=== PATIENT | male | born 1930 | race Caucasian/White ===

== ENCOUNTER 2018-11-28 10:37 | Inpatient (IN) | payer MEDICARE, OTHER ==
[~2018-11-28] VITALS: Ht 177.8 cm; Wt 76.5 kg
[~2018-11-28 10:37] MED LIST: AMIO200T4 PO; ASPI-612 PO; DOCU100C28 PO; MELA3TAB2 PO; MIDO5TAB PO; PENI500T PO; SENN25TA PO; SIMV10TA3 PO; TAMS0.4C97 PO; WARF-31 PO; WARF2.5T71 PO
[2018-11-28] MEDS ORDERED: IPRATRPIUM/ALBUTEROL 0.5/2.5MG 3 ML NEBU. NEB ONE (11:00)
--- NOTE | 2018-11-28 11:22 | RAD ---
CHEST AP ONLY History: Shortness of air Comparison: 11/04/2018 Findings: Single view of the chest is submitted. There is again on triple lead left electronic cardiac device. Pericardial cardiac silhouette is again enlarged. There is now [id number] left pleural effusion, probable trace right pleural effusion. There is airspace opacity bilateral lung bases. There is no pneumothorax. Impression: 1. There is now small to moderate left pleural effusion, possible trace right pleural effusion. Findings could be due to left ventricular failure given the enlarged pericardial cardiac silhouette. Electronically signed by: Gonzalo Robledo MD (11/28/2018 11:19 AM) [id number]
--- NOTE | 2018-11-28 11:34 | EKG ---
[facility] [address] [place] [address] Test Date: 2018-11-28 Test Time: 11:21:21 Pat Name: KRISTIE CAMPUZANO Department: Room: Gender: M Community Service Manager: : [id number] Requested By: CHELSEA PRINGLE Order Number: [id number] Reading MD: Shantanu Crow MD Measurements Intervals [place] Rate: 91 P: MD: QRS: -60 QRSD: 146 T: 87 QT: 414 QTc: 511 Interpretive Statements V-PACED Electronically Signed On 12-03-2018 7:53:58 WELDER REPAIR by Shantanu Crow MD
[2018-11-28 11:43] LABS: BASO # 0.1 x10^3/uL (0.0-0.2); BASO % 1 % (0-3); EOS % 0 % (0-3); HEMATOCRIT 32.7 % (39.0-53.0); LYMPH # 0.9 x10^3/uL (1.0-4.8); LYMPH % 10 % (24-48); MEAN CORPUSCULAR HEMOGLOBIN 32 pg (25-35); MEAN CORPUSCULAR HGB CONC 34 g/dL (31-37); MEAN CORPUSCULAR VOLUME 95 fL (79-100); MONO # 0.8 x10^3/uL (0.0-1.1); MONO % 10 % (0-9); NEUT # 6.7 x10^3uL (1.8-7.7); NEUT % 79 % (31-73); PLATELET COUNT 464 x10^3/uL (140-400); RED BLOOD COUNT 3.44 x10^6/uL (4.30-5.70); RED CELL DISTRIBUTION WIDTH 14.9 % (11.5-14.5); WHITE BLOOD COUNT 8.5 x10^3/uL (4.0-11.0)
[2018-11-28 12:42] LABS: CALCIUM 8.3 mg/dL (8.5-10.1); CREATININE 1.2 mg/dL (0.7-1.3); GFR 57.4; POTASSIUM 4.7 mmol/L (3.5-5.1)
[2018-11-28 12:47] LABS: DIRECT BILIRUBIN 0.2 mg/dL (0.0-0.2); TOTAL BILIRUBIN 0.5 mg/dL (0.2-1.0); TOTAL PROTEIN 5.7 g/dL (6.4-8.2)
[2018-11-28] MEDS ORDERED: FUROSEMIDE 20 MG/2 ML VIAL. IVP ONE (14:00)
[2018-11-28] MEDS ORDERED: MORPHINE SULFATE 4 MG/ML VIAL. IV PRN (14:00)
[2018-11-28] MEDS ORDERED: ONDANSETRON PF 4 MG/2 ML VIAL. IV PRN (14:00)
--- NOTE | 2018-11-28 14:02 | PHYS DOC ---
Past Medical History Past Medical History: CHF, Hypotension, Renal Disease Past Surgical History: Pacemaker Additional Past Surgical Histo: Pacemaker placement Alcohol Use: None Drug Use: None Adult General Chief Complaint Chief Complaint: SHORTNESS OF BREATH HPI HPI 88-year-old male presenting the emergency department today with worsening shortness of breath over the past 2 months. It is exertional shortness of breath. He has a history of CHF hyperlipidemia and urinary retention. He has also noticed bilateral pedal edema which has been worsening over the past months. Location lungs. Duration intermittent. Improved with rest. Review of systems is negative for chest pain abdominal pain nausea vomiting diaphoresis. All other review of systems is negative unless otherwise noted in history of present illness. ED course: 88-year-old male presenting with shortness of breath. Chest x-ray suggestive of heart failure. Exam is suggestive heart failure. ProBNP is quite elevated. We will give the patient IV Lasix and admit him to the hospital for cardiology consultation and diuresis. EKG reviewed by myself shows a paced rhythm. Not consistent with ACS. Review of Systems Review of Systems SEE ABOVE. Current Medications Current Medications Current Medications Medications (Trade) Dose Ordered Sig/Teddy Start Time Stop Time Status Last Admin Dose Admin Albuterol/ Ipratropium (Duoneb) 3 ml 1X ONCE 11/28/18 11:00 11/28/18 11:01 DC 11/28/18 11:03 3 ML Allergies Allergies Allergies Coded Allergies Type Severity Reaction Last Updated Verified No Known Drug Allergies 11/04/18 No Physical Exam Physical Exam SEE ABOVE Constitutional: Well developed, well nourished, no acute distress, non-toxic appearance. [] HENT: Normocephalic, atraumatic, bilateral external ears normal, oropharynx moist, no oral exudates, nose normal. [] Eyes: PERRLA, EOMI, conjunctiva normal, no discharge. [] Neck: Normal range of motion, no tenderness, supple, no stridor. [] Cardiovascular: Mild crackles at the bases lungs. Lungs & Thorax: Bilateral breath sounds clear to auscultation [] Abdomen: Bowel sounds normal, soft, no tenderness, no masses, no pulsatile masses. [] Skin: Warm, dry, no erythema, no rash. [] Back: No tenderness, no CVA tenderness. [] Extremities: No tenderness, no cyanosis, no clubbing, ROM intact, 2+ edema. [] Neurologic: Alert and oriented X 3, normal motor function, normal sensory function, no focal deficits noted. [] Psychologic: Affect normal, judgement normal, mood normal. [] Current Patient Data Vital Signs Vital Signs Date Time Temp Pulse Resp B/P (MAP) Pulse Ox O2 Delivery O2 Flow Rate FiO2 11/28/18 11:03 96 Room Air 11/28/18 10:59 97.9 96 22 117/59 (78) 97.9 Lab Values Laboratory Tests Test 11/28/18 11:31 11/28/18 12:00 White Blood Count 8.5 x10^3/uL (4.0-11.0) Red Blood Count 3.44 x10^6/uL (4.30-5.70) L Hemoglobin 11.0 g/dL (13.0-17.5) L Hematocrit 32.7 % (39.0-53.0) L Mean Corpuscular Volume 95 fL (79-100) Mean Corpuscular Hemoglobin 32 pg (25-35) Mean Corpuscular Hemoglobin Concent 34 g/dL (31-37) Red Cell Distribution Width 14.9 % (11.5-14.5) H Platelet Count 464 x10^3/uL (140-400) H Neutrophils (%) (Auto) 79 % (31-73) H Lymphocytes (%) (Auto) 10 % (24-48) L Monocytes (%) (Auto) 10 % (0-9) H Eosinophils (%) (Auto) 0 % (0-3) Basophils (%) (Auto) 1 % (0-3) Neutrophils # (Auto) 6.7 x10^3uL (1.8-7.7) Lymphocytes # (Auto) 0.9 x10^3/uL (1.0-4.8) L Monocytes # (Auto) 0.8 x10^3/uL (0.0-1.1) Eosinophils # (Auto) 0.0 x10^3/uL (0.0-0.7) Basophils # (Auto) 0.1 x10^3/uL (0.0-0.2) Sodium Level 131 mmol/L (136-145) L Potassium Level 4.7 mmol/L (3.5-5.1) Chloride Level 97 mmol/L (98-107) L Carbon Dioxide Level 27 mmol/L (21-32) Anion Gap 7 (6-14) Blood Urea Nitrogen 22 mg/dL (8-26) Creatinine 1.2 mg/dL (0.7-1.3) Estimated GFR (Cockcroft-Gault) 57.4 Glucose Level 101 mg/dL (70-99) H Calcium Level 8.3 mg/dL (8.5-10.1) L Total Bilirubin 0.5 mg/dL (0.2-1.0) Direct Bilirubin 0.2 mg/dL (0.0-0.2) Aspartate Amino Transferase (AST) 36 U/L (15-37) Alanine Aminotransferase (ALT) 30 U/L (16-63) Alkaline Phosphatase 122 U/L (46-116) H Troponin I Quantitative 0.027 ng/mL (0.000-0.055) EO-Qub-E-Type Natriuretic Peptide 6741 pg/mL (0-449) H Total Protein 5.7 g/dL (6.4-8.2) L Albumin 2.0 g/dL (3.4-5.0) L Lipase 115 U/L (73-393) Laboratory Tests 11/28/18 11:31 Laboratory Tests 11/28/18 12:00 EKG EKG [] Radiology/Procedures Radiology/Procedures [] Course & Med Decision Making Course & Med Decision Making Pertinent Labs and Imaging studies reviewed. (See chart for details) [] Dragon Disclaimer Dragon Disclaimer This electronic medical record was generated, in whole or in part, using a voice recognition dictation system. Departure Departure Impression: Primary Impression: CHF exacerbation Disposition: ADMITTED INPATIENT Admitting Physician: Max Jenkins Condition: STABLE Referrals: UNKNOWN PCP NAME (PCP) CHELSEA PRINGLE MD Nov 28, 2018 14:02
--- NOTE | 2018-11-28 14:43 | PDOC1 ---
History and Physical Date of Admission Date of Admission DATE: 11/28/18 TIME: 14:43 Identification/Chief Complaint Chief Complaint seen in er with worsening shortness of breath , exertional shortness of breath. history of CHF hyperlipidemia and urinary retention. He has also noticed bilateral pedal edema which has been worsening Duration intermittent. Improved with rest. Review of systems is negative for chest pain abdominal pain nausea vomiting diaphoresis. Chest x-ray suggestive of heart failure. ProBNP , elevated. Past Medical History Past Medical History Past Medical History Past Medical History: CHF, Hypotension, Renal Disease Past Surgical History: Pacemaker Additional Past Surgical Histo: Pacemaker placement Alcohol Use: None Drug Use: None FAMILY HX HTN Cardiovascular: Other Musculoskeletal: Osteoarthritis Infectious disease: No pertinent hx Renal/: Other Dermatology: No pertinent hx Family History Family History: Hypertension, Family History Unknown Social History Smoke: No ALCOHOL: none Drugs: None Current Problem List Problem List Problems Medical Problems: (1) CHF exacerbation Status: Acute Current Medications Current Medications Current Medications Albuterol/ Ipratropium (Duoneb) 3 ml 1X ONCE NEB Last administered on at 11:03; Start 11/28/18 at 11:00; Stop 11/28/18 at 11:01; Status DC Furosemide (Lasix) 20 mg 1X ONCE IVP ; Start 11/28/18 at 14:00; Stop 11/28/18 at 14:01; Status DC Ondansetron HCl (Zofran) 4 mg PRN Q8HRS PRN IV NAUSEA/VOMITING; Start 11/28/18 at 14:00; Stop 11/29/18 at 13:59 Morphine Sulfate (Morphine Sulfate) 2 mg PRN Q2HR PRN IV PAIN; Start 11/28/18 at 14:00; Stop 11/29/18 at 13:59 Active Scripts Active Flomax (Tamsulosin Hcl) 0.4 Mg Cap.er.24h 0.4 Mg PO DAILY 30 Days Reported Warfarin Sodium 2.5 Mg Tablet 2.5 Mg PO SUN,SUN,,SAT,SUN Warfarin Sodium 5 Mg Tablet 5 Mg PO SUNDAY AND SUNDAY Simvastatin 10 Mg Tablet 1 Tab PO QHS Midodrine Hcl 5 Mg Tablet 5 Mg PO TID Melatonin 3 Mg Tablet 5 Mg PO HS PRN Ex-Lax Maximum Relief (Sennosides) 25 Mg Tablet 50 Mg PO DAILY Docusate Sodium 100 Mg Capsule 1 Cap PO BID PRN Aspirin Ec (Aspirin) 81 Mg Tablet. 1 Tab PO DAILY Amiodarone Hcl 200 Mg Tablet 1 Tab PO DAILY Allergies Allergies: Coded Allergies: No Known Drug Allergies (Unverified , 11/04/18) ROS General: YES: Fatigue; No: Chills, Night Sweats, Malaise, Appetite, Other PSYCHOLOGICAL ROS: No: Anxiety, Behavioral Disorder, Concentration difficultie , Decreased libido, Depression, Disorientation, Hallucinations, Hostility, Irritablity, Memory difficulties, Mood Swings, Obsessive thoughts, Physical abuse, Sexual abuse, Sleep disturbances, Suicidal ideation, Other Eyes: No Blurry vision, No Decreased vision, No Double vision, No Dry eyes, No Excessive tearing, No Eye Pain, No Itchy Eyes, No Loss of vision, No Photophobia , No Scotomata, No Uses contacts, No Uses glasses, No Other HEENT: No: Heacaches, Visual Changes, Hearing change, Nasal congestion, Nasal discharge, Oral lesions, Sinus pain, Sore Throat, Epistaxis, Sneezing, Snoring, Tinnitus, Vertigo, Vocal changes, Other ALLERGY AND IMMUNOLOGY: No: Hives, Insect Bite Sensitivity, Itchy/Watery Eyes, Nasal Congestion, Post Nasal Drip, Seasonal Allergies, Other Hematological and Lymphatic: No: Bleeding Problems, Blood Clots, Blood Transfusions, Brusing, Night Sweats, Pallor, Swollen Lymph Nodes, Other Breast: No New/Changing Breast Lumps, No Nipple changes, No Nipple discharge, No Other Respiratory: YES: Shortness of breath, SOB with excertion; No: Cough, Hemoptysis, Orthopnea, Pleuritic Pain, Sputum Changes, Stridor, Tachypnea, Wheezing, Other Cardiovascular: yes Paroxysmal Noc. Dyspnea Gastrointestinal: No Nausea, No Vomiting, No Abdominal Pain, No Diarrhea, No Constipation, No Melena, No Hematochezia, No Other Genitourinary: YES Retention Musculoskeletal: Yes Joint Stiffness Neurological: No Behavorial Changes, No Bowel/Bladder ControlChng, No Confusion , No Dizziness, No Gait Disturbance, No Headaches, No Impaired Coord/balance, No Memory Loss, No Numbness/Tingling, No Seizures, No Speech Problems, No Tremors, No Visual Changes, No Weakness, No Other Skin: No Dry Skin, No Eczema, No Hair Changes, No Lumps, No Mole Changes, No Mottling, No Nail Changes, No Pruritus, No Rash, No Skin Lesion Changes, No Other, No Acne Physical Exam Physical Exam Physical Exam Physical Exam SEE ABOVE Constitutional: Well developed, well nourished, mild acute distress, non-toxic appearance. [] HENT: Normocephalic, atraumatic, bilateral external ears normal, oropharynx moist, no oral exudates, nose normal. [] Eyes: PERRLA, EOMI, conjunctiva normal, no discharge. [] Neck: Normal range of motion, no tenderness, supple, no stridor. [] Cardiovascular: Mild crackles at the bases lungs. Lungs & Thorax: Bilateral breath sounds clear to auscultation [] Abdomen: Bowel sounds normal, soft, no tenderness, no masses, no pulsatile masses. [] Skin: Warm, dry, no erythema, no rash. [] Back: No tenderness, no CVA tenderness. [] Extremities: No tenderness, no cyanosis, no clubbing, ROM intact, 2+ edema. [] Neurologic: Alert and oriented X 3, normal motor function, normal sensory function, no focal deficits noted. [] Psychologic: Affect normal, judgement normal, mood normal. [] General: Cooperative, mild distress HEENT: EOMI, Mucous membr. moist/pink Lungs: Normal air movement Heart: no thrills Breasts: Not examined Abdomen: Soft Rectal Exam: not examined PELVIC: Examination not indicated Extremities: No cyanosis Neuro: Normal speech, Cranial nerves 3-12 NL Psych/Mental Status: Mental status NL, Mood NL Vitals Vitals Vital Signs Date Time Temp Pulse Resp B/P (MAP) Pulse Ox O2 Delivery O2 Flow Rate FiO2 11/28/18 11:03 96 Room Air 11/28/18 10:59 97.9 96 22 117/59 (78) 97.9 Labs Labs Laboratory Tests Test 11/28/18 11:31 11/28/18 12:00 White Blood Count 8.5 x10^3/uL (4.0-11.0) Red Blood Count 3.44 x10^6/uL (4.30-5.70) Hemoglobin 11.0 g/dL (13.0-17.5) Hematocrit 32.7 % (39.0-53.0) Mean Corpuscular Volume 95 fL (79-100) Mean Corpuscular Hemoglobin 32 pg (25-35) Mean Corpuscular Hemoglobin Concent 34 g/dL (31-37) Red Cell Distribution Width 14.9 % (11.5-14.5) Platelet Count 464 x10^3/uL (140-400) Neutrophils (%) (Auto) 79 % (31-73) Lymphocytes (%) (Auto) 10 % (24-48) Monocytes (%) (Auto) 10 % (0-9) Eosinophils (%) (Auto) 0 % (0-3) Basophils (%) (Auto) 1 % (0-3) Neutrophils # (Auto) 6.7 x10^3uL (1.8-7.7) Lymphocytes # (Auto) 0.9 x10^3/uL (1.0-4.8) Monocytes # (Auto) 0.8 x10^3/uL (0.0-1.1) Eosinophils # (Auto) 0.0 x10^3/uL (0.0-0.7) Basophils # (Auto) 0.1 x10^3/uL (0.0-0.2) Sodium Level 131 mmol/L (136-145) Potassium Level 4.7 mmol/L (3.5-5.1) Chloride Level 97 mmol/L (98-107) Carbon Dioxide Level 27 mmol/L (21-32) Anion Gap 7 (6-14) Blood Urea Nitrogen 22 mg/dL (8-26) Creatinine 1.2 mg/dL (0.7-1.3) Estimated GFR (Cockcroft-Gault) 57.4 Glucose Level 101 mg/dL (70-99) Calcium Level 8.3 mg/dL (8.5-10.1) Total Bilirubin 0.5 mg/dL (0.2-1.0) Direct Bilirubin 0.2 mg/dL (0.0-0.2) Aspartate Amino Transf (AST/SGOT) 36 U/L (15-37) Alanine Aminotransferase (ALT/SGPT) 30 U/L (16-63) Alkaline Phosphatase 122 U/L (46-116) Troponin I Quantitative 0.027 ng/mL (0.000-0.055) TG-Gzd-B-Type Natriuretic Peptide 6741 pg/mL (0-449) Total Protein 5.7 g/dL (6.4-8.2) Albumin 2.0 g/dL (3.4-5.0) Lipase 115 U/L (73-393) Laboratory Tests Test 11/28/18 11:31 11/28/18 12:00 White Blood Count 8.5 x10^3/uL (4.0-11.0) Red Blood Count 3.44 x10^6/uL (4.30-5.70) Hemoglobin 11.0 g/dL (13.0-17.5) Hematocrit 32.7 % (39.0-53.0) Mean Corpuscular Volume 95 fL (79-100) Mean Corpuscular Hemoglobin 32 pg (25-35) Mean Corpuscular Hemoglobin Concent 34 g/dL (31-37) Red Cell Distribution Width 14.9 % (11.5-14.5) Platelet Count 464 x10^3/uL (140-400) Neutrophils (%) (Auto) 79 % (31-73) Lymphocytes (%) (Auto) 10 % (24-48) Monocytes (%) (Auto) 10 % (0-9) Eosinophils (%) (Auto) 0 % (0-3) Basophils (%) (Auto) 1 % (0-3) Neutrophils # (Auto) 6.7 x10^3uL (1.8-7.7) Lymphocytes # (Auto) 0.9 x10^3/uL (1.0-4.8) Monocytes # (Auto) 0.8 x10^3/uL (0.0-1.1) Eosinophils # (Auto) 0.0 x10^3/uL (0.0-0.7) Basophils # (Auto) 0.1 x10^3/uL (0.0-0.2) Sodium Level 131 mmol/L (136-145) Potassium Level 4.7 mmol/L (3.5-5.1) Chloride Level 97 mmol/L (98-107) Carbon Dioxide Level 27 mmol/L (21-32) Anion Gap 7 (6-14) Blood Urea Nitrogen 22 mg/dL (8-26) Creatinine 1.2 mg/dL (0.7-1.3) Estimated GFR (Cockcroft-Gault) 57.4 Glucose Level 101 mg/dL (70-99) Calcium Level 8.3 mg/dL (8.5-10.1) Total Bilirubin 0.5 mg/dL (0.2-1.0) Direct Bilirubin 0.2 mg/dL (0.0-0.2) Aspartate Amino Transf (AST/SGOT) 36 U/L (15-37) Alanine Aminotransferase (ALT/SGPT) 30 U/L (16-63) Alkaline Phosphatase 122 U/L (46-116) Troponin I Quantitative 0.027 ng/mL (0.000-0.055) VT-Jsl-E-Type Natriuretic Peptide 6741 pg/mL (0-449) Total Protein 5.7 g/dL (6.4-8.2) Albumin 2.0 g/dL (3.4-5.0) Lipase 115 U/L (73-393) Images Images REASON: Acute renal failure PROCEDURE: RENAL COMPLETE BILATERAL Indication: Acute renal failure. Increasing creatinine. TECHNIQUE: Ultrasound of the kidneys and bladder. COMPARISON: None FINDINGS: The right kidney measures 10.6 x 4.7 x 4.0 cm (longitudinal, AP, transverse) with mildly dilated renal pelvis. There is an exophytic 1.2 x 1.0 x 1.0 cm hypoechoic lesion in the upper pole of the right kidney most likely a cyst. Bryant catheter is seen in the bladder with circumferential wall thickening measuring 6 mm. Left kidney measures 10.7 x 5.1 x 2.8 cm with dilated renal pelvis more than right side. Left kidney appears more echogenic than right side. IMPRESSION: 1. Bilaterally dilated renal pelvises, left more than right suggests mild hydronephrosis. 2. Circumferential wall thickening of the urinary bladder may be secondary to cystitis. Correlate with urinalysis. 3. Asymmetric echogenic appearance of the left kidney suggests underlying renal disease. Electronically signed by: Jhony Lorenzo DO (11/05/2018 8:56 AM) [id number] DICTATED and SIGNED BY: JHONY LORENZO DO DATE: 11/05/18 0852 VTE Prophylaxis Ordered VTE Prophylaxis Devices: Contraindicated VTE Pharmacological Prophylaxi: Yes Assessment/Plan Assessment/Plan IMPRESSION urinary retention / obstruction. Asymmetric echogenic appearance of the left kidney suggests underlying renal disease. Severe Hyponatremia, resolved [employer] Hyperkalemia, resolved - secondary to renal failure [employer] warfarin per pharmacy Afib - continue amio - warfarin HLD statin therapy Hypotension with syncopal episode, hospitalized at NOV 2018 - continue midodrine - TTE with Ef 30% - normal RECENT AM cortisol CHF, PLAN ADMIT CVC CARDS CONSULT CLAU BUSCH MD Nov 28, 2018 14:43
[2018-11-28 17:48] VITALS: BP 122/71
[2018-11-28 19:20] VITALS: BP 101/61
[2018-11-28] MEDS ORDERED: NON FORMULARY ITEM (Melatonin 5 MG) PO PRN (20:45)
[2018-11-28] MEDS ORDERED: DOCUSATE SODIUM 100 MG CAPSULE. PO PRN (20:45)
[2018-11-28] MEDS ORDERED: NON FORMULARY ITEM (Warfarin Sodium 5 MG) PO SCH (20:45)
[2018-11-28] MEDS: SIMVASTATIN 10 MG TABLET PO SCH (21:28)
[2018-11-28 23:19] VITALS: BP 104/72
[2018-11-29 01:45] LABS: BILIRUBIN,URINE NEGATIVE (NEG); CLARITY,URINE CLOUDY; COLOR,URINE YELLOW; NITRITE,URINE POSITIVE (NEG); PROTEIN,URINE NEGATIVE (NEG-TRACE)
[2018-11-29 01:52] LABS: BACTERIA,URINE MANY /HPF (0-FEW); SQUAMOUS EPITHELIAL CELL,UR OCC /LPF; WBC,URINE 20-40 /HPF (0-4)
[2018-11-29 03:08] VITALS: BP 118/72
[2018-11-29 05:14] LABS: BASO # 0.1 x10^3/uL (0.0-0.2); BASO % 1 % (0-3); EOS % 0 % (0-3); HEMATOCRIT 32.8 % (39.0-53.0); HEMOGLOBIN 11.2 g/dL (13.0-17.5); LYMPH # 1.5 x10^3/uL (1.0-4.8); LYMPH % 16 % (24-48); MEAN CORPUSCULAR HEMOGLOBIN 32 pg (25-35); MEAN CORPUSCULAR HGB CONC 34 g/dL (31-37); MEAN CORPUSCULAR VOLUME 94 fL (79-100); MONO # 0.9 x10^3/uL (0.0-1.1); MONO % 9 % (0-9); NEUT % 74 % (31-73); PLATELET COUNT 455 x10^3/uL (140-400); RED BLOOD COUNT 3.48 x10^6/uL (4.30-5.70); RED CELL DISTRIBUTION WIDTH 14.7 % (11.5-14.5); WHITE BLOOD COUNT 9.4 x10^3/uL (4.0-11.0)
[2018-11-29 05:36] LABS: PROTHROMBIN TIME PATIENT 66.2 SEC (11.7-14.0)
[2018-11-29 05:45] LABS: CALCIUM 8.2 mg/dL (8.5-10.1); CREATININE 1.2 mg/dL (0.7-1.3); GFR 57.4; POTASSIUM 4.1 mmol/L (3.5-5.1)
--- NOTE | 2018-11-29 05:50 | NUR ---
CRITICAL RESULTS: PROTIME-66.2, INR-7.7, DR BUSCH NOTIFIED ORDER RECEIVED TO GIVE VITAMIN K 5MG NOW, DAILY PT/INR, HOLD COUMADIN, NO BLEEDING NOTED, CALL LIGHT IN REACH. PMRN
--- NOTE | 2018-11-29 06:02 | NUR ---
Pharmacy Warfarin Dosing Note S:Pharmacy consulted to assist with anticoagulation therapy started with target INR: 2 -3 O:KRISTIE CAMPUZANO is a 88 year old M with Atrial Fibrillation LABS: Last INR: 7.7 Last HGB: 11 Last HCT: 32.7 Last PLT: 464 Last dose of Hold given on at Previous Regimen: 5MG SUN AND SUNDAY. 2.5 MG OTHER DAYS Vitamin K given: Y 5 MG PO Drug Interaction Changes: Ongoing Drug Interactions: A:INR of 7.7 is above desired range. Target range for this patient is: 2 -3 P: Warfarin dose: Hold Now Bridge Therapy: None Next INR due DAILY Pharmacy anticoagulation service will continue to follow. SELENA LEONARD RPH, 11/29/18 0603 Signed: 11/29/18 at 0603 by SELENA LEONARD RPH PHA
[2018-11-29] MEDS: MIDODRINE 5 MG TABLET PO SCH ×3 (06:19→18:02)
[2018-11-29] MEDS ORDERED: PHYTONADIONE 10 MG/ML ORAL SOLUTION. PO ONE (06:30)
[2018-11-29 07:00] VITALS: BP 116/83
[2018-11-29] MEDS: SENNOSIDES 8.6 MG TABLET PO SCH (08:48)
[2018-11-29] MEDS: AMIODARONE HCL 200 MG TABLET. PO SCH (08:48)
[2018-11-29] MEDS: TAMSULOSIN 0.4 MG CAP.ER.24H. PO SCH (08:48)
[2018-11-29] MEDS: ASPIRIN ENTERIC COATED 81 MG TABLET.DR. PO SCH (08:48)
--- NOTE | 2018-11-29 10:54 | PDOC2 ---
CARDIAC CONSULT DATE OF CONSULT Date of Consult DATE: 11/29/18 TIME: 10:11 REASON FOR CONSULT Reason for Consult: CHF REFERRING PHYSICIAN Referring Physician: Mindy SOURCE Source: Chart review, Patient HISTORY OF PRESENT ILLNESS HISTORY OF PRESENT ILLNESS This is an 88 yo male, with a history of CHF, CAD, NICM s/p Bi V ICD (Medtronic) , permanent AFIB who presented secondary to shortness of breath. Patient reports this has been present for the last couple of month. Normally occurs with exertion, but has been present at rest. Denies any specific chest pain, palpitations, dizziness, diaphoresis, or nausea/vomiting. Has noticed some slight LE edema. Wears compression stockings regularly. Denies any specific orthopnea or PND. [place] [facility] [place] due to location of residence, patient would like all inpatient and outpatient care to be at [facility]. Lives at home with son and [id number]. Uses cane to ambulate. Recently using walker for extended distances. [facility] records reviewed; 10/19/06 CONSERVATION COORDINATOR-D ([employer]) Generator change 07/12/2015 10/31/10 Cath - 70% stenosis in 2nd Dx (small to medium size) - mild disease in the prox, mid, and distal LAD and OMB - LVEF 20% 03/22/18 Stress test - Subtle apical inferior fixed defect is present, and a zone of injury/ infarction with retained viability cannot be excluded. The reduction in LVEF appears out of proportion to this perfusion defect, suggesting a NICM process. LVEF 18% 10/25/18 Echo - Mildly dilated LV with moderately depressed systolic function and global hypokinesis. EF 30% - Moderate bi-atrial enlargement - No significant valvular stenosis or regurg. - Mildly dilated sinuses of valsalva (3.7 cm) - PAP 30 mmHG 11/25/18 Br. Hoang Progress note 1. Severe NICM; SOA with mild activity. Possible related to AFIB and uncontrolled rates. On Amiodarone, which is not able to control the rates. The Amiodarone is possibly being used for high PVC burden. Low blood pressure preventing use of usual rate control agents. 2. Hypotension; on Midodrine 3. Permanent AFIB; with uncontrolled ventricular rate. on Coumadin for stroke prevention. Toprol 12.5mg is being added at HS to help with rate control. 4. S/p Bi V ICD 5. H/o high PVC burden and runs of NSVT, on amiodarone. Asymptomatic. 6. CAD- involving s small Dx branch, asymptomatic. Due to location, patient would like all cardiac care, both inpatient and outpatient, to be at [facility]. Patient scheduled to establish care with Dr. Crow. PAST MEDICAL HISTORY Cardiovascular: AFIB, CAD, CHF, HTN, Hyperlipidemia Pulmonary: No pertinent hx GI: No pertinent hx Heme/Onc: No pertinent hx Hepatobiliary: No pertinent hx Psych: No pertinent hx Musculoskeletal: Osteoarthritis Rheumatologic: No pertinent hx Infectious disease: No pertinent hx ENT: No pertinent hx Renal/: Chronic renal insuff, Other (urinary retention) Endocrine: No pertinent hx Dermatology: No pertinent hx PAST SURGICAL HISTORY Past Surgical History: Pacemaker (CONSERVATION COORDINATOR-D (Medtronic)) FAMILY HISTORY Family History: Cancer, Diabetes, Hypertension SOCIAL HISTORY Drugs: None Lives: with Family CURRENT MEDICATIONS CURRENT MEDICATIONS Current Medications Medications (Trade) Dose Ordered Sig/Teddy Route PRN Reason Start Time Stop Time Status Last Admin Dose Admin Albuterol/ Ipratropium (Duoneb) 3 ml 1X ONCE NEB 11/28/18 11:00 11/28/18 11:01 DC 11/28/18 11:03 Furosemide (Lasix) 20 mg 1X ONCE IVP 11/28/18 14:00 11/28/18 14:01 DC 11/28/18 16:42 Amiodarone HCl (Cordarone) 200 mg DAILY PO 11/29/18 09:00 11/29/18 08:48 Aspirin (Ecotrin) 81 mg DAILY PO 11/29/18 09:00 11/29/18 08:48 Docusate Sodium (Colace) 100 mg PRN BID PRN PO CONSTIPATION 1ST CHOICE 11/28/18 20:45 11/29/18 08:48 Simvastatin (Zocor) 10 mg QHS PO 11/28/18 21:00 11/28/18 21:28 Tamsulosin HCl (Flomax) 0.4 mg DAILY PO 11/29/18 09:00 11/29/18 08:48 Sennosides (Senna) 8.6 mg DAILY PO 11/29/18 09:00 11/29/18 08:48 Midodrine (Proamatine) 5 mg [id number] PO 11/29/18 07:00 11/29/18 06:19 Warfarin Sodium (Coumadin Per Pharmacy) 1 each PRN DAILY PRN MC SEE COMMENTS 11/29/18 01:15 11/29/18 06:02 Phytonadione (Mephyton Oral Soln) 5 mg 1X ONCE PO 11/29/18 06:30 11/29/18 06:31 DC 11/29/18 06:17 ALLERGIES ALLERGIES: Coded Allergies: No Known Drug Allergies (Unverified , 11/04/18) ROS Review of System 14 point ROS conducted with pertinent positives noted above in HPI. PHYSICAL EXAM General: Alert, Oriented X3, Cooperative, mild distress HEENT: Atraumatic, Mucous membr. moist/pink Lungs: Other (diminished base, fine basilar crackles ) Heart: No murmurs, Other (AFIB- intermittent v-paced. Occasional PVCs) Abdomen: No tenderness Extremities: Normal pulses, Other (trace bilateral LE edema ) Skin: No significant lesion Neuro: Normal speech, Sensation intact Psych/Mental Status: Mental status NL, Mood NL MUSCULOSKELETAL: Osteoarthritic changes both hands VITALS VITALS Vital Signs Date Time Temp Pulse Resp B/P (MAP) Pulse Ox O2 Delivery O2 Flow Rate FiO2 11/29/18 08:48 84 116/83 11/29/18 07:40 Room Air 11/29/18 07:00 98.0 16 98 2.0 98.0 LABS Lab: Laboratory Tests Test 11/28/18 11:31 11/28/18 12:00 11/28/18 17:00 11/28/18 20:20 White Blood Count 8.5 x10^3/uL (4.0-11.0) Red Blood Count 3.44 x10^6/uL (4.30-5.70) Hemoglobin 11.0 g/dL (13.0-17.5) Hematocrit 32.7 % (39.0-53.0) Mean Corpuscular Volume 95 fL (79-100) Mean Corpuscular Hemoglobin 32 pg (25-35) Mean Corpuscular Hemoglobin Concent 34 g/dL (31-37) Red Cell Distribution Width 14.9 % (11.5-14.5) Platelet Count 464 x10^3/uL (140-400) Neutrophils (%) (Auto) 79 % (31-73) Lymphocytes (%) (Auto) 10 % (24-48) Monocytes (%) (Auto) 10 % (0-9) Eosinophils (%) (Auto) 0 % (0-3) Basophils (%) (Auto) 1 % (0-3) Neutrophils # (Auto) 6.7 x10^3uL (1.8-7.7) Lymphocytes # (Auto) 0.9 x10^3/uL (1.0-4.8) Monocytes # (Auto) 0.8 x10^3/uL (0.0-1.1) Eosinophils # (Auto) 0.0 x10^3/uL (0.0-0.7) Basophils # (Auto) 0.1 x10^3/uL (0.0-0.2) Sodium Level 131 mmol/L (136-145) Potassium Level 4.7 mmol/L (3.5-5.1) Chloride Level 97 mmol/L (98-107) Carbon Dioxide Level 27 mmol/L (21-32) Anion Gap 7 (6-14) Blood Urea Nitrogen 22 mg/dL (8-26) Creatinine 1.2 mg/dL (0.7-1.3) Estimated GFR (Cockcroft-Gault) 57.4 Glucose Level 101 mg/dL (70-99) Calcium Level 8.3 mg/dL (8.5-10.1) Total Bilirubin 0.5 mg/dL (0.2-1.0) Direct Bilirubin 0.2 mg/dL (0.0-0.2) Aspartate Amino Transf (AST/SGOT) 36 U/L (15-37) Alanine Aminotransferase (ALT/SGPT) 30 U/L (16-63) Alkaline Phosphatase 122 U/L (46-116) Troponin I Quantitative 0.027 ng/mL (0.000-0.055) 0.021 ng/mL (0.000-0.055) 0.023 ng/mL (0.000-0.055) HS-Lwl-T-Type Natriuretic Peptide 6741 pg/mL (0-449) Total Protein 5.7 g/dL (6.4-8.2) Albumin 2.0 g/dL (3.4-5.0) Lipase 115 U/L (73-393) Test 11/29/18 01:30 11/29/18 04:50 11/29/18 07:40 Urine Collection Type Unknown Urine Color Yellow Urine Clarity Cloudy Urine pH 5.0 Urine Specific [place] 1.015 Urine Protein Negative mg/dL (NEG-TRACE) Urine Glucose (UA) Negative mg/dL (NEG) Urine Ketones (Stick) Negative mg/dL (NEG) Urine Blood Small (NEG) Urine Nitrite Positive (NEG) Urine Bilirubin Negative (NEG) Urine Urobilinogen Dipstick 1.0 mg/dL (0.2 mg/dL) Urine Leukocyte Esterase Large (NEG) Urine RBC 3-5 /HPF (0-2) Urine WBC 20-40 /HPF (0-4) Urine Squamous Epithelial Cells Occ /LPF Urine Bacteria Many /HPF (0-FEW) Urine Mucus Mod /LPF White Blood Count 9.4 x10^3/uL (4.0-11.0) Red Blood Count 3.48 x10^6/uL (4.30-5.70) Hemoglobin 11.2 g/dL (13.0-17.5) Hematocrit 32.8 % (39.0-53.0) Mean Corpuscular Volume 94 fL (79-100) Mean Corpuscular Hemoglobin 32 pg (25-35) Mean Corpuscular Hemoglobin Concent 34 g/dL (31-37) Red Cell Distribution Width 14.7 % (11.5-14.5) Platelet Count 455 x10^3/uL (140-400) Neutrophils (%) (Auto) 74 % (31-73) Lymphocytes (%) (Auto) 16 % (24-48) Monocytes (%) (Auto) 9 % (0-9) Eosinophils (%) (Auto) 0 % (0-3) Basophils (%) (Auto) 1 % (0-3) Neutrophils # (Auto) 7.0 x10^3uL (1.8-7.7) Lymphocytes # (Auto) 1.5 x10^3/uL (1.0-4.8) Monocytes # (Auto) 0.9 x10^3/uL (0.0-1.1) Eosinophils # (Auto) 0.0 x10^3/uL (0.0-0.7) Basophils # (Auto) 0.1 x10^3/uL (0.0-0.2) Prothrombin Time 66.2 SEC (11.7-14.0) Prothromb Time International Ratio 7.7 (0.8-1.1) Sodium Level 133 mmol/L (136-145) Potassium Level 4.1 mmol/L (3.5-5.1) Chloride Level 98 mmol/L (98-107) Carbon Dioxide Level 25 mmol/L (21-32) Anion Gap 10 (6-14) Blood Urea Nitrogen 21 mg/dL (8-26) Creatinine 1.2 mg/dL (0.7-1.3) Estimated GFR (Cockcroft-Gault) 57.4 Glucose Level 98 mg/dL (70-99) Calcium Level 8.2 mg/dL (8.5-10.1) Glucose (Fingerstick) 94 mg/dL (70-99) ECHOCARDIOGRAM ECHOCARDIOGRAM <Conclusion> Left ventricle systolic function is severely impaired. EF 30%. There is severe global hypokinesis of the LV. There is a pacemaker lead in the right ventricle. Doppler and Color Flow revealed mild tricuspid regurgitation. There is mild pulmonary hypertension. The PA pressure was estimated at 38 mmHg. DATE: 11/05/18 1640 ASSESSMENT/PLAN ASSESSMENT/PLAN 1. 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 NICM; LVEF 30% as noted above. S/p Bi V ICD (Medtronic) 3. Permanent AFIB; chronic anticoagulation with warfarin. INR supratherapeutic at 7.7 4. Arrhythmia; h/o high PVC burden and NSVT; on Amiodarone. Low-dose Toprol recently added. 5. CAD; cath 2010 notable for 70% stenosis in small caliber 2nd Dx. Mild disease in prox, mid, and distal LAD. Previously medically managed. 6. Hypotension; on midodrine. Adequate 7. Dyslipidemia; statin 8. CKD; Cr okay 9. Urinary retention, Bryant catheter, UTI Recommendations Interrogate device to note arrhythmia burden Resume low-dose Toprol Hold warfarin Diuresis as BP tolerates with monitoring of renal function Will need determine goals/ aggressiveness of care with patient and DPSTEPHIE CARROLL APRN Nov 29, 2018 10:54
[2018-11-29 11:00] VITALS: BP 116/75
[2018-11-29] MEDS ORDERED: FUROSEMIDE 40 MG/4 ML VIAL. IVP ONE (11:15)
--- NOTE | 2018-11-29 11:18 | PDOC ---
PROGRESS NOTES Chief Complaint Chief Complaint CC: Worsening SOA CHF Bilateral pedal edema Elevated BNP HLD Urinary retention Hypotension History of Present Illness History of Present Illness Pt is an 88 y/o male who presented to the ED with SOA. He has PMHx of CHF. Today he was seen and examined in his room. He is awake, alert, and in NAD. He complains of SOA. I discussed with his RN. He has a UTI found on UA. Starting Rocephin and consulting podiatry. Vitals Vitals Vital Signs Date Time Temp Pulse Resp B/P (MAP) Pulse Ox O2 Delivery O2 Flow Rate FiO2 11/29/18 08:48 84 116/83 11/29/18 07:40 Room Air 11/29/18 07:00 98.0 16 98 2.0 98.0 Physical Exam General: Alert, Cooperative, mild distress Heart: Regular rate, No murmurs Lungs: Clear, Other (No wheezing or crackles) Abdomen: Soft, No tenderness Extremities: No cyanosis, Other (+2 LE edema bilateral) Skin: No rashes, No breakdown Labs LABS Laboratory Tests Test 11/28/18 11:31 11/28/18 12:00 11/28/18 17:00 11/28/18 20:20 White Blood Count 8.5 x10^3/uL (4.0-11.0) Red Blood Count 3.44 x10^6/uL (4.30-5.70) Hemoglobin 11.0 g/dL (13.0-17.5) Hematocrit 32.7 % (39.0-53.0) Mean Corpuscular Volume 95 fL (79-100) Mean Corpuscular Hemoglobin 32 pg (25-35) Mean Corpuscular Hemoglobin Concent 34 g/dL (31-37) Red Cell Distribution Width 14.9 % (11.5-14.5) Platelet Count 464 x10^3/uL (140-400) Neutrophils (%) (Auto) 79 % (31-73) Lymphocytes (%) (Auto) 10 % (24-48) Monocytes (%) (Auto) 10 % (0-9) Eosinophils (%) (Auto) 0 % (0-3) Basophils (%) (Auto) 1 % (0-3) Neutrophils # (Auto) 6.7 x10^3uL (1.8-7.7) Lymphocytes # (Auto) 0.9 x10^3/uL (1.0-4.8) Monocytes # (Auto) 0.8 x10^3/uL (0.0-1.1) Eosinophils # (Auto) 0.0 x10^3/uL (0.0-0.7) Basophils # (Auto) 0.1 x10^3/uL (0.0-0.2) Sodium Level 131 mmol/L (136-145) Potassium Level 4.7 mmol/L (3.5-5.1) Chloride Level 97 mmol/L (98-107) Carbon Dioxide Level 27 mmol/L (21-32) Anion Gap 7 (6-14) Blood Urea Nitrogen 22 mg/dL (8-26) Creatinine 1.2 mg/dL (0.7-1.3) Estimated GFR (Cockcroft-Gault) 57.4 Glucose Level 101 mg/dL (70-99) Calcium Level 8.3 mg/dL (8.5-10.1) Total Bilirubin 0.5 mg/dL (0.2-1.0) Direct Bilirubin 0.2 mg/dL (0.0-0.2) Aspartate Amino Transf (AST/SGOT) 36 U/L (15-37) Alanine Aminotransferase (ALT/SGPT) 30 U/L (16-63) Alkaline Phosphatase 122 U/L (46-116) Troponin I Quantitative 0.027 ng/mL (0.000-0.055) 0.021 ng/mL (0.000-0.055) 0.023 ng/mL (0.000-0.055) BA-Azs-O-Type Natriuretic Peptide 6741 pg/mL (0-449) Total Protein 5.7 g/dL (6.4-8.2) Albumin 2.0 g/dL (3.4-5.0) Lipase 115 U/L (73-393) Test 11/29/18 01:30 11/29/18 04:50 11/29/18 07:40 Urine Collection Type Unknown Urine Color Yellow Urine Clarity Cloudy Urine pH 5.0 Urine Specific [place] 1.015 Urine Protein Negative mg/dL (NEG-TRACE) Urine Glucose (UA) Negative mg/dL (NEG) Urine Ketones (Stick) Negative mg/dL (NEG) Urine Blood Small (NEG) Urine Nitrite Positive (NEG) Urine Bilirubin Negative (NEG) Urine Urobilinogen Dipstick 1.0 mg/dL (0.2 mg/dL) Urine Leukocyte Esterase Large (NEG) Urine RBC 3-5 /HPF (0-2) Urine WBC 20-40 /HPF (0-4) Urine Squamous Epithelial Cells Occ /LPF Urine Bacteria Many /HPF (0-FEW) Urine Mucus Mod /LPF White Blood Count 9.4 x10^3/uL (4.0-11.0) Red Blood Count 3.48 x10^6/uL (4.30-5.70) Hemoglobin 11.2 g/dL (13.0-17.5) Hematocrit 32.8 % (39.0-53.0) Mean Corpuscular Volume 94 fL (79-100) Mean Corpuscular Hemoglobin 32 pg (25-35) Mean Corpuscular Hemoglobin Concent 34 g/dL (31-37) Red Cell Distribution Width 14.7 % (11.5-14.5) Platelet Count 455 x10^3/uL (140-400) Neutrophils (%) (Auto) 74 % (31-73) Lymphocytes (%) (Auto) 16 % (24-48) Monocytes (%) (Auto) 9 % (0-9) Eosinophils (%) (Auto) 0 % (0-3) Basophils (%) (Auto) 1 % (0-3) Neutrophils # (Auto) 7.0 x10^3uL (1.8-7.7) Lymphocytes # (Auto) 1.5 x10^3/uL (1.0-4.8) Monocytes # (Auto) 0.9 x10^3/uL (0.0-1.1) Eosinophils # (Auto) 0.0 x10^3/uL (0.0-0.7) Basophils # (Auto) 0.1 x10^3/uL (0.0-0.2) Prothrombin Time 66.2 SEC (11.7-14.0) Prothromb Time International Ratio 7.7 (0.8-1.1) Sodium Level 133 mmol/L (136-145) Potassium Level 4.1 mmol/L (3.5-5.1) Chloride Level 98 mmol/L (98-107) Carbon Dioxide Level 25 mmol/L (21-32) Anion Gap 10 (6-14) Blood Urea Nitrogen 21 mg/dL (8-26) Creatinine 1.2 mg/dL (0.7-1.3) Estimated GFR (Cockcroft-Gault) 57.4 Glucose Level 98 mg/dL (70-99) Calcium Level 8.2 mg/dL (8.5-10.1) Glucose (Fingerstick) 94 mg/dL (70-99) Review of Systems Review of Systems Gen: denies fever, chills Heart: denies CP, palpitations Lung: SOA, denies cough Abd: denies pain, N/V Assessment and Plan Assessmemt and Plan Assessment: CC: Worsening SOA CHF Bilateral pedal edema Elevated BNP UTI HLD Urinary retention Hypotension Plan: Rocephin 1g IV daily, UTI Consult Dr. Chandan Suarez, podiatry IV lasix Heart monitoring Serial enzymes and EKG I&O Hope to titrate O2 Follow daily labs PT/OT Home meds D/C disposition pending Appreciate subspecialist input Comment Review of Relevant I have reviewed the following items yolande (where applicable) has been applied. Labs Laboratory Tests Test 11/28/18 11:31 11/28/18 12:00 11/28/18 17:00 11/28/18 20:20 White Blood Count 8.5 x10^3/uL (4.0-11.0) Red Blood Count 3.44 x10^6/uL (4.30-5.70) Hemoglobin 11.0 g/dL (13.0-17.5) Hematocrit 32.7 % (39.0-53.0) Mean Corpuscular Volume 95 fL (79-100) Mean Corpuscular Hemoglobin 32 pg (25-35) Mean Corpuscular Hemoglobin Concent 34 g/dL (31-37) Red Cell Distribution Width 14.9 % (11.5-14.5) Platelet Count 464 x10^3/uL (140-400) Neutrophils (%) (Auto) 79 % (31-73) Lymphocytes (%) (Auto) 10 % (24-48) Monocytes (%) (Auto) 10 % (0-9) Eosinophils (%) (Auto) 0 % (0-3) Basophils (%) (Auto) 1 % (0-3) Neutrophils # (Auto) 6.7 x10^3uL (1.8-7.7) Lymphocytes # (Auto) 0.9 x10^3/uL (1.0-4.8) Monocytes # (Auto) 0.8 x10^3/uL (0.0-1.1) Eosinophils # (Auto) 0.0 x10^3/uL (0.0-0.7) Basophils # (Auto) 0.1 x10^3/uL (0.0-0.2) Sodium Level 131 mmol/L (136-145) Potassium Level 4.7 mmol/L (3.5-5.1) Chloride Level 97 mmol/L (98-107) Carbon Dioxide Level 27 mmol/L (21-32) Anion Gap 7 (6-14) Blood Urea Nitrogen 22 mg/dL (8-26) Creatinine 1.2 mg/dL (0.7-1.3) Estimated GFR (Cockcroft-Gault) 57.4 Glucose Level 101 mg/dL (70-99) Calcium Level 8.3 mg/dL (8.5-10.1) Total Bilirubin 0.5 mg/dL (0.2-1.0) Direct Bilirubin 0.2 mg/dL (0.0-0.2) Aspartate Amino Transf (AST/SGOT) 36 U/L (15-37) Alanine Aminotransferase (ALT/SGPT) 30 U/L (16-63) Alkaline Phosphatase 122 U/L (46-116) Troponin I Quantitative 0.027 ng/mL (0.000-0.055) 0.021 ng/mL (0.000-0.055) 0.023 ng/mL (0.000-0.055) QL-Lrs-E-Type Natriuretic Peptide 6741 pg/mL (0-449) Total Protein 5.7 g/dL (6.4-8.2) Albumin 2.0 g/dL (3.4-5.0) Lipase 115 U/L (73-393) Test 11/29/18 01:30 11/29/18 04:50 11/29/18 07:40 Urine Collection Type Unknown Urine Color Yellow Urine Clarity Cloudy Urine pH 5.0 Urine Specific [place] 1.015 Urine Protein Negative mg/dL (NEG-TRACE) Urine Glucose (UA) Negative mg/dL (NEG) Urine Ketones (Stick) Negative mg/dL (NEG) Urine Blood Small (NEG) Urine Nitrite Positive (NEG) Urine Bilirubin Negative (NEG) Urine Urobilinogen Dipstick 1.0 mg/dL (0.2 mg/dL) Urine Leukocyte Esterase Large (NEG) Urine RBC 3-5 /HPF (0-2) Urine WBC 20-40 /HPF (0-4) Urine Squamous Epithelial Cells Occ /LPF Urine Bacteria Many /HPF (0-FEW) Urine Mucus Mod /LPF White Blood Count 9.4 x10^3/uL (4.0-11.0) Red Blood Count 3.48 x10^6/uL (4.30-5.70) Hemoglobin 11.2 g/dL (13.0-17.5) Hematocrit 32.8 % (39.0-53.0) Mean Corpuscular Volume 94 fL (79-100) Mean Corpuscular Hemoglobin 32 pg (25-35) Mean Corpuscular Hemoglobin Concent 34 g/dL (31-37) Red Cell Distribution Width 14.7 % (11.5-14.5) Platelet Count 455 x10^3/uL (140-400) Neutrophils (%) (Auto) 74 % (31-73) Lymphocytes (%) (Auto) 16 % (24-48) Monocytes (%) (Auto) 9 % (0-9) Eosinophils (%) (Auto) 0 % (0-3) Basophils (%) (Auto) 1 % (0-3) Neutrophils # (Auto) 7.0 x10^3uL (1.8-7.7) Lymphocytes # (Auto) 1.5 x10^3/uL (1.0-4.8) Monocytes # (Auto) 0.9 x10^3/uL (0.0-1.1) Eosinophils # (Auto) 0.0 x10^3/uL (0.0-0.7) Basophils # (Auto) 0.1 x10^3/uL (0.0-0.2) Prothrombin Time 66.2 SEC (11.7-14.0) Prothromb Time International Ratio 7.7 (0.8-1.1) Sodium Level 133 mmol/L (136-145) Potassium Level 4.1 mmol/L (3.5-5.1) Chloride Level 98 mmol/L (98-107) Carbon Dioxide Level 25 mmol/L (21-32) Anion Gap 10 (6-14) Blood Urea Nitrogen 21 mg/dL (8-26) Creatinine 1.2 mg/dL (0.7-1.3) Estimated GFR (Cockcroft-Gault) 57.4 Glucose Level 98 mg/dL (70-99) Calcium Level 8.2 mg/dL (8.5-10.1) Glucose (Fingerstick) 94 mg/dL (70-99) Laboratory Tests Test 11/28/18 11:31 11/28/18 12:00 11/28/18 17:00 11/28/18 20:20 White Blood Count 8.5 x10^3/uL (4.0-11.0) Red Blood Count 3.44 x10^6/uL (4.30-5.70) Hemoglobin 11.0 g/dL (13.0-17.5) Hematocrit 32.7 % (39.0-53.0) Mean Corpuscular Volume 95 fL (79-100) Mean Corpuscular Hemoglobin 32 pg (25-35) Mean Corpuscular Hemoglobin Concent 34 g/dL (31-37) Red Cell Distribution Width 14.9 % (11.5-14.5) Platelet Count 464 x10^3/uL (140-400) Neutrophils (%) (Auto) 79 % (31-73) Lymphocytes (%) (Auto) 10 % (24-48) Monocytes (%) (Auto) 10 % (0-9) Eosinophils (%) (Auto) 0 % (0-3) Basophils (%) (Auto) 1 % (0-3) Neutrophils # (Auto) 6.7 x10^3uL (1.8-7.7) Lymphocytes # (Auto) 0.9 x10^3/uL (1.0-4.8) Monocytes # (Auto) 0.8 x10^3/uL (0.0-1.1) Eosinophils # (Auto) 0.0 x10^3/uL (0.0-0.7) Basophils # (Auto) 0.1 x10^3/uL (0.0-0.2) Sodium Level 131 mmol/L (136-145) Potassium Level 4.7 mmol/L (3.5-5.1) Chloride Level 97 mmol/L (98-107) Carbon Dioxide Level 27 mmol/L (21-32) Anion Gap 7 (6-14) Blood Urea Nitrogen 22 mg/dL (8-26) Creatinine 1.2 mg/dL (0.7-1.3) Estimated GFR (Cockcroft-Gault) 57.4 Glucose Level 101 mg/dL (70-99) Calcium Level 8.3 mg/dL (8.5-10.1) Total Bilirubin 0.5 mg/dL (0.2-1.0) Direct Bilirubin 0.2 mg/dL (0.0-0.2) Aspartate Amino Transf (AST/SGOT) 36 U/L (15-37) Alanine Aminotransferase (ALT/SGPT) 30 U/L (16-63) Alkaline Phosphatase 122 U/L (46-116) Troponin I Quantitative 0.027 ng/mL (0.000-0.055) 0.021 ng/mL (0.000-0.055) 0.023 ng/mL (0.000-0.055) ZE-Mjr-F-Type Natriuretic Peptide 6741 pg/mL (0-449) Total Protein 5.7 g/dL (6.4-8.2) Albumin 2.0 g/dL (3.4-5.0) Lipase 115 U/L (73-393) Test 11/29/18 01:30 11/29/18 04:50 11/29/18 07:40 Urine Collection Type Unknown Urine Color Yellow Urine Clarity Cloudy Urine pH 5.0 Urine Specific [place] 1.015 Urine Protein Negative mg/dL (NEG-TRACE) Urine Glucose (UA) Negative mg/dL (NEG) Urine Ketones (Stick) Negative mg/dL (NEG) Urine Blood Small (NEG) Urine Nitrite Positive (NEG) Urine Bilirubin Negative (NEG) Urine Urobilinogen Dipstick 1.0 mg/dL (0.2 mg/dL) Urine Leukocyte Esterase Large (NEG) Urine RBC 3-5 /HPF (0-2) Urine WBC 20-40 /HPF (0-4) Urine Squamous Epithelial Cells Occ /LPF Urine Bacteria Many /HPF (0-FEW) Urine Mucus Mod /LPF White Blood Count 9.4 x10^3/uL (4.0-11.0) Red Blood Count 3.48 x10^6/uL (4.30-5.70) Hemoglobin 11.2 g/dL (13.0-17.5) Hematocrit 32.8 % (39.0-53.0) Mean Corpuscular Volume 94 fL (79-100) Mean Corpuscular Hemoglobin 32 pg (25-35) Mean Corpuscular Hemoglobin Concent 34 g/dL (31-37) Red Cell Distribution Width 14.7 % (11.5-14.5) Platelet Count 455 x10^3/uL (140-400) Neutrophils (%) (Auto) 74 % (31-73) Lymphocytes (%) (Auto) 16 % (24-48) Monocytes (%) (Auto) 9 % (0-9) Eosinophils (%) (Auto) 0 % (0-3) Basophils (%) (Auto) 1 % (0-3) Neutrophils # (Auto) 7.0 x10^3uL (1.8-7.7) Lymphocytes # (Auto) 1.5 x10^3/uL (1.0-4.8) Monocytes # (Auto) 0.9 x10^3/uL (0.0-1.1) Eosinophils # (Auto) 0.0 x10^3/uL (0.0-0.7) Basophils # (Auto) 0.1 x10^3/uL (0.0-0.2) Prothrombin Time 66.2 SEC (11.7-14.0) Prothromb Time International Ratio 7.7 (0.8-1.1) Sodium Level 133 mmol/L (136-145) Potassium Level 4.1 mmol/L (3.5-5.1) Chloride Level 98 mmol/L (98-107) Carbon Dioxide Level 25 mmol/L (21-32) Anion Gap 10 (6-14) Blood Urea Nitrogen 21 mg/dL (8-26) Creatinine 1.2 mg/dL (0.7-1.3) Estimated GFR (Cockcroft-Gault) 57.4 Glucose Level 98 mg/dL (70-99) Calcium Level 8.2 mg/dL (8.5-10.1) Glucose (Fingerstick) 94 mg/dL (70-99) Medications Current Medications Albuterol/ Ipratropium (Duoneb) 3 ml 1X ONCE NEB Last administered on 11:03; Start 11/28/18 at 11:00; Stop 11/28/18 at 11:01; Status DC Furosemide (Lasix) 20 mg 1X ONCE IVP Last administered on 11/28/18at 16:42; Start 11/28/18 at 14:00; Stop 11/28/18 at 14:01; Status DC Ondansetron HCl (Zofran) 4 mg PRN Q8HRS PRN IV NAUSEA/VOMITING; Start 11/28/18 at 14:00; Stop 11/29/18 at 13:59 Morphine Sulfate (Morphine Sulfate) 2 mg PRN Q2HR PRN IV PAIN; Start 11/28/18 at 14:00; Stop 11/29/18 at 13:59 Amiodarone HCl (Cordarone) 200 mg DAILY PO Last administered on 11/29/18at 08:48 ; Start 11/29/18 at 09:00 Aspirin (Ecotrin) 81 mg DAILY PO Last administered on 11/29/18at 08:48; Start 11/29/18 at 09:00 Docusate Sodium (Colace) 100 mg PRN BID PRN PO CONSTIPATION 1ST CHOICE Last administered on 11/29/18 08:48; Start 11/28/18 at 20:45 Simvastatin (Zocor) 10 mg QHS PO Last administered on 11/28/18at 21:28; Start at 21:00 Tamsulosin HCl (Flomax) 0.4 mg DAILY PO Last administered on 11/29/18at 08:48; Start 11/29/18 at 09:00 Warfarin Sodium (Coumadin - No Dose Today) 2.5 each [facility] ; Start at 16:00; Stop 11/30/18 at 16:00; Status DC Non-Formulary Medication (Melatonin ) 5 mg HS PRN PO INSOMNIA; Start 11/28/18 at 20:45; Status UNV Sennosides (Senna) 8.6 mg DAILY PO Last administered on 11/29/18at 08:48; Start 11/29/18 at 09:00 Non-Formulary Medication (Warfarin Sodium ) 5 mg sunday and sunday PO ; Start at 20:45; Status UNV Midodrine (Proamatine) 5 mg [id number] PO Last administered on 11/29/18at 06:19; Start 11/29/18 at 07:00 Warfarin Sodium (Coumadin Per Physician) 1 each PRN DAILY PRN [facility] SEE COMMENTS; Start 11/28/18 at 21:00; Stop 11/29/18 at 01:04; Status DC Warfarin Sodium (Coumadin Per Pharmacy) 1 each PRN DAILY PRN [facility] SEE COMMENTS Last administered on 11/29/18at 06:02; Start 11/29/18 at 01:15 Phytonadione (Mephyton Oral Soln) 5 mg 1X ONCE PO Last administered on at 06:17; Start 11/29/18 at 06:30; Stop 11/29/18 at 06:31; Status DC Active Scripts Active Flomax (Tamsulosin Hcl) 0.4 Mg Cap.er.24h 0.4 Mg PO DAILY 30 Days Reported Warfarin Sodium 2.5 Mg Tablet 2.5 Mg PO SUN,SUN,,SAT,SUN Warfarin Sodium 5 Mg Tablet 5 Mg PO SUNDAY AND SUNDAY Simvastatin 10 Mg Tablet 1 Tab PO QHS Midodrine Hcl 5 Mg Tablet 5 Mg PO TID Melatonin 3 Mg Tablet 5 Mg PO HS PRN Ex-Lax Maximum Relief (Sennosides) 25 Mg Tablet 50 Mg PO DAILY Docusate Sodium 100 Mg Capsule 1 Cap PO BID PRN Aspirin Ec (Aspirin) 81 Mg Tablet. 1 Tab PO DAILY Amiodarone Hcl 200 Mg Tablet 1 Tab PO DAILY Vitals/I & O Vital Sign - Last 24 Hours 11/28/18 11/28/18 11/28/18 11/28/18 11:03 11:30 12:30 13:00 Pulse 89 89 88 Resp 22 20 20 B/P (MAP) 93/60 (71) 106/64 (78) 111/67 (82) Pulse Ox 96 95 97 96 O2 Delivery Room Air Room Air Room Air Room Air 11/28/18 11/28/18 11/28/18 11/28/18 13:30 14:00 14:30 15:00 Pulse 85 89 88 89 Resp 18 19 20 20 B/P (MAP) 109/65 (80) 121/73 (89) 126/70 (88) 118/68 (85) Pulse Ox 99 99 98 98 O2 Delivery Room Air Room Air Room Air Room Air 11/28/18 11/28/18 11/28/18 11/28/18 17:00 17:48 19:10 19:20 Temp 97.5 97.4 97.5 97.4 Pulse 93 90 Resp 20 20 B/P (MAP) 122/71 (88) 101/61 (74) Pulse Ox 94 95 O2 Delivery Room Air Room Air Room Air 11/28/18 11/29/18 11/29/18 11/29/18 23:19 03:08 06:19 07:00 Temp 98.1 98.2 98.0 98.1 98.2 98.0 Pulse 96 90 96 102 Resp 18 16 16 B/P (MAP) 104/72 (83) 118/72 (87) 124/86 116/83 (94) Pulse Ox 92 97 98 O2 Delivery Room Air Nasal Cannula Nasal Cannula O2 Flow Rate 2.0 2.0 11/29/18 11/29/18 07:40 08:48 Pulse 84 B/P (MAP) 116/83 O2 Delivery Room Air Intake and Output 11/28/18 11/28/18 11/29/18 15:00 23:00 07:00 Intake Total 100 ml Output Total 1900 ml 450 ml Balance -1900 ml -350 ml MIKAYLA MIRANDA III DO Nov 29, 2018 11:18
[2018-11-29] MEDS: cefTRIAXone IV Push 1 GM VIAL. IVP SCH (12:04)
--- NOTE | 2018-11-29 14:20 | NUR ---
SS following for discharge planning. SS reviewed pt chart. Pt is from home and currently requiring oxygen. PT/OT ordered but no evaluations at this time. Pt previously had services with [facility]. SS will await PT/OT evaluations and recommendations and will proceed accordingly with discharge planning.
[2018-11-29 15:00] VITALS: BP 101/67
[2018-11-29 18:50] VITALS: BP 90/61
[2018-11-29] MEDS: SIMVASTATIN 10 MG TABLET PO SCH (20:34)
[2018-11-29] MEDS ORDERED: METOPROLOL SUCC 24HR ER 25 MG TAB.ER.24H. PO SCH (21:00)
[2018-11-29 22:10] VITALS: BP 107/75
[2018-11-30 02:29] VITALS: BP 118/75
[2018-11-30 04:57] LABS: BASO % 0 % (0-3); EOS % 0 % (0-3); HEMATOCRIT 32.5 % (39.0-53.0); HEMOGLOBIN 10.9 g/dL (13.0-17.5); LYMPH # 1.2 x10^3/uL (1.0-4.8); LYMPH % 13 % (24-48); MEAN CORPUSCULAR HEMOGLOBIN 32 pg (25-35); MEAN CORPUSCULAR HGB CONC 33 g/dL (31-37); MEAN CORPUSCULAR VOLUME 94 fL (79-100); MONO # 0.9 x10^3/uL (0.0-1.1); MONO % 10 % (0-9); NEUT # 7.1 x10^3uL (1.8-7.7); NEUT % 77 % (31-73); PLATELET COUNT 446 x10^3/uL (140-400); RED BLOOD COUNT 3.45 x10^6/uL (4.30-5.70); RED CELL DISTRIBUTION WIDTH 14.4 % (11.5-14.5); WHITE BLOOD COUNT 9.2 x10^3/uL (4.0-11.0)
[2018-11-30 05:04] LABS: PROTHROMBIN TIME PATIENT 24.4 SEC (11.7-14.0)
[2018-11-30 05:15] LABS: CREATININE 1.2 mg/dL (0.7-1.3); GFR 57.4; POTASSIUM 3.7 mmol/L (3.5-5.1)
[2018-11-30] MEDS: MIDODRINE 5 MG TABLET PO SCH ×2 (06:15→13:06)
[2018-11-30 07:00] VITALS: BP 119/75
--- NOTE | 2018-11-30 08:31 | PDOC ---
PROGRESS NOTES Chief Complaint Chief Complaint CC: Worsening SOA CHF Bilateral pedal edema Elevated BNP HLD Urinary retention Hypotension History of Present Illness History of Present Illness Pt is an 88 y/o male who presented to the ED with SOA. He has PMHx of CHF. Today he was seen and examined in his room. He is awake, alert and in NAD. He states he feels good today. Less SOA. He has no new complaints at this time. DW his RN. Vitals Vitals Vital Signs Date Time Temp Pulse Resp B/P (MAP) Pulse Ox O2 Delivery O2 Flow Rate FiO2 11/30/18 06:15 97 118/75 11/30/18 02:29 98.5 17 98 Nasal Cannula 2.0 98.5 Physical Exam General: Alert, Cooperative, mild distress Heart: Regular rate, No murmurs Lungs: Clear, Other Abdomen: Soft, No tenderness Extremities: No cyanosis, Other Skin: No rashes, No breakdown Labs LABS Laboratory Tests Test 11/29/18 20:25 11/30/18 03:15 Glucose (Fingerstick) 99 mg/dL (70-99) White Blood Count 9.2 x10^3/uL (4.0-11.0) Red Blood Count 3.45 x10^6/uL (4.30-5.70) Hemoglobin 10.9 g/dL (13.0-17.5) Hematocrit 32.5 % (39.0-53.0) Mean Corpuscular Volume 94 fL (79-100) Mean Corpuscular Hemoglobin 32 pg (25-35) Mean Corpuscular Hemoglobin Concent 33 g/dL (31-37) Red Cell Distribution Width 14.4 % (11.5-14.5) Platelet Count 446 x10^3/uL (140-400) Neutrophils (%) (Auto) 77 % (31-73) Lymphocytes (%) (Auto) 13 % (24-48) Monocytes (%) (Auto) 10 % (0-9) Eosinophils (%) (Auto) 0 % (0-3) Basophils (%) (Auto) 0 % (0-3) Neutrophils # (Auto) 7.1 x10^3uL (1.8-7.7) Lymphocytes # (Auto) 1.2 x10^3/uL (1.0-4.8) Monocytes # (Auto) 0.9 x10^3/uL (0.0-1.1) Eosinophils # (Auto) 0.0 x10^3/uL (0.0-0.7) Basophils # (Auto) 0.0 x10^3/uL (0.0-0.2) Prothrombin Time 24.4 SEC (11.7-14.0) Prothromb Time International Ratio 2.2 (0.8-1.1) Sodium Level 132 mmol/L (136-145) Potassium Level 3.7 mmol/L (3.5-5.1) Chloride Level 97 mmol/L (98-107) Carbon Dioxide Level 28 mmol/L (21-32) Anion Gap 7 (6-14) Blood Urea Nitrogen 20 mg/dL (8-26) Creatinine 1.2 mg/dL (0.7-1.3) Estimated GFR (Cockcroft-Gault) 57.4 Glucose Level 88 mg/dL (70-99) Calcium Level 8.0 mg/dL (8.5-10.1) Review of Systems Review of Systems Gen: denies fever, chills Heart: denies CP, palpitations Lung: less SOA, denies cough Abd: denies pain, N/V Assessment and Plan Assessmemt and Plan Assessment: CC: Worsening SOA CHF Bilateral pedal edema Elevated BNP UTI HLD Urinary retention Hypotension Plan: Rocephin 1g IV daily, UTI Consulted Dr. Chandan Suarez, podiatry IV lasix Heart monitoring Serial enzymes and EKG I&O Hope to titrate O2 Follow daily labs PT/OT Home meds Appreciate subspecialist input D/C disposition pending Comment Review of Relevant I have reviewed the following items yolande (where applicable) has been applied. Labs Laboratory Tests Test 11/28/18 11:31 11/28/18 12:00 11/28/18 17:00 11/28/18 20:20 White Blood Count 8.5 x10^3/uL (4.0-11.0) Red Blood Count 3.44 x10^6/uL (4.30-5.70) Hemoglobin 11.0 g/dL (13.0-17.5) Hematocrit 32.7 % (39.0-53.0) Mean Corpuscular Volume 95 fL (79-100) Mean Corpuscular Hemoglobin 32 pg (25-35) Mean Corpuscular Hemoglobin Concent 34 g/dL (31-37) Red Cell Distribution Width 14.9 % (11.5-14.5) Platelet Count 464 x10^3/uL (140-400) Neutrophils (%) (Auto) 79 % (31-73) Lymphocytes (%) (Auto) 10 % (24-48) Monocytes (%) (Auto) 10 % (0-9) Eosinophils (%) (Auto) 0 % (0-3) Basophils (%) (Auto) 1 % (0-3) Neutrophils # (Auto) 6.7 x10^3uL (1.8-7.7) Lymphocytes # (Auto) 0.9 x10^3/uL (1.0-4.8) Monocytes # (Auto) 0.8 x10^3/uL (0.0-1.1) Eosinophils # (Auto) 0.0 x10^3/uL (0.0-0.7) Basophils # (Auto) 0.1 x10^3/uL (0.0-0.2) Sodium Level 131 mmol/L (136-145) Potassium Level 4.7 mmol/L (3.5-5.1) Chloride Level 97 mmol/L (98-107) Carbon Dioxide Level 27 mmol/L (21-32) Anion Gap 7 (6-14) Blood Urea Nitrogen 22 mg/dL (8-26) Creatinine 1.2 mg/dL (0.7-1.3) Estimated GFR (Cockcroft-Gault) 57.4 Glucose Level 101 mg/dL (70-99) Calcium Level 8.3 mg/dL (8.5-10.1) Total Bilirubin 0.5 mg/dL (0.2-1.0) Direct Bilirubin 0.2 mg/dL (0.0-0.2) Aspartate Amino Transf (AST/SGOT) 36 U/L (15-37) Alanine Aminotransferase (ALT/SGPT) 30 U/L (16-63) Alkaline Phosphatase 122 U/L (46-116) Troponin I Quantitative 0.027 ng/mL (0.000-0.055) 0.021 ng/mL (0.000-0.055) 0.023 ng/mL (0.000-0.055) BB-[id number]-Type Natriuretic Peptide 6741 pg/mL (0-449) Total Protein 5.7 g/dL (6.4-8.2) Albumin 2.0 g/dL (3.4-5.0) Lipase 115 U/L (73-393) Test 11/29/18 01:30 11/29/18 04:50 11/29/18 07:40 11/29/18 20:25 Urine Collection Type Unknown Urine Color Yellow Urine Clarity Cloudy Urine pH 5.0 Urine Specific [place] 1.015 Urine Protein Negative mg/dL (NEG-TRACE) Urine Glucose (UA) Negative mg/dL (NEG) Urine Ketones (Stick) Negative mg/dL (NEG) Urine Blood Small (NEG) Urine Nitrite Positive (NEG) Urine Bilirubin Negative (NEG) Urine Urobilinogen Dipstick 1.0 mg/dL (0.2 mg/dL) Urine Leukocyte Esterase Large (NEG) Urine RBC 3-5 /HPF (0-2) Urine WBC 20-40 /HPF (0-4) Urine Squamous Epithelial Cells Occ /LPF Urine Bacteria Many /HPF (0-FEW) Urine Mucus Mod /LPF White Blood Count 9.4 x10^3/uL (4.0-11.0) Red Blood Count 3.48 x10^6/uL (4.30-5.70) Hemoglobin 11.2 g/dL (13.0-17.5) Hematocrit 32.8 % (39.0-53.0) Mean Corpuscular Volume 94 fL (79-100) Mean Corpuscular Hemoglobin 32 pg (25-35) Mean Corpuscular Hemoglobin Concent 34 g/dL (31-37) Red Cell Distribution Width 14.7 % (11.5-14.5) Platelet Count 455 x10^3/uL (140-400) Neutrophils (%) (Auto) 74 % (31-73) Lymphocytes (%) (Auto) 16 % (24-48) Monocytes (%) (Auto) 9 % (0-9) Eosinophils (%) (Auto) 0 % (0-3) Basophils (%) (Auto) 1 % (0-3) Neutrophils # (Auto) 7.0 x10^3uL (1.8-7.7) Lymphocytes # (Auto) 1.5 x10^3/uL (1.0-4.8) Monocytes # (Auto) 0.9 x10^3/uL (0.0-1.1) Eosinophils # (Auto) 0.0 x10^3/uL (0.0-0.7) Basophils # (Auto) 0.1 x10^3/uL (0.0-0.2) Prothrombin Time 66.2 SEC (11.7-14.0) Prothromb Time International Ratio 7.7 (0.8-1.1) Sodium Level 133 mmol/L (136-145) Potassium Level 4.1 mmol/L (3.5-5.1) Chloride Level 98 mmol/L (98-107) Carbon Dioxide Level 25 mmol/L (21-32) Anion Gap 10 (6-14) Blood Urea Nitrogen 21 mg/dL (8-26) Creatinine 1.2 mg/dL (0.7-1.3) Estimated GFR (Cockcroft-Gault) 57.4 Glucose Level 98 mg/dL (70-99) Calcium Level 8.2 mg/dL (8.5-10.1) Glucose (Fingerstick) 94 mg/dL (70-99) 99 mg/dL (70-99) Test 11/30/18 03:15 White Blood Count 9.2 x10^3/uL (4.0-11.0) Red Blood Count 3.45 x10^6/uL (4.30-5.70) Hemoglobin 10.9 g/dL (13.0-17.5) Hematocrit 32.5 % (39.0-53.0) Mean Corpuscular Volume 94 fL (79-100) Mean Corpuscular Hemoglobin 32 pg (25-35) Mean Corpuscular Hemoglobin Concent 33 g/dL (31-37) Red Cell Distribution Width 14.4 % (11.5-14.5) Platelet Count 446 x10^3/uL (140-400) Neutrophils (%) (Auto) 77 % (31-73) Lymphocytes (%) (Auto) 13 % (24-48) Monocytes (%) (Auto) 10 % (0-9) Eosinophils (%) (Auto) 0 % (0-3) Basophils (%) (Auto) 0 % (0-3) Neutrophils # (Auto) 7.1 x10^3uL (1.8-7.7) Lymphocytes # (Auto) 1.2 x10^3/uL (1.0-4.8) Monocytes # (Auto) 0.9 x10^3/uL (0.0-1.1) Eosinophils # (Auto) 0.0 x10^3/uL (0.0-0.7) Basophils # (Auto) 0.0 x10^3/uL (0.0-0.2) Prothrombin Time 24.4 SEC (11.7-14.0) Prothromb Time International Ratio 2.2 (0.8-1.1) Sodium Level 132 mmol/L (136-145) Potassium Level 3.7 mmol/L (3.5-5.1) Chloride Level 97 mmol/L (98-107) Carbon Dioxide Level 28 mmol/L (21-32) Anion Gap 7 (6-14) Blood Urea Nitrogen 20 mg/dL (8-26) Creatinine 1.2 mg/dL (0.7-1.3) Estimated GFR (Cockcroft-Gault) 57.4 Glucose Level 88 mg/dL (70-99) Calcium Level 8.0 mg/dL (8.5-10.1) Laboratory Tests Test 11/29/18 20:25 11/30/18 03:15 Glucose (Fingerstick) 99 mg/dL (70-99) White Blood Count 9.2 x10^3/uL (4.0-11.0) Red Blood Count 3.45 x10^6/uL (4.30-5.70) Hemoglobin 10.9 g/dL (13.0-17.5) Hematocrit 32.5 % (39.0-53.0) Mean Corpuscular Volume 94 fL (79-100) Mean Corpuscular Hemoglobin 32 pg (25-35) Mean Corpuscular Hemoglobin Concent 33 g/dL (31-37) Red Cell Distribution Width 14.4 % (11.5-14.5) Platelet Count 446 x10^3/uL (140-400) Neutrophils (%) (Auto) 77 % (31-73) Lymphocytes (%) (Auto) 13 % (24-48) Monocytes (%) (Auto) 10 % (0-9) Eosinophils (%) (Auto) 0 % (0-3) Basophils (%) (Auto) 0 % (0-3) Neutrophils # (Auto) 7.1 x10^3uL (1.8-7.7) Lymphocytes # (Auto) 1.2 x10^3/uL (1.0-4.8) Monocytes # (Auto) 0.9 x10^3/uL (0.0-1.1) Eosinophils # (Auto) 0.0 x10^3/uL (0.0-0.7) Basophils # (Auto) 0.0 x10^3/uL (0.0-0.2) Prothrombin Time 24.4 SEC (11.7-14.0) Prothromb Time International Ratio 2.2 (0.8-1.1) Sodium Level 132 mmol/L (136-145) Potassium Level 3.7 mmol/L (3.5-5.1) Chloride Level 97 mmol/L (98-107) Carbon Dioxide Level 28 mmol/L (21-32) Anion Gap 7 (6-14) Blood Urea Nitrogen 20 mg/dL (8-26) Creatinine 1.2 mg/dL (0.7-1.3) Estimated GFR (Cockcroft-Gault) 57.4 Glucose Level 88 mg/dL (70-99) Calcium Level 8.0 mg/dL (8.5-10.1) Medications Current Medications Albuterol/ Ipratropium (Duoneb) 3 ml 1X ONCE NEB Last administered on at 11:03; Start 11/28/18 at 11:00; Stop 11/28/18 at 11:01; Status DC Furosemide (Lasix) 20 mg 1X ONCE IVP Last administered on 11/28/18at 16:42; Start 11/28/18 at 14:00; Stop 11/28/18 at 14:01; Status DC Ondansetron HCl (Zofran) 4 mg PRN Q8HRS PRN IV NAUSEA/VOMITING; Start 11/28/18 at 14:00; Stop 11/29/18 at 13:59; Status DC Morphine Sulfate (Morphine Sulfate) 2 mg PRN Q2HR PRN IV PAIN; Start 11/28/18 at 14:00; Stop 11/29/18 at 13:59; Status DC Amiodarone HCl (Cordarone) 200 mg DAILY PO Last administered on 11/29/18 08:48 ; Start 11/29/18 at 09:00 Aspirin (Ecotrin) 81 mg DAILY PO Last administered on 11/29/18 08:48; Start 11/29/18 at 09:00 Docusate Sodium (Colace) 100 mg PRN BID PRN PO CONSTIPATION 1ST CHOICE Last administered on 11/29/18 08:48; Start 11/28/18 at 20:45 Simvastatin (Zocor) 10 mg QHS PO Last administered on 11/29/18at 20:34; Start at 21:00 Tamsulosin HCl (Flomax) 0.4 mg DAILY PO Last administered on 11/29/18 08:48; Start 11/29/18 at 09:00 Warfarin Sodium (Coumadin - No Dose Today) 2.5 each QTUTHSASU [facility] ; Start at 16:00; Stop 11/30/18 at 16:00; Status DC Non-Formulary Medication (Melatonin ) 5 mg HS PRN PO INSOMNIA; Start 11/28/18 at 20:45; Status UNV Sennosides (Senna) 8.6 mg DAILY PO Last administered on 11/29/18at 08:48; Start 11/29/18 at 09:00 Non-Formulary Medication (Warfarin Sodium ) 5 mg sunday and sunday PO ; Start at 20:45; Status UNV Midodrine (Proamatine) 5 mg [id number] PO Last administered on 11/30/18 06:15; Start 11/29/18 at 07:00 Warfarin Sodium (Coumadin Per Physician) 1 each PRN DAILY PRN [facility] SEE COMMENTS; Start 11/28/18 at 21:00; Stop 11/29/18 at 01:04; Status DC Warfarin Sodium (Coumadin Per Pharmacy) 1 each PRN DAILY PRN [facility] SEE COMMENTS Last administered on 11/29/18at 06:02; Start 11/29/18 at 01:15 Phytonadione (Mephyton Oral Soln) 5 mg 1X ONCE PO Last administered on at 06:17; Start 11/29/18 at 06:30; Stop 11/29/18 at 06:31; Status DC Furosemide (Lasix) 40 mg 1X ONCE IVP Last administered on 11/29/18at 12:02; Start 11/29/18 at 11:15; Stop 11/29/18 at 11:16; Status DC Ceftriaxone Sodium (Rocephin) 1 gm Q24H IVP Last administered on 11/29/18at 12:04 ; Start 11/29/18 at 12:00 Metoprolol Succinate (Toprol Xl) 12.5 mg HS PO ; Start 11/29/18 at 21:00 Active Scripts Active Flomax (Tamsulosin Hcl) 0.4 Mg Cap.er.24h 0.4 Mg PO DAILY 30 Days Reported Warfarin Sodium 2.5 Mg Tablet 2.5 Mg PO SUN,SUN,,SAT,SUN Warfarin Sodium 5 Mg Tablet 5 Mg PO SUNDAY AND SUNDAY Simvastatin 10 Mg Tablet 1 Tab PO QHS Midodrine Hcl 5 Mg Tablet 5 Mg PO TID Melatonin 3 Mg Tablet 5 Mg PO HS PRN Ex-Lax Maximum Relief (Sennosides) 25 Mg Tablet 50 Mg PO DAILY Docusate Sodium 100 Mg Capsule 1 Cap PO BID PRN Aspirin Ec (Aspirin) 81 Mg Tablet. 1 Tab PO DAILY Amiodarone Hcl 200 Mg Tablet 1 Tab PO DAILY Vitals/I & O Vital Sign - Last 24 Hours 11/29/18 11/29/18 11/29/18 11/29/18 08:48 11:00 13:03 15:00 Temp 97.4 98.1 97.4 98.1 Pulse 84 100 92 95 Resp 18 18 B/P (MAP) 116/83 116/75 (89) 107/52 101/67 (78) Pulse Ox 97 95 O2 Delivery Nasal Cannula Nasal Cannula O2 Flow Rate 2.0 2.0 11/29/18 11/29/18 11/29/18 11/29/18 18:02 18:50 19:38 20:35 Temp 98.0 98.0 Pulse 90 98 98 B/P (MAP) 112/70 90/61 (71) 90/61 Pulse Ox 100 O2 Delivery Nasal Cannula O2 Flow Rate 2.0 11/29/18 11/30/18 11/30/18 22:10 02:29 06:15 Temp 98.5 98.5 98.5 98.5 Pulse 99 97 97 Resp 17 17 B/P (MAP) 107/75 (86) 118/75 (89) 118/75 Pulse Ox 97 98 O2 Delivery Nasal Cannula Nasal Cannula O2 Flow Rate 2.0 2.0 Intake and Output 11/29/18 11/29/18 11/30/18 15:00 23:00 07:00 Intake Total 0 ml Output Total 2550 ml 200 ml Balance -2550 ml -200 ml MIKAYLA MIRANDA III, DO Nov 30, 2018 08:31
[2018-11-30] MEDS: ASPIRIN ENTERIC COATED 81 MG TABLET.DR. PO SCH (08:58)
[2018-11-30] MEDS: TAMSULOSIN 0.4 MG CAP.ER.24H. PO SCH (08:58)
[2018-11-30] MEDS: SENNOSIDES 8.6 MG TABLET PO SCH (08:58)
[2018-11-30] MEDS: AMIODARONE HCL 200 MG TABLET. PO SCH (08:59)
[2018-11-30 11:00] VITALS: BP 113/77
--- NOTE | 2018-11-30 11:10 | NUR ---
Pharmacy Warfarin Dosing Note S:Pharmacy consulted to assist with anticoagulation therapy started with target INR: 2 -3 O:KRISTIE CAMPUZANO is a 88 year old M with Atrial Fibrillation LABS: Last INR: 7.7 Last HGB: 11 Last HCT: 32.7 Last PLT: 464 Last dose of Hold given on at Previous Regimen: 5MG MON AND SUNDAY. 2.5 MG OTHER DAYS Vitamin K given: Y 5 MG PO Drug Interaction Changes: Ongoing Drug Interactions: A:INR of 2.2 is within desired range. Target range for this patient is: 2 -3 P: Warfarin dose: 2.5 mg Today at 1600 Bridge Therapy: None Next INR due TOMORROW Pharmacy anticoagulation service will continue to follow. FLEX HINES [facility], 11/30/18 1111
--- NOTE | 2018-11-30 12:50 | PDOC ---
PROGRESS NOTES Subjective Subjective Patient seen and examined He reports feeling better today. Objective Objective Vital Signs Date Time Temp Pulse Resp B/P (MAP) Pulse Ox O2 Delivery O2 Flow Rate FiO2 11/30/18 11:00 97.6 98 18 113/77 (89) 93 Room Air 97.6 11/30/18 07:00 2.0 Intake and Output 11/30/18 07:00 Intake Total 0 ml Output Total 2750 ml Balance -2750 ml Intake Oral 0 ml Output Urine Total 2750 ml Physical Exam Abdomen: Normal bowel sounds Heart: Regular rate General: mild distress Lungs: Other (mildly decreased breath sounds) Assessment Assessment Problems Medical Problems: (1) CHF exacerbation Status: Acute 1. 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 Improving on present treatment. 2. NICM; LVEF 30% as noted above. S/p Bi V ICD ([employer]) 3. Permanent AFIB; chronic anticoagulation with warfarin. INR elevated. Warfarin on hold. 4. Arrhythmia; h/o high PVC burden and NSVT; on Amiodarone. Low-dose Toprol recently added. 5. CAD; cath 2010 notable for 70% stenosis in small caliber 2nd Dx. Mild disease in prox, mid, and distal LAD. Previously medically managed. 6. Hypotension; on midodrine. 7. Dyslipidemia; statin 8. CKD; Cr okay 9. Urinary retention, Bryant catheter, UTI Comment Review of Relevant I have reviewed the following items yolande (where applicable) has been applied. Labs Laboratory Tests Test 11/28/18 17:00 11/28/18 20:20 11/29/18 01:30 11/29/18 04:50 Troponin I Quantitative 0.021 ng/mL (0.000-0.055) 0.023 ng/mL (0.000-0.055) Urine Collection Type Unknown Urine Color Yellow Urine Clarity Cloudy Urine pH 5.0 Urine Specific [place] 1.015 Urine Protein Negative mg/dL (NEG-TRACE) Urine Glucose (UA) Negative mg/dL (NEG) Urine Ketones (Stick) Negative mg/dL (NEG) Urine Blood Small (NEG) Urine Nitrite Positive (NEG) Urine Bilirubin Negative (NEG) Urine Urobilinogen Dipstick 1.0 mg/dL (0.2 mg/dL) Urine Leukocyte Esterase Large (NEG) Urine RBC 3-5 /HPF (0-2) Urine WBC 20-40 /HPF (0-4) Urine Squamous Epithelial Cells Occ /LPF Urine Bacteria Many /HPF (0-FEW) Urine Mucus Mod /LPF White Blood Count 9.4 x10^3/uL (4.0-11.0) Red Blood Count 3.48 x10^6/uL (4.30-5.70) Hemoglobin 11.2 g/dL (13.0-17.5) Hematocrit 32.8 % (39.0-53.0) Mean Corpuscular Volume 94 fL (79-100) Mean Corpuscular Hemoglobin 32 pg (25-35) Mean Corpuscular Hemoglobin Concent 34 g/dL (31-37) Red Cell Distribution Width 14.7 % (11.5-14.5) Platelet Count 455 x10^3/uL (140-400) Neutrophils (%) (Auto) 74 % (31-73) Lymphocytes (%) (Auto) 16 % (24-48) Monocytes (%) (Auto) 9 % (0-9) Eosinophils (%) (Auto) 0 % (0-3) Basophils (%) (Auto) 1 % (0-3) Neutrophils # (Auto) 7.0 x10^3uL (1.8-7.7) Lymphocytes # (Auto) 1.5 x10^3/uL (1.0-4.8) Monocytes # (Auto) 0.9 x10^3/uL (0.0-1.1) Eosinophils # (Auto) 0.0 x10^3/uL (0.0-0.7) Basophils # (Auto) 0.1 x10^3/uL (0.0-0.2) Prothrombin Time 66.2 SEC (11.7-14.0) Prothromb Time International Ratio 7.7 (0.8-1.1) Sodium Level 133 mmol/L (136-145) Potassium Level 4.1 mmol/L (3.5-5.1) Chloride Level 98 mmol/L (98-107) Carbon Dioxide Level 25 mmol/L (21-32) Anion Gap 10 (6-14) Blood Urea Nitrogen 21 mg/dL (8-26) Creatinine 1.2 mg/dL (0.7-1.3) Estimated GFR (Cockcroft-Gault) 57.4 Glucose Level 98 mg/dL (70-99) Calcium Level 8.2 mg/dL (8.5-10.1) Test 11/29/18 07:40 11/29/18 20:25 11/30/18 03:15 Glucose (Fingerstick) 94 mg/dL (70-99) 99 mg/dL (70-99) White Blood Count 9.2 x10^3/uL (4.0-11.0) Red Blood Count 3.45 x10^6/uL (4.30-5.70) Hemoglobin 10.9 g/dL (13.0-17.5) Hematocrit 32.5 % (39.0-53.0) Mean Corpuscular Volume 94 fL (79-100) Mean Corpuscular Hemoglobin 32 pg (25-35) Mean Corpuscular Hemoglobin Concent 33 g/dL (31-37) Red Cell Distribution Width 14.4 % (11.5-14.5) Platelet Count 446 x10^3/uL (140-400) Neutrophils (%) (Auto) 77 % (31-73) Lymphocytes (%) (Auto) 13 % (24-48) Monocytes (%) (Auto) 10 % (0-9) Eosinophils (%) (Auto) 0 % (0-3) Basophils (%) (Auto) 0 % (0-3) Neutrophils # (Auto) 7.1 x10^3uL (1.8-7.7) Lymphocytes # (Auto) 1.2 x10^3/uL (1.0-4.8) Monocytes # (Auto) 0.9 x10^3/uL (0.0-1.1) Eosinophils # (Auto) 0.0 x10^3/uL (0.0-0.7) Basophils # (Auto) 0.0 x10^3/uL (0.0-0.2) Prothrombin Time 24.4 SEC (11.7-14.0) Prothromb Time International Ratio 2.2 (0.8-1.1) Sodium Level 132 mmol/L (136-145) Potassium Level 3.7 mmol/L (3.5-5.1) Chloride Level 97 mmol/L (98-107) Carbon Dioxide Level 28 mmol/L (21-32) Anion Gap 7 (6-14) Blood Urea Nitrogen 20 mg/dL (8-26) Creatinine 1.2 mg/dL (0.7-1.3) Estimated GFR (Cockcroft-Gault) 57.4 Glucose Level 88 mg/dL (70-99) Calcium Level 8.0 mg/dL (8.5-10.1) Laboratory Tests Test 11/29/18 20:25 11/30/18 03:15 Glucose (Fingerstick) 99 mg/dL (70-99) White Blood Count 9.2 x10^3/uL (4.0-11.0) Red Blood Count 3.45 x10^6/uL (4.30-5.70) Hemoglobin 10.9 g/dL (13.0-17.5) Hematocrit 32.5 % (39.0-53.0) Mean Corpuscular Volume 94 fL (79-100) Mean Corpuscular Hemoglobin 32 pg (25-35) Mean Corpuscular Hemoglobin Concent 33 g/dL (31-37) Red Cell Distribution Width 14.4 % (11.5-14.5) Platelet Count 446 x10^3/uL (140-400) Neutrophils (%) (Auto) 77 % (31-73) Lymphocytes (%) (Auto) 13 % (24-48) Monocytes (%) (Auto) 10 % (0-9) Eosinophils (%) (Auto) 0 % (0-3) Basophils (%) (Auto) 0 % (0-3) Neutrophils # (Auto) 7.1 x10^3uL (1.8-7.7) Lymphocytes # (Auto) 1.2 x10^3/uL (1.0-4.8) Monocytes # (Auto) 0.9 x10^3/uL (0.0-1.1) Eosinophils # (Auto) 0.0 x10^3/uL (0.0-0.7) Basophils # (Auto) 0.0 x10^3/uL (0.0-0.2) Prothrombin Time 24.4 SEC (11.7-14.0) Prothromb Time International Ratio 2.2 (0.8-1.1) Sodium Level 132 mmol/L (136-145) Potassium Level 3.7 mmol/L (3.5-5.1) Chloride Level 97 mmol/L (98-107) Carbon Dioxide Level 28 mmol/L (21-32) Anion Gap 7 (6-14) Blood Urea Nitrogen 20 mg/dL (8-26) Creatinine 1.2 mg/dL (0.7-1.3) Estimated GFR (Cockcroft-Gault) 57.4 Glucose Level 88 mg/dL (70-99) Calcium Level 8.0 mg/dL (8.5-10.1) Medications Current Medications Albuterol/ Ipratropium (Duoneb) 3 ml 1X ONCE NEB Last administered on 11:03; Start 11/28/18 at 11:00; Stop 11/28/18 at 11:01; Status DC Furosemide (Lasix) 20 mg 1X ONCE IVP Last administered on 11/28/18 16:42; Start 11/28/18 at 14:00; Stop 11/28/18 at 14:01; Status DC Ondansetron HCl (Zofran) 4 mg PRN Q8HRS PRN IV NAUSEA/VOMITING; Start 11/28/18 at 14:00; Stop 11/29/18 at 13:59; Status DC Morphine Sulfate (Morphine Sulfate) 2 mg PRN Q2HR PRN IV PAIN; Start 11/28/18 at 14:00; Stop 11/29/18 at 13:59; Status DC Amiodarone HCl (Cordarone) 200 mg DAILY PO Last administered on 11/30/18 08:59 ; Start 11/29/18 at 09:00 Aspirin (Ecotrin) 81 mg DAILY PO Last administered on 11/30/18 08:58; Start 11/29/18 at 09:00 Docusate Sodium (Colace) 100 mg PRN BID PRN PO CONSTIPATION 1ST CHOICE Last administered on 11/29/18 08:48; Start 11/28/18 at 20:45 Simvastatin (Zocor) 10 mg QHS PO Last administered on 11/29/18 20:34; Start at 21:00 Tamsulosin HCl (Flomax) 0.4 mg DAILY PO Last administered on 11/30/18 08:58; Start 11/29/18 at 09:00 Warfarin Sodium (Coumadin - No Dose Today) 2.5 each [facility] ; Start at 16:00; Stop 11/30/18 at 16:00; Status DC Non-Formulary Medication (Melatonin ) 5 mg HS PRN PO INSOMNIA; Start 11/28/18 at 20:45; Status UNV Sennosides (Senna) 8.6 mg DAILY PO Last administered on 11/30/18at 08:58; Start 11/29/18 at 09:00 Non-Formulary Medication (Warfarin Sodium ) 5 mg sunday and sunday PO ; Start at 20:45; Status UNV Midodrine (Proamatine) 5 mg [id number] PO Last administered on 11/30/18at 06:15; Start 11/29/18 at 07:00 Warfarin Sodium (Coumadin Per Physician) 1 each PRN DAILY PRN [facility] SEE COMMENTS; Start 11/28/18 at 21:00; Stop 11/29/18 at 01:04; Status DC Warfarin Sodium (Coumadin Per Pharmacy) 1 each PRN DAILY PRN [facility] SEE COMMENTS Last administered on 11/30/18at 11:13; Start 11/29/18 at 01:15 Phytonadione (Mephyton Oral Soln) 5 mg 1X ONCE PO Last administered on at 06:17; Start 11/29/18 at 06:30; Stop 11/29/18 at 06:31; Status DC Furosemide (Lasix) 40 mg 1X ONCE IVP Last administered on 11/29/18at 12:02; Start 11/29/18 at 11:15; Stop 11/29/18 at 11:16; Status DC Ceftriaxone Sodium (Rocephin) 1 gm Q24H IVP Last administered on 11/29/18at 12:04 ; Start 11/29/18 at 12:00 Metoprolol Succinate (Toprol Xl) 12.5 mg HS PO ; Start 11/29/18 at 21:00 Lactobacillus Rhamnosus (Culturelle) 1 cap BID PO ; Start 11/30/18 at 21:00 Warfarin Sodium (Coumadin) 2.5 mg 1X WARF ONCE PO ; Start 11/30/18 at 16:00; Stop 11/30/18 at 16:01 Active Scripts Active Flomax (Tamsulosin Hcl) 0.4 Mg Cap.er.24h 0.4 Mg PO DAILY 30 Days Reported Warfarin Sodium 2.5 Mg Tablet 2.5 Mg PO SUN,SUN,TH,SAT,SUN Warfarin Sodium 5 Mg Tablet 5 Mg PO SUNDAY AND SUNDAY Simvastatin 10 Mg Tablet 1 Tab PO QHS Midodrine Hcl 5 Mg Tablet 5 Mg PO TID Melatonin 3 Mg Tablet 5 Mg PO HS PRN Ex-Lax Maximum Relief (Sennosides) 25 Mg Tablet 50 Mg PO DAILY Docusate Sodium 100 Mg Capsule 1 Cap PO BID PRN Aspirin Ec (Aspirin) 81 Mg Tablet.dr 1 Tab PO DAILY Amiodarone Hcl 200 Mg Tablet 1 Tab PO DAILY Vitals/I & O Vital Sign - Last 24 Hours 11/29/18 11/29/18 11/29/18 11/29/18 13:03 15:00 18:02 18:50 Temp 98.1 98.0 98.1 98.0 Pulse 92 95 90 98 Resp 18 B/P (MAP) 107/52 101/67 (78) 112/70 90/61 (71) Pulse Ox 95 100 O2 Delivery Nasal Cannula O2 Flow Rate 2.0 11/29/18 11/29/18 11/29/18 11/30/18 19:38 20:35 22:10 02:29 Temp 98.5 98.5 98.5 98.5 Pulse 98 99 97 Resp 17 17 B/P (MAP) 90/61 107/75 (86) 118/75 (89) Pulse Ox 97 98 O2 Delivery Nasal Cannula Nasal Cannula Nasal Cannula O2 Flow Rate 2.0 2.0 2.0 11/30/18 11/30/18 11/30/18 11/30/18 06:15 07:00 08:00 08:59 Temp 97.9 97.9 Pulse 97 76 76 Resp 18 B/P (MAP) 118/75 119/75 (90) 119/75 Pulse Ox 99 O2 Delivery Nasal Cannula Room Air O2 Flow Rate 2.0 11/30/18 11/30/18 10:27 11:00 Temp 97.6 97.6 Pulse 98 Resp 18 B/P (MAP) 113/77 (89) Pulse Ox 93 O2 Delivery Room Air Room Air Intake and Output 11/29/18 11/29/18 11/30/18 15:00 23:00 07:00 Intake Total 0 ml Output Total 2550 ml 200 ml Balance -2550 ml -200 ml LORRAINE BOSE MD Nov 30, 2018 12:50
[2018-11-30 13:06] VITALS: BP 113/77
[2018-11-30] MEDS: cefTRIAXone IV Push 1 GM VIAL. IVP SCH (13:07)
[2018-11-30] MEDS ORDERED: AMOX1TAB10 PO (13:48)
--- NOTE | 2018-11-30 14:15 | NUR ---
FACULTY CO-SIGN I have reviewed the documentation by nursing assistant Santi Cabello:
--- NOTE | 2018-11-30 15:53 | NUR ---
Discharge Note: KRISTIE CAMPUZANO Discharge instructions and discharge home medications reviewed with Patient and a copy given. All questions have been answered and understanding verbalized.
[2018-11-30] MEDS ORDERED: WARFARIN 2.5 MG TABLET. PO ONE (16:00)
[2018-11-30] MEDS ORDERED: LACTOBACILLUS RHAMNOSUS GG 1 CAPSULE. PO SCH (21:00)
--- NOTE | 2018-12-01 02:03 | DS ---
DATE OF DISCHARGE: 11/30/2018 ADMISSION DIAGNOSIS: Acute on chronic systolic and diastolic heart failure. DISCHARGE DIAGNOSIS: Resolving heart failure. CONSULTS: Cardiology. PROCEDURES: None. HOSPITAL COURSE: The patient is a pleasant 88-year-old male who presented with volume overload and heart failure and hypoxia. He was admitted. We gave him oxygen therapy and diuresed him. We consulted Cardiology, did serial enzymes, serial EKGs. This morning when I saw and examine him, he was feeling better, requesting to go home. We waited for Cardiology's seen, they have cleared him for discharge. We plan to discharge with close outpatient followup. DISPOSITION: Home. ACTIVITY: As tolerated. DIET: Cardiac. MEDICATIONS: Please see the MRAD. TOTAL TIME: 31 minutes. MIKAYLA MIRANDA DO DR: LORA/vannessa JOB#: [id number] / [id number]
[2018-12-10] MEDS ORDERED: MORP15TA PO (10:29)
[2018-12-10] MEDS ORDERED: NITR0.4T SL (10:29)
[2018-12-10] MEDS ORDERED: METO2.5T PO (10:29)
[2018-12-10] MEDS ORDERED: LACT1CAP19 PO (10:29)
== END 2018-11-30 14:30 | disposition home health service (06) | DRG 871 ==
LOC: ER 10:37 → 2 SOUTH 13:51
PROVIDERS: ADMIT Family Medicine; ATTEND Family Medicine
DX: A41.9 Sepsis, unspecified organism (principal); I50.43 Acute on chronic combined systolic (congestive) and diastolic (congestive) heart failure; I13.0 Hypertensive heart and chronic kidney disease with heart failure and stage 1 through stage 4 chronic kidney disease, or unspecified chronic kidney disease; N39.0 Urinary tract infection, site not specified; E87.1 Hypo-osmolality and hyponatremia; I47.2 Ventricular tachycardia; I42.9 Cardiomyopathy, unspecified; M19.90 Unspecified osteoarthritis, unspecified site; N18.9 Chronic kidney disease, unspecified; I95.9 Hypotension, unspecified; E87.5 Hyperkalemia; I48.2 Chronic atrial fibrillation; I25.10 Atherosclerotic heart disease of native coronary artery without angina pectoris; E78.5 Hyperlipidemia, unspecified; Z82.49 Family history of ischemic heart disease and other diseases of the circulatory system; Z79.01 Long term (current) use of anticoagulants; Z83.3 Family history of diabetes mellitus; Z95.810 Presence of automatic (implantable) cardiac defibrillator
CPT/HCPCS: 36415; 71045; 80048; 80076; 81001; 82962; 83690; 83880; 84484; 85025; 85610; 87086; 87186; 93005; 94640; 96374; J0696; J1940; J7620; 99285-25

== ENCOUNTER 2018-12-02 10:59 | Inpatient (IN) | payer MEDICARE ==
[~2018-12-02] VITALS: Ht 170.2 cm; Wt 74.5 kg
[2018-12-02] VITALS (7 sets, daily range): BP systolic 101–108; BP diastolic 57–69
[~2018-12-02 10:59] MED LIST changes: +AMOX1TAB10 PO
[2018-12-02] MEDS ORDERED: IPRATRPIUM/ALBUTEROL 0.5/2.5MG 3 ML NEBU. ONE (11:21)
[2018-12-02] MEDS ORDERED: IPRATRPIUM/ALBUTEROL 0.5/2.5MG 3 ML NEBU. NEB ONE (11:30)
[2018-12-02] MEDS ORDERED: methylPREDNISolone SOD SUCC PF 125 MG/2 ML VIAL. IV ONE (11:30)
[2018-12-02 11:49] LABS: BASO % 0 % (0-3); EOS % 0 % (0-3); HEMATOCRIT 33.9 % (39.0-53.0); HEMOGLOBIN 11.4 g/dL (13.0-17.5); LYMPH # 0.7 x10^3/uL (1.0-4.8); LYMPH % 8 % (24-48); MEAN CORPUSCULAR HEMOGLOBIN 32 pg (25-35); MEAN CORPUSCULAR HGB CONC 34 g/dL (31-37); MEAN CORPUSCULAR VOLUME 94 fL (79-100); MONO # 0.5 x10^3/uL (0.0-1.1); MONO % 6 % (0-9); NEUT # 8.1 x10^3uL (1.8-7.7); NEUT % 86 % (31-73); PLATELET COUNT 482 x10^3/uL (140-400); RED BLOOD COUNT 3.61 x10^6/uL (4.30-5.70); RED CELL DISTRIBUTION WIDTH 14.3 % (11.5-14.5); WHITE BLOOD COUNT 9.3 x10^3/uL (4.0-11.0)
[2018-12-02 12:04] LABS: CALCIUM 8.5 mg/dL (8.5-10.1); CREATININE 1.2 mg/dL (0.7-1.3); GFR 57.4; POTASSIUM 4.5 mmol/L (3.5-5.1)
[2018-12-02 12:08] LABS: % ATYL 1 % (0-0); % BANDS 1 % (0-9); % EOS 1 % (0-5); % LYMPHS 8 % (24-48); % MONOS 4 % (0-10); % SEGS 85 % (35-66); PLT ESTIMATE INCREASED (ADEQUATE)
[2018-12-02 12:11] LABS: ALBUMIN 2.3 g/dL (3.4-5.0); ALBUMIN/GLOBULIN RATIO 0.6 (1.0-1.7); TOTAL BILIRUBIN 0.6 mg/dL (0.2-1.0); TOTAL PROTEIN 6.1 g/dL (6.4-8.2)
[2018-12-02 12:24] LABS: BILIRUBIN,URINE SMALL (NEG); CLARITY,URINE CLEAR; COLOR,URINE AMBER; NITRITE,URINE NEGATIVE (NEG); PH,URINE 5.5; PROTEIN,URINE 30 mg/dL (NEG-TRACE)
[2018-12-02 12:41] LABS: INFLUENZA A PATIENT NEGATIVE (NEGATIVE); INFLUENZA B PATIENT NEGATIVE (NEGATIVE)
[2018-12-02 12:49] LABS: HYALINE CASTS, URINE MANY /HPF
[2018-12-02 12:50] LABS: BACTERIA,URINE 0 /HPF (0-FEW)
[2018-12-02] MEDS ORDERED: SODIUM CHLORIDE 3 % 500 ML IV ONE (13:00)
[2018-12-02] MEDS ORDERED: SODIUM CHLORIDE 3 % 100 ML IV ONE (13:00)
[2018-12-02] MEDS ORDERED: cefTRIAXone IV Push 1 GM VIAL. IVP ONE (13:00)
--- NOTE | 2018-12-02 13:04 | RAD ---
EXAM: Chest, single view. HISTORY: Shortness of breath. COMPARISON: 11/28/2018 FINDINGS: A frontal view of the chest is obtained. There is increased diffuse central predominant interstitial infiltrate. There are increased small pleural effusions. There is a stable prominent cardiac silhouette. There is a cardiac pacemaker defibrillator unchanged in position. There is no pneumothorax. IMPRESSION: Increase in diffuse central predominant interstitial infiltrate and small pleural effusions. Electronically signed by: Maria Del Rosario Elizalde MD (12/02/2018 1:01 PM) [place] [id number]
[2018-12-02] MEDS ORDERED: FUROSEMIDE 40 MG/4 ML VIAL. IVP ONE (13:15)
--- NOTE | 2018-12-02 14:29 | PHYS DOC ---
Past Medical History Past Medical History: CHF, Hypotension, Renal Disease Past Surgical History: Pacemaker Additional Past Surgical Histo: Pacemaker placement Alcohol Use: None Drug Use: None Adult General Chief Complaint Chief Complaint: SHORTNESS OF BREATH HPI HPI Patient is a 88 year old male who is him by his family members because of generalized weakness and shortness of breath and confusion. Patient was discharge 2 days ago because of CHF exacerbation. Patient had increasing of confusion and was on his recliner because of shortness of breath and had generalized weakness and family decided to bring him to the hospital for more evaluation. Patient is confused and unable to give history. Review of Systems Review of Systems Unable to obtain because of altered level of consciousness Current Medications Current Medications Current Medications Medications (Trade) Dose Ordered Sig/Teddy Start Time Stop Time Status Last Admin Dose Admin Albuterol/ Ipratropium (Duoneb) 3 ml 1X ONCE 12/02/18 11:30 12/02/18 11:31 DC 12/02/18 11:40 3 ML Methylprednisolone Sodium Succinate (SOLU-Medrol 125MG VIAL) 125 mg 1X ONCE 12/02/18 11:30 12/02/18 11:31 DC 12/02/18 12:04 125 MG Allergies Allergies Allergies Coded Allergies Type Severity Reaction Last Updated Verified No Known Drug Allergies 11/04/18 No Physical Exam Physical Exam Constitutional: Well developed, well nourished, no acute distress, non-toxic appearance. [] HENT: Normocephalic, atraumatic, bilateral external ears normal, oropharynx moist, no oral exudates, nose normal. [] Eyes: PERRLA, EOMI, conjunctiva normal, no discharge. [] Neck: Normal range of motion, no tenderness, supple, no stridor. [] Cardiovascular:Heart rate regular rhythm, no murmur [] Lungs & Thorax: Bilateral breath sounds clear to auscultation [] Abdomen: Bowel sounds normal, soft, no tenderness, no masses, no pulsatile masses. [] Skin: Warm, dry, no erythema, no rash. [] Back: No tenderness, no CVA tenderness. [] Extremities: No tenderness, no cyanosis, no clubbing, ROM intact, no edema. [] Neurologic: Alert and oriented X 3, normal motor function, normal sensory function, no focal deficits noted. [] Psychologic: Affect normal, judgement normal, mood normal. [] Current Patient Data Vital Signs Vital Signs Date Time Temp Pulse Resp B/P (MAP) Pulse Ox O2 Delivery O2 Flow Rate FiO2 12/02/18 12:45 92 22 110/57 (74) 96 Room Air 12/02/18 11:43 97.6 97.6 Lab Values Laboratory Tests Test 12/02/18 11:30 12/02/18 12:06 12/02/18 12:19 White Blood Count 9.3 x10^3/uL (4.0-11.0) Red Blood Count 3.61 x10^6/uL (4.30-5.70) L Hemoglobin 11.4 g/dL (13.0-17.5) L Hematocrit 33.9 % (39.0-53.0) L Mean Corpuscular Volume 94 fL (79-100) Mean Corpuscular Hemoglobin 32 pg (25-35) Mean Corpuscular Hemoglobin Concent 34 g/dL (31-37) Red Cell Distribution Width 14.3 % (11.5-14.5) Platelet Count 482 x10^3/uL (140-400) H Neutrophils (%) (Auto) 86 % (31-73) H Lymphocytes (%) (Auto) 8 % (24-48) L Monocytes (%) (Auto) 6 % (0-9) Eosinophils (%) (Auto) 0 % (0-3) Basophils (%) (Auto) 0 % (0-3) Neutrophils # (Auto) 8.1 x10^3uL (1.8-7.7) H Lymphocytes # (Auto) 0.7 x10^3/uL (1.0-4.8) L Monocytes # (Auto) 0.5 x10^3/uL (0.0-1.1) Eosinophils # (Auto) 0.0 x10^3/uL (0.0-0.7) Basophils # (Auto) 0.0 x10^3/uL (0.0-0.2) Segmented Neutrophils % 85 % (35-66) H Band Neutrophils % 1 % (0-9) Lymphocytes % 8 % (24-48) L Atypical Lymphocytes % (Manual) 1 % (0-0) H Monocytes % 4 % (0-10) Eosinophils % 1 % (0-5) Platelet Estimate Increased (ADEQUATE) Large Platelets Few D-Dimer (Radha) 0.78 ug/mlFEU (0.00-0.50) H Sodium Level 120 mmol/L (136-145) *L Potassium Level 4.5 mmol/L (3.5-5.1) Chloride Level 86 mmol/L (98-107) L Carbon Dioxide Level 25 mmol/L (21-32) Anion Gap 9 (6-14) Blood Urea Nitrogen 19 mg/dL (8-26) Creatinine 1.2 mg/dL (0.7-1.3) Estimated GFR (Cockcroft-Gault) 57.4 BUN/Creatinine Ratio 16 (6-20) Glucose Level 139 mg/dL (70-99) H Lactic Acid Level 2.6 mmol/L (0.4-2.0) H Calcium Level 8.5 mg/dL (8.5-10.1) Total Bilirubin 0.6 mg/dL (0.2-1.0) Aspartate Amino Transferase (AST) 55 U/L (15-37) H Alanine Aminotransferase (ALT) 46 U/L (16-63) Alkaline Phosphatase 120 U/L (46-116) H Creatine Kinase 159 U/L (39-308) Creatine Kinase MB (Mass) 5.4 ng/mL (0.0-3.6) H Creatine Kinase MB Relative Index 3.4 % (0-4) Troponin I Quantitative 0.033 ng/mL (0.000-0.055) PI-Dvq-J-Type Natriuretic Peptide 8628 pg/mL (0-449) H Total Protein 6.1 g/dL (6.4-8.2) L Albumin 2.3 g/dL (3.4-5.0) L Albumin/Globulin Ratio 0.6 (1.0-1.7) L Influenza Type A Antigen Negative (NEGATIVE) Influenza Type B Antigen Negative (NEGATIVE) Urine Collection Type Unknown Urine Color Maricarmen Urine Clarity Clear Urine pH 5.5 Urine Specific [place] >=1.030 Urine Protein 30 mg/dL (NEG-TRACE) Urine Glucose (UA) Negative mg/dL (NEG) Urine Ketones (Stick) Trace mg/dL (NEG) Urine Blood Small (NEG) Urine Nitrite Negative (NEG) Urine Bilirubin Small (NEG) Urine Urobilinogen Dipstick 1.0 mg/dL (0.2 mg/dL) Urine Leukocyte Esterase Small (NEG) Urine RBC 3-5 /HPF (0-2) Urine WBC 11-20 /HPF (0-4) Urine Transitional Epithelial Cells Occ /LPF Urine Bacteria 0 /HPF (0-FEW) Urine Hyaline Casts Many /HPF Urine Mucus Mod /LPF Laboratory Tests 12/02/18 11:30 Laboratory Tests 12/02/18 11:30 EKG EKG EKG interpreted by me. EKG at 1112 showed sinus tachycardia at rate of 117, low nonspecific intraventricular block, right ventricular hypertrophy, poor R-wave progress in anteroseptal leads. QRS voltage, Radiology/Procedures Radiology/Procedures [facility] [address] [place] [address] IMAGING REPORT Signed PATIENT: KRISTIE CAMPUZANO ACCOUNT: [id number] : 1930 LOCATION: ER AGE: 88 SEX: M EXAM STATUS: REG ER ORD. PHYSICIAN: LUIGI GALLARDO MD REASON: sob PROCEDURE: PORTABLE CHEST 1V EXAM: Chest, single view. HISTORY: Shortness of breath. COMPARISON: 11/28/2018 FINDINGS: A frontal view of the chest is obtained. There is increased diffuse central predominant interstitial infiltrate. There are increased small pleural effusions. There is a stable prominent cardiac silhouette. There is a cardiac pacemaker defibrillator unchanged in position. There is no pneumothorax. IMPRESSION: Increase in diffuse central predominant interstitial infiltrate and small pleural effusions. Electronically signed by: Maria Del Rosario Mendoza MD (12/02/2018 1:01 PM) [place] [id number] DICTATED and SIGNED BY: MARIA DEL ROSARIO MENDOZA MD DATE: 12/02/18 1300 Course & Med Decision Making Course & Med Decision Making Pertinent Labs and Imaging studies reviewed. (See chart for details) Evaluation of patient in ER showed 88-year-old male patient brought in after recent hospitalization and discharged less than 2 days ago because of increasing of shortness of breath and confusion and weakness. Patient had sodium of 120 with sodium of 1:30 before discharge. On-call pharmacist Dr. Alberto was consulted at 1233 and recommended to start Lasix and hypertonic sodium at rate of [address] [place] accepted admission at 1242. Dragon Disclaimer Dragon Disclaimer This electronic medical record was generated, in whole or in part, using a voice recognition dictation system. Departure Departure Impression: Primary Impression: Hyponatremia Additional Impressions: Bryant catheter in place Generalized weakness CHF (congestive heart failure) Sepsis Disposition: 09 ADMITTED INPATIENT (At 1243) Admitting Physician: Shawna Quiñonez (accepted admission at 1243) Condition: GUARDED Referrals: UNKNOWN PCP NAME (PCP) Critical Care Time Critical care time was 60 minutes exclusive of procedures. Problem Qualifiers Additional Impressions: CHF (congestive heart failure) Heart failure type: unspecified Heart failure chronicity: acute on chronic Qualified Codes: I50.9 - Heart failure, unspecified Sepsis Sepsis type: sepsis due to unspecified organism Qualified Codes: A41.9 - Sepsis, unspecified organism LUIGI GALLARDO MD Dec 02, 2018 14:29
--- NOTE | 2018-12-02 14:35 | NUR ---
Dr. Alberto here in ICU, verbally notified her of new consult for this patient.
[2018-12-02] MEDS ORDERED: cefTRIAXone IV Push 1 GM VIAL. IVP SCH (15:00)
--- NOTE | 2018-12-02 15:23 | HP ---
ADMIT DATE: 12/02/2018 CHIEF COMPLAINT: Shortness of breath. HISTORY OF PRESENT ILLNESS: The patient is a pleasant elderly male who we just discharged a couple of days ago. He was in for heart failure at that time. He re-presented to the ER with shortness of breath. He has been weak. While in the ER, he was noted to have hyponatremia with a sodium of 120. His BNP level is 8628, which is actually not far from his baseline. He is a little anemic with a hemoglobin of 11.4, INR slightly high at 0.78. Chest x-ray is showing increased interstitial infiltrate and small effusions. He is hypoxic. I discussed the case with ER physician. We are going to go ahead and admit the patient and consult Cardiology. It should be noted that he rates his symptoms as 7/10. He has associated anxiety with this. He tried increasing his home meds, but that did not work. Describes it as irritating. PAST MEDICAL HISTORY: Previous acute on chronic heart failure, hypotension, chronic renal insufficiency, pacemaker. ALLERGIES: None. FAMILY HISTORY: Hypertension. SOCIAL HISTORY: I believe he lives at home. He does not drink, smoke or take drugs. MEDICATIONS: Reviewed. He is on 11 including Augmentin, midodrine, Flomax, Coumadin, amiodarone, simvastatin, aspirin, docusate, Ex-Lax and melatonin. REVIEW OF SYSTEMS: GENERAL: No history of weight change, weakness or fevers. SKIN: No bruising, hair changes or rashes. EYES: No blurred, double or loss of vision. NOSE AND THROAT: No history of nosebleeds, hoarseness or sore throat. HEART: No history of palpitations, chest pain or shortness of breath on exertion. LUNGS: He complains of shortness of breath. GASTROINTESTINAL: Denies changes in appetite, nausea, vomiting, diarrhea or constipation. GENITOURINARY: No history of frequency, urgency, hesitancy or nocturia. NEUROLOGIC: Denies history of numbness, tingling, tremor or weakness. PSYCHIATRIC: No history of panic, anxiety or depression. ENDOCRINE: No history of heat or cold intolerance, polyuria or polydipsia. EXTREMITIES: Denies muscle weakness, joint pain, pain on walking or stiffness. PHYSICAL EXAMINATION: VITAL SIGNS: Temperature afebrile, pulse 90, respirations 24, blood pressure 133/83, O2 sat 96% on room air. GENERAL: He is alert, weak, has decreased hearing, but pleasant. HEART: Normal S1, S2 with a soft S3. LUNGS: Mostly clear. ABDOMEN: Soft. EXTREMITIES: 1+ edema. SKIN: No rash. ENDOCRINE: No thyromegaly. LYMPHATICS: No cervical nodes. HEMATOPOIETIC: No bruising. LABORATORY DATA: Hemoglobin 11.4, sodium is 120. BNP 8628. Troponin 0.033. Urinalysis: Small amount of leukocyte esterase with 11-20 white cells. ASSESSMENT AND PLAN: Hyponatremia, hypoxemia, anemia, urinary tract infection, metabolic encephalopathy and elevated D-dimer. The patient is being admitted. We have consulted Nephrology and Cardiology. ICU monitoring, serial enzymes, serial EKGs, IV Lasix if possible. Nephrology would like to give him some IV hypertonic saline and I certainly agree and appreciate their input. We will resume his home meds. Frequent labs, PT, OT. Suspect he will need assisted. MIKAYLA MIRANDA DO DR: LORA/vannessa JOB#: [id number] / [id number]
--- NOTE | 2018-12-02 15:47 | PDOC2 ---
CONSULT Date of Consult Date of Consult DATE: 12/02/18 TIME: 15:25 Reason for Consult Reason for Consult: Hyponatremia Identification/Chief Complaint Chief Complaint Pt very hard of hearing, unable to Obtain Hx, No family at bedside Source Source: Chart review History of Present Illness Reason for Visit: Pt is 88 yo CM very hard of hearing, unable to obtain Hx, no family at bedside Paged by ER provider - as reported by ER MD- Pt was mildly confused but otherwise stable with Cxr cw Heart failure Elevated Bnp. Pt was on O2 in ED Currently Pt is comfortable, not on O2. Has indwelling maloney catheter . Given IV Lasix in ED and started 3% Saline Had uop of 800 . Med list in chart- Not on diuretics, has midodrine listed . No psych meds I had seen him for ESTEFANI in Nov 2018 Past Medical History Cardiovascular: AFIB, CAD, CHF, HTN, Hyperlipidemia Pulmonary: No pertinent hx GI: No pertinent hx Heme/Onc: No pertinent hx Hepatobiliary: No pertinent hx Psych: No pertinent hx Musculoskeletal: Osteoarthritis Rheumatologic: No pertinent hx Infectious disease: No pertinent hx Renal/: Chronic renal insuff, Other Endocrine: No pertinent hx Past Surgical History Past Surgical History: Pacemaker Family History Family History: Cancer, Diabetes, Hypertension Social History ALCOHOL: none Drugs: None Lives: with Family Current Problem List Problem List Problems Medical Problems: (1) CHF (congestive heart failure) Status: Acute (2) Generalized weakness Status: Acute (3) Sepsis Status: Acute Current Medications Current Medications Current Medications Albuterol/ Ipratropium (Duoneb) 3 ml STK-MED ONCE .ROUTE ; Start 12/02/18 at 11: 21; Stop 12/02/18 at 11:22; Status DC Albuterol/ Ipratropium (Duoneb) 3 ml 1X ONCE NEB Last administered on at 11:40; Start 12/02/18 at 11:30; Stop 12/02/18 at 11:31; Status DC Methylprednisolone Sodium Succinate (SOLU-Medrol 125MG VIAL) 125 mg 1X ONCE IV Last administered on 12/02/18at 12:04; Start 12/02/18 at 11:30; Stop 12/02/18 at 11:31; Status DC Sodium Chloride 500 ml @ 50 mls/hr 1X ONCE IV ; Start 12/02/18 at 13:00; Stop 12/02/18 at 13:00; Status DC Sodium Chloride 100 ml @ 30 mls/hr 1X ONCE IV Last administered on 12/02/18at 12:47; Start 12/02/18 at 13:00; Stop 12/02/18 at 16:19 Furosemide (Lasix) 40 mg 1X ONCE IVP Last administered on 12/02/18at 12:48; Start 12/02/18 at 13:15; Stop 12/02/18 at 13:16; Status DC Ceftriaxone Sodium (Rocephin) 1 gm 1X ONCE IVP Last administered on 12/02/18at 13:32; Start 12/02/18 at 13:00; Stop 12/02/18 at 13:01; Status DC Ceftriaxone Sodium (Rocephin) 1 gm Q24H IVP ; Start 12/02/18 at 15:00 Active Scripts Active Flomax (Tamsulosin Hcl) 0.4 Mg Cap.er.24h 0.4 Mg PO DAILY 30 Days Reported Amox Tr-K Clv 500-125 Mg Tab (Amoxicillin/Potassium Clav) 1 Each Tablet 1 Tab PO BID 3 Days Warfarin Sodium 2.5 Mg Tablet 2.5 Mg PO SUN,SUN,,SAT,SUN Warfarin Sodium 5 Mg Tablet 5 Mg PO SUNDAY AND SUNDAY Simvastatin 10 Mg Tablet 1 Tab PO QHS Midodrine Hcl 5 Mg Tablet 5 Mg PO TID Melatonin 3 Mg Tablet 5 Mg PO HS PRN Ex-Lax Maximum Relief (Sennosides) 25 Mg Tablet 50 Mg PO DAILY Docusate Sodium 100 Mg Capsule 1 Cap PO BID PRN Aspirin Ec (Aspirin) 81 Mg Tablet.dr 1 Tab PO DAILY Amiodarone Hcl 200 Mg Tablet 1 Tab PO DAILY Allergies Allergies: Coded Allergies: No Known Drug Allergies (Unverified , 11/04/18) ROS Review of System As per HPI Physical Exam Physical Exam GEN: NAD, HEENT- Om moist, not on O2 , Very hard of hearing NECK: supple CVS: RRR, RESP: CTA Bilat, Non labored GI: Non Tender, Non Distended : No CVA tenderness , Indwelling Maloney +(Chronic) Neuro- Grossly Normal Skin No rash Vital Signs Vital Signs Date Time Temp Pulse Resp B/P (MAP) Pulse Ox O2 Delivery O2 Flow Rate FiO2 12/02/18 11:43 97.6 94 24 133/83 (100) 96 Room Air 97.6 Assessment & Plan Hyponatremia -was hospitalized in Nov for same ? mild symptoms as per ED Started IV 3 % cautiously due to CHF IV Lasix x 1 in ED Recheck Labs in 4 hrs Check TSH, Urine Lytes, serum Osm and Ur osm HTN- as per Hx Home meds shows Midodrine CHF- defer to cardiology Indwelling Maloney -? Duration ESTEFANI-recent hospitalization Baseline renal function unknown Creat normal this admn Urinary retention - last hospitalization Hydronephrosis on US Urology following Hypotension with Syncopal episodes hospitalized at in nov 2018 Discussed with RN, No family at bedside Labs Labs Laboratory Tests Test 12/02/18 11:30 12/02/18 12:06 12/02/18 12:19 White Blood Count 9.3 x10^3/uL (4.0-11.0) Red Blood Count 3.61 x10^6/uL (4.30-5.70) Hemoglobin 11.4 g/dL (13.0-17.5) Hematocrit 33.9 % (39.0-53.0) Mean Corpuscular Volume 94 fL (79-100) Mean Corpuscular Hemoglobin 32 pg (25-35) Mean Corpuscular Hemoglobin Concent 34 g/dL (31-37) Red Cell Distribution Width 14.3 % (11.5-14.5) Platelet Count 482 x10^3/uL (140-400) Neutrophils (%) (Auto) 86 % (31-73) Lymphocytes (%) (Auto) 8 % (24-48) Monocytes (%) (Auto) 6 % (0-9) Eosinophils (%) (Auto) 0 % (0-3) Basophils (%) (Auto) 0 % (0-3) Neutrophils # (Auto) 8.1 x10^3uL (1.8-7.7) Lymphocytes # (Auto) 0.7 x10^3/uL (1.0-4.8) Monocytes # (Auto) 0.5 x10^3/uL (0.0-1.1) Eosinophils # (Auto) 0.0 x10^3/uL (0.0-0.7) Basophils # (Auto) 0.0 x10^3/uL (0.0-0.2) Segmented Neutrophils % 85 % (35-66) Band Neutrophils % 1 % (0-9) Lymphocytes % 8 % (24-48) Atypical Lymphocytes % (Manual) 1 % (0-0) Monocytes % 4 % (0-10) Eosinophils % 1 % (0-5) Platelet Estimate Increased (ADEQUATE) Large Platelets Few D-Dimer (Radha) 0.78 ug/mlFEU (0.00-0.50) Sodium Level 120 mmol/L (136-145) Potassium Level 4.5 mmol/L (3.5-5.1) Chloride Level 86 mmol/L (98-107) Carbon Dioxide Level 25 mmol/L (21-32) Anion Gap 9 (6-14) Blood Urea Nitrogen 19 mg/dL (8-26) Creatinine 1.2 mg/dL (0.7-1.3) Estimated GFR (Cockcroft-Gault) 57.4 BUN/Creatinine Ratio 16 (6-20) Glucose Level 139 mg/dL (70-99) Lactic Acid Level 2.6 mmol/L (0.4-2.0) Calcium Level 8.5 mg/dL (8.5-10.1) Total Bilirubin 0.6 mg/dL (0.2-1.0) Aspartate Amino Transf (AST/SGOT) 55 U/L (15-37) Alanine Aminotransferase (ALT/SGPT) 46 U/L (16-63) Alkaline Phosphatase 120 U/L (46-116) Creatine Kinase 159 U/L (39-308) Creatine Kinase MB (Mass) 5.4 ng/mL (0.0-3.6) Creatine Kinase MB Relative Index 3.4 % (0-4) Troponin I Quantitative 0.033 ng/mL (0.000-0.055) PG-Zib-L-Type Natriuretic Peptide 8628 pg/mL (0-449) Total Protein 6.1 g/dL (6.4-8.2) Albumin 2.3 g/dL (3.4-5.0) Albumin/Globulin Ratio 0.6 (1.0-1.7) Influenza Type A Antigen Negative (NEGATIVE) Influenza Type B Antigen Negative (NEGATIVE) Urine Collection Type Unknown Urine Color Maricarmen Urine Clarity Clear Urine pH 5.5 Urine Specific [place] >=1.030 Urine Protein 30 mg/dL (NEG-TRACE) Urine Glucose (UA) Negative mg/dL (NEG) Urine Ketones (Stick) Trace mg/dL (NEG) Urine Blood Small (NEG) Urine Nitrite Negative (NEG) Urine Bilirubin Small (NEG) Urine Urobilinogen Dipstick 1.0 mg/dL (0.2 mg/dL) Urine Leukocyte Esterase Small (NEG) Urine RBC 3-5 /HPF (0-2) Urine WBC 11-20 /HPF (0-4) Urine Transitional Epithelial Cells Occ /LPF Urine Bacteria 0 /HPF (0-FEW) Urine Hyaline Casts Many /HPF Urine Mucus Mod /LPF Laboratory Tests Test 12/02/18 11:30 12/02/18 12:06 12/02/18 12:19 White Blood Count 9.3 x10^3/uL (4.0-11.0) Red Blood Count 3.61 x10^6/uL (4.30-5.70) Hemoglobin 11.4 g/dL (13.0-17.5) Hematocrit 33.9 % (39.0-53.0) Mean Corpuscular Volume 94 fL (79-100) Mean Corpuscular Hemoglobin 32 pg (25-35) Mean Corpuscular Hemoglobin Concent 34 g/dL (31-37) Red Cell Distribution Width 14.3 % (11.5-14.5) Platelet Count 482 x10^3/uL (140-400) Neutrophils (%) (Auto) 86 % (31-73) Lymphocytes (%) (Auto) 8 % (24-48) Monocytes (%) (Auto) 6 % (0-9) Eosinophils (%) (Auto) 0 % (0-3) Basophils (%) (Auto) 0 % (0-3) Neutrophils # (Auto) 8.1 x10^3uL (1.8-7.7) Lymphocytes # (Auto) 0.7 x10^3/uL (1.0-4.8) Monocytes # (Auto) 0.5 x10^3/uL (0.0-1.1) Eosinophils # (Auto) 0.0 x10^3/uL (0.0-0.7) Basophils # (Auto) 0.0 x10^3/uL (0.0-0.2) Segmented Neutrophils % 85 % (35-66) Band Neutrophils % 1 % (0-9) Lymphocytes % 8 % (24-48) Atypical Lymphocytes % (Manual) 1 % (0-0) Monocytes % 4 % (0-10) Eosinophils % 1 % (0-5) Platelet Estimate Increased (ADEQUATE) Large Platelets Few D-Dimer (Radha) 0.78 ug/mlFEU (0.00-0.50) Sodium Level 120 mmol/L (136-145) Potassium Level 4.5 mmol/L (3.5-5.1) Chloride Level 86 mmol/L (98-107) Carbon Dioxide Level 25 mmol/L (21-32) Anion Gap 9 (6-14) Blood Urea Nitrogen 19 mg/dL (8-26) Creatinine 1.2 mg/dL (0.7-1.3) Estimated GFR (Cockcroft-Gault) 57.4 BUN/Creatinine Ratio 16 (6-20) Glucose Level 139 mg/dL (70-99) Lactic Acid Level 2.6 mmol/L (0.4-2.0) Calcium Level 8.5 mg/dL (8.5-10.1) Total Bilirubin 0.6 mg/dL (0.2-1.0) Aspartate Amino Transf (AST/SGOT) 55 U/L (15-37) Alanine Aminotransferase (ALT/SGPT) 46 U/L (16-63) Alkaline Phosphatase 120 U/L (46-116) Creatine Kinase 159 U/L (39-308) Creatine Kinase MB (Mass) 5.4 ng/mL (0.0-3.6) Creatine Kinase MB Relative Index 3.4 % (0-4) Troponin I Quantitative 0.033 ng/mL (0.000-0.055) IK-Wyq-L-Type Natriuretic Peptide 8628 pg/mL (0-449) Total Protein 6.1 g/dL (6.4-8.2) Albumin 2.3 g/dL (3.4-5.0) Albumin/Globulin Ratio 0.6 (1.0-1.7) Influenza Type A Antigen Negative (NEGATIVE) Influenza Type B Antigen Negative (NEGATIVE) Urine Collection Type Unknown Urine Color Maricarmen Urine Clarity Clear Urine pH 5.5 Urine Specific [place] >=1.030 Urine Protein 30 mg/dL (NEG-TRACE) Urine Glucose (UA) Negative mg/dL (NEG) Urine Ketones (Stick) Trace mg/dL (NEG) Urine Blood Small (NEG) Urine Nitrite Negative (NEG) Urine Bilirubin Small (NEG) Urine Urobilinogen Dipstick 1.0 mg/dL (0.2 mg/dL) Urine Leukocyte Esterase Small (NEG) Urine RBC 3-5 /HPF (0-2) Urine WBC 11-20 /HPF (0-4) Urine Transitional Epithelial Cells Occ /LPF Urine Bacteria 0 /HPF (0-FEW) Urine Hyaline Casts Many /HPF Urine Mucus Mod /LPF Review All relevant outside records, renal labs, imaging studies, telemetry/EKG's were reviewed. Images Images CxR-- IMPRESSION: Increase in diffuse central predominant interstitial infiltrate and small pleural effusions. CHIKI BARR MD Dec 02, 2018 15:47
--- NOTE | 2018-12-02 16:09 | EKG ---
[facility] [address] [place] [address] Test Date: 2018-12-02 Test Time: 11:12:25 Pat Name: KRISTIE CAMPUZANO Department: Room: 111 1 Gender: M Industrial Editor: : 1930 Requested By: MIKAYLA MIRANDA Order Number: [id number] Reading MD: Shantanu Crow MD Measurements Intervals [place] Rate: 117 P: 90 PA: 144 QRS: -133 QRSD: 172 T: 45 QT: 362 QTc: 510 Interpretive Statements V-PACED Electronically Signed On 12-03-2018 7:03:28 GARDE MANAGER by Shantanu Crow MD
--- NOTE | 2018-12-02 16:32 | NUR ---
Consult to Dr. Briggs placed. Dr. Crow here in ICU, saw patient and reviewed patient's EKG. Vpaced with [employer] AICD. No orders to interrogate at this time.
--- NOTE | 2018-12-02 16:36 | PDOC ---
CARDIOLOGY PROGRESS NOTE SUBJECTIVE: Pt. seen and examined. See note from 11/29 for full details. Patient with recurrent admission for heart failure/hyponatremia. 88 y.o male with multiple comorbidities presenting with mental status changes. No chest pain. +Dyspnea. OBJECTIVE: Vital SIgns: Vital Signs Date Time Temp Pulse Resp B/P (MAP) Pulse Ox O2 Delivery O2 Flow Rate FiO2 12/02/18 14:05 Room Air 12/02/18 13:45 88 21 110/66 (81) 96 12/02/18 11:43 97.6 97.6 I & O -2L Objective: A/O to self and place. Normal heart tones. Emaciated elderly male in no distress. resting in bed. Mild bilateral rhonchi 2+ pedal edema. Neck veins elevated. CURRENT MEDICATIONS: Furosemide 40mg IVP DIAGNOSTIC TESTING: BNP > 8K Na 120 Cr stable. ASSESSMENT: 1. 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 Severe hyponatremia - likely hypervolemic hyponatremia PLAN: 1. Continue diuresis. 2. Start oral therapy for HF if able to in a.m. (b-marc, hipolito-inh etc) Need discussion with family and patient about goals of care. BRADFORD KANG MD Dec 02, 2018 16:36
--- NOTE | 2018-12-02 17:08 | NUR ---
Pacemaker interrogated with [employer] machine. Awaiting readback from [employer]. Pat here to see patient, spoke with Mike, patient's son. They will have family meeting tomorrow at 1 PM.
--- NOTE | 2018-12-02 17:19 | PDOC2 ---
PALLIATIVE CARE Palliative Care Note Palliative Care Consult requested by Dr. Crow to address goals of care. Medical Assessment per medical record; 1. 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 Severe hyponatremia - likely hypervolemic hyponatremia Spoke with patient and son Henry. Full Code. AICD in place. Plan family meeting tomorrow at 1300 MEL CALABRESE Dec 02, 2018 17:19
[2018-12-02 17:58] LABS: CALCIUM 8.3 mg/dL (8.5-10.1); CREATININE 1.2 mg/dL (0.7-1.3); GFR 57.4; POTASSIUM 4.4 mmol/L (3.5-5.1)
--- NOTE | 2018-12-02 18:13 | NUR ---
Dr. Alberto contacted with results of BMP, Na is 125. Orders given to continue to hold 3% saline at this time, redraw BMP at 2100 and call her with results. Will pass on to shiftman.
[2018-12-02 21:37] LABS: CALCIUM 8.4 mg/dL (8.5-10.1); CREATININE 1.2 mg/dL (0.7-1.3); GFR 57.4; POTASSIUM 4.4 mmol/L (3.5-5.1)
[2018-12-03] VITALS (18 sets, daily range): BP systolic 89–155; BP diastolic 49–86
[2018-12-03 01:10] LABS: SODIUM, URINE <60 mmol/L (Not Estab.); UR POTASSIUM 23.8 mmol/L (Not Estab.)
--- NOTE | 2018-12-03 04:16 | NUR ---
PT PROGRESSING SLIGHTLY DURING NOC SHIFT WITH 9PM RESULTS OF SODIUM COMMUNICATED TO DR. BARR PER REQUESTED. DR. BARR WAS SATIFIED WITH SODIUM LEVELS AND DID NOT WANT TO RESTART 3% SC INFUSION AND WAS OK WITH PATIENT HAVE ICE CHIPS. ASSESSMENT CHARTED. VSS. PT HAS BEEN TURNING SELF FREQUENTLY FOR COMFORT. CALL LIGHT IN REACH. CONTINUE WITH PLAN OF CARE.
[2018-12-03 06:41] LABS: ALBUMIN 2.2 g/dL (3.4-5.0); ALBUMIN/GLOBULIN RATIO 0.6 (1.0-1.7); CALCIUM 8.5 mg/dL (8.5-10.1); CREATININE 1.2 mg/dL (0.7-1.3); GFR 57.4; PHOSPHORUS 3.2 mg/dL (2.6-4.7); POTASSIUM 4.7 mmol/L (3.5-5.1); TOTAL BILIRUBIN 0.4 mg/dL (0.2-1.0)
--- NOTE | 2018-12-03 09:08 | NUR ---
IP Pt is + for (R)E.coli with ESBL in urine requiring contact precautions.
--- NOTE | 2018-12-03 09:15 | NUR ---
Received a call from lab, pt's urine culture from previous admission on 11/29/18 shows multid[address] resistant ecoli. Dr. Quiñonez paged to notified of results. Pt is currently on rocephin which shows resistance according to report.
[2018-12-03] MEDS ORDERED: NON FORMULARY ITEM (Melatonin 5 MG) PO PRN (11:00)
[2018-12-03] MEDS ORDERED: NON FORMULARY ITEM (Warfarin Sodium 5 MG) PO SCH (11:00)
[2018-12-03 11:35] LABS: PROTHROMBIN TIME PATIENT 20.5 SEC (11.7-14.0)
--- NOTE | 2018-12-03 12:01 | PDOC ---
SUBJECTIVE ROS Stable OBJECTIVE Vital Signs Vital Signs Date Time Temp Pulse Resp B/P (MAP) Pulse Ox O2 Delivery O2 Flow Rate FiO2 12/03/18 11:10 98.3 104 16 109/70 (83) 94 Room Air 98.3 I & 0 Intake and Output 12/03/18 07:00 Intake Total 60 ml Output Total 3280 ml Balance -3220 ml Intake Oral 60 ml Output Urine Total 3280 ml PHYSICAL EXAM Physical Exam GEN: NAD, HEENT- Om moist, not on O2 , Very hard of hearing NECK: supple CVS: RRR, RESP: CTA Bilat, Non labored GI: Non Tender, Non Distended : No CVA tenderness , Indwelling Bryant +(Chronic) Neuro- Grossly Normal Skin No rash DIAGNOSIS/ASSESSMENT Assessment & Plan Hyponatremia -was hospitalized in Nov for same IV 3 % given for few hrs- Improvement in Na Avoid overcorrection , 3% dced yesterday IV Lasix x 1 in ED No Indication for IVF currently, Restrict fluid intake to 1938-5418 ml HTN- as per Hx Home meds shows Midodrine CHF- defer to cardiology Indwelling Bryant -? Duration ESTEFANI-recent hospitalization Baseline renal function unknown Creat normal this admn Urinary retention - last hospitalization Hydronephrosis on US Urology following Hypotension with Syncopal episodes hospitalized at in nov 2018 Discussed with RN COMMENT/RELEVANT DATA Meds Current Medications Medications (Trade) Dose Ordered Sig/Teddy Start Time Stop Time Status Last Admin Dose Admin Albuterol/ Ipratropium (Duoneb) 3 ml 1X ONCE 12/02/18 11:30 12/02/18 11:31 DC 12/02/18 11:40 3 ML Amiodarone HCl (Cordarone) 200 mg DAILY 12/03/18 12:00 Aspirin (Ecotrin) 81 mg DAILY 12/03/18 12:00 Ceftriaxone Sodium (Rocephin) 1 gm Q24H 12/02/18 15:00 12/02/18 16:53 1 GM Docusate Sodium (Colace) 100 mg PRN BID PRN 12/03/18 11:00 Furosemide (Lasix) 40 mg 1X ONCE 12/02/18 13:15 12/02/18 13:16 DC 12/02/18 12:48 40 MG Methylprednisolone Sodium Succinate (SOLU-Medrol 125MG VIAL) 125 mg 1X ONCE 12/02/18 11:30 3/4/19 11:31 DC 12/02/18 12:04 125 MG Midodrine (Proamatine) 5 mg [id number] 12/03/18 13:00 Non-Formulary Medication (Melatonin ) 5 mg HS PRN 12/03/18 11:00 UNV Non-Formulary Medication (Warfarin Sodium ) 5 mg sunday and sunday12/03/18 11:00 UNV Simvastatin (Zocor) 10 mg QHS 12/03/18 21:00 Sodium Chloride 100 ml @ 30 mls/hr 1X ONCE 12/02/18 13:00 12/02/18 16:19 DC 12/02/18 12:47 30 MLS/HR Tamsulosin HCl (Flomax) 0.4 mg DAILY 12/03/18 12:00 Warfarin Sodium (Coumadin Per Pharmacy) 1 each PRN DAILY PRN 12/03/18 11:00 Lab Laboratory Tests Test 12/02/18 12:06 12/02/18 12:19 12/02/18 16:30 12/02/18 20:55 Influenza Type A Antigen Negative (NEGATIVE) Influenza Type B Antigen Negative (NEGATIVE) Urine Collection Type Unknown Urine Color Maricarmen Urine Clarity Clear Urine pH 5.5 Urine Specific [place] >=1.030 Urine Protein 30 mg/dL (NEG-TRACE) Urine Glucose (UA) Negative mg/dL (NEG) Urine Ketones (Stick) Trace mg/dL (NEG) Urine Blood Small (NEG) Urine Nitrite Negative (NEG) Urine Bilirubin Small (NEG) Urine Urobilinogen Dipstick 1.0 mg/dL (0.2 mg/dL) Urine Leukocyte Esterase Small (NEG) Urine RBC 3-5 /HPF (0-2) Urine WBC 11-20 /HPF (0-4) Urine Transitional Epithelial Cells Occ /LPF Urine Bacteria 0 /HPF (0-FEW) Urine Hyaline Casts Many /HPF Urine Mucus Mod /LPF Sodium Level 125 mmol/L (136-145) 128 mmol/L (136-145) Potassium Level 4.4 mmol/L (3.5-5.1) 4.4 mmol/L (3.5-5.1) Chloride Level 89 mmol/L (98-107) 92 mmol/L (98-107) Carbon Dioxide Level 26 mmol/L (21-32) 27 mmol/L (21-32) Anion Gap 10 (6-14) 9 (6-14) Blood Urea Nitrogen 18 mg/dL (8-26) 17 mg/dL (8-26) Creatinine 1.2 mg/dL (0.7-1.3) 1.2 mg/dL (0.7-1.3) Estimated GFR (Cockcroft-Gault) 57.4 57.4 Glucose Level 118 mg/dL (70-99) 126 mg/dL (70-99) Lactic Acid Level 2.0 mmol/L (0.4-2.0) Calcium Level 8.3 mg/dL (8.5-10.1) 8.4 mg/dL (8.5-10.1) AC-Pcj-O-Type Natriuretic Peptide 9457 pg/mL (0-449) Test 12/03/18 04:30 Prothrombin Time 20.5 SEC (11.7-14.0) Prothromb Time International Ratio 1.8 (0.8-1.1) Sodium Level 129 mmol/L (136-145) Potassium Level 4.7 mmol/L (3.5-5.1) Chloride Level 92 mmol/L (98-107) Carbon Dioxide Level 27 mmol/L (21-32) Anion Gap 10 (6-14) Blood Urea Nitrogen 18 mg/dL (8-26) Creatinine 1.2 mg/dL (0.7-1.3) Estimated GFR (Cockcroft-Gault) 57.4 BUN/Creatinine Ratio 15 (6-20) Glucose Level 105 mg/dL (70-99) Calcium Level 8.5 mg/dL (8.5-10.1) Phosphorus Level 3.2 mg/dL (2.6-4.7) Total Bilirubin 0.4 mg/dL (0.2-1.0) Aspartate Amino Transf (AST/SGOT) 52 U/L (15-37) Alanine Aminotransferase (ALT/SGPT) 46 U/L (16-63) Alkaline Phosphatase 110 U/L (46-116) Total Protein 6.0 g/dL (6.4-8.2) Albumin 2.2 g/dL (3.4-5.0) Albumin/Globulin Ratio 0.6 (1.0-1.7) Results All relevant outside records, renal labs, imaging studies, telemetry/EKG's were reviewed. CHIKI BARR MD Dec 03, 2018 12:01
--- NOTE | 2018-12-03 12:11 | PDOC ---
Provider Note Provider Note S: No acute events overnight. Denies any chest pain. Continues to have dyspnea. O: VSS No edema. Resting in bed. Normal heart tones. Lungs with bilateral rhonchi Labs reviewed. Meds reviewed. Impression: 1. NICM 2. Afib 3. Debility Plan 1. Will await goals of care and family meeting. 2. If conservative mgmt, consider cardiac palliative care/hospice. 3. If aggressive measures, then consider cardiac cath and titration of medical therapy. Will f/u. BRADFORD KANG MD Dec 03, 2018 12:11
--- NOTE | 2018-12-03 12:15 | PDOC ---
PROGRESS NOTES Chief Complaint Chief Complaint Acute on chronic systolic/diastolic heart failure Hyponatremia Hypoxemia Anemia Urinary tract infection, Metabolic encephalopathy Elevated D-dimer. History of Present Illness History of Present Illness Mr. Frederick presented with shortness of breath and hyponatremia, was found to be in heart failure, BNP > 9000. Patient was seen and examined in the ICU. Patient is recovering, no new complaints. He is awake and resting comfortably. Vitals Vitals Vital Signs Date Time Temp Pulse Resp B/P (MAP) Pulse Ox O2 Delivery O2 Flow Rate FiO2 12/03/18 11:10 98.3 104 16 109/70 (83) 94 Room Air 98.3 Physical Exam General: Alert, Oriented X3, No acute distress Heart: No murmurs, Other (irregular rhythm) Lungs: Clear, Other (no wheezing, off biPAP) Abdomen: Normal bowel sounds, Soft, No tenderness Extremities: No clubbing, No cyanosis, No edema Skin: No rashes, No significant lesion Labs LABS Laboratory Tests Test 12/02/18 12:06 12/02/18 12:19 12/02/18 16:30 12/02/18 20:55 Influenza Type A Antigen Negative (NEGATIVE) Influenza Type B Antigen Negative (NEGATIVE) Urine Collection Type Unknown Urine Color Maricarmen Urine Clarity Clear Urine pH 5.5 Urine Specific [place] >=1.030 Urine Protein 30 mg/dL (NEG-TRACE) Urine Glucose (UA) Negative mg/dL (NEG) Urine Ketones (Stick) Trace mg/dL (NEG) Urine Blood Small (NEG) Urine Nitrite Negative (NEG) Urine Bilirubin Small (NEG) Urine Urobilinogen Dipstick 1.0 mg/dL (0.2 mg/dL) Urine Leukocyte Esterase Small (NEG) Urine RBC 3-5 /HPF (0-2) Urine WBC 11-20 /HPF (0-4) Urine Transitional Epithelial Cells Occ /LPF Urine Bacteria 0 /HPF (0-FEW) Urine Hyaline Casts Many /HPF Urine Mucus Mod /LPF Sodium Level 125 mmol/L (136-145) 128 mmol/L (136-145) Potassium Level 4.4 mmol/L (3.5-5.1) 4.4 mmol/L (3.5-5.1) Chloride Level 89 mmol/L (98-107) 92 mmol/L (98-107) Carbon Dioxide Level 26 mmol/L (21-32) 27 mmol/L (21-32) Anion Gap 10 (6-14) 9 (6-14) Blood Urea Nitrogen 18 mg/dL (8-26) 17 mg/dL (8-26) Creatinine 1.2 mg/dL (0.7-1.3) 1.2 mg/dL (0.7-1.3) Estimated GFR (Cockcroft-Gault) 57.4 57.4 Glucose Level 118 mg/dL (70-99) 126 mg/dL (70-99) Lactic Acid Level 2.0 mmol/L (0.4-2.0) Calcium Level 8.3 mg/dL (8.5-10.1) 8.4 mg/dL (8.5-10.1) PU-Zuj-X-Type Natriuretic Peptide 9457 pg/mL (0-449) Test 12/03/18 04:30 Prothrombin Time 20.5 SEC (11.7-14.0) Prothromb Time International Ratio 1.8 (0.8-1.1) Sodium Level 129 mmol/L (136-145) Potassium Level 4.7 mmol/L (3.5-5.1) Chloride Level 92 mmol/L (98-107) Carbon Dioxide Level 27 mmol/L (21-32) Anion Gap 10 (6-14) Blood Urea Nitrogen 18 mg/dL (8-26) Creatinine 1.2 mg/dL (0.7-1.3) Estimated GFR (Cockcroft-Gault) 57.4 BUN/Creatinine Ratio 15 (6-20) Glucose Level 105 mg/dL (70-99) Calcium Level 8.5 mg/dL (8.5-10.1) Phosphorus Level 3.2 mg/dL (2.6-4.7) Total Bilirubin 0.4 mg/dL (0.2-1.0) Aspartate Amino Transf (AST/SGOT) 52 U/L (15-37) Alanine Aminotransferase (ALT/SGPT) 46 U/L (16-63) Alkaline Phosphatase 110 U/L (46-116) Total Protein 6.0 g/dL (6.4-8.2) Albumin 2.2 g/dL (3.4-5.0) Albumin/Globulin Ratio 0.6 (1.0-1.7) Review of Systems Review of Systems Denies shortness of breath Denies chest pain Assessment and Plan Assessmemt and Plan Problems Medical Problems: (1) CHF (congestive heart failure) Status: Acute (2) Generalized weakness Status: Acute (3) Sepsis Status: Acute Assessment: Acute on chronic systolic/diastolic heart failure Hyponatremia Hypoxemia Anemia Urinary tract infection, Metabolic encephalopathy Elevated D-dimer Plan: Advance diet as tolerated Start bactrim DS 1 po BID Continue to monitor in the ICU Continue home meds Appreciate subspecialty input Recheck labs in tomorrow morning Comment Review of Relevant I have reviewed the following items yolande (where applicable) has been applied. Labs Laboratory Tests Test 12/02/18 11:30 12/02/18 12:06 12/02/18 12:19 12/02/18 16:30 White Blood Count 9.3 x10^3/uL (4.0-11.0) Red Blood Count 3.61 x10^6/uL (4.30-5.70) Hemoglobin 11.4 g/dL (13.0-17.5) Hematocrit 33.9 % (39.0-53.0) Mean Corpuscular Volume 94 fL (79-100) Mean Corpuscular Hemoglobin 32 pg (25-35) Mean Corpuscular Hemoglobin Concent 34 g/dL (31-37) Red Cell Distribution Width 14.3 % (11.5-14.5) Platelet Count 482 x10^3/uL (140-400) Neutrophils (%) (Auto) 86 % (31-73) Lymphocytes (%) (Auto) 8 % (24-48) Monocytes (%) (Auto) 6 % (0-9) Eosinophils (%) (Auto) 0 % (0-3) Basophils (%) (Auto) 0 % (0-3) Neutrophils # (Auto) 8.1 x10^3uL (1.8-7.7) Lymphocytes # (Auto) 0.7 x10^3/uL (1.0-4.8) Monocytes # (Auto) 0.5 x10^3/uL (0.0-1.1) Eosinophils # (Auto) 0.0 x10^3/uL (0.0-0.7) Basophils # (Auto) 0.0 x10^3/uL (0.0-0.2) Segmented Neutrophils % 85 % (35-66) Band Neutrophils % 1 % (0-9) Lymphocytes % 8 % (24-48) Atypical Lymphocytes % (Manual) 1 % (0-0) Monocytes % 4 % (0-10) Eosinophils % 1 % (0-5) Platelet Estimate Increased (ADEQUATE) Large Platelets Few D-Dimer (Radha) 0.78 ug/mlFEU (0.00-0.50) Urine Sodium <60 mmol/L (Not Estab.) Urine Potassium 23.8 mmol/L (Not Estab.) Urine Chloride <60 mmol/L (Not Estab.) Sodium Level 120 mmol/L (136-145) 125 mmol/L (136-145) Potassium Level 4.5 mmol/L (3.5-5.1) 4.4 mmol/L (3.5-5.1) Chloride Level 86 mmol/L (98-107) 89 mmol/L (98-107) Carbon Dioxide Level 25 mmol/L (21-32) 26 mmol/L (21-32) Anion Gap 9 (6-14) 10 (6-14) Blood Urea Nitrogen 19 mg/dL (8-26) 18 mg/dL (8-26) Creatinine 1.2 mg/dL (0.7-1.3) 1.2 mg/dL (0.7-1.3) Estimated GFR (Cockcroft-Gault) 57.4 57.4 BUN/Creatinine Ratio 16 (6-20) Glucose Level 139 mg/dL (70-99) 118 mg/dL (70-99) Lactic Acid Level 2.6 mmol/L (0.4-2.0) 2.0 mmol/L (0.4-2.0) Calcium Level 8.5 mg/dL (8.5-10.1) 8.3 mg/dL (8.5-10.1) Total Bilirubin 0.6 mg/dL (0.2-1.0) Aspartate Amino Transf (AST/SGOT) 55 U/L (15-37) Alanine Aminotransferase (ALT/SGPT) 46 U/L (16-63) Alkaline Phosphatase 120 U/L (46-116) Creatine Kinase 159 U/L (39-308) Creatine Kinase MB (Mass) 5.4 ng/mL (0.0-3.6) Creatine Kinase MB Relative Index 3.4 % (0-4) Troponin I Quantitative 0.033 ng/mL (0.000-0.055) AJ-Hlm-H-Type Natriuretic Peptide 8628 pg/mL (0-449) 9457 pg/mL (0-449) Total Protein 6.1 g/dL (6.4-8.2) Albumin 2.3 g/dL (3.4-5.0) Albumin/Globulin Ratio 0.6 (1.0-1.7) Thyroid Stimulating Hormone (TSH) 2.964 uIU/mL (0.358-3.74) Influenza Type A Antigen Negative (NEGATIVE) Influenza Type B Antigen Negative (NEGATIVE) Urine Collection Type Unknown Urine Color Maricarmen Urine Clarity Clear Urine pH 5.5 Urine Specific [place] >=1.030 Urine Protein 30 mg/dL (NEG-TRACE) Urine Glucose (UA) Negative mg/dL (NEG) Urine Ketones (Stick) Trace mg/dL (NEG) Urine Blood Small (NEG) Urine Nitrite Negative (NEG) Urine Bilirubin Small (NEG) Urine Urobilinogen Dipstick 1.0 mg/dL (0.2 mg/dL) Urine Leukocyte Esterase Small (NEG) Urine RBC 3-5 /HPF (0-2) Urine WBC 11-20 /HPF (0-4) Urine Transitional Epithelial Cells Occ /LPF Urine Bacteria 0 /HPF (0-FEW) Urine Hyaline Casts Many /HPF Urine Mucus Mod /LPF Test 12/02/18 20:55 12/03/18 04:30 Sodium Level 128 mmol/L (136-145) 129 mmol/L (136-145) Potassium Level 4.4 mmol/L (3.5-5.1) 4.7 mmol/L (3.5-5.1) Chloride Level 92 mmol/L (98-107) 92 mmol/L (98-107) Carbon Dioxide Level 27 mmol/L (21-32) 27 mmol/L (21-32) Anion Gap 9 (6-14) 10 (6-14) Blood Urea Nitrogen 17 mg/dL (8-26) 18 mg/dL (8-26) Creatinine 1.2 mg/dL (0.7-1.3) 1.2 mg/dL (0.7-1.3) Estimated GFR (Cockcroft-Gault) 57.4 57.4 Glucose Level 126 mg/dL (70-99) 105 mg/dL (70-99) Calcium Level 8.4 mg/dL (8.5-10.1) 8.5 mg/dL (8.5-10.1) Prothrombin Time 20.5 SEC (11.7-14.0) Prothromb Time International Ratio 1.8 (0.8-1.1) BUN/Creatinine Ratio 15 (6-20) Phosphorus Level 3.2 mg/dL (2.6-4.7) Total Bilirubin 0.4 mg/dL (0.2-1.0) Aspartate Amino Transf (AST/SGOT) 52 U/L (15-37) Alanine Aminotransferase (ALT/SGPT) 46 U/L (16-63) Alkaline Phosphatase 110 U/L (46-116) Total Protein 6.0 g/dL (6.4-8.2) Albumin 2.2 g/dL (3.4-5.0) Albumin/Globulin Ratio 0.6 (1.0-1.7) Laboratory Tests Test 12/02/18 12:06 12/02/18 12:19 12/02/18 16:30 12/02/18 20:55 Influenza Type A Antigen Negative (NEGATIVE) Influenza Type B Antigen Negative (NEGATIVE) Urine Collection Type Unknown Urine Color Maricarmen Urine Clarity Clear Urine pH 5.5 Urine Specific [place] >=1.030 Urine Protein 30 mg/dL (NEG-TRACE) Urine Glucose (UA) Negative mg/dL (NEG) Urine Ketones (Stick) Trace mg/dL (NEG) Urine Blood Small (NEG) Urine Nitrite Negative (NEG) Urine Bilirubin Small (NEG) Urine Urobilinogen Dipstick 1.0 mg/dL (0.2 mg/dL) Urine Leukocyte Esterase Small (NEG) Urine RBC 3-5 /HPF (0-2) Urine WBC 11-20 /HPF (0-4) Urine Transitional Epithelial Cells Occ /LPF Urine Bacteria 0 /HPF (0-FEW) Urine Hyaline Casts Many /HPF Urine Mucus Mod /LPF Sodium Level 125 mmol/L (136-145) 128 mmol/L (136-145) Potassium Level 4.4 mmol/L (3.5-5.1) 4.4 mmol/L (3.5-5.1) Chloride Level 89 mmol/L (98-107) 92 mmol/L (98-107) Carbon Dioxide Level 26 mmol/L (21-32) 27 mmol/L (21-32) Anion Gap 10 (6-14) 9 (6-14) Blood Urea Nitrogen 18 mg/dL (8-26) 17 mg/dL (8-26) Creatinine 1.2 mg/dL (0.7-1.3) 1.2 mg/dL (0.7-1.3) Estimated GFR (Cockcroft-Gault) 57.4 57.4 Glucose Level 118 mg/dL (70-99) 126 mg/dL (70-99) Lactic Acid Level 2.0 mmol/L (0.4-2.0) Calcium Level 8.3 mg/dL (8.5-10.1) 8.4 mg/dL (8.5-10.1) UD-Ubw-P-Type Natriuretic Peptide 9457 pg/mL (0-449) Test 12/03/18 04:30 Prothrombin Time 20.5 SEC (11.7-14.0) Prothromb Time International Ratio 1.8 (0.8-1.1) Sodium Level 129 mmol/L (136-145) Potassium Level 4.7 mmol/L (3.5-5.1) Chloride Level 92 mmol/L (98-107) Carbon Dioxide Level 27 mmol/L (21-32) Anion Gap 10 (6-14) Blood Urea Nitrogen 18 mg/dL (8-26) Creatinine 1.2 mg/dL (0.7-1.3) Estimated GFR (Cockcroft-Gault) 57.4 BUN/Creatinine Ratio 15 (6-20) Glucose Level 105 mg/dL (70-99) Calcium Level 8.5 mg/dL (8.5-10.1) Phosphorus Level 3.2 mg/dL (2.6-4.7) Total Bilirubin 0.4 mg/dL (0.2-1.0) Aspartate Amino Transf (AST/SGOT) 52 U/L (15-37) Alanine Aminotransferase (ALT/SGPT) 46 U/L (16-63) Alkaline Phosphatase 110 U/L (46-116) Total Protein 6.0 g/dL (6.4-8.2) Albumin 2.2 g/dL (3.4-5.0) Albumin/Globulin Ratio 0.6 (1.0-1.7) Microbiology 12/02/18 Blood Culture - Preliminary, Resulted NO GROWTH AFTER 1 DAY Medications Current Medications Albuterol/ Ipratropium (Duoneb) 3 ml STK-MED ONCE .ROUTE ; Start 12/02/18 at 11: 21; Stop 12/02/18 at 11:22; Status DC Albuterol/ Ipratropium (Duoneb) 3 ml 1X ONCE NEB Last administered on at 11:40; Start 12/02/18 at 11:30; Stop 12/02/18 at 11:31; Status DC Methylprednisolone Sodium Succinate (SOLU-Medrol 125MG VIAL) 125 mg 1X ONCE IV Last administered on 12/02/18at 12:04; Start 12/02/18 at 11:30; Stop 12/02/18 at 11:31; Status DC Sodium Chloride 500 ml @ 50 mls/hr 1X ONCE IV ; Start 12/02/18 at 13:00; Stop 12/02/18 at 13:00; Status DC Sodium Chloride 100 ml @ 30 mls/hr 1X ONCE IV Last administered on 12/02/18at 12:47; Start 12/02/18 at 13:00; Stop 12/02/18 at 16:19; Status DC Furosemide (Lasix) 40 mg 1X ONCE IVP Last administered on 12/02/18at 12:48; Start 12/02/18 at 13:15; Stop 12/02/18 at 13:16; Status DC Ceftriaxone Sodium (Rocephin) 1 gm 1X ONCE IVP Last administered on 12/02/18at 13:32; Start 12/02/18 at 13:00; Stop 12/02/18 at 13:01; Status DC Ceftriaxone Sodium (Rocephin) 1 gm Q24H IVP Last administered on 12/02/18at 16:53 ; Start 12/02/18 at 15:00 Aspirin (Ecotrin) 81 mg DAILY PO ; Start 12/03/18 at 12:00 Docusate Sodium (Colace) 100 mg PRN BID PRN PO STOOL SOFTENER; Start 12/03/18 at 11:00 Simvastatin (Zocor) 10 mg QHS PO ; Start 12/03/18 at 21:00 Tamsulosin HCl (Flomax) 0.4 mg DAILY PO ; Start 12/03/18 at 12:00 Non-Formulary Medication (Melatonin ) 5 mg HS PRN PO INSOMNIA; Start 12/03/18 at 11:00; Status UNV Amiodarone HCl (Cordarone) 200 mg DAILY PO ; Start 12/03/18 at 12:00 Midodrine (Proamatine) 5 mg [id number] PO ; Start 12/03/18 at 13:00 Non-Formulary Medication (Warfarin Sodium ) 5 mg sunday and sunday PO ; Start at 11:00; Status UNV Warfarin Sodium (Coumadin Per Pharmacy) 1 each PRN DAILY PRN MC SEE COMMENTS; Start 12/03/18 at 11:00 Active Scripts Active Flomax (Tamsulosin Hcl) 0.4 Mg Cap.er.24h 0.4 Mg PO DAILY 30 Days Reported Amox Tr-K Clv 500-125 Mg Tab (Amoxicillin/Potassium Clav) 1 Each Tablet 1 Tab PO BID 3 Days Warfarin Sodium 2.5 Mg Tablet 2.5 Mg PO SUN,SUN,,SAT,SUN Warfarin Sodium 5 Mg Tablet 5 Mg PO SUNDAY AND SUNDAY Simvastatin 10 Mg Tablet 1 Tab PO QHS Midodrine Hcl 5 Mg Tablet 5 Mg PO TID Melatonin 3 Mg Tablet 5 Mg PO HS PRN Ex-Lax Maximum Relief (Sennosides) 25 Mg Tablet 50 Mg PO DAILY Docusate Sodium 100 Mg Capsule 1 Cap PO BID PRN Aspirin Ec (Aspirin) 81 Mg Tablet. 1 Tab PO DAILY Amiodarone Hcl 200 Mg Tablet 1 Tab PO DAILY Vitals/I & O Vital Sign - Last 24 Hours 12/02/18 12/02/18 12/02/18 12/02/18 12:45 13:45 14:00 14:05 Temp 98.3 98.3 Pulse 92 88 94 Resp 22 21 18 B/P (MAP) 110/57 (74) 110/66 (81) 107/69 (82) Pulse Ox 96 96 92 O2 Delivery Room Air Room Air Room Air Room Air 12/02/18 12/02/18 12/02/18 12/02/18 16:00 17:00 20:00 20:00 Pulse 92 90 Resp 18 20 B/P (MAP) 106/68 (81) 108/64 (79) Pulse Ox 93 96 O2 Delivery Room Air Room Air Room Air Room Air 3/01/1712/02/18 12/02/18 12/02/18 21:00 22:00 23:00 23:59 Pulse 92 100 99 Resp 20 20 20 B/P (MAP) 102/65 (77) 101/58 (72) 104/67 (79) Pulse Ox 96 96 96 O2 Delivery Room Air Room Air Room Air Room Air 12/02/18 12/03/18 12/03/18 12/03/18 23:59 01:00 02:00 03:00 Pulse 90 99 100 99 Resp 20 20 20 20 B/P (MAP) 106/57 (73) 110/68 (82) 113/71 (85) 104/68 (80) Pulse Ox 93 95 97 98 O2 Delivery Room Air Room Air Room Air Room Air 12/03/18 12/03/18 12/03/18 12/03/18 04:00 04:00 05:10 06:10 Temp 98.4 98.4 Pulse 102 99 100 Resp 20 20 20 B/P (MAP) 112/67 (82) 112/72 (85) 124/75 (91) Pulse Ox 96 97 97 O2 Delivery Room Air Room Air Room Air Room Air 12/03/18 12/03/18 12/03/18 12/03/18 07:10 07:30 08:00 09:08 Temp 98.7 98.7 Pulse 102 96 102 Resp 16 18 16 B/P (MAP) 119/74 (89) 115/75 (88) 115/75 (88) Pulse Ox 94 95 96 O2 Delivery Room Air Room Air Room Air Room Air 12/03/18 12/03/18 10:10 11:10 Temp 98.3 98.3 Pulse 106 104 Resp 16 B/P (MAP) 107/64 (78) 109/70 (83) Pulse Ox 93 94 O2 Delivery Room Air Room Air Intake and Output 12/02/18 12/02/18 12/03/18 15:00 23:00 07:00 Intake Total 0 ml 60 ml Output Total 850 ml 1975 ml 455 ml Balance -850 ml -1975 ml -395 ml MIKAYLA MIRANDA III DO Dec 03, 2018 12:15
[2018-12-03] MEDS: SMZ/TMP 800/160MG TABLET. PO SCH ×2 (13:38→20:24)
[2018-12-03] MEDS: ASPIRIN ENTERIC COATED 81 MG TABLET.DR. PO SCH (13:39)
[2018-12-03] MEDS: TAMSULOSIN 0.4 MG CAP.ER.24H. PO SCH (13:39)
[2018-12-03] MEDS: MIDODRINE 5 MG TABLET PO SCH ×2 (13:42→17:31)
--- NOTE | 2018-12-03 13:43 | PDOC2 ---
PALLIATIVE CARE Palliative Care Note Palliative Care Met with patient, son Mike and his Sylvia. Mike and Bettina live with patient. Reviewed medical condition; Heart Failure ---EF 30%; debility, AICD. Code Status; Full code Discussed options for care; cardiac cath and titration of medical therapy vs comfort care and support of hospice. Patient adamant about NO heart surgery. Would not want to be kept alive on a ventilator. Dr. Crow will discuss risks and benefits of cardiac catheterization. Patient wants to live at home ---would not want to go to facility to live. Discussed option of comfort care. Discussed deactivation of AICD with comfort care. Would continue pacemaker. Patient currently being seen by Home Health. Plan: Full Code Aggressive care up to open heart surgery and being kept alive on ventilator MEL CALABRESE Dec 03, 2018 13:43
--- NOTE | 2018-12-03 13:47 | NUR ---
SS following for discharge planning. SS reviewed pt chart. Pt is from home and is currently on room air. Pt has had previous services in the past with [facility]. PT/OT ordered. SS will await PT/OT evaluations and recommendations and will proceed accordingly with discharge planning.
[2018-12-03] MEDS: AMIODARONE HCL 200 MG TABLET. PO SCH (14:26)
--- NOTE | 2018-12-03 14:47 | NUR ---
Per Dr. Crow hold coumadin today for heart cath tomorrow 12/04/18. Coumadin non-administered in eMAR.
--- NOTE | 2018-12-03 15:30 | NUR ---
Pt and pt's son requesting legal specialist for POA paperwork. Consult to Jordyn BRAGG (director of social media marketing) notified of pt's request.
--- NOTE | 2018-12-03 15:58 | NUR ---
Wound Care: Patient seen per wound care consult. See wound assessment. Patient has stage II pressure ulcer to left buttock. Wound cleansed, assessed, and measured. Recommendations for Calazime cream to be applied TIDPRN. Calazmine applied. No other wounds noted upon complete head to toe assessment. Patient repositioned and educated on turning every 2 hours. Patient on ICU bed at this time. Dressing change instructions left in room. Bed lowered and call light in reach. Family at bedside. Will follow patient regarding wound care.
[2018-12-03] MEDS ORDERED: WARFARIN 2.5 MG TABLET. PO ONE (16:00)
--- NOTE | 2018-12-03 17:29 | NUR ---
Report called to ELIZABET Clayton in [facility], pt being transferred to room 500.
--- NOTE | 2018-12-03 17:59 | NUR ---
Pt transferred to room 500 via wc. Belongings at bedside
--- NOTE | 2018-12-03 18:14 | NUR ---
Pt transferred to room 500. Nurse report received, oriented to unit and schedule, discussed NPO @ midnight, verbalized understanding.
[2018-12-03] MEDS: SIMVASTATIN 10 MG TABLET PO SCH (20:25)
[2018-12-04] VITALS (15 sets, daily range): BP systolic 104–121; BP diastolic 58–80
[2018-12-04] MEDS: MIDODRINE 5 MG TABLET PO SCH ×3 (07:00→17:29)
[2018-12-04 08:02] LABS: PROTHROMBIN TIME PATIENT 20.1 SEC (11.7-14.0)
[2018-12-04] MEDS: ASPIRIN ENTERIC COATED 81 MG TABLET.DR. PO SCH (08:45)
[2018-12-04] MEDS: AMIODARONE HCL 200 MG TABLET. PO SCH ×2 (08:45→09:22)
[2018-12-04] MEDS: TAMSULOSIN 0.4 MG CAP.ER.24H. PO SCH (08:45)
[2018-12-04] MEDS: SMZ/TMP 800/160MG TABLET. PO SCH ×2 (08:45→21:00)
--- NOTE | 2018-12-04 09:40 | PDOC ---
SUBJECTIVE ROS Stable, to garage laborer as per cardiology OBJECTIVE Vital Signs Vital Signs Date Time Temp Pulse Resp B/P (MAP) Pulse Ox O2 Delivery O2 Flow Rate FiO2 12/04/18 09:22 106 117/80 12/04/18 07:00 97.7 17 92 Room Air 97.7 I & 0 Intake and Output 12/04/18 07:00 Intake Total 430 ml Output Total 450 ml Balance -20 ml Intake Oral 430 ml Output Urine Total 450 ml PHYSICAL EXAM Physical Exam GEN: NAD, HEENT- Om moist, not on O2 , Very hard of hearing NECK: supple CVS: RRR, RESP: CTA Bilat, Non labored GI: Non Tender, Non Distended : No CVA tenderness , Indwelling Bryant +(Chronic) Neuro- Grossly Normal Skin No rash DIAGNOSIS/ASSESSMENT Assessment & Plan Hyponatremia -was hospitalized in Nov for same IV 3 % given for few hrs- Improvement in Na Avoid overcorrection , 3% dced yesterday IV Lasix x 1 in ED No Indication for IVF currently, Restrict fluid intake to 1378-2489 ml No labs done today, Ordered this am , pending HTN- as per Hx Home meds shows Midodrine CHF- defer to cardiology To garage laborer this am Indwelling Bryant Since he was at [facility]-recent hospitalization Baseline renal function unknown Creat normal this admn Urinary retention - last hospitalization Hydronephrosis on US Urology following Hypotension with Syncopal episodes hospitalized at in nov 2018 Discussed with RN COMMENT/RELEVANT DATA Meds Current Medications Medications (Trade) Dose Ordered Sig/Teddy Start Time Stop Time Status Last Admin Dose Admin Albuterol/ Ipratropium (Duoneb) 3 ml 1X ONCE 12/02/18 11:30 12/02/18 11:31 DC 12/02/18 11:40 3 ML Amiodarone HCl (Cordarone) 200 mg DAILY 12/03/18 12:00 12/04/18 09:22 200 MG Aspirin (Ecotrin) 81 mg DAILY 12/03/18 12:00 12/03/18 13:39 81 MG Ceftriaxone Sodium (Rocephin) 1 gm Q24H 12/02/18 15:00 12/03/18 13:27 DC 12/02/18 16:53 1 GM Docusate Sodium (Colace) 100 mg PRN BID PRN 12/03/18 11:00 Furosemide (Lasix) 40 mg 1X ONCE 12/02/18 13:15 12/02/18 13:16 DC 12/02/18 12:48 40 MG Methylprednisolone Sodium Succinate (SOLU-Medrol 125MG VIAL) 125 mg 1X ONCE 12/02/18 11:30 12/02/18 11:31 DC 12/02/18 12:04 125 MG Midodrine (Proamatine) 5 mg [id number] 12/03/18 13:00 12/03/18 17:31 5 MG Non-Formulary Medication (Melatonin ) 5 mg HS PRN 12/03/18 11:00 UNV Non-Formulary Medication (Warfarin Sodium ) 5 mg sunday and sunday12/03/18 11:00 UNV Simvastatin (Zocor) 10 mg QHS 12/03/18 21:00 12/03/18 20:25 10 MG Sodium Chloride 100 ml @ 30 mls/hr 1X ONCE 12/02/18 13:00 12/02/18 16:19 DC 12/02/18 12:47 30 MLS/HR Tamsulosin HCl (Flomax) 0.4 mg DAILY 12/03/18 12:00 12/03/18 13:39 0.4 MG Trimethoprim/ Sulfamethoxazole (Bactrim Ds) 1 tab BID 12/03/18 12:30 12/03/18 20:24 1 TAB Warfarin Sodium (Coumadin Per Pharmacy) 1 each PRN DAILY PRN 12/03/18 11:00 12/03/18 13:57 1 EACH Warfarin Sodium (Coumadin) 2.5 mg 1X WARF ONCE 12/03/18 16:00 12/03/18 16:01 DC Lab Laboratory Tests Test 12/04/18 06:30 Prothrombin Time 20.1 SEC (11.7-14.0) Prothromb Time International Ratio 1.7 (0.8-1.1) Results All relevant outside records, renal labs, imaging studies, telemetry/EKG's were reviewed. CHIKI BARR MD Dec 04, 2018 09:40
[2018-12-04] MEDS ORDERED: LIDOCAINE 1% Multi-Dose 20 ML VIAL. ONE (09:41)
[2018-12-04] MEDS ORDERED: IODIXANOL 320 MG/ML 100 ML VIAL. ONE ×2 (09:41→11:11)
[2018-12-04] MEDS ORDERED: MIDAZOLAM HCL/PF 2 MG/2 ML VIAL. ONE (10:07)
[2018-12-04] MEDS ORDERED: fentaNYL PF VIAL 100 MCG/2 ML VIAL ONE (10:07)
[2018-12-04] MEDS ORDERED: VERAPAMIL 5 MG/2 ML VIAL. ONE (10:07)
[2018-12-04] MEDS ORDERED: NITROGLYCERIN 200 MCG/2 ML SYRINGE FOR CATH/VASC LAB. ONE (10:07)
[2018-12-04] MEDS ORDERED: HEPARIN for IV BOLUS 10,000 UNIT/10 ML VIAL. ONE ×2 (10:07→11:05)
--- NOTE | 2018-12-04 10:09 | PDOC ---
MODERATE SEDATION ASSESSMENT RISKS/ALTERNATIVES Risks/Alternatives Risks and alternatives of this type of sedation and procedure discussed with: RISK/ALTERNATIVES: Patient H & P ON CHART H & P H & P on chart and reviewed for co-morbid conditions and appropriate labs. H&P ON CHART: Yes STATUS PREG STATUS ASSESSED: N/A MEDS/ALLERGIES REVIEWED Meds/Allergies Reviewed Medications and Allergies including time and route of recently administered narcotics and sedatives. MEDS/ALLERGIES REVIEWED: Yes ASA RATING ASA RATING: II AIRWAY ASSESSMENT Airway Assessment Airway patency, oral function limitations, presence of caps, crowns, dentures, partials, and ability to extend neck assessed. AIRWAY ASSESSMENT: Yes MALLAMPATI SCORE MALLAMPATI SCORE: II PRE-SEDATION ASSESSMENT PRE-SEDATION ASSESSMENT: Yes LORRAINE BOSE MD Dec 04, 2018 10:09
--- NOTE | 2018-12-04 10:29 | PDOC ---
PROGRESS NOTES Chief Complaint Chief Complaint Acute on chronic systolic/diastolic heart failure Hyponatremia Hypoxemia Anemia Urinary tract infection, Metabolic encephalopathy Elevated D-dimer. History of Present Illness History of Present Illness Mr. Frederick presented with shortness of breath and hyponatremia, was found to be in heart failure, BNP > 9000. Patient was seen and examined bedside. Patient is recovering, no new complaints. He is awake and resting comfortably. Plan: To labor mediator today per cardiology Vitals Vitals Vital Signs Date Time Temp Pulse Resp B/P (MAP) Pulse Ox O2 Delivery O2 Flow Rate FiO2 12/04/18 09:22 106 117/80 12/04/18 07:00 97.7 17 92 Room Air 97.7 Physical Exam General: Alert, Oriented X3, No acute distress Heart: No murmurs, Other (irregular rhythm) Lungs: Clear, Other (no wheezing, off biPAP) Abdomen: Normal bowel sounds, Soft, No tenderness Extremities: No clubbing, No cyanosis, No edema Skin: No rashes, No significant lesion Labs LABS Laboratory Tests Test 12/04/18 06:30 Prothrombin Time 20.1 SEC (11.7-14.0) Prothromb Time International Ratio 1.7 (0.8-1.1) Assessment and Plan Assessmemt and Plan Problems Medical Problems: (1) CHF (congestive heart failure) Status: Acute (2) Generalized weakness Status: Acute (3) Sepsis Status: Acute Comment Review of Relevant I have reviewed the following items yolande (where applicable) has been applied. Labs Laboratory Tests Test 12/02/18 11:30 12/02/18 12:06 12/02/18 12:19 12/02/18 14:15 White Blood Count 9.3 x10^3/uL (4.0-11.0) Red Blood Count 3.61 x10^6/uL (4.30-5.70) Hemoglobin 11.4 g/dL (13.0-17.5) Hematocrit 33.9 % (39.0-53.0) Mean Corpuscular Volume 94 fL (79-100) Mean Corpuscular Hemoglobin 32 pg (25-35) Mean Corpuscular Hemoglobin Concent 34 g/dL (31-37) Red Cell Distribution Width 14.3 % (11.5-14.5) Platelet Count 482 x10^3/uL (140-400) Neutrophils (%) (Auto) 86 % (31-73) Lymphocytes (%) (Auto) 8 % (24-48) Monocytes (%) (Auto) 6 % (0-9) Eosinophils (%) (Auto) 0 % (0-3) Basophils (%) (Auto) 0 % (0-3) Neutrophils # (Auto) 8.1 x10^3uL (1.8-7.7) Lymphocytes # (Auto) 0.7 x10^3/uL (1.0-4.8) Monocytes # (Auto) 0.5 x10^3/uL (0.0-1.1) Eosinophils # (Auto) 0.0 x10^3/uL (0.0-0.7) Basophils # (Auto) 0.0 x10^3/uL (0.0-0.2) Segmented Neutrophils % 85 % (35-66) Band Neutrophils % 1 % (0-9) Lymphocytes % 8 % (24-48) Atypical Lymphocytes % (Manual) 1 % (0-0) Monocytes % 4 % (0-10) Eosinophils % 1 % (0-5) Platelet Estimate Increased (ADEQUATE) Large Platelets Few D-Dimer (Radha) 0.78 ug/mlFEU (0.00-0.50) Urine Sodium <60 mmol/L (Not Estab.) Urine Potassium 23.8 mmol/L (Not Estab.) Urine Chloride <60 mmol/L (Not Estab.) Sodium Level 120 mmol/L (136-145) Potassium Level 4.5 mmol/L (3.5-5.1) Chloride Level 86 mmol/L (98-107) Carbon Dioxide Level 25 mmol/L (21-32) Anion Gap 9 (6-14) Blood Urea Nitrogen 19 mg/dL (8-26) Creatinine 1.2 mg/dL (0.7-1.3) Estimated GFR (Cockcroft-Gault) 57.4 BUN/Creatinine Ratio 16 (6-20) Glucose Level 139 mg/dL (70-99) Plasma/Serum Osmolality 255 mOsmol/kg (280-301) Lactic Acid Level 2.6 mmol/L (0.4-2.0) Calcium Level 8.5 mg/dL (8.5-10.1) Total Bilirubin 0.6 mg/dL (0.2-1.0) Aspartate Amino Transf (AST/SGOT) 55 U/L (15-37) Alanine Aminotransferase (ALT/SGPT) 46 U/L (16-63) Alkaline Phosphatase 120 U/L (46-116) Creatine Kinase 159 U/L (39-308) Creatine Kinase MB (Mass) 5.4 ng/mL (0.0-3.6) Creatine Kinase MB Relative Index 3.4 % (0-4) Troponin I Quantitative 0.033 ng/mL (0.000-0.055) SM-Qex-A-Type Natriuretic Peptide 8628 pg/mL (0-449) Total Protein 6.1 g/dL (6.4-8.2) Albumin 2.3 g/dL (3.4-5.0) Albumin/Globulin Ratio 0.6 (1.0-1.7) Thyroid Stimulating Hormone (TSH) 2.964 uIU/mL (0.358-3.74) Influenza Type A Antigen Negative (NEGATIVE) Influenza Type B Antigen Negative (NEGATIVE) Urine Collection Type Unknown Urine Color Mar[place]armen Urine Clarity Clear Urine pH 5.5 Urine Specific [place] >=1.030 Urine Protein 30 mg/dL (NEG-TRACE) Urine Glucose (UA) Negative mg/dL (NEG) Urine Ketones (Stick) Trace mg/dL (NEG) Urine Blood Small (NEG) Urine Nitrite Negative (NEG) Urine Bilirubin Small (NEG) Urine Urobilinogen Dipstick 1.0 mg/dL (0.2 mg/dL) Urine Leukocyte Esterase Small (NEG) Urine RBC 3-5 /HPF (0-2) Urine WBC 11-20 /HPF (0-4) Urine Transitional Epithelial Cells Occ /LPF Urine Bacteria 0 /HPF (0-FEW) Urine Hyaline Casts Many /HPF Urine Mucus Mod /LPF Nasal Screen MRSA (PCR) Negative (Negative) Test 12/02/18 16:30 12/02/18 17:30 12/02/18 20:55 12/03/18 04:30 Sodium Level 125 mmol/L (136-145) 128 mmol/L (136-145) 129 mmol/L (136-145) Potassium Level 4.4 mmol/L (3.5-5.1) 4.4 mmol/L (3.5-5.1) 4.7 mmol/L (3.5-5.1) Chloride Level 89 mmol/L (98-107) 92 mmol/L (98-107) 92 mmol/L (98-107) Carbon Dioxide Level 26 mmol/L (21-32) 27 mmol/L (21-32) 27 mmol/L (21-32) Anion Gap 10 (6-14) 9 (6-14) 10 (6-14) Blood Urea Nitrogen 18 mg/dL (8-26) 17 mg/dL (8-26) 18 mg/dL (8-26) Creatinine 1.2 mg/dL (0.7-1.3) 1.2 mg/dL (0.7-1.3) 1.2 mg/dL (0.7-1.3) Estimated GFR (Cockcroft-Gault) 57.4 57.4 57.4 Glucose Level 118 mg/dL (70-99) 126 mg/dL (70-99) 105 mg/dL (70-99) Lactic Acid Level 2.0 mmol/L (0.4-2.0) Calcium Level 8.3 mg/dL (8.5-10.1) 8.4 mg/dL (8.5-10.1) 8.5 mg/dL (8.5-10.1) KH-Dvl-I-Type Natriuretic Peptide 9457 pg/mL (0-449) Urine Osmolality 170 mOsmol/kg (.) Prothrombin Time 20.5 SEC (11.7-14.0) Prothromb Time International Ratio 1.8 (0.8-1.1) BUN/Creatinine Ratio 15 (6-20) Phosphorus Level 3.2 mg/dL (2.6-4.7) Total Bilirubin 0.4 mg/dL (0.2-1.0) Aspartate Amino Transf (AST/SGOT) 52 U/L (15-37) Alanine Aminotransferase (ALT/SGPT) 46 U/L (16-63) Alkaline Phosphatase 110 U/L (46-116) Total Protein 6.0 g/dL (6.4-8.2) Albumin 2.2 g/dL (3.4-5.0) Albumin/Globulin Ratio 0.6 (1.0-1.7) Test 12/04/18 06:30 Prothrombin Time 20.1 SEC (11.7-14.0) Prothromb Time International Ratio 1.7 (0.8-1.1) Laboratory Tests Test 12/04/18 06:30 Prothrombin Time 20.1 SEC (11.7-14.0) Prothromb Time International Ratio 1.7 (0.8-1.1) Microbiology 12/02/18 Blood Culture - Preliminary, Resulted NO GROWTH AFTER 1 DAY 12/02/18 Urine Culture - Final, Complete 12/02/18 Urine Culture Result 1 (JULIETTE) - Final, Complete Medications Current Medications Albuterol/ Ipratropium (Duoneb) 3 ml STK-MED ONCE .ROUTE ; Start 12/02/18 at 11: 21; Stop 12/02/18 at 11:22; Status DC Albuterol/ Ipratropium (Duoneb) 3 ml 1X ONCE NEB Last administered on at 11:40; Start 12/02/18 at 11:30; Stop 12/02/18 at 11:31; Status DC Methylprednisolone Sodium Succinate (SOLU-Medrol 125MG VIAL) 125 mg 1X ONCE IV Last administered on 12/02/18at 12:04; Start 12/02/18 at 11:30; Stop 12/02/18 at 11:31; Status DC Sodium Chloride 500 ml @ 50 mls/hr 1X ONCE IV ; Start 12/02/18 at 13:00; Stop 12/02/18 at 13:00; Status DC Sodium Chloride 100 ml @ 30 mls/hr 1X ONCE IV Last administered on 12/02/18at 12:47; Start 12/02/18 at 13:00; Stop 12/02/18 at 16:19; Status DC Furosemide (Lasix) 40 mg 1X ONCE IVP Last administered on 12/02/18at 12:48; Start 12/02/18 at 13:15; Stop 12/02/18 at 13:16; Status DC Ceftriaxone Sodium (Rocephin) 1 gm 1X ONCE IVP Last administered on 12/02/18at 13:32; Start 12/02/18 at 13:00; Stop 12/02/18 at 13:01; Status DC Ceftriaxone Sodium (Rocephin) 1 gm Q24H IVP Last administered on 12/02/18at 16:53 ; Start 12/02/18 at 15:00; Stop 12/03/18 at 13:27; Status DC Aspirin (Ecotrin) 81 mg DAILY PO Last administered on 12/03/18 13:39; Start 12/03/18 at 12:00 Docusate Sodium (Colace) 100 mg PRN BID PRN PO STOOL SOFTENER; Start 12/03/18 at 11:00 Simvastatin (Zocor) 10 mg QHS PO Last administered on 12/03/18at 20:25; Start 12/03/18 at 21:00 Tamsulosin HCl (Flomax) 0.4 mg DAILY PO Last administered on 12/03/18 13:39; Start 12/03/18 at 12:00 Non-Formulary Medication (Melatonin ) 5 mg HS PRN PO INSOMNIA; Start 12/03/18 at 11:00; Status UNV Amiodarone HCl (Cordarone) 200 mg DAILY PO Last administered on 12/04/18at 09:22 ; Start 12/03/18 at 12:00 Midodrine (Proamatine) 5 mg [id number] PO Last administered on 12/03/18at 17:31; Start 12/03/18 at 13:00 Non-Formulary Medication (Warfarin Sodium ) 5 mg sunday and sunday PO ; Start at 11:00; Status UNV Warfarin Sodium (Coumadin Per Pharmacy) 1 each PRN DAILY PRN MC SEE COMMENTS Last administered on 12/03/18 13:57; Start 12/03/18 at 11:00 Trimethoprim/ Sulfamethoxazole (Bactrim Ds) 1 tab BID PO Last administered on at 20:24; Start 12/03/18 at 12:30 Warfarin Sodium (Coumadin) 2.5 mg 1X WARF ONCE PO ; Start 12/03/18 at 16:00; Stop 12/03/18 at 16:01; Status DC Iodixanol (Visipaque 320) 100 ml STK-MED ONCE .ROUTE ; Start 12/04/18 at 09:41; Stop 12/04/18 at 09:42; Status DC Lidocaine HCl (Lidocaine 1% 20ml Vial) 20 ml STK-MED ONCE .ROUTE ; Start at 09:41; Stop 12/04/18 at 09:42; Status DC Heparin Sodium/ Sodium Chloride 500 ml @ As Directed STK-MED ONCE .ROUTE ; Start 12/04/18 at 09:41; Stop 12/04/18 at 09:42; Status DC Heparin Sodium/ Sodium Chloride 500 ml @ As Directed STK-MED ONCE .ROUTE ; Start 12/04/18 at 09:42; Stop 12/04/18 at 09:43; Status DC Fentanyl Citrate (Fentanyl 2ml Vial) 100 mcg STK-MED ONCE .ROUTE ; Start at 10:07; Stop 12/04/18 at 10:08; Status DC Midazolam HCl (Versed) 2 mg STK-MED ONCE .ROUTE ; Start 12/04/18 at 10:07; Stop 12/04/18 at 10:08; Status DC Heparin Sodium (Porcine) (Heparin Sodium) 10,000 unit STK-MED ONCE .ROUTE ; Start 12/04/18 at 10:07; Stop 12/04/18 at 10:08; Status DC Verapamil HCl (Verapamil) 5 mg STK-MED ONCE .ROUTE ; Start 12/04/18 at 10:07; Stop 12/04/18 at 10:08; Status DC Nitroglycerin (Nitroglycerin) 200 mcg STK-MED ONCE .ROUTE ; Start 12/04/18 at 10: 07; Stop 12/04/18 at 10:08; Status DC Nitroglycerin (Nitroglycerin) 200 mcg 1X ONCE IART ; Start 12/04/18 at 10:30; Stop 12/04/18 at 10:31 Verapamil HCl (Verapamil) 2.5 mg 1X ONCE IART ; Start 12/04/18 at 10:30; Stop at 10:31 Heparin Sodium (Porcine) (Heparin Sodium) 2,500 unit 1X ONCE IART ; Start at 10:30; Stop 12/04/18 at 10:31 Heparin Sodium/ Sodium Chloride (HEPARIN for ARTERIAL LINE FLUSH) 1,000 unit 1X ONCE IART ; Start 12/04/18 at 10:30; Stop 12/04/18 at 10:31 Heparin Sodium/ Sodium Chloride (HEPARIN for ARTERIAL LINE FLUSH) 1,000 unit 1X ONCE IART ; Start 12/04/18 at 10:30; Stop 12/04/18 at 10:31 Midazolam HCl (Versed) 2 mg 1X ONCE IV ; Start 12/04/18 at 10:30; Stop 12/04/18 at 10:31 Fentanyl Citrate (Fentanyl 2ml Vial) 100 mcg 1X ONCE IV ; Start 12/04/18 at 10: 30; Stop 12/04/18 at 10:31 Iodixanol (Visipaque 320) 100 ml 1X ONCE IART ; Start 12/04/18 at 10:30; Stop at 10:31 Lidocaine HCl (Lidocaine 1% 20ml Vial) 20 ml 1X ONCE INJ ; Start 12/04/18 at 10: 30; Stop 12/04/18 at 10:31 Info (CONTRAST GIVEN -- Rx MONITORING) 1 each PRN DAILY PRN MC SEE COMMENTS; Start 12/04/18 at 10:30; Stop 12/06/18 at 10:29 Active Scripts Active Flomax (Tamsulosin Hcl) 0.4 Mg Cap.er.24h 0.4 Mg PO DAILY 30 Days Reported Amox Tr-K Clv 500-125 Mg Tab (Amoxicillin/Potassium Clav) 1 Each Tablet 1 Tab PO BID 3 Days Warfarin Sodium 2.5 Mg Tablet 2.5 Mg PO SUN,SUN,,SUN,SUN Warfarin Sodium 5 Mg Tablet 5 Mg PO SUNDAY AND SUNDAY Simvastatin 10 Mg Tablet 1 Tab PO QHS Midodrine Hcl 5 Mg Tablet 5 Mg PO TID Melatonin 3 Mg Tablet 5 Mg PO HS PRN Ex-Lax Maximum Relief (Sennosides) 25 Mg Tablet 50 Mg PO DAILY Docusate Sodium 100 Mg Capsule 1 Cap PO BID PRN Aspirin Ec (Aspirin) 81 Mg Tablet. 1 Tab PO DAILY Amiodarone Hcl 200 Mg Tablet 1 Tab PO DAILY Vitals/I & O Vital Sign - Last 24 Hours 12/03/18 12/03/18 12/03/18 12/03/18 11:10 12:00 12:00 13:15 Temp 98.3 97.8 98.3 97.8 Pulse 104 112 100 Resp 16 16 18 B/P (MAP) 109/70 (83) 110/69 (83) 89/49 (62) Pulse Ox 94 94 94 O2 Delivery Room Air Room Air Room Air Room Air 12/03/18 12/03/18 12/03/18 12/03/18 13:42 14:10 14:26 15:13 Pulse 100 100 100 101 Resp 16 18 B/P (MAP) 89/54 99/56 (70) 96/55 102/66 (78) Pulse Ox 93 93 O2 Delivery Room Air Room Air 12/03/18 12/03/18 12/03/18 12/03/18 17:10 17:31 19:00 19:41 Temp 98.4 98.4 Pulse 107 107 68 Resp 18 18 B/P (MAP) 117/66 (83) 117/66 138/75 (96) Pulse Ox 93 90 O2 Delivery Room Air Room Air Room Air 12/03/18 12/04/18 12/04/18 12/04/18 22:40 03:00 07:00 09:22 Temp 97.9 97.5 97.7 97.9 97.5 97.7 Pulse 101 97 106 106 Resp 18 18 17 B/P (MAP) 155/86 (109) 120/71 (87) 117/80 (92) 117/80 Pulse Ox 94 93 92 O2 Delivery Room Air Room Air Room Air Intake and Output 12/03/18 12/03/18 12/04/18 14:59 22:59 06:59 Intake Total 310 ml 60 ml 60 ml Output Total 250 ml 75 ml 125 ml Balance 60 ml -15 ml -65 ml JOSSUE RUSSO MD Dec 04, 2018 10:29
[2018-12-04] MEDS ORDERED: NITROGLYCERIN 200 MCG/2 ML SYRINGE FOR CATH/VASC LAB. IART ONE (10:30)
[2018-12-04] MEDS ORDERED: fentaNYL PF VIAL 100 MCG/2 ML VIAL IV ONE (10:30)
[2018-12-04] MEDS ORDERED: CONTRAST GIVEN. MC PRN (10:30)
[2018-12-04] MEDS ORDERED: IODIXANOL 320 MG/ML 100 ML VIAL. IART ONE (10:30)
[2018-12-04] MEDS ORDERED: LIDOCAINE 1% Multi-Dose 20 ML VIAL. INJ ONE (10:30)
[2018-12-04] MEDS ORDERED: VERAPAMIL 5 MG/2 ML VIAL. IART ONE (10:30)
[2018-12-04] MEDS ORDERED: MIDAZOLAM HCL/PF 2 MG/2 ML VIAL. IV ONE (10:30)
[2018-12-04] MEDS ORDERED: HEPARIN for IV BOLUS 10,000 UNIT/10 ML VIAL. IART ONE (10:30)
[2018-12-04] MEDS ORDERED: HEPARIN for IV BOLUS 10,000 UNIT/10 ML VIAL. IV ONE (11:15)
[2018-12-04] MEDS ORDERED: 0.9 % SODIUM CHLORIDE 10 ML DISP.SYRIN. IV PRN (11:30)
[2018-12-04] MEDS ORDERED: IV NORMAL SALINE 1000ML BAG 1,000 ML IV SCH (11:30)
[2018-12-04] MEDS ORDERED: NITROGLYCERIN SUBLINGUAL 0.4 MG BOTTLE OF 25. SL PRN (11:30)
--- NOTE | 2018-12-04 12:34 | NUR ---
Pt transferred out of room 500 post cardiac cath. Report called to CV obs.
--- NOTE | 2018-12-04 12:48 | NUR ---
Pharmacy Warfarin Dosing Note S:Pharmacy consulted to assist with anticoagulation therapy started with target INR: 2 -3 O:KRISTIE CAMPUZANO is a 88 year old M with Atrial Fibrillation LABS: Last INR: 1.7 Last HGB: 11.4 Last HCT: 33.9 Last PLT: 482 Last dose of Hold given on at Previous Regimen: 5MG M/FR, 2.5MG OTHER DAYS Vitamin K given: N Drug Interaction Changes: New Interacting Drug Ongoing Drug Interactions: A:INR of 1.7 is below desired range. Target range for this patient is: 2 -3. P: Warfarin dose: 2.5 mg Today at 1600 Bridge Therapy: None Next INR due tomorrow. Pharmacy anticoagulation service will continue to follow. Naun Flynn [facility], 12/04/18 0318
[2018-12-04] MEDS: LACTOBACILLUS RHAMNOSUS GG 1 CAPSULE. PO SCH ×2 (13:00→21:35)
--- NOTE | 2018-12-04 15:51 | CARD ---
MR#: [id number] Date of Study: 12/04/2018 Ordering Physician: MELODIE DAVIS, Referring Physician: MIKAYLA MIRANDA Tech: Jeniffer Aguilar, RT (R) APPROVED REPORT Procedures Selective coronary angiogram IFR measurement of the LAD The patient is an 88-year-old male with a history of a cardiomyopathy. The patient has had a difficul t recent clinical course and after discussion with the patient and his family a decision was made to perform a cardiac catheterization to exclude significant large vessel coronary lesions. Risks and beka efits were discussed. The patient and family gave consent to proceed. After informed consent was obtained the patient was brought to the heart catheterization lab. The are a of the right radial artery was prepared the usual manner with Betadine, sterile draping and local a nesthetic after an acceptable Allens Test. With moderate difficulty a quick catheter device was able to engage the right radial artery, a wire placed and a 6 [place] sheath placed over the wire. The sta ndard mixture heparin and antispasm medications administered through the sheath. Using a J-wire, a 6 [place] JL3.5 diagnostic catheter was advanced to the ascending aorta. It was then used to engage the left system and sequential injections in various views were obtained. Using an [id number]-trpd exchange technique a 6 [place] JR4 diagnostic catheter was advanced to the ascending aorta. It was used to eng age the right coronary artery and an ejection was performed. At this time on review of patient's imag es he had a proximal to mid 50% LAD lesion at an angulated area of the vessel. He also had a quite di stal 90% lesion in the LAD. In this situation with proceeded to perform an IFR are measurement of the proximal to mid LAD lesion. 1000 units of heparin was administered. A 6 [place] JR4 3.5 guide was adv anced to the ascending aorta and used to engage the left system. A Flow wire was used to cross the le wild using the standard technique. Measurements were obtained and the patient was found to have a non significant IFR measurement of 0.92. The wire and guiding system were removed from the patient. The sheath was removed and the puncture site sealed with standard TR band technique. The patient was then moved to the holding area. Findings. Hemodynamics. Aortic root pressure of 96/58. Coronaries. Left main. The left main had no lesions. Left anterior descending. The LAD was a moderate size vessel. It had a proximal to mid 50% lesion. It also had very distal 90% lesion. Left circumflex was a moderate size dominant vessel. It had a mid 30% lesion. The right coronary artery. Right coronary was a smaller nondominant vessel with a mid 25% lesion. 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 Very distal LAD lesion of 90% which will be treated medically. 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 Signed by : Kings Camejo MD Electronically Approved : 12/04/2018 15:50:39
[2018-12-04] MEDS ORDERED: WARFARIN 2.5 MG TABLET. PO ONE (16:00)
--- NOTE | 2018-12-04 16:43 | NUR ---
Patient arrived from [facility] at 1500. Right wrist had TR Band off, dressing is clean dry and intact, Armboard in place. Patient is alert and oriented x3 has no complaints at the moment. Vitals stable, will continue to monitor.
[2018-12-04] MEDS: SIMVASTATIN 10 MG TABLET PO SCH (21:35)
[2018-12-05] VITALS (8 sets, daily range): BP systolic 96–132; BP diastolic 56–83
[2018-12-05 05:41] LABS: ALBUMIN 1.9 g/dL (3.4-5.0); CALCIUM 8.5 mg/dL (8.5-10.1); GFR 70.8; POTASSIUM 4.2 mmol/L (3.5-5.1)
[2018-12-05] MEDS: MIDODRINE 5 MG TABLET PO SCH ×3 (06:11→18:03)
--- NOTE | 2018-12-05 08:17 | NUR ---
Pt transferred to higher level of care following heart cath. Will eed new orders to initiate therapy services. Will await PT/OT eval and treat orders. Addendum: 12/05/18 at 0817 by YIN HOUSE PT Amended: Links added.
[2018-12-05] MEDS: ASPIRIN ENTERIC COATED 81 MG TABLET.DR. PO SCH (08:44)
[2018-12-05] MEDS: LACTOBACILLUS RHAMNOSUS GG 1 CAPSULE. PO SCH ×2 (08:44→21:09)
[2018-12-05] MEDS: AMIODARONE HCL 200 MG TABLET. PO SCH (08:44)
[2018-12-05] MEDS: TAMSULOSIN 0.4 MG CAP.ER.24H. PO SCH (08:44)
[2018-12-05] MEDS: SMZ/TMP 800/160MG TABLET. PO SCH ×2 (08:56→21:09)
[2018-12-05 10:00] LABS: PROTHROMBIN TIME PATIENT 20.4 SEC (11.7-14.0)
--- NOTE | 2018-12-05 10:14 | PDOC ---
PROGRESS NOTES Chief Complaint Chief Complaint Acute on chronic systolic/diastolic heart failure Hyponatremia Hypoxemia Anemia Urinary tract infection (gram negative rods) Metabolic encephalopathy Elevated D-dimer. History of Present Illness History of Present Illness Mr. Frederick presented with shortness of breath and hyponatremia, was found to be in heart failure, BNP > 9000. Patient was seen and examined at bedside. He has worsening shortness of breath per nurse. O2 Sat at 95% on 2L per N/C. Patient had cath yesterday, 90% stenosis of distal LAD. Cardiology and Nephrology following. Vitals Vitals Vital Signs Date Time Temp Pulse Resp B/P (MAP) Pulse Ox O2 Delivery O2 Flow Rate FiO2 12/05/18 08:44 88 123/81 12/05/18 08:37 24 95 Nasal Cannula 2.0 12/05/18 07:00 97.3 97.3 Physical Exam General: Alert, Oriented X3, mild distress (shortness of breath with wheezing) Heart: Regular rate, No murmurs, Other (irregular rhythm) Lungs: Clear, Wheezing, Other (raspiness) Abdomen: Normal bowel sounds, Soft, No tenderness Extremities: No clubbing, No cyanosis, No edema Skin: No rashes, No significant lesion Labs LABS Laboratory Tests Test 12/05/18 03:55 Sodium Level 126 mmol/L (136-145) Potassium Level 4.2 mmol/L (3.5-5.1) Chloride Level 92 mmol/L (98-107) Carbon Dioxide Level 27 mmol/L (21-32) Anion Gap 7 (6-14) Blood Urea Nitrogen 20 mg/dL (8-26) Creatinine 1.0 mg/dL (0.7-1.3) Estimated GFR (Cockcroft-Gault) 70.8 Glucose Level 104 mg/dL (70-99) Calcium Level 8.5 mg/dL (8.5-10.1) Phosphorus Level 2.0 mg/dL (2.6-4.7) Albumin 1.9 g/dL (3.4-5.0) Review of Systems Review of Systems Reports shortness of breath Denies chest pain Denies fever, chills Assessment and Plan Assessmemt and Plan Problems Medical Problems: (1) CHF (congestive heart failure) Status: Acute (2) Generalized weakness Status: Acute (3) Sepsis Status: Acute Assessment: Acute on chronic systolic/diastolic heart failure Hyponatremia Hypoxemia Anemia Urinary tract infection (gram negative rods) Metabolic encephalopathy Elevated D-dimer. Plan: Ordered Chest XRay Appreciate cardiology input Continue to monitor respiratory status Continue bactrim po Monitor CMP and CBC - hyponatremic with Na at 126, appreciate nephrology input, continue NS for now Consult PT/OT Comment Review of Relevant I have reviewed the following items yolande (where applicable) has been applied. Labs Laboratory Tests Test 12/04/18 06:30 12/05/18 03:55 Prothrombin Time 20.1 SEC (11.7-14.0) Prothromb Time International Ratio 1.7 (0.8-1.1) Sodium Level 126 mmol/L (136-145) Potassium Level 4.2 mmol/L (3.5-5.1) Chloride Level 92 mmol/L (98-107) Carbon Dioxide Level 27 mmol/L (21-32) Anion Gap 7 (6-14) Blood Urea Nitrogen 20 mg/dL (8-26) Creatinine 1.0 mg/dL (0.7-1.3) Estimated GFR (Cockcroft-Gault) 70.8 Glucose Level 104 mg/dL (70-99) Calcium Level 8.5 mg/dL (8.5-10.1) Phosphorus Level 2.0 mg/dL (2.6-4.7) Albumin 1.9 g/dL (3.4-5.0) Laboratory Tests Test 12/05/18 03:55 Sodium Level 126 mmol/L (136-145) Potassium Level 4.2 mmol/L (3.5-5.1) Chloride Level 92 mmol/L (98-107) Carbon Dioxide Level 27 mmol/L (21-32) Anion Gap 7 (6-14) Blood Urea Nitrogen 20 mg/dL (8-26) Creatinine 1.0 mg/dL (0.7-1.3) Estimated GFR (Cockcroft-Gault) 70.8 Glucose Level 104 mg/dL (70-99) Calcium Level 8.5 mg/dL (8.5-10.1) Phosphorus Level 2.0 mg/dL (2.6-4.7) Albumin 1.9 g/dL (3.4-5.0) Microbiology 12/02/18 Blood Culture - Preliminary, Resulted NO GROWTH AFTER 2 DAYS 12/02/18 Urine Culture - Final, Complete 12/02/18 Urine Culture Result 1 (JULIETTE) - Final, Complete Medications Current Medications Albuterol/ Ipratropium (Duoneb) 3 ml STK-MED ONCE .ROUTE ; Start 12/02/18 at 11: 21; Stop 12/02/18 at 11:22; Status DC Albuterol/ Ipratropium (Duoneb) 3 ml 1X ONCE NEB Last administered on at 11:40; Start 12/02/18 at 11:30; Stop 12/02/18 at 11:31; Status DC Methylprednisolone Sodium Succinate (SOLU-Medrol 125MG VIAL) 125 mg 1X ONCE IV Last administered on 12/02/18at 12:04; Start 12/02/18 at 11:30; Stop 12/02/18 at 11:31; Status DC Sodium Chloride 500 ml @ 50 mls/hr 1X ONCE IV ; Start 12/02/18 at 13:00; Stop 12/02/18 at 13:00; Status DC Sodium Chloride 100 ml @ 30 mls/hr 1X ONCE IV Last administered on 12/02/18at 12:47; Start 12/02/18 at 13:00; Stop 12/02/18 at 16:19; Status DC Furosemide (Lasix) 40 mg 1X ONCE IVP Last administered on 12/02/18at 12:48; Start 12/02/18 at 13:15; Stop 12/02/18 at 13:16; Status DC Ceftriaxone Sodium (Rocephin) 1 gm 1X ONCE IVP Last administered on 12/02/18 13:32; Start 12/02/18 at 13:00; Stop 12/02/18 at 13:01; Status DC Ceftriaxone Sodium (Rocephin) 1 gm Q24H IVP Last administered on 12/02/18 16:53 ; Start 12/02/18 at 15:00; Stop 12/03/18 at 13:27; Status DC Aspirin (Ecotrin) 81 mg DAILY PO Last administered on 12/05/18at 08:44; Start 12/03/18 at 12:00 Docusate Sodium (Colace) 100 mg PRN BID PRN PO STOOL SOFTENER; Start 12/03/18 at 11:00 Simvastatin (Zocor) 10 mg QHS PO Last administered on 12/04/18at 21:35; Start 12/03/18 at 21:00 Tamsulosin HCl (Flomax) 0.4 mg DAILY PO Last administered on 12/05/18at 08:44; Start 12/03/18 at 12:00 Non-Formulary Medication (Melatonin ) 5 mg HS PRN PO INSOMNIA; Start 12/03/18 at 11:00; Status UNV Amiodarone HCl (Cordarone) 200 mg DAILY PO Last administered on 12/05/18at 08:44 ; Start 12/03/18 at 12:00 Midodrine (Proamatine) 5 mg [id number] PO Last administered on 12/05/18at 06:11; Start 12/03/18 at 13:00 Non-Formulary Medication (Warfarin Sodium ) 5 mg sunday and sunday PO ; Start at 11:00; Status UNV Warfarin Sodium (Coumadin Per Pharmacy) 1 each PRN DAILY PRN MC SEE COMMENTS Last administered on 12/04/18at 12:45; Start 12/03/18 at 11:00 Trimethoprim/ Sulfamethoxazole (Bactrim Ds) 1 tab BID PO Last administered on at 08:56; Start 12/03/18 at 12:30 Warfarin Sodium (Coumadin) 2.5 mg 1X WARF ONCE PO ; Start 12/03/18 at 16:00; Stop 12/03/18 at 16:01; Status DC Iodixanol (Visipaque 320) 100 ml STK-MED ONCE .ROUTE ; Start 12/04/18 at 09:41; Stop 12/04/18 at 09:42; Status DC Lidocaine HCl (Lidocaine 1% 20ml Vial) 20 ml STK-MED ONCE .ROUTE ; Start at 09:41; Stop 12/04/18 at 09:42; Status DC Heparin Sodium/ Sodium Chloride 500 ml @ As Directed STK-MED ONCE .ROUTE ; Start 12/04/18 at 09:41; Stop 12/04/18 at 09:42; Status DC Heparin Sodium/ Sodium Chloride 500 ml @ As Directed STK-MED ONCE .ROUTE ; Start 12/04/18 at 09:42; Stop 12/04/18 at 09:43; Status DC Fentanyl Citrate (Fentanyl 2ml Vial) 100 mcg STK-MED ONCE .ROUTE ; Start at 10:07; Stop 12/04/18 at 10:08; Status DC Midazolam HCl (Versed) 2 mg STK-MED ONCE .ROUTE ; Start 12/04/18 at 10:07; Stop 12/04/18 at 10:08; Status DC Heparin Sodium (Porcine) (Heparin Sodium) 10,000 unit STK-MED ONCE .ROUTE ; Start 12/04/18 at 10:07; Stop 12/04/18 at 10:08; Status DC Verapamil HCl (Verapamil) 5 mg STK-MED ONCE .ROUTE ; Start 12/04/18 at 10:07; Stop 12/04/18 at 10:08; Status DC Nitroglycerin (Nitroglycerin) 200 mcg STK-MED ONCE .ROUTE ; Start 12/04/18 at 10: 07; Stop 12/04/18 at 10:08; Status DC Nitroglycerin (Nitroglycerin) 200 mcg 1X ONCE IART Last administered on at 10:30; Start 12/04/18 at 10:30; Stop 12/04/18 at 10:31; Status DC Verapamil HCl (Verapamil) 2.5 mg 1X ONCE IART Last administered on 12/04/18at 10 :30; Start 12/04/18 at 10:30; Stop 12/04/18 at 10:31; Status DC Heparin Sodium (Porcine) (Heparin Sodium) 2,500 unit 1X ONCE IART Last administered on 12/04/18at 10:30; Start 12/04/18 at 10:30; Stop 12/04/18 at 10:31; Status DC Heparin Sodium/ Sodium Chloride (HEPARIN for ARTERIAL LINE FLUSH) 1,000 unit 1X ONCE IART Last administered on 12/04/18at 10:30; Start 12/04/18 at 10:30; Stop 12/04/18 at 10:31; Status DC Heparin Sodium/ Sodium Chloride (HEPARIN for ARTERIAL LINE FLUSH) 1,000 unit 1X ONCE IART Last administered on 12/04/18at 10:30; Start 12/04/18 at 10:30; Stop 12/04/18 at 10:31; Status DC Midazolam HCl (Versed) 2 mg 1X ONCE IV Last administered on 12/04/18at 10:30; Start 12/04/18 at 10:30; Stop 12/04/18 at 10:31; Status DC Fentanyl Citrate (Fentanyl 2ml Vial) 100 mcg 1X ONCE IV Last administered on at 10:30; Start 12/04/18 at 10:30; Stop 12/04/18 at 10:31; Status DC Iodixanol (Visipaque 320) 100 ml 1X ONCE IART Last administered on 12/04/18at 10 :30; Start 12/04/18 at 10:30; Stop 12/04/18 at 10:31; Status DC Lidocaine HCl (Lidocaine 1% 20ml Vial) 20 ml 1X ONCE INJ Last administered on 12/04/18at 10:30; Start 12/04/18 at 10:30; Stop 12/04/18 at 10:31; Status DC Info (CONTRAST GIVEN -- Rx MONITORING) 1 each PRN DAILY PRN MC SEE COMMENTS; Start 12/04/18 at 10:30; Stop 12/06/18 at 10:29 Heparin Sodium (Porcine) (Heparin Sodium) 10,000 unit STK-MED ONCE .ROUTE ; Start 12/04/18 at 11:05; Stop 12/04/18 at 11:06; Status DC Heparin Sodium (Porcine) (Heparin Sodium) 500 unit 1X ONCE IV Last administered on 12/04/18at 11:15; Start 12/04/18 at 11:15; Stop 12/04/18 at 11:16; Status DC Iodixanol (Visipaque 320) 100 ml STK-MED ONCE .ROUTE ; Start 12/04/18 at 11:11; Stop 12/04/18 at 11:13; Status DC Sodium Chloride (Normal Saline Flush) 3 ml QSHIFT PRN IV AFTER MEDS AND BLOOD DRAWS; Start 12/04/18 at 11:30 Sodium Chloride 1,000 ml @ 50 mls/hr Q20H IV Last administered on 12/04/18at 16: 32; Start 12/04/18 at 11:30; Stop 12/04/18 at 16:29; Status DC Nitroglycerin (Nitrostat) 0.4 mg PRN Q5MIN PRN SL CHEST PAIN; Start 12/04/18 at 11:30 Lactobacillus Rhamnosus (Culturelle) 1 cap BID PO Last administered on at 08:44; Start 12/04/18 at 13:00 Warfarin Sodium (Coumadin) 2.5 mg 1X WARF ONCE PO Last administered on at 17:30; Start 12/04/18 at 16:00; Stop 12/04/18 at 16:01; Status DC Active Scripts Active Flomax (Tamsulosin Hcl) 0.4 Mg Cap.er.24h 0.4 Mg PO DAILY 30 Days Reported Amox Tr-K Clv 500-125 Mg Tab (Amoxicillin/Potassium Clav) 1 Each Tablet 1 Tab PO BID 3 Days Warfarin Sodium 2.5 Mg Tablet 2.5 Mg PO SUN,SUN,,SUN,SUN Warfarin Sodium 5 Mg Tablet 5 Mg PO SUNDAY AND SUNDAY Simvastatin 10 Mg Tablet 1 Tab PO QHS Midodrine Hcl 5 Mg Tablet 5 Mg PO TID Melatonin 3 Mg Tablet 5 Mg PO HS PRN Ex-Lax Maximum Relief (Sennosides) 25 Mg Tablet 50 Mg PO DAILY Docusate Sodium 100 Mg Capsule 1 Cap PO BID PRN Aspirin Ec (Aspirin) 81 Mg Tablet. 1 Tab PO DAILY Amiodarone Hcl 200 Mg Tablet 1 Tab PO DAILY Vitals/I & O Vital Sign - Last 24 Hours 12/04/18 12/04/18 12/04/18 12/04/18 10:30 10:30 11:34 11:45 Pulse 90 90 84 Resp 20 22 22 Pulse Ox 95 97 99 O2 Delivery Nasal Cannula Nasal Cannula Nasal Cannula O2 Flow Rate 2.0 2.0 2.0 12/04/18 12/04/18 12/04/18 12/04/18 12:00 12:15 12:30 12:45 Pulse 82 92 84 90 Resp 19 20 Pulse Ox 97 97 97 99 O2 Delivery Nasal Cannula Nasal Cannula Nasal Cannula Nasal Cannula O2 Flow Rate 2.0 2.0 2.0 2.0 12/04/18 12/04/18 12/04/18 12/04/18 13:45 14:15 14:45 15:00 Pulse 87 75 78 Resp 22 22 22 18 Pulse Ox 97 99 100 O2 Delivery Nasal Cannula Nasal Cannula Nasal Cannula Room Air O2 Flow Rate 2.0 2.0 2.0 12/04/18 12/04/18 12/04/18 12/04/18 15:20 16:00 16:23 17:29 Temp 97.3 97.3 Pulse 95 89 71 Resp 18 B/P (MAP) 114/72 (86) 119/80 (93) 119/73 Pulse Ox 96 O2 Delivery Room Air Room Air O2 Flow Rate 2.0 12/04/18 12/04/18 12/04/18 12/05/18 19:00 20:00 22:51 03:41 Temp 97.5 97.5 98.0 97.5 97.5 98.0 Pulse 90 85 85 Resp 17 17 18 B/P (MAP) 120/72 (88) 104/70 (81) 126/75 (92) Pulse Ox 95 95 95 O2 Delivery Room Air Room Air Nasal Cannula Nasal Cannula O2 Flow Rate 2.0 2.0 2.0 12/05/18 12/05/18 12/05/18 12/05/18 06:11 07:00 08:37 08:44 Temp 97.3 97.3 Pulse 85 91 88 88 Resp 24 24 B/P (MAP) 126/75 132/83 (99) 123/81 (95) 123/81 Pulse Ox 97 95 O2 Delivery Nasal Cannula Nasal Cannula O2 Flow Rate 2.0 2.0 Intake and Output 12/04/18 12/04/18 12/05/18 15:00 23:00 07:00 Intake Total 0 ml 444 ml Output Total 550 ml 350 ml Balance 0 ml -106 ml -350 ml MIKAYLA MIRANDA III DO Dec 05, 2018 10:14
[2018-12-05] MEDS: ALBUTEROL SULFATE 2.5 MG/3 ML NEBU. NEB PRN ×2 (10:37→21:44)
--- NOTE | 2018-12-05 10:53 | NUR ---
Pharmacy Warfarin Dosing Note S:Pharmacy consulted to assist with anticoagulation therapy started with target INR: 2 -3 O:KRISTIE CAMPUZANO is a 88 year old M with Atrial Fibrillation LABS: Last INR: 1.8 Last HGB: 11.4 Last HCT: 33.9 Last PLT: 482 Last dose of 2.5 mg given on 12/04/18 at 1730 Previous Regimen: 5MG M/FR, 2.5MG OTHER DAYS Vitamin K given: N Drug Interaction Changes: New Interacting Drug Ongoing Drug Interactions: A:INR of 1.8 is below desired range. Target range for this patient is: 2 -3 P: Warfarin dose: 4 mg Today at 1600 Bridge Therapy: None Next INR due 12/06/18. Pharmacy anticoagulation service will continue to follow. STEPHIE FLORES RPH, 12/05/18 1313
--- NOTE | 2018-12-05 11:38 | PDOC ---
SUBJECTIVE ROS S/P Cardiac cath 12/04 , was sob this am, better after Breathing treatment as per son at bedside OBJECTIVE Vital Signs Vital Signs Date Time Temp Pulse Resp B/P (MAP) Pulse Ox O2 Delivery O2 Flow Rate FiO2 12/05/18 10:39 96 Nasal Cannula 2.0 12/05/18 08:44 88 123/81 12/05/18 08:37 24 12/05/18 07:00 97.3 97.3 I & 0 Intake and Output 12/05/18 07:00 Intake Total 444 ml Output Total 900 ml Balance -456 ml Intake Oral 327 ml IV Total 117 ml Output Urine Total 900 ml PHYSICAL EXAM Physical Exam GEN: NAD, HEENT- Om moist, not on O2 , Very hard of hearing NECK: supple CVS: RRR, RESP: CTA Bilat, Non labored GI: Non Tender, Non Distended : No CVA tenderness , Indwelling Bryant +(Chronic) Neuro- Grossly Normal Skin No rash DIAGNOSIS/ASSESSMENT Assessment & Plan Hyponatremia -was hospitalized in Nov for same s/p 3% Na dropped this am , awaiting CxR report Continue to Restrict fluid intake to 2326-4429 ml HTN- as per Hx Home meds shows Midodrine CHF- defer to cardiology S/p cath no intervention , medical management ESTEFANI-recent hospitalization Baseline renal function unknown Creat normal this admn Urinary retention - last hospitalization Hydronephrosis on US As per son not been changed since placed(>1 mo) Consult urology Hypotension with Syncopal episodes hospitalized at in nov 2018 Discussed with RN COMMENT/RELEVANT DATA Meds Current Medications Medications (Trade) Dose Ordered Sig/Teddy Start Time Stop Time Status Last Admin Dose Admin Albuterol Sulfate (Ventolin Neb Soln) 2.5 mg PRN Q6HRS PRN 12/05/18 10:30 12/05/18 10:37 2.5 MG Albuterol/ Ipratropium (Duoneb) 3 ml 1X ONCE 12/02/18 11:30 12/02/18 11:31 DC 12/02/18 11:40 3 ML Amiodarone HCl (Cordarone) 200 mg DAILY 12/03/18 12:00 12/05/18 08:44 200 MG Aspirin (Ecotrin) 81 mg DAILY 12/03/18 12:00 12/05/18 08:44 81 MG Ceftriaxone Sodium (Rocephin) 1 gm Q24H 12/02/18 15:00 12/03/18 13:27 DC 12/02/18 16:53 1 GM Docusate Sodium (Colace) 100 mg PRN BID PRN 12/03/18 11:00 Fentanyl Citrate (Fentanyl 2ml Vial) 100 mcg 1X ONCE 12/04/18 10:30 12/04/18 10:31 DC 12/04/18 10:30 12.5 MCG Furosemide (Lasix) 40 mg 1X ONCE 12/02/18 13:15 12/02/18 13:16 DC 12/02/18 12:48 40 MG Heparin Sodium (Porcine) (Heparin Sodium) 500 unit 1X ONCE 12/04/18 11:15 12/04/18 11:16 DC 12/04/18 11:15 1,000 UNIT Heparin Sodium/ Sodium Chloride (HEPARIN for ARTERIAL LINE FLUSH) 1,000 unit 1X ONCE 12/04/18 10:30 12/04/18 10:31 DC 12/04/18 10:30 1,000 UNIT Info (CONTRAST GIVEN -- Rx MONITORING) 1 each PRN DAILY PRN 12/04/18 10:30 12/06/18 10:29 Iodixanol (Visipaque 320) 100 ml STK-MED ONCE 12/04/18 11:11 12/04/18 11:13 DC Lactobacillus Rhamnosus (Culturelle) 1 cap BID 12/04/18 13:00 12/05/18 08:44 1 CAP Lidocaine HCl (Lidocaine 1% 20ml Vial) 20 ml 1X ONCE 12/04/18 10:30 12/04/18 10:31 DC 12/04/18 10:30 1 ML Methylprednisolone Sodium Succinate (SOLU-Medrol 125MG VIAL) 125 mg 1X ONCE 12/02/18 11:30 12/02/18 11:31 DC 12/02/18 12:04 125 MG Midazolam HCl (Versed) 2 mg 1X ONCE 12/04/18 10:30 12/04/18 10:31 DC 12/04/18 10:30 1 MG Midodrine (Proamatine) 5 mg [id number] 12/03/18 13:00 12/05/18 06:11 5 MG Nitroglycerin (Nitroglycerin) 200 mcg 1X ONCE 12/04/18 10:30 12/04/18 10:31 DC 12/04/18 10:30 200 MCG Nitroglycerin (Nitrostat) 0.4 mg PRN Q5MIN PRN 12/04/18 11:30 Non-Formulary Medication (Melatonin ) 5 mg HS PRN 12/03/18 11:00 UNV Non-Formulary Medication (Warfarin Sodium ) 5 mg sunday and sunday12/03/18 11:00 UNV Simvastatin (Zocor) 10 mg QHS 12/03/18 21:00 12/04/18 21:35 10 MG Sodium Chloride 1,000 ml @ 50 mls/hr Q20H 12/04/18 11:30 12/04/18 16:29 DC 12/04/18 16:32 50 MLS/HR Sodium Chloride (Normal Saline Flush) 3 ml QSHIFT PRN 12/04/18 11:30 Tamsulosin HCl (Flomax) 0.4 mg DAILY 12/03/18 12:00 12/05/18 08:44 0.4 MG Trimethoprim/ Sulfamethoxazole (Bactrim Ds) 1 tab BID 12/03/18 12:30 12/05/18 08:56 1 TAB Verapamil HCl (Verapamil) 2.5 mg 1X ONCE 12/04/18 10:30 12/04/18 10:31 DC 12/04/18 10:30 2.5 MG Warfarin Sodium (Coumadin Per Pharmacy) 1 each PRN DAILY PRN 12/03/18 11:00 12/05/18 10:52 1 EACH Warfarin Sodium (Coumadin) 4 mg 1X WARF ONCE 12/05/18 16:00 12/05/18 16:01 Lab Laboratory Tests Test 12/05/18 03:55 12/05/18 09:00 Sodium Level 126 mmol/L (136-145) Potassium Level 4.2 mmol/L (3.5-5.1) Chloride Level 92 mmol/L (98-107) Carbon Dioxide Level 27 mmol/L (21-32) Anion Gap 7 (6-14) Blood Urea Nitrogen 20 mg/dL (8-26) Creatinine 1.0 mg/dL (0.7-1.3) Estimated GFR (Cockcroft-Gault) 70.8 Glucose Level 104 mg/dL (70-99) Calcium Level 8.5 mg/dL (8.5-10.1) Phosphorus Level 2.0 mg/dL (2.6-4.7) Albumin 1.9 g/dL (3.4-5.0) Prothrombin Time 20.4 SEC (11.7-14.0) Prothromb Time International Ratio 1.8 (0.8-1.1) Results All relevant outside records, renal labs, imaging studies, telemetry/EKG's were reviewed. CHIKI BARR MD Dec 05, 2018 11:37
--- NOTE | 2018-12-05 12:45 | RAD ---
Portable chest, 12/05/2018: HISTORY: Increasing shortness of breath Comparison is made to a study from 12/02/2018. A left-sided transvenous pacing device remains in place with 3 leads extending into the heart. The heart is enlarged. The patient is rotated to the left. There is ongoing vascular congestion with perihilar and basilar infiltrates compatible with pulmonary edema. Bilateral pleural thickening is compatible with associated pleural fluid. The parahilar opacities have worsened slightly with increasing loss of vascular margination. There is no evidence of pneumothorax. IMPRESSION: Ongoing vascular congestion, pulmonary infiltrates and pleural effusions most likely due to congestive heart failure with pulmonary edema, with slight interval worsening since 12/02/2018. Electronically signed by: Casimiro Yen MD (12/05/2018 12:42 PM) [facility]
[2018-12-05] MEDS ORDERED: FUROSEMIDE 40 MG/4 ML VIAL. IVP ONE (13:30)
--- NOTE | 2018-12-05 13:42 | NUR ---
SS following up with discharge planning. Pt transferred to second floor. New orders for PT/OT placed. SS will await PT/OT evaluations and recommendations and will proceed accordingly with discharge planning.
--- NOTE | 2018-12-05 14:46 | PDOC2 ---
UROLOGY CONSULT Date of Consult Date of Consult DATE: 12/05/18 TIME: 14:41 Reason for Consult Reason for Consult: urinary retention Identification/Chief Complaint Chief Complaint urinary retention Source Source: Chart review, Patient History of Present Illness Reason for Visit: 88 yo male s/p cardiac catheterization 11/06. We were asked top see patient again regarding urinary retention. He had maloney placed 11/05/18 with return of over 1 liter urine. At that time creatinine was over 6 and ultrasound showed bilateral hydronephrosis. Since then creatinine has been declining, now 1.0. He is also now taking flomax. He is not bothered at all by the maloney catheter. He is short of breath and fatigues but otherwise no complaints. Past Medical History Cardiovascular: AFIB, CAD, CHF, HTN, Hyperlipidemia Pulmonary: No pertinent hx GI: No pertinent hx Heme/Onc: No pertinent hx Hepatobiliary: No pertinent hx Psych: No pertinent hx Musculoskeletal: Osteoarthritis Rheumatologic: No pertinent hx Infectious disease: No pertinent hx Renal/: Chronic renal insuff, Other Endocrine: No pertinent hx Past Surgical History Past Surgical History: Pacemaker Family History Family History: Cancer, Diabetes, Hypertension Social History ALCOHOL: none Drugs: None Lives: with Family Current Medications Current Medications Current Medications Albuterol Sulfate (Ventolin Neb Soln) 2.5 mg PRN Q6HRS PRN NEB SHORTNESS OF BREATH Last administered on 12/05/18at 10:37; Start 12/05/18 at 10:30 Furosemide (Lasix) 40 mg 1X ONCE IVP Last administered on 12/05/18at 14:01; Start 12/05/18 at 13:30; Stop 12/05/18 at 13:31; Status DC Warfarin Sodium (Coumadin) 2.5 mg 1X WARF ONCE PO Last administered on at 17:30; Start 12/04/18 at 16:00; Stop 12/04/18 at 16:01; Status DC Warfarin Sodium (Coumadin) 4 mg 1X WARF ONCE PO ; Start 12/05/18 at 16:00; Stop 12/05/18 at 16:01 Allergies Allergies: Coded Allergies: I S O L A T I O N *CONTACT* (Verified Allergy, Unknown, 12/03/18) ESBL No Known Medication Allergies (Verified Allergy, Unknown, 12/03/18) ROS Review Of Systems: Except as noted above: CONSTITUTIONAL: No fever or chills EYES: No recent changes SKIN: No rash or itching CARDIOVASCULAR: No chest pain, syncope, palpitations, or edema RESPIRATORY: + SOB GASTROINTESTINAL: No nausea, vomiting or abdominal pain NEUROLOGICAL: No headaches or weakness ENDOCRINE: No cold or heat intolerance GENITOURINARY: No urgency or frequency of urination MUSCULOSKELETAL: No back pain or joint pain LYMPHATICS: No enlarged lymph nodes PSYCHIATRIC: No anxiety or depression Physical Exam Physical Exam: General: Pleasant, no acute distress, well groomed, elderly, frail Eyes: conjunctiva anicteric, eyes full range of motion ENT: moist oral mucosa, normal dentition Neck: Trachea midline, no masses Respiratory: unlabored breathing, not using accessory muscles, no crackles or wheezes Cardiovascular: Regular rate and rhythm, no peripheral edema Abdomen: nontender, nondistended, no hepatosplenomegaly, no masses Skin: no rashes or skin lesions on visualized skin Psych: normal mood, affect. Alert and oriented x 3. Maloney draining yellow urine. Vitals VITALS Vital Signs Date Time Temp Pulse Resp B/P (MAP) Pulse Ox O2 Delivery O2 Flow Rate FiO2 12/05/18 14:01 94 96/61 12/05/18 11:00 97.6 22 97 Nasal Cannula 2.0 97.6 Labs Labs Laboratory Tests Test 12/04/18 06:30 12/05/18 03:55 12/05/18 09:00 Prothrombin Time 20.1 SEC (11.7-14.0) 20.4 SEC (11.7-14.0) Prothromb Time International Ratio 1.7 (0.8-1.1) 1.8 (0.8-1.1) Sodium Level 126 mmol/L (136-145) Potassium Level 4.2 mmol/L (3.5-5.1) Chloride Level 92 mmol/L (98-107) Carbon Dioxide Level 27 mmol/L (21-32) Anion Gap 7 (6-14) Blood Urea Nitrogen 20 mg/dL (8-26) Creatinine 1.0 mg/dL (0.7-1.3) Estimated GFR (Cockcroft-Gault) 70.8 Glucose Level 104 mg/dL (70-99) Calcium Level 8.5 mg/dL (8.5-10.1) Phosphorus Level 2.0 mg/dL (2.6-4.7) Albumin 1.9 g/dL (3.4-5.0) Laboratory Tests Test 12/05/18 03:55 12/05/18 09:00 Sodium Level 126 mmol/L (136-145) Potassium Level 4.2 mmol/L (3.5-5.1) Chloride Level 92 mmol/L (98-107) Carbon Dioxide Level 27 mmol/L (21-32) Anion Gap 7 (6-14) Blood Urea Nitrogen 20 mg/dL (8-26) Creatinine 1.0 mg/dL (0.7-1.3) Estimated GFR (Cockcroft-Gault) 70.8 Glucose Level 104 mg/dL (70-99) Calcium Level 8.5 mg/dL (8.5-10.1) Phosphorus Level 2.0 mg/dL (2.6-4.7) Albumin 1.9 g/dL (3.4-5.0) Prothrombin Time 20.4 SEC (11.7-14.0) Prothromb Time International Ratio 1.8 (0.8-1.1) Assessment/Plan Assessment/Plan Urinary retention: He is agreeable to voiding trial. Will remove maloney catheter tonight and check on patient in AM. If unable to void or PVR > 400 ml then would replace maloney and stop tamsulosin. Will follow. ZANDER SANDOVAL MD Dec 05, 2018 14:46
[2018-12-05] MEDS ORDERED: WARFARIN 4 MG TABLET. PO ONE (16:00)
[2018-12-05] MEDS: SIMVASTATIN 10 MG TABLET PO SCH (21:09)
[2018-12-06] VITALS (10 sets, daily range): BP systolic 90–132; BP diastolic 59–87
[2018-12-06 03:38] LABS: BASO % 0 % (0-3); EOS % 0 % (0-3); HEMATOCRIT 34.2 % (39.0-53.0); HEMOGLOBIN 11.5 g/dL (13.0-17.5); LYMPH # 0.6 x10^3/uL (1.0-4.8); LYMPH % 6 % (24-48); MEAN CORPUSCULAR HEMOGLOBIN 32 pg (25-35); MEAN CORPUSCULAR HGB CONC 34 g/dL (31-37); MEAN CORPUSCULAR VOLUME 94 fL (79-100); MONO # 0.7 x10^3/uL (0.0-1.1); MONO % 7 % (0-9); NEUT # 8.5 x10^3uL (1.8-7.7); NEUT % 87 % (31-73); PLATELET COUNT 411 x10^3/uL (140-400); RED BLOOD COUNT 3.64 x10^6/uL (4.30-5.70); RED CELL DISTRIBUTION WIDTH 14.6 % (11.5-14.5); WHITE BLOOD COUNT 9.8 x10^3/uL (4.0-11.0)
[2018-12-06 03:43] LABS: PROTHROMBIN TIME PATIENT 22.4 SEC (11.7-14.0)
[2018-12-06 04:11] LABS: ALBUMIN 2.3 g/dL (3.4-5.0); ALBUMIN/GLOBULIN RATIO 0.5 (1.0-1.7); CALCIUM 8.3 mg/dL (8.5-10.1); CREATININE 1.1 mg/dL (0.7-1.3); GFR 63.5; PHOSPHORUS 2.3 mg/dL (2.6-4.7); TOTAL BILIRUBIN 0.5 mg/dL (0.2-1.0); TOTAL PROTEIN 6.5 g/dL (6.4-8.2)
[2018-12-06] MEDS: MIDODRINE 5 MG TABLET PO SCH ×3 (06:28→18:45)
[2018-12-06] MEDS: ALBUTEROL SULFATE 2.5 MG/3 ML NEBU. NEB PRN ×2 (07:31→20:08)
[2018-12-06] MEDS: TAMSULOSIN 0.4 MG CAP.ER.24H. PO SCH (08:46)
[2018-12-06] MEDS: ASPIRIN ENTERIC COATED 81 MG TABLET.DR. PO SCH (08:47)
[2018-12-06] MEDS: SMZ/TMP 800/160MG TABLET. PO SCH ×2 (08:48→20:32)
[2018-12-06] MEDS: AMIODARONE HCL 200 MG TABLET. PO SCH (08:48)
[2018-12-06] MEDS: LACTOBACILLUS RHAMNOSUS GG 1 CAPSULE. PO SCH ×2 (08:48→20:32)
--- NOTE | 2018-12-06 10:17 | NUR ---
Pharmacy Warfarin Dosing Note S:Pharmacy consulted to assist with anticoagulation therapy started with target INR: 2 -3 O:KRISTIE CAMPUZANO is a 88 year old M with Atrial Fibrillation LABS: Last INR: 2.0 Last HGB: 11.4 Last HCT: 33.9 Last PLT: 482 Last dose of 4 mg given on 12/05/18 at 1730 Previous Regimen: 5MG M/FR, 2.5MG OTHER DAYS Vitamin K given: N Drug Interaction Changes: New Interacting Drug Ongoing Drug Interactions: A:INR of 2.0 is within desired range. Target range for this patient is: 2 -3 P: Warfarin dose: 3 mg Today at 1600 Bridge Therapy: None Next INR due tomorrow. Pharmacy anticoagulation service will continue to follow. FLEX HINES RPH, 12/06/18 1011
--- NOTE | 2018-12-06 10:20 | PDOC ---
SUBJECTIVE ROS S/P Cardiac cath 12/04 , Bryant removed this am No new concerns OBJECTIVE Vital Signs Vital Signs Date Time Temp Pulse Resp B/P (MAP) Pulse Ox O2 Delivery O2 Flow Rate FiO2 12/06/18 08:48 85 122/79 12/06/18 07:32 96 Nasal Cannula 2.0 12/06/18 07:00 97.7 20 97.7 I & 0 Intake and Output 12/06/18 07:00 Intake Total 1120 ml Output Total 1550 ml Balance -430 ml Intake Oral 1120 ml Output Urine Total 1550 ml PHYSICAL EXAM Physical Exam GEN: NAD, HEENT- Om moist, not on O2 , Very hard of hearing NECK: supple CVS: RRR, RESP: CTA Bilat, Non labored GI: Non Tender, Non Distended : No CVA tenderness , Indwelling Bryant +(Chronic) Neuro- Grossly Normal Skin No rash DIAGNOSIS/ASSESSMENT Assessment & Plan Hyponatremia -was hospitalized in Nov for same Na dropped yesterday , Cxr- Congestion/Pulm s/p IV Lasix 40 mg qd Continue IV Lasix qd Restrict fluid intake to 8078-5455 ml HTN- as per Hx On midodrine as per primary CHF- defer to cardiology S/p cath no intervention , medical management ESTEFANI-recent hospitalization Baseline renal function unknown Creat normal this admn Urinary retention - last hospitalization Hydronephrosis on US Urology consulted, Bryant removed Voiding trial ongoing Hypotension with Syncopal episodes hospitalized at in nov 2018 Discussed with RN COMMENT/RELEVANT DATA Meds Current Medications Medications (Trade) Dose Ordered Sig/Teddy Start Time Stop Time Status Last Admin Dose Admin Albuterol Sulfate (Ventolin Neb Soln) 2.5 mg PRN Q6HRS PRN 12/05/18 10:30 12/06/18 07:31 2.5 MG Albuterol/ Ipratropium (Duoneb) 3 ml 1X ONCE 12/02/18 11:30 12/02/18 11:31 DC 12/02/18 11:40 3 ML Amiodarone HCl (Cordarone) 200 mg DAILY 12/03/18 12:00 12/06/18 08:48 200 MG Aspirin (Ecotrin) 81 mg DAILY 12/03/18 12:00 12/06/18 08:47 81 MG Ceftriaxone Sodium (Rocephin) 1 gm Q24H 12/02/18 15:00 12/03/18 13:27 DC 12/02/18 16:53 1 GM Docusate Sodium (Colace) 100 mg PRN BID PRN 12/03/18 11:00 Fentanyl Citrate (Fentanyl 2ml Vial) 100 mcg 1X ONCE 12/04/18 10:30 12/04/18 10:31 DC 12/04/18 10:30 12.5 MCG Furosemide (Lasix) 40 mg 1X ONCE 12/05/18 13:30 12/05/18 13:31 DC 12/05/18 14:01 40 MG Heparin Sodium (Porcine) (Heparin Sodium) 500 unit 1X ONCE 12/04/18 11:15 12/04/18 11:16 DC 12/04/18 11:15 1,000 UNIT Heparin Sodium/ Sodium Chloride (HEPARIN for ARTERIAL LINE FLUSH) 1,000 unit 1X ONCE 12/04/18 10:30 12/04/18 10:31 DC 12/04/18 10:30 1,000 UNIT Info (CONTRAST GIVEN -- Rx MONITORING) 1 each PRN DAILY PRN 12/04/18 10:30 12/06/18 10:29 Iodixanol (Visipaque 320) 100 ml STK-MED ONCE 12/04/18 11:11 12/04/18 11:13 DC Lactobacillus Rhamnosus (Culturelle) 1 cap BID 12/04/18 13:00 12/06/18 08:48 1 CAP Lidocaine HCl (Lidocaine 1% 20ml Vial) 20 ml 1X ONCE 12/04/18 10:30 12/04/18 10:31 DC 12/04/18 10:30 1 ML Methylprednisolone Sodium Succinate (SOLU-Medrol 125MG VIAL) 125 mg 1X ONCE 12/02/18 11:30 12/02/18 11:31 DC 12/02/18 12:04 125 MG Midazolam HCl (Versed) 2 mg 1X ONCE 12/04/18 10:30 12/04/18 10:31 DC 12/04/18 10:30 1 MG Midodrine (Proamatine) 5 mg [id number] 12/03/18 13:00 12/06/18 06:28 5 MG Nitroglycerin (Nitroglycerin) 200 mcg 1X ONCE 12/04/18 10:30 12/04/18 10:31 DC 12/04/18 10:30 200 MCG Nitroglycerin (Nitrostat) 0.4 mg PRN Q5MIN PRN 12/04/18 11:30 Non-Formulary Medication (Melatonin ) 5 mg HS PRN 12/03/18 11:00 UNV Non-Formulary Medication (Warfarin Sodium ) 5 mg sunday and sunday12/03/18 11:00 UNV Simvastatin (Zocor) 10 mg QHS 12/03/18 21:00 12/05/18 21:09 10 MG Sodium Chloride 1,000 ml @ 50 mls/hr Q20H 12/04/18 11:30 12/04/18 16:29 DC 12/04/18 16:32 50 MLS/HR Sodium Chloride (Normal Saline Flush) 3 ml QSHIFT PRN 12/04/18 11:30 Tamsulosin HCl (Flomax) 0.4 mg DAILY 12/03/18 12:00 12/06/18 08:46 0.4 MG Trimethoprim/ Sulfamethoxazole (Bactrim Ds) 1 tab BID 12/03/18 12:30 12/06/18 08:48 1 TAB Verapamil HCl (Verapamil) 2.5 mg 1X ONCE 12/04/18 10:30 12/04/18 10:31 DC 12/04/18 10:30 2.5 MG Warfarin Sodium (Coumadin Per Pharmacy) 1 each PRN DAILY PRN 12/03/18 11:00 12/05/18 10:52 1 EACH Warfarin Sodium (Coumadin) 3 mg 1X WARF ONCE 12/06/18 16:00 12/06/18 16:01 Lab Laboratory Tests Test 12/06/18 02:30 White Blood Count 9.8 x10^3/uL (4.0-11.0) Red Blood Count 3.64 x10^6/uL (4.30-5.70) Hemoglobin 11.5 g/dL (13.0-17.5) Hematocrit 34.2 % (39.0-53.0) Mean Corpuscular Volume 94 fL (79-100) Mean Corpuscular Hemoglobin 32 pg (25-35) Mean Corpuscular Hemoglobin Concent 34 g/dL (31-37) Red Cell Distribution Width 14.6 % (11.5-14.5) Platelet Count 411 x10^3/uL (140-400) Neutrophils (%) (Auto) 87 % (31-73) Lymphocytes (%) (Auto) 6 % (24-48) Monocytes (%) (Auto) 7 % (0-9) Eosinophils (%) (Auto) 0 % (0-3) Basophils (%) (Auto) 0 % (0-3) Neutrophils # (Auto) 8.5 x10^3uL (1.8-7.7) Lymphocytes # (Auto) 0.6 x10^3/uL (1.0-4.8) Monocytes # (Auto) 0.7 x10^3/uL (0.0-1.1) Eosinophils # (Auto) 0.0 x10^3/uL (0.0-0.7) Basophils # (Auto) 0.0 x10^3/uL (0.0-0.2) Prothrombin Time 22.4 SEC (11.7-14.0) Prothromb Time International Ratio 2.0 (0.8-1.1) Sodium Level 128 mmol/L (136-145) Potassium Level 4.0 mmol/L (3.5-5.1) Chloride Level 92 mmol/L (98-107) Carbon Dioxide Level 32 mmol/L (21-32) Anion Gap 4 (6-14) Blood Urea Nitrogen 17 mg/dL (8-26) Creatinine 1.1 mg/dL (0.7-1.3) Estimated GFR (Cockcroft-Gault) 63.5 BUN/Creatinine Ratio 15 (6-20) Glucose Level 124 mg/dL (70-99) Calcium Level 8.3 mg/dL (8.5-10.1) Phosphorus Level 2.3 mg/dL (2.6-4.7) Total Bilirubin 0.5 mg/dL (0.2-1.0) Aspartate Amino Transf (AST/SGOT) 66 U/L (15-37) Alanine Aminotransferase (ALT/SGPT) 63 U/L (16-63) Alkaline Phosphatase 110 U/L (46-116) Total Protein 6.5 g/dL (6.4-8.2) Albumin 2.3 g/dL (3.4-5.0) Albumin/Globulin Ratio 0.5 (1.0-1.7) Results All relevant outside records, renal labs, imaging studies, telemetry/EKG's were reviewed. CHIKI BARR MD Dec 06, 2018 10:20
--- NOTE | 2018-12-06 12:03 | PDOC ---
PROGRESS NOTES Chief Complaint Chief Complaint Acute on chronic systolic/diastolic heart failure Hyponatremia Hypoxemia Anemia Urinary tract infection (gram negative rods) Metabolic encephalopathy Elevated D-dimer. History of Present Illness History of Present Illness Mr. Frederick presented with shortness of breath and hyponatremia, was found to be in heart failure, BNP > 9000. Patient was seen and examined at bedside. He is SOB today, comparable to yesterday. He is resting with mild distress. Discussed with director of recruitment and admissions and Nephrology following. Vitals Vitals Vital Signs Date Time Temp Pulse Resp B/P (MAP) Pulse Ox O2 Delivery O2 Flow Rate FiO2 12/06/18 08:48 85 122/79 12/06/18 08:00 Nasal Cannula 2.0 12/06/18 07:32 96 12/06/18 07:00 97.7 20 97.7 Physical Exam General: Alert, Oriented X3, mild distress (shortness of breath with wheezing) Heart: Regular rate, No murmurs, Other (irregular rhythm) Lungs: Wheezing, Other (raspiness) Abdomen: Normal bowel sounds, Soft, No tenderness Extremities: No clubbing, No cyanosis, No edema Skin: No rashes, No significant lesion Labs LABS Laboratory Tests Test 12/06/18 02:30 White Blood Count 9.8 x10^3/uL (4.0-11.0) Red Blood Count 3.64 x10^6/uL (4.30-5.70) Hemoglobin 11.5 g/dL (13.0-17.5) Hematocrit 34.2 % (39.0-53.0) Mean Corpuscular Volume 94 fL (79-100) Mean Corpuscular Hemoglobin 32 pg (25-35) Mean Corpuscular Hemoglobin Concent 34 g/dL (31-37) Red Cell Distribution Width 14.6 % (11.5-14.5) Platelet Count 411 x10^3/uL (140-400) Neutrophils (%) (Auto) 87 % (31-73) Lymphocytes (%) (Auto) 6 % (24-48) Monocytes (%) (Auto) 7 % (0-9) Eosinophils (%) (Auto) 0 % (0-3) Basophils (%) (Auto) 0 % (0-3) Neutrophils # (Auto) 8.5 x10^3uL (1.8-7.7) Lymphocytes # (Auto) 0.6 x10^3/uL (1.0-4.8) Monocytes # (Auto) 0.7 x10^3/uL (0.0-1.1) Eosinophils # (Auto) 0.0 x10^3/uL (0.0-0.7) Basophils # (Auto) 0.0 x10^3/uL (0.0-0.2) Prothrombin Time 22.4 SEC (11.7-14.0) Prothromb Time International Ratio 2.0 (0.8-1.1) Sodium Level 128 mmol/L (136-145) Potassium Level 4.0 mmol/L (3.5-5.1) Chloride Level 92 mmol/L (98-107) Carbon Dioxide Level 32 mmol/L (21-32) Anion Gap 4 (6-14) Blood Urea Nitrogen 17 mg/dL (8-26) Creatinine 1.1 mg/dL (0.7-1.3) Estimated GFR (Cockcroft-Gault) 63.5 BUN/Creatinine Ratio 15 (6-20) Glucose Level 124 mg/dL (70-99) Calcium Level 8.3 mg/dL (8.5-10.1) Phosphorus Level 2.3 mg/dL (2.6-4.7) Total Bilirubin 0.5 mg/dL (0.2-1.0) Aspartate Amino Transf (AST/SGOT) 66 U/L (15-37) Alanine Aminotransferase (ALT/SGPT) 63 U/L (16-63) Alkaline Phosphatase 110 U/L (46-116) Total Protein 6.5 g/dL (6.4-8.2) Albumin 2.3 g/dL (3.4-5.0) Albumin/Globulin Ratio 0.5 (1.0-1.7) Review of Systems Review of Systems Pt reports SOB, generalized weakness Pt denies CP, n/v Assessment and Plan Assessmemt and Plan Problems Medical Problems: (1) CHF (congestive heart failure) Status: Acute (2) Generalized weakness Status: Acute (3) Sepsis Status: Acute Assessment: Acute on chronic systolic/diastolic heart failure Hyponatremia Hypoxemia Anemia Urinary tract infection (gram negative rods) Metabolic encephalopathy Elevated D-dimer. Plan: Appreciate nephro recs regarding IVF and lasix (lasix D/C'd yesterday, no fluids running upon exam this AM) Urology to attempt void trial following maloney removal CXR reviewed- pulm congestion with infiltrates and effusion, likely 2/2 CHF with pulm edema Continue fluid restrictions per nephro Appreciate cardiology input Continue to monitor respiratory status Continue bactrim po Monitor CMP and CBC - hyponatremic with Na at 128 (126 yesterday), appreciate nephrology input Consult PT/OT Home meds Appreciate further subspecialty input Comment Review of Relevant I have reviewed the following items yolande (where applicable) has been applied. Labs Laboratory Tests Test 12/05/18 03:55 12/05/18 09:00 12/06/18 02:30 Sodium Level 126 mmol/L (136-145) 128 mmol/L (136-145) Potassium Level 4.2 mmol/L (3.5-5.1) 4.0 mmol/L (3.5-5.1) Chloride Level 92 mmol/L (98-107) 92 mmol/L (98-107) Carbon Dioxide Level 27 mmol/L (21-32) 32 mmol/L (21-32) Anion Gap 7 (6-14) 4 (6-14) Blood Urea Nitrogen 20 mg/dL (8-26) 17 mg/dL (8-26) Creatinine 1.0 mg/dL (0.7-1.3) 1.1 mg/dL (0.7-1.3) Estimated GFR (Cockcroft-Gault) 70.8 63.5 Glucose Level 104 mg/dL (70-99) 124 mg/dL (70-99) Calcium Level 8.5 mg/dL (8.5-10.1) 8.3 mg/dL (8.5-10.1) Phosphorus Level 2.0 mg/dL (2.6-4.7) 2.3 mg/dL (2.6-4.7) Albumin 1.9 g/dL (3.4-5.0) 2.3 g/dL (3.4-5.0) Prothrombin Time 20.4 SEC (11.7-14.0) 22.4 SEC (11.7-14.0) Prothromb Time International Ratio 1.8 (0.8-1.1) 2.0 (0.8-1.1) White Blood Count 9.8 x10^3/uL (4.0-11.0) Red Blood Count 3.64 x10^6/uL (4.30-5.70) Hemoglobin 11.5 g/dL (13.0-17.5) Hematocrit 34.2 % (39.0-53.0) Mean Corpuscular Volume 94 fL (79-100) Mean Corpuscular Hemoglobin 32 pg (25-35) Mean Corpuscular Hemoglobin Concent 34 g/dL (31-37) Red Cell Distribution Width 14.6 % (11.5-14.5) Platelet Count 411 x10^3/uL (140-400) Neutrophils (%) (Auto) 87 % (31-73) Lymphocytes (%) (Auto) 6 % (24-48) Monocytes (%) (Auto) 7 % (0-9) Eosinophils (%) (Auto) 0 % (0-3) Basophils (%) (Auto) 0 % (0-3) Neutrophils # (Auto) 8.5 x10^3uL (1.8-7.7) Lymphocytes # (Auto) 0.6 x10^3/uL (1.0-4.8) Monocytes # (Auto) 0.7 x10^3/uL (0.0-1.1) Eosinophils # (Auto) 0.0 x10^3/uL (0.0-0.7) Basophils # (Auto) 0.0 x10^3/uL (0.0-0.2) BUN/Creatinine Ratio 15 (6-20) Total Bilirubin 0.5 mg/dL (0.2-1.0) Aspartate Amino Transf (AST/SGOT) 66 U/L (15-37) Alanine Aminotransferase (ALT/SGPT) 63 U/L (16-63) Alkaline Phosphatase 110 U/L (46-116) Total Protein 6.5 g/dL (6.4-8.2) Albumin/Globulin Ratio 0.5 (1.0-1.7) Laboratory Tests Test 12/06/18 02:30 White Blood Count 9.8 x10^3/uL (4.0-11.0) Red Blood Count 3.64 x10^6/uL (4.30-5.70) Hemoglobin 11.5 g/dL (13.0-17.5) Hematocrit 34.2 % (39.0-53.0) Mean Corpuscular Volume 94 fL (79-100) Mean Corpuscular Hemoglobin 32 pg (25-35) Mean Corpuscular Hemoglobin Concent 34 g/dL (31-37) Red Cell Distribution Width 14.6 % (11.5-14.5) Platelet Count 411 x10^3/uL (140-400) Neutrophils (%) (Auto) 87 % (31-73) Lymphocytes (%) (Auto) 6 % (24-48) Monocytes (%) (Auto) 7 % (0-9) Eosinophils (%) (Auto) 0 % (0-3) Basophils (%) (Auto) 0 % (0-3) Neutrophils # (Auto) 8.5 x10^3uL (1.8-7.7) Lymphocytes # (Auto) 0.6 x10^3/uL (1.0-4.8) Monocytes # (Auto) 0.7 x10^3/uL (0.0-1.1) Eosinophils # (Auto) 0.0 x10^3/uL (0.0-0.7) Basophils # (Auto) 0.0 x10^3/uL (0.0-0.2) Prothrombin Time 22.4 SEC (11.7-14.0) Prothromb Time International Ratio 2.0 (0.8-1.1) Sodium Level 128 mmol/L (136-145) Potassium Level 4.0 mmol/L (3.5-5.1) Chloride Level 92 mmol/L (98-107) Carbon Dioxide Level 32 mmol/L (21-32) Anion Gap 4 (6-14) Blood Urea Nitrogen 17 mg/dL (8-26) Creatinine 1.1 mg/dL (0.7-1.3) Estimated GFR (Cockcroft-Gault) 63.5 BUN/Creatinine Ratio 15 (6-20) Glucose Level 124 mg/dL (70-99) Calcium Level 8.3 mg/dL (8.5-10.1) Phosphorus Level 2.3 mg/dL (2.6-4.7) Total Bilirubin 0.5 mg/dL (0.2-1.0) Aspartate Amino Transf (AST/SGOT) 66 U/L (15-37) Alanine Aminotransferase (ALT/SGPT) 63 U/L (16-63) Alkaline Phosphatase 110 U/L (46-116) Total Protein 6.5 g/dL (6.4-8.2) Albumin 2.3 g/dL (3.4-5.0) Albumin/Globulin Ratio 0.5 (1.0-1.7) Microbiology 12/02/18 Blood Culture - Preliminary, Resulted NO GROWTH AFTER 4 DAYS 12/02/18 Urine Culture - Final, Complete 12/02/18 Urine Culture Result 1 (JULIETTE) - Final, Complete Medications Current Medications Albuterol/ Ipratropium (Duoneb) 3 ml STK-MED ONCE .ROUTE ; Start 12/02/18 at 11: 21; Stop 12/02/18 at 11:22; Status DC Albuterol/ Ipratropium (Duoneb) 3 ml 1X ONCE NEB Last administered on at 11:40; Start 12/02/18 at 11:30; Stop 12/02/18 at 11:31; Status DC Methylprednisolone Sodium Succinate (SOLU-Medrol 125MG VIAL) 125 mg 1X ONCE IV Last administered on 12/02/18at 12:04; Start 12/02/18 at 11:30; Stop 12/02/18 at 11:31; Status DC Sodium Chloride 500 ml @ 50 mls/hr 1X ONCE IV ; Start 12/02/18 at 13:00; Stop 12/02/18 at 13:00; Status DC Sodium Chloride 100 ml @ 30 mls/hr 1X ONCE IV Last administered on 12/02/18at 12:47; Start 12/02/18 at 13:00; Stop 12/02/18 at 16:19; Status DC Furosemide (Lasix) 40 mg 1X ONCE IVP Last administered on 12/02/18at 12:48; Start 12/02/18 at 13:15; Stop 12/02/18 at 13:16; Status DC Ceftriaxone Sodium (Rocephin) 1 gm 1X ONCE IVP Last administered on 12/02/18at 13:32; Start 12/02/18 at 13:00; Stop 12/02/18 at 13:01; Status DC Ceftriaxone Sodium (Rocephin) 1 gm Q24H IVP Last administered on 12/02/18at 16:53 ; Start 12/02/18 at 15:00; Stop 12/03/18 at 13:27; Status DC Aspirin (Ecotrin) 81 mg DAILY PO Last administered on 12/06/18 08:47; Start 12/03/18 at 12:00 Docusate Sodium (Colace) 100 mg PRN BID PRN PO STOOL SOFTENER; Start 12/03/18 at 11:00 Simvastatin (Zocor) 10 mg QHS PO Last administered on 12/05/18 21:09; Start 12/03/18 at 21:00 Tamsulosin HCl (Flomax) 0.4 mg DAILY PO Last administered on 12/06/18 08:46; Start 12/03/18 at 12:00 Non-Formulary Medication (Melatonin ) 5 mg HS PRN PO INSOMNIA; Start 12/03/18 at 11:00; Status UNV Amiodarone HCl (Cordarone) 200 mg DAILY PO Last administered on 12/06/18 08:48 ; Start 12/03/18 at 12:00 Midodrine (Proamatine) 5 mg [id number] PO Last administered on 12/06/18 06:28; Start 12/03/18 at 13:00 Non-Formulary Medication (Warfarin Sodium ) 5 mg sunday and sunday PO ; Start at 11:00; Status UNV Warfarin Sodium (Coumadin Per Pharmacy) 1 each PRN DAILY PRN MC SEE COMMENTS Last administered on 12/06/18 10:15; Start 12/03/18 at 11:00 Trimethoprim/ Sulfamethoxazole (Bactrim Ds) 1 tab BID PO Last administered on 08:48; Start 12/03/18 at 12:30 Warfarin Sodium (Coumadin) 2.5 mg 1X WARF ONCE PO ; Start 12/03/18 at 16:00; Stop 12/03/18 at 16:01; Status DC Iodixanol (Visipaque 320) 100 ml STK-MED ONCE .ROUTE ; Start 12/04/18 at 09:41; Stop 12/04/18 at 09:42; Status DC Lidocaine HCl (Lidocaine 1% 20ml Vial) 20 ml STK-MED ONCE .ROUTE ; Start at 09:41; Stop 12/04/18 at 09:42; Status DC Heparin Sodium/ Sodium Chloride 500 ml @ As Directed STK-MED ONCE .ROUTE ; Start 12/04/18 at 09:41; Stop 12/04/18 at 09:42; Status DC Heparin Sodium/ Sodium Chloride 500 ml @ As Directed STK-MED ONCE .ROUTE ; Start 12/04/18 at 09:42; Stop 12/04/18 at 09:43; Status DC Fentanyl Citrate (Fentanyl 2ml Vial) 100 mcg STK-MED ONCE .ROUTE ; Start at 10:07; Stop 12/04/18 at 10:08; Status DC Midazolam HCl (Versed) 2 mg STK-MED ONCE .ROUTE ; Start 12/04/18 at 10:07; Stop 12/04/18 at 10:08; Status DC Heparin Sodium (Porcine) (Heparin Sodium) 10,000 unit STK-MED ONCE .ROUTE ; Start 12/04/18 at 10:07; Stop 12/04/18 at 10:08; Status DC Verapamil HCl (Verapamil) 5 mg STK-MED ONCE .ROUTE ; Start 12/04/18 at 10:07; Stop 12/04/18 at 10:08; Status DC Nitroglycerin (Nitroglycerin) 200 mcg STK-MED ONCE .ROUTE ; Start 12/04/18 at 10: 07; Stop 12/04/18 at 10:08; Status DC Nitroglycerin (Nitroglycerin) 200 mcg 1X ONCE IART Last administered on at 10:30; Start 12/04/18 at 10:30; Stop 12/04/18 at 10:31; Status DC Verapamil HCl (Verapamil) 2.5 mg 1X ONCE IART Last administered on 12/04/18at 10 :30; Start 12/04/18 at 10:30; Stop 12/04/18 at 10:31; Status DC Heparin Sodium (Porcine) (Heparin Sodium) 2,500 unit 1X ONCE IART Last administered on 12/04/18at 10:30; Start 12/04/18 at 10:30; Stop 12/04/18 at 10:31; Status DC Heparin Sodium/ Sodium Chloride (HEPARIN for ARTERIAL LINE FLUSH) 1,000 unit 1X ONCE IART Last administered on 12/04/18at 10:30; Start 12/04/18 at 10:30; Stop 12/04/18 at 10:31; Status DC Heparin Sodium/ Sodium Chloride (HEPARIN for ARTERIAL LINE FLUSH) 1,000 unit 1X ONCE IART Last administered on 12/04/18 10:30; Start 12/04/18 at 10:30; Stop 12/04/18 at 10:31; Status DC Midazolam HCl (Versed) 2 mg 1X ONCE IV Last administered on 12/04/18at 10:30; Start 12/04/18 at 10:30; Stop 12/04/18 at 10:31; Status DC Fentanyl Citrate (Fentanyl 2ml Vial) 100 mcg 1X ONCE IV Last administered on at 10:30; Start 12/04/18 at 10:30; Stop 12/04/18 at 10:31; Status DC Iodixanol (Visipaque 320) 100 ml 1X ONCE IART Last administered on 12/04/18at 10 :30; Start 12/04/18 at 10:30; Stop 12/04/18 at 10:31; Status DC Lidocaine HCl (Lidocaine 1% 20ml Vial) 20 ml 1X ONCE INJ Last administered on 12/04/18at 10:30; Start 12/04/18 at 10:30; Stop 12/04/18 at 10:31; Status DC Info (CONTRAST GIVEN -- Rx MONITORING) 1 each PRN DAILY PRN MC SEE COMMENTS; Start 12/04/18 at 10:30; Stop 12/06/18 at 10:29; Status DC Heparin Sodium (Porcine) (Heparin Sodium) 10,000 unit STK-MED ONCE .ROUTE ; Start 12/04/18 at 11:05; Stop 12/04/18 at 11:06; Status DC Heparin Sodium (Porcine) (Heparin Sodium) 500 unit 1X ONCE IV Last administered on 12/04/18at 11:15; Start 12/04/18 at 11:15; Stop 12/04/18 at 11:16; Status DC Iodixanol (Visipaque 320) 100 ml STK-MED ONCE .ROUTE ; Start 12/04/18 at 11:11; Stop 12/04/18 at 11:13; Status DC Sodium Chloride (Normal Saline Flush) 3 ml QSHIFT PRN IV AFTER MEDS AND BLOOD DRAWS; Start 12/04/18 at 11:30 Sodium Chloride 1,000 ml @ 50 mls/hr Q20H IV Last administered on 12/04/18at 16: 32; Start 12/04/18 at 11:30; Stop 12/04/18 at 16:29; Status DC Nitroglycerin (Nitrostat) 0.4 mg PRN Q5MIN PRN SL CHEST PAIN; Start 12/04/18 at 11:30 Lactobacillus Rhamnosus (Culturelle) 1 cap BID PO Last administered on at 08:48; Start 12/04/18 at 13:00 Warfarin Sodium (Coumadin) 2.5 mg 1X WARF ONCE PO Last administered on at 17:30; Start 12/04/18 at 16:00; Stop 12/04/18 at 16:01; Status DC Albuterol Sulfate (Ventolin Neb Soln) 2.5 mg PRN Q6HRS PRN NEB SHORTNESS OF BREATH Last administered on 12/06/18at 07:31; Start 12/05/18 at 10:30 Warfarin Sodium (Coumadin) 4 mg 1X WARF ONCE PO Last administered on 12/05/18at 18:03; Start 12/05/18 at 16:00; Stop 12/05/18 at 16:01; Status DC Furosemide (Lasix) 40 mg 1X ONCE IVP Last administered on 12/05/18at 14:01; Start 12/05/18 at 13:30; Stop 12/05/18 at 13:31; Status DC Warfarin Sodium (Coumadin) 3 mg 1X WARF ONCE PO ; Start 12/06/18 at 16:00; Stop 12/06/18 at 16:01 Active Scripts Active Flomax (Tamsulosin Hcl) 0.4 Mg Cap.er.24h 0.4 Mg PO DAILY 30 Days Reported Amox Tr-K Clv 500-125 Mg Tab (Amoxicillin/Potassium Clav) 1 Each Tablet 1 Tab PO BID 3 Days Warfarin Sodium 2.5 Mg Tablet 2.5 Mg PO E,SUN,TH,SAT,SUN Warfarin Sodium 5 Mg Tablet 5 Mg PO SUNDAY AND SUNDAY Simvastatin 10 Mg Tablet 1 Tab PO QHS Midodrine Hcl 5 Mg Tablet 5 Mg PO TID Melatonin 3 Mg Tablet 5 Mg PO HS PRN Ex-Lax Maximum Relief (Sennosides) 25 Mg Tablet 50 Mg PO DAILY Docusate Sodium 100 Mg Capsule 1 Cap PO BID PRN Aspirin Ec (Aspirin) 81 Mg Tablet.dr 1 Tab PO DAILY Amiodarone Hcl 200 Mg Tablet 1 Tab PO DAILY Vitals/I & O Vital Sign - Last 24 Hours 12/05/18 12/05/18 12/05/18 12/05/18 13:49 14:01 15:00 18:03 Temp 97.5 97.5 Pulse 96 94 91 91 Resp 18 B/P (MAP) 96/61 (73) 96/61 114/77 (89) 114/77 Pulse Ox 95 O2 Delivery Nasal Cannula O2 Flow Rate 2.0 12/05/18 12/05/18 12/05/18 12/05/18 19:15 20:00 21:43 22:33 Temp 98.2 97.5 98.2 97.5 Pulse 63 92 Resp 18 20 B/P (MAP) 118/74 (89) 113/61 (78) Pulse Ox 97 97 98 O2 Delivery Nasal Cannula Nasal Cannula Nasal Cannula Nasal Cannula O2 Flow Rate 2.0 2.0 2.0 2.0 12/06/18 12/06/18 12/06/18 12/06/18 02:41 06:28 07:00 07:32 Temp 97.9 97.7 97.9 97.7 Pulse 95 85 99 Resp 20 20 B/P (MAP) 132/87 (102) 132/87 116/76 (89) Pulse Ox 96 97 96 O2 Delivery Nasal Cannula Nasal Cannula Nasal Cannula O2 Flow Rate 2.0 2.0 2.0 12/06/18 12/06/18 12/06/18 08:00 08:44 08:48 Pulse 85 B/P (MAP) 122/79 (93) 122/79 O2 Delivery Nasal Cannula O2 Flow Rate 2.0 Intake and Output 12/05/18 12/05/18 12/06/18 14:59 22:59 06:59 Intake Total 770 ml 250 ml 100 ml Output Total 1300 ml 250 ml Balance 770 ml -1050 ml -150 ml MIKAYLA MIRANDA K III DO Dec 06, 2018 12:03
--- NOTE | 2018-12-06 12:43 | PDOC ---
MICHELLEDAVID Nicko PROPERTY CONSULTANT 12/06/18 1243: SUBJECTIVE Subjective Patient had catheter removed this am at 0600 and is currently in the midst of a voiding trial OBJECTIVE Objective Physical Exam: General appearance: Alert and Oriented Head: Normocephalic, without obvious abnormality Eyes: conjunctivae/corneas clear. PERRL, EOM's intact. Fundi benign Back: no CVA bilaterally Lungs: Regular respirations, non labored breathing Abdomen: soft, non-tender. Psych: Pleasant, Cooperative. Vital Signs Vital Signs Date Time Temp Pulse Resp B/P (MAP) Pulse Ox O2 Delivery O2 Flow Rate FiO2 12/06/18 11:00 97.9 98 16 117/72 (87) 96 Nasal Cannula 2.0 97.9 12/06/18 08:48 85 122/79 12/06/18 08:44 122/79 (93) 12/06/18 08:00 Nasal Cannula 2.0 12/06/18 07:32 96 Nasal Cannula 2.0 12/06/18 07:00 97.7 99 20 116/76 (89) 97 Nasal Cannula 2.0 97.7 12/06/18 06:28 85 132/87 12/06/18 02:41 97.9 95 20 132/87 (102) 96 Nasal Cannula 2.0 97.9 12/05/18 22:33 97.5 92 20 113/61 (78) 98 Nasal Cannula 2.0 97.5 12/05/18 21:43 97 Nasal Cannula 2.0 12/05/18 20:00 Nasal Cannula 2.0 12/05/18 19:15 98.2 63 18 118/74 (89) 97 Nasal Cannula 2.0 98.2 12/05/18 18:03 91 114/77 12/05/18 15:00 97.5 91 18 114/77 (89) 95 Nasal Cannula 2.0 97.5 12/05/18 14:01 94 96/61 12/05/18 13:49 96 96/61 (73) I & O Intake and Output 12/06/18 07:00 Intake Total 1120 ml Output Total 1550 ml Balance -430 ml Intake Oral 1120 ml Output Urine Total 1550 ml PHYSICAL EXAM Physical Exam Physical Exam: General appearance: Alert and Oriented Head: Normocephalic, without obvious abnormality Eyes: conjunctivae/corneas clear. PERRL, EOM's intact. Fundi benign Back: no CVA bilaterally Lungs: Regular respirations, non labored breathing Abdomen: soft, non-tender. Psych: Pleasant, Cooperative. ASSESSMENT/PLAN Assessment/Plan Voiding trial currently in process. Bryant catheter removed this am at 0600. Nursing to bladder scan patient at noon. If PVR greater than 400, please re-insert Bryant catheter and leave in place. If he fails voiding trial then he is likely catheter dependent. COMMENT Lab Laboratory Tests Test 12/06/18 02:30 White Blood Count 9.8 x10^3/uL (4.0-11.0) Red Blood Count 3.64 x10^6/uL (4.30-5.70) Hemoglobin 11.5 g/dL (13.0-17.5) Hematocrit 34.2 % (39.0-53.0) Mean Corpuscular Volume 94 fL (79-100) Mean Corpuscular Hemoglobin 32 pg (25-35) Mean Corpuscular Hemoglobin Concent 34 g/dL (31-37) Red Cell Distribution Width 14.6 % (11.5-14.5) Platelet Count 411 x10^3/uL (140-400) Neutrophils (%) (Auto) 87 % (31-73) Lymphocytes (%) (Auto) 6 % (24-48) Monocytes (%) (Auto) 7 % (0-9) Eosinophils (%) (Auto) 0 % (0-3) Basophils (%) (Auto) 0 % (0-3) Neutrophils # (Auto) 8.5 x10^3uL (1.8-7.7) Lymphocytes # (Auto) 0.6 x10^3/uL (1.0-4.8) Monocytes # (Auto) 0.7 x10^3/uL (0.0-1.1) Eosinophils # (Auto) 0.0 x10^3/uL (0.0-0.7) Basophils # (Auto) 0.0 x10^3/uL (0.0-0.2) Prothrombin Time 22.4 SEC (11.7-14.0) Prothromb Time International Ratio 2.0 (0.8-1.1) Sodium Level 128 mmol/L (136-145) Potassium Level 4.0 mmol/L (3.5-5.1) Chloride Level 92 mmol/L (98-107) Carbon Dioxide Level 32 mmol/L (21-32) Anion Gap 4 (6-14) Blood Urea Nitrogen 17 mg/dL (8-26) Creatinine 1.1 mg/dL (0.7-1.3) Estimated GFR (Cockcroft-Gault) 63.5 BUN/Creatinine Ratio 15 (6-20) Glucose Level 124 mg/dL (70-99) Calcium Level 8.3 mg/dL (8.5-10.1) Phosphorus Level 2.3 mg/dL (2.6-4.7) Total Bilirubin 0.5 mg/dL (0.2-1.0) Aspartate Amino Transf (AST/SGOT) 66 U/L (15-37) Alanine Aminotransferase (ALT/SGPT) 63 U/L (16-63) Alkaline Phosphatase 110 U/L (46-116) Total Protein 6.5 g/dL (6.4-8.2) Albumin 2.3 g/dL (3.4-5.0) Albumin/Globulin Ratio 0.5 (1.0-1.7) ZANDER SANDOVAL MD 12/06/18 1614: ASSESSMENT/PLAN Assessment/Plan Agree with assessment and plan. DAVID MARTINEZ APRN Dec 06, 2018 12:43 ZANDER SANDOVAL MD Dec 06, 2018 16:14
--- NOTE | 2018-12-06 13:32 | PDOC ---
STEPHIE GARZON BINDERY MACHINE SETTER 12/06/18 1332: CARDIO Progress Notes Date and Time Date of Service 12/06/18 Time of Evaluation 1310 Subjective Subjective: Other (SOA improved, but persists) Vitals Vitals Vital Signs Date Time Temp Pulse Resp B/P (MAP) Pulse Ox O2 Delivery O2 Flow Rate FiO2 12/06/18 11:00 97.9 98 16 117/72 (87) 96 Nasal Cannula 2.0 97.9 Weight Weight [ ] Input and Output Intake and Output Intake and Output 12/06/18 07:00 Intake Total 1120 ml Output Total 1550 ml Balance -430 ml Intake Oral 1120 ml Output Urine Total 1550 ml Laboratory Labs Laboratory Tests Test 12/06/18 02:30 White Blood Count 9.8 x10^3/uL (4.0-11.0) Red Blood Count 3.64 x10^6/uL (4.30-5.70) Hemoglobin 11.5 g/dL (13.0-17.5) Hematocrit 34.2 % (39.0-53.0) Mean Corpuscular Volume 94 fL (79-100) Mean Corpuscular Hemoglobin 32 pg (25-35) Mean Corpuscular Hemoglobin Concent 34 g/dL (31-37) Red Cell Distribution Width 14.6 % (11.5-14.5) Platelet Count 411 x10^3/uL (140-400) Neutrophils (%) (Auto) 87 % (31-73) Lymphocytes (%) (Auto) 6 % (24-48) Monocytes (%) (Auto) 7 % (0-9) Eosinophils (%) (Auto) 0 % (0-3) Basophils (%) (Auto) 0 % (0-3) Neutrophils # (Auto) 8.5 x10^3uL (1.8-7.7) Lymphocytes # (Auto) 0.6 x10^3/uL (1.0-4.8) Monocytes # (Auto) 0.7 x10^3/uL (0.0-1.1) Eosinophils # (Auto) 0.0 x10^3/uL (0.0-0.7) Basophils # (Auto) 0.0 x10^3/uL (0.0-0.2) Prothrombin Time 22.4 SEC (11.7-14.0) Prothromb Time International Ratio 2.0 (0.8-1.1) Sodium Level 128 mmol/L (136-145) Potassium Level 4.0 mmol/L (3.5-5.1) Chloride Level 92 mmol/L (98-107) Carbon Dioxide Level 32 mmol/L (21-32) Anion Gap 4 (6-14) Blood Urea Nitrogen 17 mg/dL (8-26) Creatinine 1.1 mg/dL (0.7-1.3) Estimated GFR (Cockcroft-Gault) 63.5 BUN/Creatinine Ratio 15 (6-20) Glucose Level 124 mg/dL (70-99) Calcium Level 8.3 mg/dL (8.5-10.1) Phosphorus Level 2.3 mg/dL (2.6-4.7) Total Bilirubin 0.5 mg/dL (0.2-1.0) Aspartate Amino Transf (AST/SGOT) 66 U/L (15-37) Alanine Aminotransferase (ALT/SGPT) 63 U/L (16-63) Alkaline Phosphatase 110 U/L (46-116) Total Protein 6.5 g/dL (6.4-8.2) Albumin 2.3 g/dL (3.4-5.0) Albumin/Globulin Ratio 0.5 (1.0-1.7) Microbiology Micro Microbiology 12/02/18 Blood Culture - Preliminary, Resulted NO GROWTH AFTER 4 DAYS 12/02/18 Urine Culture - Final, Complete 12/02/18 Urine Culture Result 1 (JULIETTE) - Final, Complete Physical Exam HEENT: Neck Supple W Full Motion Chest: Symmetric LUNGS: Other (bibasilar crackles) Heart: irregularly irregular (AFIB) Abdomen: Soft N/T Extremities: No Calf Tenderness Neurology: alert, follow commands Assessment Assessment 1. 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 Permanent AFIB; rate mostly controlled 4. CAD; cath notable for moderate disease of 50% in the prox LAD; IFR normal There is also a very distal LAD lesion of 90%, which will be medically managed. 6. Hypotension; on midodrine. BP adequate 7. Dyslipidemia; statin 8. CKD; Cr stable Recommendations Diuresis Secondary prevention measures. Add low-dose BB as BP allows Warfarin for stroke prevention BRADFORD KANG MD 12/06/184: CARDIO Progress Notes Plan Plan Patient seen and examined. Agree with above nurse practitioner note. Continues to have persistent dyspnea and volume overload. We'll continue aggressive diuresis today with Lasix intravenously. If no significant bruit over the next 48-72 hours will then re-evaluate needs for hospice versus continued aggressive titration of inotropic support with either milrinone or dobutamine as tolerated. STEPHIE GARZON APRN Dec 06, 2018 13:32 BRADFORD KANG MD Dec 06, 2018 19:14
[2018-12-06] MEDS: FUROSEMIDE 40 MG/4 ML VIAL. IVP SCH (13:33)
[2018-12-06] MEDS ORDERED: WARFARIN 3 MG TABLET. PO ONE (16:00)
--- NOTE | 2018-12-06 19:09 | NUR ---
Patient was unable to void post catheter removal early this AM. Patient attempted to use urinal several times, did not want to get up to commode to try. at 1445, bladder scan revealed an amount of 490ml, post lasix. Order received from Lubna Tovar for reinsertion of maloney catheter.
[2018-12-06] MEDS ORDERED: FUROSEMIDE 40 MG/4 ML VIAL. IVP ONE (20:15)
[2018-12-06] MEDS: SIMVASTATIN 10 MG TABLET PO SCH (20:32)
[2018-12-06] MEDS: METOPROLOL TART IMMED RELEASE 25 MG TABLET. PO SCH (20:33)
[2018-12-06] MEDS: MILRINONE 20MG/100ML PREMIX 100 ML IV PRN (20:38)
[2018-12-07] VITALS (11 sets, daily range): BP systolic 73–116; BP diastolic 42–79
[2018-12-07 04:39] LABS: BASO % 0 % (0-3); EOS % 0 % (0-3); HEMATOCRIT 30.9 % (39.0-53.0); HEMOGLOBIN 10.3 g/dL (13.0-17.5); LYMPH # 0.6 x10^3/uL (1.0-4.8); LYMPH % 7 % (24-48); MEAN CORPUSCULAR HEMOGLOBIN 31 pg (25-35); MEAN CORPUSCULAR HGB CONC 33 g/dL (31-37); MEAN CORPUSCULAR VOLUME 94 fL (79-100); MONO # 0.7 x10^3/uL (0.0-1.1); MONO % 7 % (0-9); NEUT # 8.3 x10^3uL (1.8-7.7); NEUT % 86 % (31-73); PLATELET COUNT 363 x10^3/uL (140-400); RED BLOOD COUNT 3.28 x10^6/uL (4.30-5.70); RED CELL DISTRIBUTION WIDTH 14.4 % (11.5-14.5); WHITE BLOOD COUNT 9.6 x10^3/uL (4.0-11.0)
[2018-12-07 05:20] LABS: ALBUMIN/GLOBULIN RATIO 0.5 (1.0-1.7); CALCIUM 8.1 mg/dL (8.5-10.1); CREATININE 1.1 mg/dL (0.7-1.3); GFR 63.5; PHOSPHORUS 2.2 mg/dL (2.6-4.7); POTASSIUM 4.1 mmol/L (3.5-5.1); TOTAL BILIRUBIN 0.4 mg/dL (0.2-1.0); TOTAL PROTEIN 5.7 g/dL (6.4-8.2)
[2018-12-07 05:34] LABS: PROTHROMBIN TIME PATIENT 25.6 SEC (11.7-14.0)
[2018-12-07] MEDS ORDERED: VANCOMYCIN RANDOM LEVEL. MC ONE (06:00)
[2018-12-07] MEDS: MIDODRINE 5 MG TABLET PO SCH ×3 (06:51→18:07)
--- NOTE | 2018-12-07 09:08 | NUR ---
RN note Pt triggered positive sepsis. ICU charge nurse, Mayra and Dr. Quiñonez notified. No new orders received. Continue plan of care
--- NOTE | 2018-12-07 09:16 | PDOC ---
SUBJECTIVE ROS urinary retention, Bryant placed again OBJECTIVE Vital Signs Vital Signs Date Time Temp Pulse Resp B/P (MAP) Pulse Ox O2 Delivery O2 Flow Rate FiO2 12/07/18 08:00 Nasal Cannula 2.5 12/07/18 07:15 98.5 95 24 115/68 (84) 97 98.5 I & 0 Intake and Output 12/07/18 07:00 Intake Total 1700 ml Output Total 1525 ml Balance 175 ml Intake Oral 1700 ml Output Urine Total 1525 ml PHYSICAL EXAM Physical Exam GEN: NAD, HEENT- Om moist, not on O2 , Very hard of hearing NECK: supple CVS: RRR, RESP: CTA Bilat, Non labored GI: Non Tender, Non Distended : No CVA tenderness , Bryant + Neuro- Grossly Normal Skin No rash DIAGNOSIS/ASSESSMENT Assessment & Plan Hyponatremia Cxr- Congestion/Pulm Continue IV Lasix qd Restrict fluid intake to 8244-1701 ml HTN- as per Hx On midodrine as per primary CHF- defer to cardiology S/p cath no intervention , medical management ESTEFANI-recent hospitalization Baseline renal function unknown Creat normal this admn Urinary retention - last hospitalization Hydronephrosis on US Urology consulted, failed voiding trial Bryant placed again Hypotension with Syncopal episodes hospitalized at in nov 2018 COMMENT/RELEVANT DATA Meds Current Medications Medications (Trade) Dose Ordered Sig/Teddy Start Time Stop Time Status Last Admin Dose Admin Albuterol Sulfate (Ventolin Neb Soln) 2.5 mg PRN Q6HRS PRN 12/05/18 10:30 12/06/18 20:08 2.5 MG Albuterol/ Ipratropium (Duoneb) 3 ml 1X ONCE 12/02/18 11:30 12/02/18 11:31 DC 12/02/18 11:40 3 ML Amiodarone HCl (Cordarone) 200 mg DAILY 12/03/18 12:00 12/06/18 08:48 200 MG Aspirin (Ecotrin) 81 mg DAILY 12/03/18 12:00 12/06/18 08:47 81 MG Ceftriaxone Sodium (Rocephin) 1 gm Q24H 12/02/18 15:00 12/03/18 13:27 DC 12/02/18 16:53 1 GM Docusate Sodium (Colace) 100 mg PRN BID PRN 12/03/18 11:00 Fentanyl Citrate (Fentanyl 2ml Vial) 100 mcg 1X ONCE 12/04/18 10:30 12/04/18 10:31 DC 12/04/18 10:30 12.5 MCG Furosemide (Lasix) 40 mg 1X ONCE 12/06/18 20:15 12/06/18 20:16 DC 12/06/18 20:32 40 MG Heparin Sodium (Porcine) (Heparin Sodium) 500 unit 1X ONCE 12/04/18 11:15 12/04/18 11:16 DC 12/04/18 11:15 1,000 UNIT Heparin Sodium/ Sodium Chloride (HEPARIN for ARTERIAL LINE FLUSH) 1,000 unit 1X ONCE 12/04/18 10:30 12/04/18 10:31 DC 12/04/18 10:30 1,000 UNIT Info (CONTRAST GIVEN -- Rx MONITORING) 1 each PRN DAILY PRN 12/04/18 10:30 12/06/18 10:29 DC Iodixanol (Visipaque 320) 100 ml STK-MED ONCE 12/04/18 11:11 12/04/18 11:13 DC Lactobacillus Rhamnosus (Culturelle) 1 cap BID 12/04/18 13:00 12/06/18 20:32 1 CAP Lidocaine HCl (Lidocaine 1% 20ml Vial) 20 ml 1X ONCE 12/04/18 10:30 12/04/18 10:31 DC 12/04/18 10:30 1 ML Methylprednisolone Sodium Succinate (SOLU-Medrol 125MG VIAL) 125 mg 1X ONCE 12/02/18 11:30 12/02/18 11:31 DC 12/02/18 12:04 125 MG Metoprolol Tartrate (Lopressor) 12.5 mg BID 12/06/18 21:00 12/06/18 20:33 12.5 MG Midazolam HCl (Versed) 2 mg 1X ONCE 12/04/18 10:30 12/04/18 10:31 DC 12/04/18 10:30 1 MG Midodrine (Proamatine) 5 mg [id number] 12/03/18 13:00 12/07/18 06:51 5 MG Milrinone Lactate/ Dextrose 100 ml @ 2.9 mls/hr CONT PRN 12/06/18 20:00 12/06/18 20:38 2.9 MLS/HR Nitroglycerin (Nitroglycerin) 200 mcg 1X ONCE 12/04/18 10:30 12/04/18 10:31 DC 12/04/18 10:30 200 MCG Nitroglycerin (Nitrostat) 0.4 mg PRN Q5MIN PRN 12/04/18 11:30 Non-Formulary Medication (Melatonin ) 5 mg HS PRN 12/03/18 11:00 UNV Non-Formulary Medication (Warfarin Sodium ) 5 mg sunday and sunday12/03/18 11:00 UNV Simvastatin (Zocor) 10 mg QHS 12/03/18 21:00 12/06/18 20:32 10 MG Sodium Chloride 1,000 ml @ 50 mls/hr Q20H 12/04/18 11:30 12/04/18 16:29 DC 12/04/18 16:32 50 MLS/HR Sodium Chloride (Normal Saline Flush) 3 ml QSHIFT PRN 12/04/18 11:30 Tamsulosin HCl (Flomax) 0.4 mg DAILY 12/03/18 12:00 12/06/18 08:46 0.4 MG Trimethoprim/ Sulfamethoxazole (Bactrim Ds) 1 tab BID 12/03/18 12:30 12/06/18 20:32 1 TAB Vancomycin HCl (Vancomycin Random Level) 1 each 1X ONCE 12/07/18 06:00 12/07/18 06:00 DC Verapamil HCl (Verapamil) 2.5 mg 1X ONCE 12/04/18 10:30 12/04/18 10:31 DC 12/04/18 10:30 2.5 MG Warfarin Sodium (Coumadin Per Pharmacy) 1 each PRN DAILY PRN 12/03/18 11:00 12/06/18 10:15 1 EACH Warfarin Sodium (Coumadin) 2.5 mg 1X WARF ONCE 12/07/18 16:00 12/07/18 16:01 Lab Laboratory Tests Test 12/07/18 04:00 White Blood Count 9.6 x10^3/uL (4.0-11.0) Red Blood Count 3.28 x10^6/uL (4.30-5.70) Hemoglobin 10.3 g/dL (13.0-17.5) Hematocrit 30.9 % (39.0-53.0) Mean Corpuscular Volume 94 fL (79-100) Mean Corpuscular Hemoglobin 31 pg (25-35) Mean Corpuscular Hemoglobin Concent 33 g/dL (31-37) Red Cell Distribution Width 14.4 % (11.5-14.5) Platelet Count 363 x10^3/uL (140-400) Neutrophils (%) (Auto) 86 % (31-73) Lymphocytes (%) (Auto) 7 % (24-48) Monocytes (%) (Auto) 7 % (0-9) Eosinophils (%) (Auto) 0 % (0-3) Basophils (%) (Auto) 0 % (0-3) Neutrophils # (Auto) 8.3 x10^3uL (1.8-7.7) Lymphocytes # (Auto) 0.6 x10^3/uL (1.0-4.8) Monocytes # (Auto) 0.7 x10^3/uL (0.0-1.1) Eosinophils # (Auto) 0.0 x10^3/uL (0.0-0.7) Basophils # (Auto) 0.0 x10^3/uL (0.0-0.2) Prothrombin Time 25.6 SEC (11.7-14.0) Prothromb Time International Ratio 2.4 (0.8-1.1) Sodium Level 128 mmol/L (136-145) Potassium Level 4.1 mmol/L (3.5-5.1) Chloride Level 91 mmol/L (98-107) Carbon Dioxide Level 30 mmol/L (21-32) Anion Gap 7 (6-14) Blood Urea Nitrogen 20 mg/dL (8-26) Creatinine 1.1 mg/dL (0.7-1.3) Estimated GFR (Cockcroft-Gault) 63.5 BUN/Creatinine Ratio 18 (6-20) Glucose Level 120 mg/dL (70-99) Calcium Level 8.1 mg/dL (8.5-10.1) Phosphorus Level 2.2 mg/dL (2.6-4.7) Total Bilirubin 0.4 mg/dL (0.2-1.0) Aspartate Amino Transf (AST/SGOT) 82 U/L (15-37) Alanine Aminotransferase (ALT/SGPT) 75 U/L (16-63) Alkaline Phosphatase 97 U/L (46-116) Total Protein 5.7 g/dL (6.4-8.2) Albumin 2.0 g/dL (3.4-5.0) Albumin/Globulin Ratio 0.5 (1.0-1.7) Results All relevant outside records, renal labs, imaging studies, telemetry/EKG's were reviewed. CHIKI BARR MD Dec 07, 2018 09:16
[2018-12-07] MEDS: LACTOBACILLUS RHAMNOSUS GG 1 CAPSULE. PO SCH ×2 (10:23→21:09)
[2018-12-07] MEDS: ASPIRIN ENTERIC COATED 81 MG TABLET.DR. PO SCH (10:23)
[2018-12-07] MEDS: TAMSULOSIN 0.4 MG CAP.ER.24H. PO SCH (10:24)
[2018-12-07] MEDS: SMZ/TMP 800/160MG TABLET. PO SCH (10:24)
[2018-12-07] MEDS: METOPROLOL TART IMMED RELEASE 25 MG TABLET. PO SCH (10:24)
[2018-12-07] MEDS: AMIODARONE HCL 200 MG TABLET. PO SCH (10:25)
--- NOTE | 2018-12-07 10:37 | NUR ---
Pharmacy Warfarin Dosing Note S: Pharmacy consulted to assist with anticoagulation therapy O: KRISTIE CAMPUZANO is a 88 year old M with Atrial Fibrillation LABS: Last INR: 2.4 Last HGB: 10.3 Last HCT: 303.9 Last PLT: 363 Home dose: 2.5 mg daily, except 5 mg Mon/Fri Last dose: 3 mg given on 12/06/18 at 1845 A:INR of 2.4 is within desired range. Target range for this patient is: 2 - 3 P: Warfarin dose: 2.5 mg Today at 1600 Bridge Therapy: None Next INR due 12/08/18 Pharmacy anticoagulation service will continue to follow. FRANCHESCA SADLER [facility], 12/07/18 1037
[2018-12-07] MEDS: FUROSEMIDE 40 MG/4 ML VIAL. IVP SCH (10:52)
--- NOTE | 2018-12-07 11:14 | PDOC ---
PROGRESS NOTES Chief Complaint Chief Complaint Acute on chronic systolic/diastolic heart failure Hyponatremia Hypoxemia Anemia Urinary tract infection (gram negative rods) Metabolic encephalopathy Elevated D-dimer. History of Present Illness History of Present Illness Mr. Frederick presented with shortness of breath and hyponatremia, was found to be in heart failure, BNP > 9000. +Bryant in place Patient was seen and examined at bedside. Patient is talkative, smiling and improving clinically. Discussed with shiftman and Nephrology following. Vitals Vitals Vital Signs Date Time Temp Pulse Resp B/P (MAP) Pulse Ox O2 Delivery O2 Flow Rate FiO2 12/07/18 10:43 98.1 105 24 116/79 (91) 95 Nasal Cannula 2.5 98.1 Physical Exam General: Alert, Oriented X3, No acute distress Heart: Regular rate, No murmurs, Other (irregular rhythm) Lungs: Wheezing, Other (raspiness) Abdomen: Normal bowel sounds, Soft, No tenderness Extremities: No clubbing, No cyanosis, No edema Skin: No rashes, No significant lesion Labs LABS Laboratory Tests Test 12/07/18 04:00 White Blood Count 9.6 x10^3/uL (4.0-11.0) Red Blood Count 3.28 x10^6/uL (4.30-5.70) Hemoglobin 10.3 g/dL (13.0-17.5) Hematocrit 30.9 % (39.0-53.0) Mean Corpuscular Volume 94 fL (79-100) Mean Corpuscular Hemoglobin 31 pg (25-35) Mean Corpuscular Hemoglobin Concent 33 g/dL (31-37) Red Cell Distribution Width 14.4 % (11.5-14.5) Platelet Count 363 x10^3/uL (140-400) Neutrophils (%) (Auto) 86 % (31-73) Lymphocytes (%) (Auto) 7 % (24-48) Monocytes (%) (Auto) 7 % (0-9) Eosinophils (%) (Auto) 0 % (0-3) Basophils (%) (Auto) 0 % (0-3) Neutrophils # (Auto) 8.3 x10^3uL (1.8-7.7) Lymphocytes # (Auto) 0.6 x10^3/uL (1.0-4.8) Monocytes # (Auto) 0.7 x10^3/uL (0.0-1.1) Eosinophils # (Auto) 0.0 x10^3/uL (0.0-0.7) Basophils # (Auto) 0.0 x10^3/uL (0.0-0.2) Prothrombin Time 25.6 SEC (11.7-14.0) Prothromb Time International Ratio 2.4 (0.8-1.1) Sodium Level 128 mmol/L (136-145) Potassium Level 4.1 mmol/L (3.5-5.1) Chloride Level 91 mmol/L (98-107) Carbon Dioxide Level 30 mmol/L (21-32) Anion Gap 7 (6-14) Blood Urea Nitrogen 20 mg/dL (8-26) Creatinine 1.1 mg/dL (0.7-1.3) Estimated GFR (Cockcroft-Gault) 63.5 BUN/Creatinine Ratio 18 (6-20) Glucose Level 120 mg/dL (70-99) Calcium Level 8.1 mg/dL (8.5-10.1) Phosphorus Level 2.2 mg/dL (2.6-4.7) Total Bilirubin 0.4 mg/dL (0.2-1.0) Aspartate Amino Transf (AST/SGOT) 82 U/L (15-37) Alanine Aminotransferase (ALT/SGPT) 75 U/L (16-63) Alkaline Phosphatase 97 U/L (46-116) Total Protein 5.7 g/dL (6.4-8.2) Albumin 2.0 g/dL (3.4-5.0) Albumin/Globulin Ratio 0.5 (1.0-1.7) Review of Systems Review of Systems Denies shortness of breath Denies chest pain Assessment and Plan Assessmemt and Plan Problems Medical Problems: (1) CHF (congestive heart failure) Status: Acute (2) Generalized weakness Status: Acute (3) Sepsis Status: Acute Assessment: Acute on chronic systolic/diastolic heart failure Hyponatremia Hypoxemia Anemia Urinary tract infection (gram negative rods) Metabolic encephalopathy Elevated D-dimer. Plan: Continue bactrim Monitor respiratory status Appreciate subspecialty input Continue lasix Recheck CMP and CBC tomorrow morning (Na stable at 128) Restrict fluid intake per nephrology Consult PT/OT Comment Review of Relevant I have reviewed the following items [email or web address] (where applicable) has been applied. Labs Laboratory Tests Test 12/06/18 02:30 12/07/18 04:00 White Blood Count 9.8 x10^3/uL (4.0-11.0) 9.6 x10^3/uL (4.0-11.0) Red Blood Count 3.64 x10^6/uL (4.30-5.70) 3.28 x10^6/uL (4.30-5.70) Hemoglobin 11.5 g/dL (13.0-17.5) 10.3 g/dL (13.0-17.5) Hematocrit 34.2 % (39.0-53.0) 30.9 % (39.0-53.0) Mean Corpuscular Volume 94 fL (79-100) 94 fL (79-100) Mean Corpuscular Hemoglobin 32 pg (25-35) 31 pg (25-35) Mean Corpuscular Hemoglobin Concent 34 g/dL (31-37) 33 g/dL (31-37) Red Cell Distribution Width 14.6 % (11.5-14.5) 14.4 % (11.5-14.5) Platelet Count 411 x10^3/uL (140-400) 363 x10^3/uL (140-400) Neutrophils (%) (Auto) 87 % (31-73) 86 % (31-73) Lymphocytes (%) (Auto) 6 % (24-48) 7 % (24-48) Monocytes (%) (Auto) 7 % (0-9) 7 % (0-9) Eosinophils (%) (Auto) 0 % (0-3) 0 % (0-3) Basophils (%) (Auto) 0 % (0-3) 0 % (0-3) Neutrophils # (Auto) 8.5 x10^3uL (1.8-7.7) 8.3 x10^3uL (1.8-7.7) Lymphocytes # (Auto) 0.6 x10^3/uL (1.0-4.8) 0.6 x10^3/uL (1.0-4.8) Monocytes # (Auto) 0.7 x10^3/uL (0.0-1.1) 0.7 x10^3/uL (0.0-1.1) Eosinophils # (Auto) 0.0 x10^3/uL (0.0-0.7) 0.0 x10^3/uL (0.0-0.7) Basophils # (Auto) 0.0 x10^3/uL (0.0-0.2) 0.0 x10^3/uL (0.0-0.2) Prothrombin Time 22.4 SEC (11.7-14.0) 25.6 SEC (11.7-14.0) Prothromb Time International Ratio 2.0 (0.8-1.1) 2.4 (0.8-1.1) Sodium Level 128 mmol/L (136-145) 128 mmol/L (136-145) Potassium Level 4.0 mmol/L (3.5-5.1) 4.1 mmol/L (3.5-5.1) Chloride Level 92 mmol/L (98-107) 91 mmol/L (98-107) Carbon Dioxide Level 32 mmol/L (21-32) 30 mmol/L (21-32) Anion Gap 4 (6-14) 7 (6-14) Blood Urea Nitrogen 17 mg/dL (8-26) 20 mg/dL (8-26) Creatinine 1.1 mg/dL (0.7-1.3) 1.1 mg/dL (0.7-1.3) Estimated GFR (Cockcroft-Gault) 63.5 63.5 BUN/Creatinine Ratio 15 (6-20) 18 (6-20) Glucose Level 124 mg/dL (70-99) 120 mg/dL (70-99) Calcium Level 8.3 mg/dL (8.5-10.1) 8.1 mg/dL (8.5-10.1) Phosphorus Level 2.3 mg/dL (2.6-4.7) 2.2 mg/dL (2.6-4.7) Total Bilirubin 0.5 mg/dL (0.2-1.0) 0.4 mg/dL (0.2-1.0) Aspartate Amino Transf (AST/SGOT) 66 U/L (15-37) 82 U/L (15-37) Alanine Aminotransferase (ALT/SGPT) 63 U/L (16-63) 75 U/L (16-63) Alkaline Phosphatase 110 U/L (46-116) 97 U/L (46-116) Total Protein 6.5 g/dL (6.4-8.2) 5.7 g/dL (6.4-8.2) Albumin 2.3 g/dL (3.4-5.0) 2.0 g/dL (3.4-5.0) Albumin/Globulin Ratio 0.5 (1.0-1.7) 0.5 (1.0-1.7) Laboratory Tests Test 12/07/18 04:00 White Blood Count 9.6 x10^3/uL (4.0-11.0) Red Blood Count 3.28 x10^6/uL (4.30-5.70) Hemoglobin 10.3 g/dL (13.0-17.5) Hematocrit 30.9 % (39.0-53.0) Mean Corpuscular Volume 94 fL (79-100) Mean Corpuscular Hemoglobin 31 pg (25-35) Mean Corpuscular Hemoglobin Concent 33 g/dL (31-37) Red Cell Distribution Width 14.4 % (11.5-14.5) Platelet Count 363 x10^3/uL (140-400) Neutrophils (%) (Auto) 86 % (31-73) Lymphocytes (%) (Auto) 7 % (24-48) Monocytes (%) (Auto) 7 % (0-9) Eosinophils (%) (Auto) 0 % (0-3) Basophils (%) (Auto) 0 % (0-3) Neutrophils # (Auto) 8.3 x10^3uL (1.8-7.7) Lymphocytes # (Auto) 0.6 x10^3/uL (1.0-4.8) Monocytes # (Auto) 0.7 x10^3/uL (0.0-1.1) Eosinophils # (Auto) 0.0 x10^3/uL (0.0-0.7) Basophils # (Auto) 0.0 x10^3/uL (0.0-0.2) Prothrombin Time 25.6 SEC (11.7-14.0) Prothromb Time International Ratio 2.4 (0.8-1.1) Sodium Level 128 mmol/L (136-145) Potassium Level 4.1 mmol/L (3.5-5.1) Chloride Level 91 mmol/L (98-107) Carbon Dioxide Level 30 mmol/L (21-32) Anion Gap 7 (6-14) Blood Urea Nitrogen 20 mg/dL (8-26) Creatinine 1.1 mg/dL (0.7-1.3) Estimated GFR (Cockcroft-Gault) 63.5 BUN/Creatinine Ratio 18 (6-20) Glucose Level 120 mg/dL (70-99) Calcium Level 8.1 mg/dL (8.5-10.1) Phosphorus Level 2.2 mg/dL (2.6-4.7) Total Bilirubin 0.4 mg/dL (0.2-1.0) Aspartate Amino Transf (AST/SGOT) 82 U/L (15-37) Alanine Aminotransferase (ALT/SGPT) 75 U/L (16-63) Alkaline Phosphatase 97 U/L (46-116) Total Protein 5.7 g/dL (6.4-8.2) Albumin 2.0 g/dL (3.4-5.0) Albumin/Globulin Ratio 0.5 (1.0-1.7) Microbiology 12/02/18 Blood Culture - Preliminary, Resulted NO GROWTH AFTER 4 DAYS 12/02/18 Urine Culture - Final, Complete 12/02/18 Urine Culture Result 1 (JULIETTE) - Final, Complete Medications Current Medications Albuterol/ Ipratropium (Duoneb) 3 ml STK-MED ONCE .ROUTE ; Start 12/02/18 at 11: 21; Stop 12/02/18 at 11:22; Status DC Albuterol/ Ipratropium (Duoneb) 3 ml 1X ONCE NEB Last administered on at 11:40; Start 12/02/18 at 11:30; Stop 12/02/18 at 11:31; Status DC Methylprednisolone Sodium Succinate (SOLU-Medrol 125MG VIAL) 125 mg 1X ONCE IV Last administered on 12/02/18at 12:04; Start 12/02/18 at 11:30; Stop 12/02/18 at 11:31; Status DC Sodium Chloride 500 ml @ 50 mls/hr 1X ONCE IV ; Start 12/02/18 at 13:00; Stop 12/02/18 at 13:00; Status DC Sodium Chloride 100 ml @ 30 mls/hr 1X ONCE IV Last administered on 12/02/18 12:47; Start 12/02/18 at 13:00; Stop 12/02/18 at 16:19; Status DC Furosemide (Lasix) 40 mg 1X ONCE IVP Last administered on 12/02/18 12:48; Start 12/02/18 at 13:15; Stop 12/02/18 at 13:16; Status DC Ceftriaxone Sodium (Rocephin) 1 gm 1X ONCE IVP Last administered on 12/02/18 13:32; Start 12/02/18 at 13:00; Stop 12/02/18 at 13:01; Status DC Ceftriaxone Sodium (Rocephin) 1 gm Q24H IVP Last administered on 12/02/18 16:53 ; Start 12/02/18 at 15:00; Stop 12/03/18 at 13:27; Status DC Aspirin (Ecotrin) 81 mg DAILY PO Last administered on 12/07/18 10:23; Start 12/03/18 at 12:00 Docusate Sodium (Colace) 100 mg PRN BID PRN PO STOOL SOFTENER; Start 12/03/18 at 11:00 Simvastatin (Zocor) 10 mg QHS PO Last administered on 12/06/18 20:32; Start 12/03/18 at 21:00 Tamsulosin HCl (Flomax) 0.4 mg DAILY PO Last administered on 12/07/18 10:24; Start 12/03/18 at 12:00 Non-Formulary Medication (Melatonin ) 5 mg HS PRN PO INSOMNIA; Start 12/03/18 at 11:00; Status UNV Amiodarone HCl (Cordarone) 200 mg DAILY PO Last administered on 12/07/18 10:25 ; Start 12/03/18 at 12:00 Midodrine (Proamatine) 5 mg [id number] PO Last administered on 12/07/18 06:51; Start 12/03/18 at 13:00 Non-Formulary Medication (Warfarin Sodium ) 5 mg sunday and sunday PO ; Start at 11:00; Status UNV Warfarin Sodium (Coumadin Per Pharmacy) 1 each PRN DAILY PRN MC SEE COMMENTS Last administered on 3/9/19at 10:36; Start 12/03/18 at 11:00 Trimethoprim/ Sulfamethoxazole (Bactrim Ds) 1 tab BID PO Last administered on at 10:24; Start 12/03/18 at 12:30 Warfarin Sodium (Coumadin) 2.5 mg 1X WARF ONCE PO ; Start 12/03/18 at 16:00; Stop 12/03/18 at 16:01; Status DC Iodixanol (Visipaque 320) 100 ml STK-MED ONCE .ROUTE ; Start 12/04/18 at 09:41; Stop 12/04/18 at 09:42; Status DC Lidocaine HCl (Lidocaine 1% 20ml Vial) 20 ml STK-MED ONCE .ROUTE ; Start at 09:41; Stop 12/04/18 at 09:42; Status DC Heparin Sodium/ Sodium Chloride 500 ml @ As Directed STK-MED ONCE .ROUTE ; Start 12/04/18 at 09:41; Stop 12/04/18 at 09:42; Status DC Heparin Sodium/ Sodium Chloride 500 ml @ As Directed STK-MED ONCE .ROUTE ; Start 12/04/18 at 09:42; Stop 12/04/18 at 09:43; Status DC Fentanyl Citrate (Fentanyl 2ml Vial) 100 mcg STK-MED ONCE .ROUTE ; Start at 10:07; Stop 12/04/18 at 10:08; Status DC Midazolam HCl (Versed) 2 mg STK-MED ONCE .ROUTE ; Start 12/04/18 at 10:07; Stop 12/04/18 at 10:08; Status DC Heparin Sodium (Porcine) (Heparin Sodium) 10,000 unit STK-MED ONCE .ROUTE ; Start 12/04/18 at 10:07; Stop 12/04/18 at 10:08; Status DC Verapamil HCl (Verapamil) 5 mg STK-MED ONCE .ROUTE ; Start 12/04/18 at 10:07; Stop 12/04/18 at 10:08; Status DC Nitroglycerin (Nitroglycerin) 200 mcg STK-MED ONCE .ROUTE ; Start 12/04/18 at 10: 07; Stop 12/04/18 at 10:08; Status DC Nitroglycerin (Nitroglycerin) 200 mcg 1X ONCE IART Last administered on at 10:30; Start 12/04/18 at 10:30; Stop 12/04/18 at 10:31; Status DC Verapamil HCl (Verapamil) 2.5 mg 1X ONCE IART Last administered on 12/04/18 10 :30; Start 12/04/18 at 10:30; Stop 12/04/18 at 10:31; Status DC Heparin Sodium (Porcine) (Heparin Sodium) 2,500 unit 1X ONCE IART Last administered on 12/04/18 10:30; Start 12/04/18 at 10:30; Stop 12/04/18 at 10:31; Status DC Heparin Sodium/ Sodium Chloride (HEPARIN for ARTERIAL LINE FLUSH) 1,000 unit 1X ONCE IART Last administered on 12/04/18 10:30; Start 12/04/18 at 10:30; Stop 12/04/18 at 10:31; Status DC Heparin Sodium/ Sodium Chloride (HEPARIN for ARTERIAL LINE FLUSH) 1,000 unit 1X ONCE IART Last administered on 12/04/18 10:30; Start 12/04/18 at 10:30; Stop 12/04/18 at 10:31; Status DC Midazolam HCl (Versed) 2 mg 1X ONCE IV Last administered on 12/04/18 10:30; Start 12/04/18 at 10:30; Stop 12/04/18 at 10:31; Status DC Fentanyl Citrate (Fentanyl 2ml Vial) 100 mcg 1X ONCE IV Last administered on 10:30; Start 12/04/18 at 10:30; Stop 12/04/18 at 10:31; Status DC Iodixanol (Visipaque 320) 100 ml 1X ONCE IART Last administered on 12/04/18 10 :30; Start 12/04/18 at 10:30; Stop 12/04/18 at 10:31; Status DC Lidocaine HCl (Lidocaine 1% 20ml Vial) 20 ml 1X ONCE INJ Last administered on 12/04/18 10:30; Start 12/04/18 at 10:30; Stop 12/04/18 at 10:31; Status DC Info (CONTRAST GIVEN -- Rx MONITORING) 1 each PRN DAILY PRN MC SEE COMMENTS; Start 12/04/18 at 10:30; Stop 12/06/18 at 10:29; Status DC Heparin Sodium (Porcine) (Heparin Sodium) 10,000 unit STK-MED ONCE .ROUTE ; Start 12/04/18 at 11:05; Stop 12/04/18 at 11:06; Status DC Heparin Sodium (Porcine) (Heparin Sodium) 500 unit 1X ONCE IV Last administered on 12/04/18at 11:15; Start 12/04/18 at 11:15; Stop 12/04/18 at 11:16; Status DC Iodixanol (Visipaque 320) 100 ml STK-MED ONCE .ROUTE ; Start 12/04/18 at 11:11; Stop 12/04/18 at 11:13; Status DC Sodium Chloride (Normal Saline Flush) 3 ml QSHIFT PRN IV AFTER MEDS AND BLOOD DRAWS; Start 12/04/18 at 11:30 Sodium Chloride 1,000 ml @ 50 mls/hr Q20H IV Last administered on 12/04/18at 16: 32; Start 12/04/18 at 11:30; Stop 12/04/18 at 16:29; Status DC Nitroglycerin (Nitrostat) 0.4 mg PRN Q5MIN PRN SL CHEST PAIN; Start 12/04/18 at 11:30 Lactobacillus Rhamnosus (Culturelle) 1 cap BID PO Last administered on 10:23; Start 12/04/18 at 13:00 Warfarin Sodium (Coumadin) 2.5 mg 1X WARF ONCE PO Last administered on 17:30; Start 12/04/18 at 16:00; Stop 12/04/18 at 16:01; Status DC Albuterol Sulfate (Ventolin Neb Soln) 2.5 mg PRN Q6HRS PRN NEB SHORTNESS OF BREATH Last administered on 12/06/18 20:08; Start 12/05/18 at 10:30 Warfarin Sodium (Coumadin) 4 mg 1X WARF ONCE PO Last administered on 12/05/18 18:03; Start 12/05/18 at 16:00; Stop 12/05/18 at 16:01; Status DC Furosemide (Lasix) 40 mg 1X ONCE IVP Last administered on 12/05/18 14:01; Start 12/05/18 at 13:30; Stop 12/05/18 at 13:31; Status DC Warfarin Sodium (Coumadin) 3 mg 1X WARF ONCE PO Last administered on 12/06/18 18:45; Start 12/06/18 at 16:00; Stop 12/06/18 at 16:01; Status DC Furosemide (Lasix) 40 mg DAILY IVP Last administered on 12/07/18at 10:52; Start 12/06/18 at 13:30 Metoprolol Tartrate (Lopressor) 12.5 mg BID PO Last administered on 12/07/18 10 :24; Start 12/06/18 at 21:00 Vancomycin HCl (Vancomycin Random Level) 1 each 1X ONCE MC ; Start 12/07/18 at 06:00; Stop 12/07/18 at 06:00; Status DC Furosemide (Lasix) 40 mg 1X ONCE IVP Last administered on 12/06/18at 20:32; Start 12/06/18 at 20:15; Stop 12/06/18 at 20:16; Status DC Milrinone Lactate/ Dextrose 100 ml @ 2.9 mls/hr CONT PRN IV SEE I/O RECORD Last administered on 12/06/18at 20:38; Start 12/06/18 at 20:00 Warfarin Sodium (Coumadin) 2.5 mg 1X WARF ONCE PO ; Start 12/07/18 at 16:00; Stop 12/07/18 at 16:01 Active Scripts Active Flomax (Tamsulosin Hcl) 0.4 Mg Cap.er.24h 0.4 Mg PO DAILY 30 Days Reported Amox Tr-K Clv 500-125 Mg Tab (Amoxicillin/Potassium Clav) 1 Each Tablet 1 Tab PO BID 3 Days Warfarin Sodium 2.5 Mg Tablet 2.5 Mg PO SUN,SUN,,SAT,SUN Warfarin Sodium 5 Mg Tablet 5 Mg PO SUNDAY AND SUNDAY Simvastatin 10 Mg Tablet 1 Tab PO QHS Midodrine Hcl 5 Mg Tablet 5 Mg PO TID Melatonin 3 Mg Tablet 5 Mg PO HS PRN Ex-Lax Maximum Relief (Sennosides) 25 Mg Tablet 50 Mg PO DAILY Docusate Sodium 100 Mg Capsule 1 Cap PO BID PRN Aspirin Ec (Aspirin) 81 Mg Tablet.dr 1 Tab PO DAILY Amiodarone Hcl 200 Mg Tablet 1 Tab PO DAILY Vitals/I & O Vital Sign - Last 24 Hours 12/06/18 12/06/18 12/06/18 12/06/18 13:37 15:00 18:45 19:00 Temp 97.3 97.2 97.3 97.2 Pulse 98 99 99 99 Resp B/P (MAP) 117/72 119/77 (91) 119/77 100/59 (73) Pulse Ox 97 97 O2 Delivery Nasal Cannula Nasal Cannula O2 Flow Rate 2.0 2.5 12/06/18 12/06/18 12/06/18 12/06/18 19:30 20:10 20:33 20:41 Pulse 99 103 B/P (MAP) 100/59 106/59 (75) Pulse Ox 97 O2 Delivery Nasal Cannula Nasal Cannula O2 Flow Rate 2.5 2.0 12/06/18 12/06/18 12/06/18 12/07/18 21:38 23:15 23:40 00:41 Temp 97.4 97.4 Pulse 100 84 84 89 Resp B/P (MAP) 120/61 (80) 90/60 (70) 103/72 (82) 100/66 (77) Pulse Ox 95 95 O2 Delivery Nasal Cannula Nasal Cannula O2 Flow Rate 2.5 2.5 12/07/18 12/07/18 12/07/18 12/07/18 01:42 02:43 03:13 03:41 Temp 97.8 97.8 Pulse 87 92 78 91 B/P (MAP) 102/64 (77) 111/63 (79) 111/63 (79) 107/67 (80) Pulse Ox 98 96 O2 Delivery Nasal Cannula Nasal Cannula O2 Flow Rate 2.5 2.5 12/07/18 12/07/18 12/07/18 12/07/18 04:39 06:51 07:15 08:00 Temp 98.5 98.5 Pulse 96 100 95 B/P (MAP) 110/62 (78) 119/71 115/68 (84) Pulse Ox 97 O2 Delivery Nasal Cannula Nasal Cannula O2 Flow Rate 2.5 2.5 12/07/18 12/07/18 12/07/18 10:24 10:25 10:43 Temp 98.1 98.1 Pulse 95 95 105 24 B/P (MAP) 115/68 115/68 116/79 (91) Pulse Ox 95 O2 Delivery Nasal Cannula O2 Flow Rate 2.5 Intake and Output 12/06/18 12/06/18 12/07/18 14:59 22:59 06:59 Intake Total 1080 ml 470 ml 150 ml Output Total 150 ml 750 ml 625 ml Balance 930 ml -280 ml -475 ml MIKAYLA MIRANDA III DO Dec 07, 2018 11:14
--- NOTE | 2018-12-07 11:24 | PDOC ---
CARDIOLOGY PROGRESS NOTE SUBJECTIVE: No new events overnight. No chest pain Continues to have dyspnea. OBJECTIVE: Vital SIgns: Vital Signs Date Time Temp Pulse Resp B/P (MAP) Pulse Ox O2 Delivery O2 Flow Rate FiO2 12/07/18 10:43 98.1 105 24 116/79 (91) 95 Nasal Cannula 2.5 98.1 I & O +175 ml Objective: Bilateral rhonchi, decreased breath sounds. Distant heart tones. soft abd. neck veins elevated at 10 cm CURRENT MEDICATIONS: Meds reviewed: Lasix, Milrinone, Midodrine, Metoprolol 12.5mg bid. DIAGNOSTIC TESTING: Labs reviewed. Cr stable. Na stable ASSESSMENT: 1. Acute on chronic decompensated systolic/diastolic HF (NICM) 2. Permanent afib. PLAN: 1. Will continue milrinone. 2. Give metolazone and additional dose of lasix. 3. Stop Metoprolol. 4. Will consider device check and optimization early next week if no improvement with medical therapy but discussed with family extensively poor cutter grinder prognosis and consideration for hospice. BRADFORD KANG MD Dec 07, 2018 11:24
[2018-12-07] MEDS ORDERED: FUROSEMIDE 40 MG/4 ML VIAL. IVP ONE (11:30)
[2018-12-07] MEDS: metOLazone 2.5 MG TABLET PO SCH (11:33)
[2018-12-07] MEDS: MILRINONE 20MG/100ML PREMIX 100 ML IV PRN (14:38)
[2018-12-07] MEDS ORDERED: WARFARIN 2.5 MG TABLET. PO ONE (16:00)
--- NOTE | 2018-12-07 18:31 | NUR ---
RN note During hourly vitals, pt BP 77/48 HR 92. Pt placed in Trendelenburg. Rechecked at 1800 BP 76/42 HR 92. Pt's feet elevated higher in Trendelenburg and rechecked at 1806 BP 82/[address] Crow paged at this time. Orders received. Pt's BP at 1826 90/50 HR 88. Will continue to monitor. Report will be given to oncoming nurse.
[2018-12-07] MEDS: SIMVASTATIN 10 MG TABLET PO SCH (21:09)
[2018-12-08 03:51] VITALS: BP 107/56
[2018-12-08 05:42] LABS: PROTHROMBIN TIME PATIENT 28.2 SEC (11.7-14.0)
[2018-12-08 05:44] LABS: BASO % 0 % (0-3); EOS % 0 % (0-3); HEMATOCRIT 30.8 % (39.0-53.0); HEMOGLOBIN 10.6 g/dL (13.0-17.5); LYMPH # 0.8 x10^3/uL (1.0-4.8); LYMPH % 10 % (24-48); MEAN CORPUSCULAR HEMOGLOBIN 32 pg (25-35); MEAN CORPUSCULAR HGB CONC 35 g/dL (31-37); MEAN CORPUSCULAR VOLUME 93 fL (79-100); MONO # 0.8 x10^3/uL (0.0-1.1); MONO % 9 % (0-9); NEUT # 6.9 x10^3uL (1.8-7.7); NEUT % 81 % (31-73); PLATELET COUNT 335 x10^3/uL (140-400); RED CELL DISTRIBUTION WIDTH 14.6 % (11.5-14.5); WHITE BLOOD COUNT 8.5 x10^3/uL (4.0-11.0)
[2018-12-08 06:17] LABS: ALBUMIN 2.2 g/dL (3.4-5.0); ALBUMIN/GLOBULIN RATIO 0.7 (1.0-1.7); CALCIUM 8.2 mg/dL (8.5-10.1); CREATININE 1.5 mg/dL (0.7-1.3); GFR 44.4; PHOSPHORUS 2.3 mg/dL (2.6-4.7); TOTAL BILIRUBIN 0.4 mg/dL (0.2-1.0); TOTAL PROTEIN 5.5 g/dL (6.4-8.2)
[2018-12-08] MEDS: MIDODRINE 5 MG TABLET PO SCH ×3 (06:44→17:49)
[2018-12-08 07:05] VITALS: BP 90/59
[2018-12-08] MEDS: FUROSEMIDE 40 MG/4 ML VIAL. IVP SCH (09:00)
[2018-12-08] MEDS: LACTOBACILLUS RHAMNOSUS GG 1 CAPSULE. PO SCH ×2 (09:16→21:40)
[2018-12-08] MEDS: ASPIRIN ENTERIC COATED 81 MG TABLET.DR. PO SCH (09:16)
[2018-12-08] MEDS: TAMSULOSIN 0.4 MG CAP.ER.24H. PO SCH (09:16)
[2018-12-08] MEDS: metOLazone 2.5 MG TABLET PO SCH (09:18)
[2018-12-08] MEDS: AMIODARONE HCL 200 MG TABLET. PO SCH (09:21)
[2018-12-08] MEDS ORDERED: PIP/TAZO PER PHARMACY MC PRN (09:30)
[2018-12-08] MEDS: PIPERACILLIN/TAZOBACTAM 3.375 GM in IV NORMAL SALINE 50ML 50 ML IV SCH ×2 (10:38→17:49)
--- NOTE | 2018-12-08 11:05 | PDOC ---
PROGRESS NOTES Chief Complaint Chief Complaint Acute on chronic systolic/diastolic heart failure Meets SIRS criteria, possible sepsis (CXR on 12/05 showed pulmonary infiltrates) Hypotensive Hyponatremia Hypoxemia Anemia UTI - treated, Ucx negative Metabolic encephalopathy Elevated D-dimer History of Present Illness History of Present Illness Mr. Frederick presented with shortness of breath and hyponatremia, was found to be in heart failure, BNP > 9000. Patient RR elevated, HR > 90, SBP 82-108, meets SIRS criteria. Patient is more confused today and mildly short of breath. +Bryant in place Discussed with RN, patient did not receive lasix this am due to low blood pressure Cardiology and Nephrology following. Palliative care consulted. Vitals Vitals Vital Signs Date Time Temp Pulse Resp B/P (MAP) Pulse Ox O2 Delivery O2 Flow Rate FiO2 12/08/18 09:21 80 85/53 12/08/18 07:45 Nasal Cannula 3.5 12/08/18 07:05 97.7 24 96 97.7 Physical Exam General: Alert, Oriented X3, No acute distress (mild shortness of breath), mild distress Heart: Regular rate, No murmurs, Other (irregular rhythm) Lungs: Wheezing, Other (rhonchi bilateral) Abdomen: Normal bowel sounds, Soft, No tenderness Extremities: No clubbing, No cyanosis, No edema Skin: No rashes, No significant lesion Labs LABS Laboratory Tests Test 12/08/18 05:00 White Blood Count 8.5 x10^3/uL (4.0-11.0) Red Blood Count 3.30 x10^6/uL (4.30-5.70) Hemoglobin 10.6 g/dL (13.0-17.5) Hematocrit 30.8 % (39.0-53.0) Mean Corpuscular Volume 93 fL (79-100) Mean Corpuscular Hemoglobin 32 pg (25-35) Mean Corpuscular Hemoglobin Concent 35 g/dL (31-37) Red Cell Distribution Width 14.6 % (11.5-14.5) Platelet Count 335 x10^3/uL (140-400) Neutrophils (%) (Auto) 81 % (31-73) Lymphocytes (%) (Auto) 10 % (24-48) Monocytes (%) (Auto) 9 % (0-9) Eosinophils (%) (Auto) 0 % (0-3) Basophils (%) (Auto) 0 % (0-3) Neutrophils # (Auto) 6.9 x10^3uL (1.8-7.7) Lymphocytes # (Auto) 0.8 x10^3/uL (1.0-4.8) Monocytes # (Auto) 0.8 x10^3/uL (0.0-1.1) Eosinophils # (Auto) 0.0 x10^3/uL (0.0-0.7) Basophils # (Auto) 0.0 x10^3/uL (0.0-0.2) Prothrombin Time 28.2 SEC (11.7-14.0) Prothromb Time International Ratio 2.7 (0.8-1.1) Sodium Level 130 mmol/L (136-145) Potassium Level 4.0 mmol/L (3.5-5.1) Chloride Level 90 mmol/L (98-107) Carbon Dioxide Level 35 mmol/L (21-32) Anion Gap 5 (6-14) Blood Urea Nitrogen 27 mg/dL (8-26) Creatinine 1.5 mg/dL (0.7-1.3) Estimated GFR (Cockcroft-Gault) 44.4 BUN/Creatinine Ratio 18 (6-20) Glucose Level 105 mg/dL (70-99) Calcium Level 8.2 mg/dL (8.5-10.1) Phosphorus Level 2.3 mg/dL (2.6-4.7) Total Bilirubin 0.4 mg/dL (0.2-1.0) Aspartate Amino Transf (AST/SGOT) 96 U/L (15-37) Alanine Aminotransferase (ALT/SGPT) 102 U/L (16-63) Alkaline Phosphatase 103 U/L (46-116) Total Protein 5.5 g/dL (6.4-8.2) Albumin 2.2 g/dL (3.4-5.0) Albumin/Globulin Ratio 0.7 (1.0-1.7) Review of Systems Review of Systems Reports shortness of breath Reports weakness Denies chest pain Assessment and Plan Assessmemt and Plan Problems Medical Problems: (1) CHF (congestive heart failure) Status: Acute (2) Generalized weakness Status: Acute (3) Sepsis Status: Acute Assessment: Acute on chronic systolic/diastolic heart failure Meets SIRS criteria, possible sepsis (CXR on 12/05 showed pulmonary infiltrates) Hypotensive Hyponatremia Hypoxemia Anemia UTI - treated, Ucx negative Metabolic encephalopathy Elevated D-dimer Plan: Continue to monitor blood pressure Started on empiric zosyn due to elevated RR, HR and low blood pressure. White count is wnl. Monitor respiratory status Lasix held due to low blood pressure Appreciate subspecialty input Discontinued bactrim, urine culture negative Review labs in the am Comment Review of Relevant I have reviewed the following items yolande (where applicable) has been applied. Labs Laboratory Tests Test 12/07/18 04:00 12/08/18 05:00 White Blood Count 9.6 x10^3/uL (4.0-11.0) 8.5 x10^3/uL (4.0-11.0) Red Blood Count 3.28 x10^6/uL (4.30-5.70) 3.30 x10^6/uL (4.30-5.70) Hemoglobin 10.3 g/dL (13.0-17.5) 10.6 g/dL (13.0-17.5) Hematocrit 30.9 % (39.0-53.0) 30.8 % (39.0-53.0) Mean Corpuscular Volume 94 fL (79-100) 93 fL (79-100) Mean Corpuscular Hemoglobin 31 pg (25-35) 32 pg (25-35) Mean Corpuscular Hemoglobin Concent 33 g/dL (31-37) 35 g/dL (31-37) Red Cell Distribution Width 14.4 % (11.5-14.5) 14.6 % (11.5-14.5) Platelet Count 363 x10^3/uL (140-400) 335 x10^3/uL (140-400) Neutrophils (%) (Auto) 86 % (31-73) 81 % (31-73) Lymphocytes (%) (Auto) 7 % (24-48) 10 % (24-48) Monocytes (%) (Auto) 7 % (0-9) 9 % (0-9) Eosinophils (%) (Auto) 0 % (0-3) 0 % (0-3) Basophils (%) (Auto) 0 % (0-3) 0 % (0-3) Neutrophils # (Auto) 8.3 x10^3uL (1.8-7.7) 6.9 x10^3uL (1.8-7.7) Lymphocytes # (Auto) 0.6 x10^3/uL (1.0-4.8) 0.8 x10^3/uL (1.0-4.8) Monocytes # (Auto) 0.7 x10^3/uL (0.0-1.1) 0.8 x10^3/uL (0.0-1.1) Eosinophils # (Auto) 0.0 x10^3/uL (0.0-0.7) 0.0 x10^3/uL (0.0-0.7) Basophils # (Auto) 0.0 x10^3/uL (0.0-0.2) 0.0 x10^3/uL (0.0-0.2) Prothrombin Time 25.6 SEC (11.7-14.0) 28.2 SEC (11.7-14.0) Prothromb Time International Ratio 2.4 (0.8-1.1) 2.7 (0.8-1.1) Sodium Level 128 mmol/L (136-145) 130 mmol/L (136-145) Potassium Level 4.1 mmol/L (3.5-5.1) 4.0 mmol/L (3.5-5.1) Chloride Level 91 mmol/L (98-107) 90 mmol/L (98-107) Carbon Dioxide Level 30 mmol/L (21-32) 35 mmol/L (21-32) Anion Gap 7 (6-14) 5 (6-14) Blood Urea Nitrogen 20 mg/dL (8-26) 27 mg/dL (8-26) Creatinine 1.1 mg/dL (0.7-1.3) 1.5 mg/dL (0.7-1.3) Estimated GFR (Cockcroft-Gault) 63.5 44.4 BUN/Creatinine Ratio 18 (6-20) 18 (6-20) Glucose Level 120 mg/dL (70-99) 105 mg/dL (70-99) Calcium Level 8.1 mg/dL (8.5-10.1) 8.2 mg/dL (8.5-10.1) Phosphorus Level 2.2 mg/dL (2.6-4.7) 2.3 mg/dL (2.6-4.7) Total Bilirubin 0.4 mg/dL (0.2-1.0) 0.4 mg/dL (0.2-1.0) Aspartate Amino Transf (AST/SGOT) 82 U/L (15-37) 96 U/L (15-37) Alanine Aminotransferase (ALT/SGPT) 75 U/L (16-63) 102 U/L (16-63) Alkaline Phosphatase 97 U/L (46-116) 103 U/L (46-116) Total Protein 5.7 g/dL (6.4-8.2) 5.5 g/dL (6.4-8.2) Albumin 2.0 g/dL (3.4-5.0) 2.2 g/dL (3.4-5.0) Albumin/Globulin Ratio 0.5 (1.0-1.7) 0.7 (1.0-1.7) Laboratory Tests Test 12/08/18 05:00 White Blood Count 8.5 x10^3/uL (4.0-11.0) Red Blood Count 3.30 x10^6/uL (4.30-5.70) Hemoglobin 10.6 g/dL (13.0-17.5) Hematocrit 30.8 % (39.0-53.0) Mean Corpuscular Volume 93 fL (79-100) Mean Corpuscular Hemoglobin 32 pg (25-35) Mean Corpuscular Hemoglobin Concent 35 g/dL (31-37) Red Cell Distribution Width 14.6 % (11.5-14.5) Platelet Count 335 x10^3/uL (140-400) Neutrophils (%) (Auto) 81 % (31-73) Lymphocytes (%) (Auto) 10 % (24-48) Monocytes (%) (Auto) 9 % (0-9) Eosinophils (%) (Auto) 0 % (0-3) Basophils (%) (Auto) 0 % (0-3) Neutrophils # (Auto) 6.9 x10^3uL (1.8-7.7) Lymphocytes # (Auto) 0.8 x10^3/uL (1.0-4.8) Monocytes # (Auto) 0.8 x10^3/uL (0.0-1.1) Eosinophils # (Auto) 0.0 x10^3/uL (0.0-0.7) Basophils # (Auto) 0.0 x10^3/uL (0.0-0.2) Prothrombin Time 28.2 SEC (11.7-14.0) Prothromb Time International Ratio 2.7 (0.8-1.1) Sodium Level 130 mmol/L (136-145) Potassium Level 4.0 mmol/L (3.5-5.1) Chloride Level 90 mmol/L (98-107) Carbon Dioxide Level 35 mmol/L (21-32) Anion Gap 5 (6-14) Blood Urea Nitrogen 27 mg/dL (8-26) Creatinine 1.5 mg/dL (0.7-1.3) Estimated GFR (Cockcroft-Gault) 44.4 BUN/Creatinine Ratio 18 (6-20) Glucose Level 105 mg/dL (70-99) Calcium Level 8.2 mg/dL (8.5-10.1) Phosphorus Level 2.3 mg/dL (2.6-4.7) Total Bilirubin 0.4 mg/dL (0.2-1.0) Aspartate Amino Transf (AST/SGOT) 96 U/L (15-37) Alanine Aminotransferase (ALT/SGPT) 102 U/L (16-63) Alkaline Phosphatase 103 U/L (46-116) Total Protein 5.5 g/dL (6.4-8.2) Albumin 2.2 g/dL (3.4-5.0) Albumin/Globulin Ratio 0.7 (1.0-1.7) Microbiology 12/02/18 Blood Culture - Final, Complete NO GROWTH AFTER 5 DAYS 12/02/18 Urine Culture - Final, Complete 12/02/18 Urine Culture Result 1 (JULIETTE) - Final, Complete Medications Current Medications Albuterol/ Ipratropium (Duoneb) 3 ml STK-MED ONCE .ROUTE ; Start 12/02/18 at 11: 21; Stop 12/02/18 at 11:22; Status DC Albuterol/ Ipratropium (Duoneb) 3 ml 1X ONCE NEB Last administered on at 11:40; Start 12/02/18 at 11:30; Stop 12/02/18 at 11:31; Status DC Methylprednisolone Sodium Succinate (SOLU-Medrol 125MG VIAL) 125 mg 1X ONCE IV Last administered on 12/02/18 12:04; Start 12/02/18 at 11:30; Stop 12/02/18 at 11:31; Status DC Sodium Chloride 500 ml @ 50 mls/hr 1X ONCE IV ; Start 12/02/18 at 13:00; Stop 12/02/18 at 13:00; Status DC Sodium Chloride 100 ml @ 30 mls/hr 1X ONCE IV Last administered on 12/02/18 12:47; Start 12/02/18 at 13:00; Stop 12/02/18 at 16:19; Status DC Furosemide (Lasix) 40 mg 1X ONCE IVP Last administered on 12/02/18 12:48; Start 12/02/18 at 13:15; Stop 12/02/18 at 13:16; Status DC Ceftriaxone Sodium (Rocephin) 1 gm 1X ONCE IVP Last administered on 12/02/18 13:32; Start 12/02/18 at 13:00; Stop 12/02/18 at 13:01; Status DC Ceftriaxone Sodium (Rocephin) 1 gm Q24H IVP Last administered on 12/02/18 16:53 ; Start 12/02/18 at 15:00; Stop 12/03/18 at 13:27; Status DC Aspirin (Ecotrin) 81 mg DAILY PO Last administered on 12/08/18 09:16; Start at 12:00 Docusate Sodium (Colace) 100 mg PRN BID PRN PO STOOL SOFTENER; Start 12/03/18 at 11:00 Simvastatin (Zocor) 10 mg QHS PO Last administered on 12/07/18 21:09; Start 12/03/18 at 21:00 Tamsulosin HCl (Flomax) 0.4 mg DAILY PO Last administered on 12/08/18 09:16; Start 12/03/18 at 12:00 Non-Formulary Medication (Melatonin ) 5 mg HS PRN PO INSOMNIA; Start 12/03/18 at 11:00; Status UNV Amiodarone HCl (Cordarone) 200 mg DAILY PO Last administered on 3/10/19at 09:21 ; Start 12/03/18 at 12:00 Midodrine (Proamatine) 5 mg [id number] PO Last administered on 12/08/18at 06:44; Start 12/03/18 at 13:00 Non-Formulary Medication (Warfarin Sodium ) 5 mg sunday and sunday PO ; Start at 11:00; Status UNV Warfarin Sodium (Coumadin Per Pharmacy) 1 each PRN DAILY PRN MC SEE COMMENTS Last administered on 12/07/18at 10:36; Start 12/03/18 at 11:00; Stop 12/07/18 at 11: 24; Status DC Trimethoprim/ Sulfamethoxazole (Bactrim Ds) 1 tab BID PO Last administered on at 10:24; Start 12/03/18 at 12:30; Stop 12/07/18 at 11:35; Status DC Warfarin Sodium (Coumadin) 2.5 mg 1X WARF ONCE PO ; Start 12/03/18 at 16:00; Stop 12/03/18 at 16:01; Status DC Iodixanol (Visipaque 320) 100 ml STK-MED ONCE .ROUTE ; Start 12/04/18 at 09:41; Stop 12/04/18 at 09:42; Status DC Lidocaine HCl (Lidocaine 1% 20ml Vial) 20 ml STK-MED ONCE .ROUTE ; Start at 09:41; Stop 12/04/18 at 09:42; Status DC Heparin Sodium/ Sodium Chloride 500 ml @ As Directed STK-MED ONCE .ROUTE ; Start 12/04/18 at 09:41; Stop 12/04/18 at 09:42; Status DC Heparin Sodium/ Sodium Chloride 500 ml @ As Directed STK-MED ONCE .ROUTE ; Start 12/04/18 at 09:42; Stop 12/04/18 at 09:43; Status DC Fentanyl Citrate (Fentanyl 2ml Vial) 100 mcg STK-MED ONCE .ROUTE ; Start at 10:07; Stop 12/04/18 at 10:08; Status DC Midazolam HCl (Versed) 2 mg STK-MED ONCE .ROUTE ; Start 12/04/18 at 10:07; Stop 12/04/18 at 10:08; Status DC Heparin Sodium (Porcine) (Heparin Sodium) 10,000 unit STK-MED ONCE .ROUTE ; Start 12/04/18 at 10:07; Stop 12/04/18 at 10:08; Status DC Verapamil HCl (Verapamil) 5 mg STK-MED ONCE .ROUTE ; Start 12/04/18 at 10:07; Stop 12/04/18 at 10:08; Status DC Nitroglycerin (Nitroglycerin) 200 mcg STK-MED ONCE .ROUTE ; Start 12/04/18 at 10: 07; Stop 12/04/18 at 10:08; Status DC Nitroglycerin (Nitroglycerin) 200 mcg 1X ONCE IART Last administered on at 10:30; Start 12/04/18 at 10:30; Stop 12/04/18 at 10:31; Status DC Verapamil HCl (Verapamil) 2.5 mg 1X ONCE IART Last administered on 12/04/18 10 :30; Start 12/04/18 at 10:30; Stop 12/04/18 at 10:31; Status DC Heparin Sodium (Porcine) (Heparin Sodium) 2,500 unit 1X ONCE IART Last administered on 12/04/18 10:30; Start 12/04/18 at 10:30; Stop 12/04/18 at 10:31; Status DC Heparin Sodium/ Sodium Chloride (HEPARIN for ARTERIAL LINE FLUSH) 1,000 unit 1X ONCE IART Last administered on 12/04/18at 10:30; Start 12/04/18 at 10:30; Stop 12/04/18 at 10:31; Status DC Heparin Sodium/ Sodium Chloride (HEPARIN for ARTERIAL LINE FLUSH) 1,000 unit 1X ONCE IART Last administered on 12/04/18at 10:30; Start 12/04/18 at 10:30; Stop 12/04/18 at 10:31; Status DC Midazolam HCl (Versed) 2 mg 1X ONCE IV Last administered on 12/04/18 10:30; Start 12/04/18 at 10:30; Stop 12/04/18 at 10:31; Status DC Fentanyl Citrate (Fentanyl 2ml Vial) 100 mcg 1X ONCE IV Last administered on 10:30; Start 12/04/18 at 10:30; Stop 12/04/18 at 10:31; Status DC Iodixanol (Visipaque 320) 100 ml 1X ONCE IART Last administered on 12/04/18at 10 :30; Start 12/04/18 at 10:30; Stop 12/04/18 at 10:31; Status DC Lidocaine HCl (Lidocaine 1% 20ml Vial) 20 ml 1X ONCE INJ Last administered on 12/04/18 10:30; Start 12/04/18 at 10:30; Stop 12/04/18 at 10:31; Status DC Info (CONTRAST GIVEN -- Rx MONITORING) 1 each PRN DAILY PRN MC SEE COMMENTS; Start 12/04/18 at 10:30; Stop 12/06/18 at 10:29; Status DC Heparin Sodium (Porcine) (Heparin Sodium) 10,000 unit STK-MED ONCE .ROUTE ; Start 12/04/18 at 11:05; Stop 12/04/18 at 11:06; Status DC Heparin Sodium (Porcine) (Heparin Sodium) 500 unit 1X ONCE IV Last administered on 12/04/18 11:15; Start 12/04/18 at 11:15; Stop 12/04/18 at 11:16; Status DC Iodixanol (Visipaque 320) 100 ml STK-MED ONCE .ROUTE ; Start 12/04/18 at 11:11; Stop 12/04/18 at 11:13; Status DC Sodium Chloride (Normal Saline Flush) 3 ml QSHIFT PRN IV AFTER MEDS AND BLOOD DRAWS; Start 12/04/18 at 11:30 Sodium Chloride 1,000 ml @ 50 mls/hr Q20H IV Last administered on 12/04/18 16: 32; Start 12/04/18 at 11:30; Stop 12/04/18 at 16:29; Status DC Nitroglycerin (Nitrostat) 0.4 mg PRN Q5MIN PRN SL CHEST PAIN; Start 12/04/18 at 11:30 Lactobacillus Rhamnosus (Culturelle) 1 cap BID PO Last administered on at 09:16; Start 12/04/18 at 13:00 Warfarin Sodium (Coumadin) 2.5 mg 1X WARF ONCE PO Last administered on at 17:30; Start 12/04/18 at 16:00; Stop 12/04/18 at 16:01; Status DC Albuterol Sulfate (Ventolin Neb Soln) 2.5 mg PRN Q6HRS PRN NEB SHORTNESS OF BREATH Last administered on 12/06/18 20:08; Start 12/05/18 at 10:30 Warfarin Sodium (Coumadin) 4 mg 1X WARF ONCE PO Last administered on 12/05/18 18:03; Start 12/05/18 at 16:00; Stop 12/05/18 at 16:01; Status DC Furosemide (Lasix) 40 mg 1X ONCE IVP Last administered on 12/05/18 14:01; Start 12/05/18 at 13:30; Stop 12/05/18 at 13:31; Status DC Warfarin Sodium (Coumadin) 3 mg 1X WARF ONCE PO Last administered on 12/06/18 18:45; Start 12/06/18 at 16:00; Stop 12/06/18 at 16:01; Status DC Furosemide (Lasix) 40 mg DAILY IVP Last administered on 12/07/18 10:52; Start 12/06/18 at 13:30 Metoprolol Tartrate (Lopressor) 12.5 mg BID PO Last administered on 12/07/18 10 :24; Start 12/06/18 at 21:00; Stop 12/07/18 at 11:24; Status DC Vancomycin HCl (Vancomycin Random Level) 1 each 1X ONCE MC ; Start 12/07/18 at 06:00; Stop 12/07/18 at 06:00; Status DC Furosemide (Lasix) 40 mg 1X ONCE IVP Last administered on 12/06/18 20:32; Start 12/06/18 at 20:15; Stop 12/06/18 at 20:16; Status DC Milrinone Lactate/ Dextrose 100 ml @ 2.9 mls/hr CONT PRN IV SEE I/O RECORD Last administered on 12/07/18at 14:38; Start 12/06/18 at 20:00 Warfarin Sodium (Coumadin) 2.5 mg 1X WARF ONCE PO ; Start 12/07/18 at 16:00; Stop 12/07/18 at 16:00; Status DC Metolazone (Zaroxolyn) 5 mg DAILY PO Last administered on 12/08/18 09:18; Start 12/07/18 at 11:30 Furosemide (Lasix) 40 mg 1X ONCE IVP Last administered on 12/07/18 11:33; Start 12/07/18 at 11:30; Stop 12/07/18 at 11:31; Status DC Piperacillin Sod/ Tazobactam Sod (Zosyn Per Pharmacy) 1 each PRN DAILY PRN MC SEE COMMENTS; Start 12/08/18 at 09:30 Piperacillin Sod/ Tazobactam Sod 3.375 gm/Sodium Chloride 50 ml @ 100 mls/hr Q6HRS IV Last administered on 12/08/18at 10:38; Start 12/08/18 at 10:00 Active Scripts Active Flomax (Tamsulosin Hcl) 0.4 Mg Cap.er.24h 0.4 Mg PO DAILY 30 Days Reported Amox Tr-K Clv 500-125 Mg Tab (Amoxicillin/Potassium Clav) 1 Each Tablet 1 Tab PO BID 3 Days Warfarin Sodium 2.5 Mg Tablet 2.5 Mg PO SUN,SUN,,SUN,SUN Warfarin Sodium 5 Mg Tablet 5 Mg PO SUNDAY AND SUNDAY Simvastatin 10 Mg Tablet 1 Tab PO QHS Midodrine Hcl 5 Mg Tablet 5 Mg PO TID Melatonin 3 Mg Tablet 5 Mg PO HS PRN Ex-Lax Maximum Relief (Sennosides) 25 Mg Tablet 50 Mg PO DAILY Docusate Sodium 100 Mg Capsule 1 Cap PO BID PRN Aspirin Ec (Aspirin) 81 Mg Tablet. 1 Tab PO DAILY Amiodarone Hcl 200 Mg Tablet 1 Tab PO DAILY Vitals/I & O Vital Sign - Last 24 Hours 12/07/18 12/07/18 12/07/18 12/07/18 14:03 15:55 18:07 19:05 Temp 97.8 98.2 97.8 98.2 Pulse 83 96 89 92 Resp 20 21 B/P (MAP) 101/59 106/65 (79) 82/51 96/62 (73) Pulse Ox 92 98 O2 Delivery Nasal Cannula Nasal Cannula O2 Flow Rate 3.5 3.5 12/07/18 12/07/18 12/08/18 12/08/18 19:35 22:57 03:51 06:44 Temp 97.8 97.8 97.8 97.8 Pulse 95 84 88 Resp 22 22 B/P (MAP) 108/62 (77) 107/56 (73) 108/62 Pulse Ox 96 96 O2 Delivery Nasal Cannula Nasal Cannula Nasal Cannula O2 Flow Rate 2.5 4.0 4.0 12/08/18 12/08/18 12/08/18 07:05 07:45 09:21 Temp 97.7 97.7 Pulse 93 80 Resp 24 B/P (MAP) 90/59 (69) 85/53 Pulse Ox 96 O2 Delivery Nasal Cannula Nasal Cannula O2 Flow Rate 3.5 3.5 Intake and Output 12/07/18 12/07/18 12/08/18 15:00 23:00 07:00 Intake Total 50 ml 0 ml Output Total 1475 ml 600 ml 450 ml Balance -1475 ml -550 ml -450 ml MIKAYLA MIRANDA III DO Dec 08, 2018 11:05
[2018-12-08 11:15] VITALS: BP 105/57
--- NOTE | 2018-12-08 11:26 | PDOC ---
SUBJECTIVE ROS BP low, urinary retention, failed voiding trial OBJECTIVE Vital Signs Vital Signs Date Time Temp Pulse Resp B/P (MAP) Pulse Ox O2 Delivery O2 Flow Rate FiO2 12/08/18 09:21 80 85/53 12/08/18 07:45 Nasal Cannula 3.5 12/08/18 07:05 97.7 24 96 97.7 I & 0 Intake and Output 12/08/18 07:00 Intake Total 50 ml Output Total 2525 ml Balance -2475 ml Intake Oral 50 ml Output Urine Total 2525 ml PHYSICAL EXAM Physical Exam GEN: NAD, HEENT- Om moist, not on O2 , Very hard of hearing NECK: supple CVS: RRR, RESP: CTA Bilat, Non labored GI: Non Tender, Non Distended : No CVA tenderness , Bryant + Neuro- Grossly Normal Skin No rash DIAGNOSIS/ASSESSMENT Assessment & Plan Hyponatremia Cxr- Congestion/Pulm Improved with Diuretics on IV Lasix qd Metolazone added on 12/07 [place]- Increased Cr post contrast and probably Over diuresed Metolazone started yesterday, on IV Lasix as well Hypotensive Recommend holding diuretics HTN- as per Hx Hypotensive CHF- as per cardiology S/p cath no intervention , medical management Urinary retention - last hospitalization Hydronephrosis on US Urology consulted, failed voiding trial Dw RN COMMENT/RELEVANT DATA Meds Current Medications Medications (Trade) Dose Ordered Sig/Teddy Start Time Stop Time Status Last Admin Dose Admin Albuterol Sulfate (Ventolin Neb Soln) 2.5 mg PRN Q6HRS PRN 12/05/18 10:30 12/06/18 20:08 2.5 MG Albuterol/ Ipratropium (Duoneb) 3 ml 1X ONCE 12/02/18 11:30 12/02/18 11:31 DC 12/02/18 11:40 3 ML Amiodarone HCl (Cordarone) 200 mg DAILY 12/03/18 12:00 12/08/18 09:21 200 MG Aspirin (Ecotrin) 81 mg DAILY 12/03/18 12:00 12/08/18 09:16 81 MG Ceftriaxone Sodium (Rocephin) 1 gm Q24H 12/02/18 15:00 12/03/18 13:27 DC 12/02/18 16:53 1 GM Docusate Sodium (Colace) 100 mg PRN BID PRN 12/03/18 11:00 Fentanyl Citrate (Fentanyl 2ml Vial) 100 mcg 1X ONCE 12/04/18 10:30 12/04/18 10:31 DC 12/04/18 10:30 12.5 MCG Furosemide (Lasix) 40 mg 1X ONCE 12/07/18 11:30 12/07/18 11:31 DC 12/07/18 11:33 40 MG Heparin Sodium (Porcine) (Heparin Sodium) 500 unit 1X ONCE 12/04/18 11:15 12/04/18 11:16 DC 12/04/18 11:15 1,000 UNIT Heparin Sodium/ Sodium Chloride (HEPARIN for ARTERIAL LINE FLUSH) 1,000 unit 1X ONCE 12/04/18 10:30 12/04/18 10:31 DC 12/04/18 10:30 1,000 UNIT Info (CONTRAST GIVEN -- Rx MONITORING) 1 each PRN DAILY PRN 12/04/18 10:30 12/06/18 10:29 DC Iodixanol (Visipaque 320) 100 ml STK-MED ONCE 12/04/18 11:11 12/04/18 11:13 DC Lactobacillus Rhamnosus (Culturelle) 1 cap BID 12/04/18 13:00 12/08/18 09:16 1 CAP Lidocaine HCl (Lidocaine 1% 20ml Vial) 20 ml 1X ONCE 12/04/18 10:30 12/04/18 10:31 DC 12/04/18 10:30 1 ML Methylprednisolone Sodium Succinate (SOLU-Medrol 125MG VIAL) 125 mg 1X ONCE 12/02/18 11:30 12/02/18 11:31 DC 12/02/18 12:04 125 MG Metolazone (Zaroxolyn) 5 mg DAILY 12/07/18 11:30 12/08/18 09:18 5 MG Metoprolol Tartrate (Lopressor) 12.5 mg BID 12/06/18 21:00 12/07/18 11:24 DC 12/07/18 10:24 12.5 MG Midazolam HCl (Versed) 2 mg 1X ONCE 12/04/18 10:30 12/04/18 10:31 DC 12/04/18 10:30 1 MG Midodrine (Proamatine) 5 mg [id number] 12/03/18 13:00 12/08/18 06:44 5 MG Milrinone Lactate/ Dextrose 100 ml @ 2.9 mls/hr CONT PRN 12/06/18 20:00 12/07/18 14:38 2.9 MLS/HR Nitroglycerin (Nitroglycerin) 200 mcg 1X ONCE 12/04/18 10:30 12/04/18 10:31 DC 12/04/18 10:30 200 MCG Nitroglycerin (Nitrostat) 0.4 mg PRN Q5MIN PRN 12/04/18 11:30 Non-Formulary Medication (Melatonin ) 5 mg HS PRN 12/03/18 11:00 UNV Non-Formulary Medication (Warfarin Sodium ) 5 mg sunday and sunday12/03/18 11:00 UNV Piperacillin Sod/ Tazobactam Sod (Zosyn Per Pharmacy) 1 each PRN DAILY PRN 12/08/18 09:30 Piperacillin Sod/ Tazobactam Sod 3.375 gm/Sodium Chloride 50 ml @ 100 mls/hr Q6HRS 12/08/18 10:00 12/08/18 10:38 100 MLS/HR Simvastatin (Zocor) 10 mg QHS 12/03/18 21:00 12/07/18 21:09 10 MG Sodium Chloride 1,000 ml @ 50 mls/hr Q20H 12/04/18 11:30 12/04/18 16:29 DC 12/04/18 16:32 50 MLS/HR Sodium Chloride (Normal Saline Flush) 3 ml QSHIFT PRN 12/04/18 11:30 Tamsulosin HCl (Flomax) 0.4 mg DAILY 12/03/18 12:00 12/08/18 09:16 0.4 MG Trimethoprim/ Sulfamethoxazole (Bactrim Ds) 1 tab BID 12/03/18 12:30 12/07/18 11:35 DC 12/07/18 10:24 1 TAB Vancomycin HCl (Vancomycin Random Level) 1 each 1X ONCE 12/07/18 06:00 12/07/18 06:00 DC Verapamil HCl (Verapamil) 2.5 mg 1X ONCE 12/04/18 10:30 12/04/18 10:31 DC 12/04/18 10:30 2.5 MG Warfarin Sodium (Coumadin Per Pharmacy) 1 each PRN DAILY PRN 12/03/18 11:00 12/07/18 11:24 DC 12/07/18 10:36 1 EACH Warfarin Sodium (Coumadin) 2.5 mg 1X WARF ONCE 12/07/18 16:00 12/07/18 16:00 DC Lab Laboratory Tests Test 12/08/18 05:00 White Blood Count 8.5 x10^3/uL (4.0-11.0) Red Blood Count 3.30 x10^6/uL (4.30-5.70) Hemoglobin 10.6 g/dL (13.0-17.5) Hematocrit 30.8 % (39.0-53.0) Mean Corpuscular Volume 93 fL (79-100) Mean Corpuscular Hemoglobin 32 pg (25-35) Mean Corpuscular Hemoglobin Concent 35 g/dL (31-37) Red Cell Distribution Width 14.6 % (11.5-14.5) Platelet Count 335 x10^3/uL (140-400) Neutrophils (%) (Auto) 81 % (31-73) Lymphocytes (%) (Auto) 10 % (24-48) Monocytes (%) (Auto) 9 % (0-9) Eosinophils (%) (Auto) 0 % (0-3) Basophils (%) (Auto) 0 % (0-3) Neutrophils # (Auto) 6.9 x10^3uL (1.8-7.7) Lymphocytes # (Auto) 0.8 x10^3/uL (1.0-4.8) Monocytes # (Auto) 0.8 x10^3/uL (0.0-1.1) Eosinophils # (Auto) 0.0 x10^3/uL (0.0-0.7) Basophils # (Auto) 0.0 x10^3/uL (0.0-0.2) Prothrombin Time 28.2 SEC (11.7-14.0) Prothromb Time International Ratio 2.7 (0.8-1.1) Sodium Level 130 mmol/L (136-145) Potassium Level 4.0 mmol/L (3.5-5.1) Chloride Level 90 mmol/L (98-107) Carbon Dioxide Level 35 mmol/L (21-32) Anion Gap 5 (6-14) Blood Urea Nitrogen 27 mg/dL (8-26) Creatinine 1.5 mg/dL (0.7-1.3) Estimated GFR (Cockcroft-Gault) 44.4 BUN/Creatinine Ratio 18 (6-20) Glucose Level 105 mg/dL (70-99) Calcium Level 8.2 mg/dL (8.5-10.1) Phosphorus Level 2.3 mg/dL (2.6-4.7) Total Bilirubin 0.4 mg/dL (0.2-1.0) Aspartate Amino Transf (AST/SGOT) 96 U/L (15-37) Alanine Aminotransferase (ALT/SGPT) 102 U/L (16-63) Alkaline Phosphatase 103 U/L (46-116) Total Protein 5.5 g/dL (6.4-8.2) Albumin 2.2 g/dL (3.4-5.0) Albumin/Globulin Ratio 0.7 (1.0-1.7) Results All relevant outside records, renal labs, imaging studies, telemetry/EKG's were reviewed. CHIKI BARR MD Dec 08, 2018 11:26
--- NOTE | 2018-12-08 13:08 | PDOC ---
CARDIOLOGY PROGRESS NOTE SUBJECTIVE: No new events. Continues to breathe heavily. OBJECTIVE: Vital SIgns: Vital Signs Date Time Temp Pulse Resp B/P (MAP) Pulse Ox O2 Delivery O2 Flow Rate FiO2 12/08/18 12:33 94 87/56 12/08/18 11:15 97.8 28 96 Nasal Cannula 2.5 97.8 I & O Intake and Output 12/08/18 07:00 Intake Total 50 ml Output Total 2525 ml Balance -2475 ml Intake Oral 50 ml Output Urine Total 2525 ml Objective: No LE edema. Distant heart sounds, irregular bilateral rhonchi unchanged. CURRENT MEDICATIONS: Current Medications Medications (Trade) Dose Ordered Sig/Teddy Start Time Stop Time Status Last Admin Dose Admin Albuterol Sulfate (Ventolin Neb Soln) 2.5 mg PRN Q6HRS PRN 12/05/18 10:30 12/06/18 20:08 2.5 MG Albuterol/ Ipratropium (Duoneb) 3 ml 1X ONCE 12/02/18 11:30 12/02/18 11:31 DC 12/02/18 11:40 3 ML Amiodarone HCl (Cordarone) 200 mg DAILY 12/03/18 12:00 12/08/18 09:21 200 MG Aspirin (Ecotrin) 81 mg DAILY 12/03/18 12:00 12/08/18 09:16 81 MG Ceftriaxone Sodium (Rocephin) 1 gm Q24H 12/02/18 15:00 12/03/18 13:27 DC 12/02/18 16:53 1 GM Docusate Sodium (Colace) 100 mg PRN BID PRN 12/03/18 11:00 Fentanyl Citrate (Fentanyl 2ml Vial) 100 mcg 1X ONCE 12/04/18 10:30 12/04/18 10:31 DC 12/04/18 10:30 12.5 MCG Furosemide (Lasix) 40 mg 1X ONCE 12/07/18 11:30 12/07/18 11:31 DC 12/07/18 11:33 40 MG Heparin Sodium (Porcine) (Heparin Sodium) 500 unit 1X ONCE 12/04/18 11:15 12/04/18 11:16 DC 12/04/18 11:15 1,000 UNIT Heparin Sodium/ Sodium Chloride (HEPARIN for ARTERIAL LINE FLUSH) 1,000 unit 1X ONCE 12/04/18 10:30 12/04/18 10:31 DC 12/04/18 10:30 1,000 UNIT Info (CONTRAST GIVEN -- Rx MONITORING) 1 each PRN DAILY PRN 12/04/18 10:30 12/06/18 10:29 DC Iodixanol (Visipaque 320) 100 ml STK-MED ONCE 12/04/18 11:11 12/04/18 11:13 DC Lactobacillus Rhamnosus (Culturelle) 1 cap BID 12/04/18 13:00 12/08/18 09:16 1 CAP Lidocaine HCl (Lidocaine 1% 20ml Vial) 20 ml 1X ONCE 12/04/18 10:30 12/04/18 10:31 DC 12/04/18 10:30 1 ML Methylprednisolone Sodium Succinate (SOLU-Medrol 125MG VIAL) 125 mg 1X ONCE 12/02/18 11:30 12/02/18 11:31 DC 12/02/18 12:04 125 MG Metolazone (Zaroxolyn) 5 mg DAILY 12/07/18 11:30 12/08/18 09:18 5 MG Metoprolol Tartrate (Lopressor) 12.5 mg BID 12/06/18 21:00 12/07/18 11:24 DC 12/07/18 10:24 12.5 MG Midazolam HCl (Versed) 2 mg 1X ONCE 12/04/18 10:30 12/04/18 10:31 DC 12/04/18 10:30 1 MG Midodrine (Proamatine) 5 mg [id number] 12/03/18 13:00 12/08/18 12:33 5 MG Milrinone Lactate/ Dextrose 100 ml @ 2.9 mls/hr CONT PRN 12/06/18 20:00 12/07/18 14:38 2.9 MLS/HR Nitroglycerin (Nitroglycerin) 200 mcg 1X ONCE 12/04/18 10:30 12/04/18 10:31 DC 12/04/18 10:30 200 MCG Nitroglycerin (Nitrostat) 0.4 mg PRN Q5MIN PRN 12/04/18 11:30 Non-Formulary Medication (Melatonin ) 5 mg HS PRN 12/03/18 11:00 UNV Non-Formulary Medication (Warfarin Sodium ) 5 mg sunday and sunday12/03/18 11:00 UNV Piperacillin Sod/ Tazobactam Sod (Zosyn Per Pharmacy) 1 each PRN DAILY PRN 12/08/18 09:30 Piperacillin Sod/ Tazobactam Sod 3.375 gm/Sodium Chloride 50 ml @ 100 mls/hr Q6HRS 12/08/18 10:00 12/08/18 10:38 100 MLS/HR Simvastatin (Zocor) 10 mg QHS 12/03/18 21:00 12/07/18 21:09 10 MG Sodium Chloride 1,000 ml @ 50 mls/hr Q20H 12/04/18 11:30 12/04/18 16:29 DC 12/04/18 16:32 50 MLS/HR Sodium Chloride (Normal Saline Flush) 3 ml QSHIFT PRN 12/04/18 11:30 Tamsulosin HCl (Flomax) 0.4 mg DAILY 12/03/18 12:00 12/08/18 09:16 0.4 MG Trimethoprim/ Sulfamethoxazole (Bactrim Ds) 1 tab BID 12/03/18 12:30 12/07/18 11:35 DC 12/07/18 10:24 1 TAB Vancomycin HCl (Vancomycin Random Level) 1 each 1X ONCE 12/07/18 06:00 12/07/18 06:00 DC Verapamil HCl (Verapamil) 2.5 mg 1X ONCE 12/04/18 10:30 12/04/18 10:31 DC 12/04/18 10:30 2.5 MG Warfarin Sodium (Coumadin Per Pharmacy) 1 each PRN DAILY PRN 12/03/18 11:00 12/07/18 11:24 DC 12/07/18 10:36 1 EACH Warfarin Sodium (Coumadin) 2.5 mg 1X WARF ONCE 12/07/18 16:00 12/07/18 16:00 DC DIAGNOSTIC TESTING: Cr 1.5 ASSESSMENT: 1. 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 PLAN: 1. He has signs of end stage HF with cachexia, liver congestion (elevated INR, def exacerbated with coumadin), hypotension and ESTEFANI. -No further aggressive measures available given his age. -Will consult hospice in am. after discussion with family. Thanks. BRADFORD KANG MD Dec 08, 2018 13:08
[2018-12-08 15:00] VITALS: BP 92/51
[2018-12-08 19:00] VITALS: BP 97/62
[2018-12-08] MEDS: SIMVASTATIN 10 MG TABLET PO SCH (21:40)
[2018-12-08 23:00] VITALS: BP 99/63
[2018-12-09] MEDS: PIPERACILLIN/TAZOBACTAM 3.375 GM in IV NORMAL SALINE 50ML 50 ML IV SCH ×4 (00:06→17:51)
[2018-12-09] MEDS: MILRINONE 20MG/100ML PREMIX 100 ML IV PRN (00:13)
[2018-12-09 03:00] VITALS: BP 96/70
[2018-12-09 04:13] LABS: BASO % 0 % (0-3); EOS % 1 % (0-3); HEMATOCRIT 31.3 % (39.0-53.0); HEMOGLOBIN 10.6 g/dL (13.0-17.5); LYMPH # 0.7 x10^3/uL (1.0-4.8); LYMPH % 9 % (24-48); MEAN CORPUSCULAR HEMOGLOBIN 32 pg (25-35); MEAN CORPUSCULAR HGB CONC 34 g/dL (31-37); MEAN CORPUSCULAR VOLUME 94 fL (79-100); MONO # 0.9 x10^3/uL (0.0-1.1); MONO % 11 % (0-9); NEUT # 6.5 x10^3uL (1.8-7.7); NEUT % 80 % (31-73); PLATELET COUNT 325 x10^3/uL (140-400); RED BLOOD COUNT 3.33 x10^6/uL (4.30-5.70); RED CELL DISTRIBUTION WIDTH 14.2 % (11.5-14.5); WHITE BLOOD COUNT 8.1 x10^3/uL (4.0-11.0)
[2018-12-09 04:23] LABS: PROTHROMBIN TIME PATIENT 25.2 SEC (11.7-14.0)
[2018-12-09 04:59] LABS: ALBUMIN 1.9 g/dL (3.4-5.0); ALBUMIN/GLOBULIN RATIO 0.5 (1.0-1.7); CREATININE 1.2 mg/dL (0.7-1.3); GFR 57.4; PHOSPHORUS 1.9 mg/dL (2.6-4.7); POTASSIUM 3.7 mmol/L (3.5-5.1); TOTAL BILIRUBIN 0.5 mg/dL (0.2-1.0); TOTAL PROTEIN 5.6 g/dL (6.4-8.2)
[2018-12-09] MEDS: MIDODRINE 5 MG TABLET PO SCH ×3 (06:07→17:52)
[2018-12-09 07:00] VITALS: BP 101/63
[2018-12-09] MEDS: metOLazone 2.5 MG TABLET PO SCH (09:00)
[2018-12-09] MEDS: FUROSEMIDE 40 MG/4 ML VIAL. IVP SCH (09:00)
[2018-12-09] MEDS: AMIODARONE HCL 200 MG TABLET. PO SCH (09:00)
--- NOTE | 2018-12-09 09:12 | PDOC ---
DAVID MARTINEZ [employer] OPERATOR 12/09/18 0912: SUBJECTIVE Subjective Pt failed voiding trial on Sunday and had to have his catheter re-inserted. Today he is comfortable and his catheter is not bothering him. He is OK with keeping it in. Per attending RN, he is going to have a palliative care meeting later today. OBJECTIVE Objective Physical Exam: General appearance: Alert and Oriented. Hard of hearing Head: Normocephalic, without obvious abnormality, wearing glasses Eyes: conjunctivae/corneas clear. PERRL, EOM's intact. Fundi benign Lungs: Regular respirations, non labored breathing Abdomen: soft, non-tender. No masses, no organomegaly Pelvic: Circ phallus with Bryant catheter in place draining clear yellow urine. Vital Signs Vital Signs Date Time Temp Pulse Resp B/P (MAP) Pulse Ox O2 Delivery O2 Flow Rate FiO2 12/09/18 08:30 Nasal Cannula 3.0 12/09/18 07:00 97.9 91 20 101/63 (76) 96 Room Air 97.9 12/09/18 06:07 99 97/58 12/09/18 03:00 98.1 96 20 96/70 (79) 97 Nasal Cannula 3.0 98.1 12/08/18 23:00 97.5 91 22 99/63 (75) 98 Nasal Cannula 3.0 97.5 12/08/18 20:00 Nasal Cannula 3.0 12/08/18 19:00 98.1 96 22 97/62 (74) 100 Nasal Cannula 3.0 98.1 12/08/18 17:49 96 95/55 12/08/18 15:00 97.6 93 24 92/51 (65) 97 Nasal Cannula 2.0 97.6 12/08/18 12:33 94 87/56 12/08/18 11:15 97.8 94 28 105/57 (73) 96 Nasal Cannula 2.5 97.8 12/08/18 09:21 80 85/53 I & O Intake and Output 12/09/18 06:59 Intake Total 964.16 ml Output Total 1200 ml Balance -235.84 ml Intake Oral 830 ml IV Total 134.16 ml Output Urine Total 1200 ml PHYSICAL EXAM Physical Exam Physical Exam: General appearance: Alert and Oriented. Hard of hearing Head: Normocephalic, without obvious abnormality, wearing glasses Eyes: conjunctivae/corneas clear. PERRL, EOM's intact. Fundi benign Lungs: Regular respirations, non labored breathing Abdomen: soft, non-tender. No masses, no organomegaly Pelvic: Circ phallus with Bryant catheter in place draining clear yellow urine. ASSESSMENT/PLAN Assessment/Plan Pt failed voiding trial the other day. 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 Nursing to maintain catheter while he is in house. When he does discharge from hospital, recommend he go with Bryant catheter in place. Depending upon where he does go to (hospice vs rehab) will arrange for patient to have catheter exchanged in 30 days. Discussed with attending RN. COMMENT Lab Laboratory Tests Test 12/09/18 03:58 White Blood Count 8.1 x10^3/uL (4.0-11.0) Red Blood Count 3.33 x10^6/uL (4.30-5.70) Hemoglobin 10.6 g/dL (13.0-17.5) Hematocrit 31.3 % (39.0-53.0) Mean Corpuscular Volume 94 fL (79-100) Mean Corpuscular Hemoglobin 32 pg (25-35) Mean Corpuscular Hemoglobin Concent 34 g/dL (31-37) Red Cell Distribution Width 14.2 % (11.5-14.5) Platelet Count 325 x10^3/uL (140-400) Neutrophils (%) (Auto) 80 % (31-73) Lymphocytes (%) (Auto) 9 % (24-48) Monocytes (%) (Auto) 11 % (0-9) Eosinophils (%) (Auto) 1 % (0-3) Basophils (%) (Auto) 0 % (0-3) Neutrophils # (Auto) 6.5 x10^3uL (1.8-7.7) Lymphocytes # (Auto) 0.7 x10^3/uL (1.0-4.8) Monocytes # (Auto) 0.9 x10^3/uL (0.0-1.1) Eosinophils # (Auto) 0.0 x10^3/uL (0.0-0.7) Basophils # (Auto) 0.0 x10^3/uL (0.0-0.2) Prothrombin Time 25.2 SEC (11.7-14.0) Prothromb Time International Ratio 2.3 (0.8-1.1) Sodium Level 128 mmol/L (136-145) Potassium Level 3.7 mmol/L (3.5-5.1) Chloride Level 88 mmol/L (98-107) Carbon Dioxide Level 36 mmol/L (21-32) Anion Gap 4 (6-14) Blood Urea Nitrogen 26 mg/dL (8-26) Creatinine 1.2 mg/dL (0.7-1.3) Estimated GFR (Cockcroft-Gault) 57.4 BUN/Creatinine Ratio 22 (6-20) Glucose Level 105 mg/dL (70-99) Calcium Level 8.0 mg/dL (8.5-10.1) Phosphorus Level 1.9 mg/dL (2.6-4.7) Total Bilirubin 0.5 mg/dL (0.2-1.0) Aspartate Amino Transf (AST/SGOT) 85 U/L (15-37) Alanine Aminotransferase (ALT/SGPT) 96 U/L (16-63) Alkaline Phosphatase 96 U/L (46-116) Total Protein 5.6 g/dL (6.4-8.2) Albumin 1.9 g/dL (3.4-5.0) Albumin/Globulin Ratio 0.5 (1.0-1.7) ZANDER SANDOVAL MD 12/10/18 6434: ASSESSMENT/PLAN Assessment/Plan Agree with assessment and plan. DAVID MARTINEZ APRN Dec 09, 2018 09:12 ZANDER SANDOVAL MD Dec 10, 2018 23:01
[2018-12-09] MEDS: ASPIRIN ENTERIC COATED 81 MG TABLET.DR. PO SCH (09:13)
[2018-12-09] MEDS: LACTOBACILLUS RHAMNOSUS GG 1 CAPSULE. PO SCH ×2 (09:13→21:14)
[2018-12-09] MEDS: TAMSULOSIN 0.4 MG CAP.ER.24H. PO SCH (09:13)
[2018-12-09] MEDS: DOCUSATE SODIUM 100 MG CAPSULE. PO PRN (09:26)
--- NOTE | 2018-12-09 10:59 | PDOC ---
PROGRESS NOTES Chief Complaint Chief Complaint Acute on chronic systolic/diastolic heart failure Meets SIRS criteria, possible sepsis (CXR on 12/05 showed pulmonary infiltrates) Hypotensive Hyponatremia Hypoxemia Anemia UTI - treated, Ucx negative Metabolic encephalopathy Elevated D-dimer POOR PROGNOSIS, DISCUSSED PALLIATIVE CARE/ HOSPICE/ AGREES NICM s/p BiV ICD with acute on chronic systolic HF and decompensation - End stage CHF History of Present Illness History of Present Illness Mr. Frederick presented with shortness of breath and hyponatremia, was found to be in heart failure, BNP > 9000. Patient RR elevated, HR > 90, SBP 82-108, meets SIRS criteria. Patient is more confused today and mildly short of breath. +Bryant in place Discussed with RN, patient did not receive lasix this am due to low blood pressure Cardiology and Nephrology following. Palliative care consulted. Vitals Vitals Vital Signs Date Time Temp Pulse Resp B/P (MAP) Pulse Ox O2 Delivery O2 Flow Rate FiO2 12/09/18 09:00 84 97/60 12/09/18 08:30 Nasal Cannula 3.0 12/09/18 07:00 97.9 20 96 97.9 Physical Exam General: Alert, Oriented X3, Cooperative, No acute distress (mild shortness of breath), mild distress Heart: Regular rate, No murmurs, Other (irregular rhythm) Lungs: Wheezing, Other (rhonchi bilateral) Abdomen: Normal bowel sounds, Soft, No tenderness Extremities: No clubbing, No cyanosis, No edema Skin: No rashes, No significant lesion Labs LABS Laboratory Tests Test 12/09/18 03:58 White Blood Count 8.1 x10^3/uL (4.0-11.0) Red Blood Count 3.33 x10^6/uL (4.30-5.70) Hemoglobin 10.6 g/dL (13.0-17.5) Hematocrit 31.3 % (39.0-53.0) Mean Corpuscular Volume 94 fL (79-100) Mean Corpuscular Hemoglobin 32 pg (25-35) Mean Corpuscular Hemoglobin Concent 34 g/dL (31-37) Red Cell Distribution Width 14.2 % (11.5-14.5) Platelet Count 325 x10^3/uL (140-400) Neutrophils (%) (Auto) 80 % (31-73) Lymphocytes (%) (Auto) 9 % (24-48) Monocytes (%) (Auto) 11 % (0-9) Eosinophils (%) (Auto) 1 % (0-3) Basophils (%) (Auto) 0 % (0-3) Neutrophils # (Auto) 6.5 x10^3uL (1.8-7.7) Lymphocytes # (Auto) 0.7 x10^3/uL (1.0-4.8) Monocytes # (Auto) 0.9 x10^3/uL (0.0-1.1) Eosinophils # (Auto) 0.0 x10^3/uL (0.0-0.7) Basophils # (Auto) 0.0 x10^3/uL (0.0-0.2) Prothrombin Time 25.2 SEC (11.7-14.0) Prothromb Time International Ratio 2.3 (0.8-1.1) Sodium Level 128 mmol/L (136-145) Potassium Level 3.7 mmol/L (3.5-5.1) Chloride Level 88 mmol/L (98-107) Carbon Dioxide Level 36 mmol/L (21-32) Anion Gap 4 (6-14) Blood Urea Nitrogen 26 mg/dL (8-26) Creatinine 1.2 mg/dL (0.7-1.3) Estimated GFR (Cockcroft-Gault) 57.4 BUN/Creatinine Ratio 22 (6-20) Glucose Level 105 mg/dL (70-99) Calcium Level 8.0 mg/dL (8.5-10.1) Phosphorus Level 1.9 mg/dL (2.6-4.7) Total Bilirubin 0.5 mg/dL (0.2-1.0) Aspartate Amino Transf (AST/SGOT) 85 U/L (15-37) Alanine Aminotransferase (ALT/SGPT) 96 U/L (16-63) Alkaline Phosphatase 96 U/L (46-116) Total Protein 5.6 g/dL (6.4-8.2) Albumin 1.9 g/dL (3.4-5.0) Albumin/Globulin Ratio 0.5 (1.0-1.7) Assessment and Plan Assessmemt and Plan Problems Medical Problems: (1) CHF (congestive heart failure) Status: Acute (2) Generalized weakness Status: Acute (3) Sepsis Status: Acute Comment Review of Relevant I have reviewed the following items [email or web address] (where applicable) has been applied. Labs Laboratory Tests Test 12/08/18 05:00 12/09/18 03:58 White Blood Count 8.5 x10^3/uL (4.0-11.0) 8.1 x10^3/uL (4.0-11.0) Red Blood Count 3.30 x10^6/uL (4.30-5.70) 3.33 x10^6/uL (4.30-5.70) Hemoglobin 10.6 g/dL (13.0-17.5) 10.6 g/dL (13.0-17.5) Hematocrit 30.8 % (39.0-53.0) 31.3 % (39.0-53.0) Mean Corpuscular Volume 93 fL (79-100) 94 fL (79-100) Mean Corpuscular Hemoglobin 32 pg (25-35) 32 pg (25-35) Mean Corpuscular Hemoglobin Concent 35 g/dL (31-37) 34 g/dL (31-37) Red Cell Distribution Width 14.6 % (11.5-14.5) 14.2 % (11.5-14.5) Platelet Count 335 x10^3/uL (140-400) 325 x10^3/uL (140-400) Neutrophils (%) (Auto) 81 % (31-73) 80 % (31-73) Lymphocytes (%) (Auto) 10 % (24-48) 9 % (24-48) Monocytes (%) (Auto) 9 % (0-9) 11 % (0-9) Eosinophils (%) (Auto) 0 % (0-3) 1 % (0-3) Basophils (%) (Auto) 0 % (0-3) 0 % (0-3) Neutrophils # (Auto) 6.9 x10^3uL (1.8-7.7) 6.5 x10^3uL (1.8-7.7) Lymphocytes # (Auto) 0.8 x10^3/uL (1.0-4.8) 0.7 x10^3/uL (1.0-4.8) Monocytes # (Auto) 0.8 x10^3/uL (0.0-1.1) 0.9 x10^3/uL (0.0-1.1) Eosinophils # (Auto) 0.0 x10^3/uL (0.0-0.7) 0.0 x10^3/uL (0.0-0.7) Basophils # (Auto) 0.0 x10^3/uL (0.0-0.2) 0.0 x10^3/uL (0.0-0.2) Prothrombin Time 28.2 SEC (11.7-14.0) 25.2 SEC (11.7-14.0) Prothromb Time International Ratio 2.7 (0.8-1.1) 2.3 (0.8-1.1) Sodium Level 130 mmol/L (136-145) 128 mmol/L (136-145) Potassium Level 4.0 mmol/L (3.5-5.1) 3.7 mmol/L (3.5-5.1) Chloride Level 90 mmol/L (98-107) 88 mmol/L (98-107) Carbon Dioxide Level 35 mmol/L (21-32) 36 mmol/L (21-32) Anion Gap 5 (6-14) 4 (6-14) Blood Urea Nitrogen 27 mg/dL (8-26) 26 mg/dL (8-26) Creatinine 1.5 mg/dL (0.7-1.3) 1.2 mg/dL (0.7-1.3) Estimated GFR (Cockcroft-Gault) 44.4 57.4 BUN/Creatinine Ratio 18 (6-20) 22 (6-20) Glucose Level 105 mg/dL (70-99) 105 mg/dL (70-99) Calcium Level 8.2 mg/dL (8.5-10.1) 8.0 mg/dL (8.5-10.1) Phosphorus Level 2.3 mg/dL (2.6-4.7) 1.9 mg/dL (2.6-4.7) Total Bilirubin 0.4 mg/dL (0.2-1.0) 0.5 mg/dL (0.2-1.0) Aspartate Amino Transf (AST/SGOT) 96 U/L (15-37) 85 U/L (15-37) Alanine Aminotransferase (ALT/SGPT) 102 U/L (16-63) 96 U/L (16-63) Alkaline Phosphatase 103 U/L (46-116) 96 U/L (46-116) Total Protein 5.5 g/dL (6.4-8.2) 5.6 g/dL (6.4-8.2) Albumin 2.2 g/dL (3.4-5.0) 1.9 g/dL (3.4-5.0) Albumin/Globulin Ratio 0.7 (1.0-1.7) 0.5 (1.0-1.7) Laboratory Tests Test 12/09/18 03:58 White Blood Count 8.1 x10^3/uL (4.0-11.0) Red Blood Count 3.33 x10^6/uL (4.30-5.70) Hemoglobin 10.6 g/dL (13.0-17.5) Hematocrit 31.3 % (39.0-53.0) Mean Corpuscular Volume 94 fL (79-100) Mean Corpuscular Hemoglobin 32 pg (25-35) Mean Corpuscular Hemoglobin Concent 34 g/dL (31-37) Red Cell Distribution Width 14.2 % (11.5-14.5) Platelet Count 325 x10^3/uL (140-400) Neutrophils (%) (Auto) 80 % (31-73) Lymphocytes (%) (Auto) 9 % (24-48) Monocytes (%) (Auto) 11 % (0-9) Eosinophils (%) (Auto) 1 % (0-3) Basophils (%) (Auto) 0 % (0-3) Neutrophils # (Auto) 6.5 x10^3uL (1.8-7.7) Lymphocytes # (Auto) 0.7 x10^3/uL (1.0-4.8) Monocytes # (Auto) 0.9 x10^3/uL (0.0-1.1) Eosinophils # (Auto) 0.0 x10^3/uL (0.0-0.7) Basophils # (Auto) 0.0 x10^3/uL (0.0-0.2) Prothrombin Time 25.2 SEC (11.7-14.0) Prothromb Time International Ratio 2.3 (0.8-1.1) Sodium Level 128 mmol/L (136-145) Potassium Level 3.7 mmol/L (3.5-5.1) Chloride Level 88 mmol/L (98-107) Carbon Dioxide Level 36 mmol/L (21-32) Anion Gap 4 (6-14) Blood Urea Nitrogen 26 mg/dL (8-26) Creatinine 1.2 mg/dL (0.7-1.3) Estimated GFR (Cockcroft-Gault) 57.4 BUN/Creatinine Ratio 22 (6-20) Glucose Level 105 mg/dL (70-99) Calcium Level 8.0 mg/dL (8.5-10.1) Phosphorus Level 1.9 mg/dL (2.6-4.7) Total Bilirubin 0.5 mg/dL (0.2-1.0) Aspartate Amino Transf (AST/SGOT) 85 U/L (15-37) Alanine Aminotransferase (ALT/SGPT) 96 U/L (16-63) Alkaline Phosphatase 96 U/L (46-116) Total Protein 5.6 g/dL (6.4-8.2) Albumin 1.9 g/dL (3.4-5.0) Albumin/Globulin Ratio 0.5 (1.0-1.7) Microbiology 12/02/18 Blood Culture - Final, Complete NO GROWTH AFTER 5 DAYS 12/02/18 Urine Culture - Final, Complete 12/02/18 Urine Culture Result 1 (JULIETTE) - Final, Complete Medications Current Medications Albuterol/ Ipratropium (Duoneb) 3 ml STK-MED ONCE .ROUTE ; Start 12/02/18 at 11: 21; Stop 12/02/18 at 11:22; Status DC Albuterol/ Ipratropium (Duoneb) 3 ml 1X ONCE NEB Last administered on at 11:40; Start 12/02/18 at 11:30; Stop 12/02/18 at 11:31; Status DC Methylprednisolone Sodium Succinate (SOLU-Medrol 125MG VIAL) 125 mg 1X ONCE IV Last administered on 12/02/18at 12:04; Start 12/02/18 at 11:30; Stop 12/02/18 at 11:31; Status DC Sodium Chloride 500 ml @ 50 mls/hr 1X ONCE IV ; Start 12/02/18 at 13:00; Stop 12/02/18 at 13:00; Status DC Sodium Chloride 100 ml @ 30 mls/hr 1X ONCE IV Last administered on 12/02/18 12:47; Start 12/02/18 at 13:00; Stop 12/02/18 at 16:19; Status DC Furosemide (Lasix) 40 mg 1X ONCE IVP Last administered on 12/02/18 12:48; Start 12/02/18 at 13:15; Stop 12/02/18 at 13:16; Status DC Ceftriaxone Sodium (Rocephin) 1 gm 1X ONCE IVP Last administered on 12/02/18 13:32; Start 12/02/18 at 13:00; Stop 12/02/18 at 13:01; Status DC Ceftriaxone Sodium (Rocephin) 1 gm Q24H IVP Last administered on 12/02/18 16:53 ; Start 12/02/18 at 15:00; Stop 12/03/18 at 13:27; Status DC Aspirin (Ecotrin) 81 mg DAILY PO Last administered on 12/09/18 09:13; Start at 12:00 Docusate Sodium (Colace) 100 mg PRN BID PRN PO STOOL SOFTENER Last administered on 12/09/18 09:26; Start 12/03/18 at 11:00 Simvastatin (Zocor) 10 mg QHS PO Last administered on 12/08/18 21:40; Start at 21:00 Tamsulosin HCl (Flomax) 0.4 mg DAILY PO Last administered on 12/09/18 09:13; Start 12/03/18 at 12:00 Non-Formulary Medication (Melatonin ) 5 mg HS PRN PO INSOMNIA; Start 12/03/18 at 11:00; Status UNV Amiodarone HCl (Cordarone) 200 mg DAILY PO Last administered on 12/08/18 09:21 ; Start 12/03/18 at 12:00 Midodrine (Proamatine) 5 mg [id number] PO Last administered on 12/09/18 06:07; Start 12/03/18 at 13:00 Non-Formulary Medication (Warfarin Sodium ) 5 mg sunday and sunday PO ; Start at 11:00; Status UNV Warfarin Sodium (Coumadin Per Pharmacy) 1 each PRN DAILY PRN MC SEE COMMENTS Last administered on 12/07/18at 10:36; Start 12/03/18 at 11:00; Stop 12/07/18 at 11: 24; Status DC Trimethoprim/ Sulfamethoxazole (Bactrim Ds) 1 tab BID PO Last administered on at 10:24; Start 12/03/18 at 12:30; Stop 12/07/18 at 11:35; Status DC Warfarin Sodium (Coumadin) 2.5 mg 1X WARF ONCE PO ; Start 12/03/18 at 16:00; Stop 12/03/18 at 16:01; Status DC Iodixanol (Visipaque 320) 100 ml STK-MED ONCE .ROUTE ; Start 12/04/18 at 09:41; Stop 12/04/18 at 09:42; Status DC Lidocaine HCl (Lidocaine 1% 20ml Vial) 20 ml STK-MED ONCE .ROUTE ; Start at 09:41; Stop 12/04/18 at 09:42; Status DC Heparin Sodium/ Sodium Chloride 500 ml @ As Directed STK-MED ONCE .ROUTE ; Start 12/04/18 at 09:41; Stop 12/04/18 at 09:42; Status DC Heparin Sodium/ Sodium Chloride 500 ml @ As Directed STK-MED ONCE .ROUTE ; Start 12/04/18 at 09:42; Stop 12/04/18 at 09:43; Status DC Fentanyl Citrate (Fentanyl 2ml Vial) 100 mcg STK-MED ONCE .ROUTE ; Start at 10:07; Stop 12/04/18 at 10:08; Status DC Midazolam HCl (Versed) 2 mg STK-MED ONCE .ROUTE ; Start 12/04/18 at 10:07; Stop 12/04/18 at 10:08; Status DC Heparin Sodium (Porcine) (Heparin Sodium) 10,000 unit STK-MED ONCE .ROUTE ; Start 12/04/18 at 10:07; Stop 12/04/18 at 10:08; Status DC Verapamil HCl (Verapamil) 5 mg STK-MED ONCE .ROUTE ; Start 12/04/18 at 10:07; Stop 12/04/18 at 10:08; Status DC Nitroglycerin (Nitroglycerin) 200 mcg STK-MED ONCE .ROUTE ; Start 12/04/18 at 10: 07; Stop 12/04/18 at 10:08; Status DC Nitroglycerin (Nitroglycerin) 200 mcg 1X ONCE IART Last administered on 10:30; Start 12/04/18 at 10:30; Stop 12/04/18 at 10:31; Status DC Verapamil HCl (Verapamil) 2.5 mg 1X ONCE IART Last administered on 12/04/18 10 :30; Start 12/04/18 at 10:30; Stop 12/04/18 at 10:31; Status DC Heparin Sodium (Porcine) (Heparin Sodium) 2,500 unit 1X ONCE IART Last administered on 12/04/18 10:30; Start 12/04/18 at 10:30; Stop 12/04/18 at 10:31; Status DC Heparin Sodium/ Sodium Chloride (HEPARIN for ARTERIAL LINE FLUSH) 1,000 unit 1X ONCE IART Last administered on 12/04/18 10:30; Start 12/04/18 at 10:30; Stop 12/04/18 at 10:31; Status DC Heparin Sodium/ Sodium Chloride (HEPARIN for ARTERIAL LINE FLUSH) 1,000 unit 1X ONCE IART Last administered on 12/04/18 10:30; Start 12/04/18 at 10:30; Stop 12/04/18 at 10:31; Status DC Midazolam HCl (Versed) 2 mg 1X ONCE IV Last administered on 12/04/18 10:30; Start 12/04/18 at 10:30; Stop 12/04/18 at 10:31; Status DC Fentanyl Citrate (Fentanyl 2ml Vial) 100 mcg 1X ONCE IV Last administered on 10:30; Start 12/04/18 at 10:30; Stop 12/04/18 at 10:31; Status DC Iodixanol (Visipaque 320) 100 ml 1X ONCE IART Last administered on 12/04/18 10 :30; Start 12/04/18 at 10:30; Stop 12/04/18 at 10:31; Status DC Lidocaine HCl (Lidocaine 1% 20ml Vial) 20 ml 1X ONCE INJ Last administered on 12/04/18 10:30; Start 12/04/18 at 10:30; Stop 12/04/18 at 10:31; Status DC Info (CONTRAST GIVEN -- Rx MONITORING) 1 each PRN DAILY PRN MC SEE COMMENTS; Start 12/04/18 at 10:30; Stop 12/06/18 at 10:29; Status DC Heparin Sodium (Porcine) (Heparin Sodium) 10,000 unit STK-MED ONCE .ROUTE ; Start 12/04/18 at 11:05; Stop 12/04/18 at 11:06; Status DC Heparin Sodium (Porcine) (Heparin Sodium) 500 unit 1X ONCE IV Last administered on 12/04/18at 11:15; Start 12/04/18 at 11:15; Stop 12/04/18 at 11:16; Status DC Iodixanol (Visipaque 320) 100 ml STK-MED ONCE .ROUTE ; Start 12/04/18 at 11:11; Stop 12/04/18 at 11:13; Status DC Sodium Chloride (Normal Saline Flush) 3 ml QSHIFT PRN IV AFTER MEDS AND BLOOD DRAWS; Start 12/04/18 at 11:30 Sodium Chloride 1,000 ml @ 50 mls/hr Q20H IV Last administered on 12/04/18at 16: 32; Start 12/04/18 at 11:30; Stop 12/04/18 at 16:29; Status DC Nitroglycerin (Nitrostat) 0.4 mg PRN Q5MIN PRN SL CHEST PAIN; Start 12/04/18 at 11:30 Lactobacillus Rhamnosus (Culturelle) 1 cap BID PO Last administered on at 09:13; Start 12/04/18 at 13:00 Warfarin Sodium (Coumadin) 2.5 mg 1X WARF ONCE PO Last administered on at 17:30; Start 12/04/18 at 16:00; Stop 12/04/18 at 16:01; Status DC Albuterol Sulfate (Ventolin Neb Soln) 2.5 mg PRN Q6HRS PRN NEB SHORTNESS OF BREATH Last administered on 12/06/18at 20:08; Start 12/05/18 at 10:30 Warfarin Sodium (Coumadin) 4 mg 1X WARF ONCE PO Last administered on 12/05/18at 18:03; Start 12/05/18 at 16:00; Stop 12/05/18 at 16:01; Status DC Furosemide (Lasix) 40 mg 1X ONCE IVP Last administered on 12/05/18at 14:01; Start 12/05/18 at 13:30; Stop 12/05/18 at 13:31; Status DC Warfarin Sodium (Coumadin) 3 mg 1X WARF ONCE PO Last administered on 12/06/18at 18:45; Start 12/06/18 at 16:00; Stop 12/06/18 at 16:01; Status DC Furosemide (Lasix) 40 mg DAILY IVP Last administered on 12/07/18at 10:52; Start 12/06/18 at 13:30 Metoprolol Tartrate (Lopressor) 12.5 mg BID PO Last administered on 12/07/18at 10 :24; Start 12/06/18 at 21:00; Stop 12/07/18 at 11:24; Status DC Vancomycin HCl (Vancomycin Random Level) 1 each 1X ONCE MC ; Start 12/07/18 at 06:00; Stop 12/07/18 at 06:00; Status DC Furosemide (Lasix) 40 mg 1X ONCE IVP Last administered on 12/06/18at 20:32; Start 12/06/18 at 20:15; Stop 12/06/18 at 20:16; Status DC Milrinone Lactate/ Dextrose 100 ml @ 2.9 mls/hr CONT PRN IV SEE I/O RECORD Last administered on 12/09/18at 00:13; Start 12/06/18 at 20:00 Warfarin Sodium (Coumadin) 2.5 mg 1X WARF ONCE PO ; Start 12/07/18 at 16:00; Stop 12/07/18 at 16:00; Status DC Metolazone (Zaroxolyn) 5 mg DAILY PO Last administered on 12/08/18at 09:18; Start 12/07/18 at 11:30 Furosemide (Lasix) 40 mg 1X ONCE IVP Last administered on 12/07/18at 11:33; Start 12/07/18 at 11:30; Stop 12/07/18 at 11:31; Status DC Piperacillin Sod/ Tazobactam Sod (Zosyn Per Pharmacy) 1 each PRN DAILY PRN MC SEE COMMENTS; Start 12/08/18 at 09:30 Piperacillin Sod/ Tazobactam Sod 3.375 gm/Sodium Chloride 50 ml @ 100 mls/hr Q6HRS IV Last administered on 12/09/18at 06:06; Start 12/08/18 at 10:00 Active Scripts Active Flomax (Tamsulosin Hcl) 0.4 Mg Cap.er.24h 0.4 Mg PO DAILY 30 Days Reported Amox Tr-K Clv 500-125 Mg Tab (Amoxicillin/Potassium Clav) 1 Each Tablet 1 Tab PO BID 3 Days Warfarin Sodium 2.5 Mg Tablet 2.5 Mg PO SUN,SUN,,SAT,SUN Warfarin Sodium 5 Mg Tablet 5 Mg PO SUNDAY AND SUNDAY Simvastatin 10 Mg Tablet 1 Tab PO QHS Midodrine Hcl 5 Mg Tablet 5 Mg PO TID Melatonin 3 Mg Tablet 5 Mg PO HS PRN Ex-Lax Maximum Relief (Sennosides) 25 Mg Tablet 50 Mg PO DAILY Docusate Sodium 100 Mg Capsule 1 Cap PO BID PRN Aspirin Ec (Aspirin) 81 Mg Tablet. 1 Tab PO DAILY Amiodarone Hcl 200 Mg Tablet 1 Tab PO DAILY Vitals/I & O Vital Sign - Last 24 Hours 12/08/18 12/08/18 12/08/18 12/08/18 11:15 12:33 15:00 17:49 Temp 97.8 97.6 97.8 97.6 Pulse 94 94 93 96 Resp 28 24 B/P (MAP) 105/57 (73) 87/56 92/51 (65) 95/55 Pulse Ox 96 97 O2 Delivery Nasal Cannula Nasal Cannula O2 Flow Rate 2.5 2.0 12/08/18 12/08/18 12/08/18 12/09/18 19:00 20:00 23:00 03:00 Temp 98.1 97.5 98.1 98.1 97.5 98.1 Pulse 96 91 96 Resp 22 22 20 B/P (MAP) 97/62 (74) 99/63 (75) 96/70 (79) Pulse Ox 100 98 97 O2 Delivery Nasal Cannula Nasal Cannula Nasal Cannula Nasal Cannula O2 Flow Rate 3.0 3.0 3.0 3.0 12/09/18 12/09/18 12/09/18 12/09/18 06:07 07:00 08:30 09:00 Temp 97.9 97.9 Pulse 99 91 84 Resp 20 B/P (MAP) 97/58 101/63 (76) 97/60 Pulse Ox 96 O2 Delivery Room Air Nasal Cannula O2 Flow Rate 3.0 Intake and Output 12/08/18 12/08/18 12/09/18 14:59 22:59 06:59 Intake Total 50 ml 764.16 ml 150 ml Output Total 550 ml 650 ml Balance 50 ml 214.16 ml -500 ml CLAU BUSCH MD Dec 09, 2018 10:59
[2018-12-09 11:00] VITALS: BP 110/64
--- NOTE | 2018-12-09 11:11 | PDOC ---
Renal-Progress Notes Subjective Notes Notes NONE, SOME CONFUSION History of Present Illness Hx of present illness WEAK Vitals Vitals Vital Signs Date Time Temp Pulse Resp B/P (MAP) Pulse Ox O2 Delivery O2 Flow Rate FiO2 12/09/18 09:00 84 97/60 12/09/18 08:30 Nasal Cannula 3.0 12/09/18 07:00 97.9 20 96 97.9 Weight Weight [ ] I.O. Intake and Output Intake and Output 12/09/18 06:59 Intake Total 964.16 ml Output Total 1200 ml Balance -235.84 ml Intake Oral 830 ml IV Total 134.16 ml Output Urine Total 1200 ml Labs Labs Laboratory Tests Test 12/09/18 03:58 White Blood Count 8.1 x10^3/uL (4.0-11.0) Red Blood Count 3.33 x10^6/uL (4.30-5.70) Hemoglobin 10.6 g/dL (13.0-17.5) Hematocrit 31.3 % (39.0-53.0) Mean Corpuscular Volume 94 fL (79-100) Mean Corpuscular Hemoglobin 32 pg (25-35) Mean Corpuscular Hemoglobin Concent 34 g/dL (31-37) Red Cell Distribution Width 14.2 % (11.5-14.5) Platelet Count 325 x10^3/uL (140-400) Neutrophils (%) (Auto) 80 % (31-73) Lymphocytes (%) (Auto) 9 % (24-48) Monocytes (%) (Auto) 11 % (0-9) Eosinophils (%) (Auto) 1 % (0-3) Basophils (%) (Auto) 0 % (0-3) Neutrophils # (Auto) 6.5 x10^3uL (1.8-7.7) Lymphocytes # (Auto) 0.7 x10^3/uL (1.0-4.8) Monocytes # (Auto) 0.9 x10^3/uL (0.0-1.1) Eosinophils # (Auto) 0.0 x10^3/uL (0.0-0.7) Basophils # (Auto) 0.0 x10^3/uL (0.0-0.2) Prothrombin Time 25.2 SEC (11.7-14.0) Prothromb Time International Ratio 2.3 (0.8-1.1) Sodium Level 128 mmol/L (136-145) Potassium Level 3.7 mmol/L (3.5-5.1) Chloride Level 88 mmol/L (98-107) Carbon Dioxide Level 36 mmol/L (21-32) Anion Gap 4 (6-14) Blood Urea Nitrogen 26 mg/dL (8-26) Creatinine 1.2 mg/dL (0.7-1.3) Estimated GFR (Cockcroft-Gault) 57.4 BUN/Creatinine Ratio 22 (6-20) Glucose Level 105 mg/dL (70-99) Calcium Level 8.0 mg/dL (8.5-10.1) Phosphorus Level 1.9 mg/dL (2.6-4.7) Total Bilirubin 0.5 mg/dL (0.2-1.0) Aspartate Amino Transf (AST/SGOT) 85 U/L (15-37) Alanine Aminotransferase (ALT/SGPT) 96 U/L (16-63) Alkaline Phosphatase 96 U/L (46-116) Total Protein 5.6 g/dL (6.4-8.2) Albumin 1.9 g/dL (3.4-5.0) Albumin/Globulin Ratio 0.5 (1.0-1.7) Micro Micro Microbiology 12/02/18 Blood Culture - Final, Complete NO GROWTH AFTER 5 DAYS 12/02/18 Urine Culture - Final, Complete 12/02/18 Urine Culture Result 1 (JULIETTE) - Final, Complete Review of Systems Constitutional: yes: alert, oriented Ears/Nose/Throat: Yes: no symptom reported Eyes: Yes: no symptom reported Pulmonary: Yes no symptom reported Cardiovascular: Yes no symptom reported Gastrointestional: Yes: constipation Genitourinary: Yes: no symptom reported Musculoskeletal: Yes: muscle stiffness Skin: Yes no symptom reported Psychiatric/Neurological: Yes: confusion Endocrine: Yes: no symptom reported Physical Exam General Appearance: no apparent distress Respiratory: decreased breath sounds Abdomen: soft, bowel sounds present Genitourinary: bladder flat Extremities: pulses present Neurology: alert, follow commands Assessment Assessment IMP ESTEFANI-BETTER WITH CR DOWN TO 1.2 HYPONATREMIA-LOW AT 128 BUT STABLE-MAY ALWAYS BE LOW END STAGE HF ACUTE ON CHRONIC SYSTOLIC CHF URINARY RETENTION PLAN CONT DIURETICS POOR PROGNOSIS WILL FOLLOW IRENE ALONZO MD Dec 09, 2018 11:11
--- NOTE | 2018-12-09 12:06 | NUR ---
SS following up with discharge planning. PT/OT recommended fci unit. Pt's RN reported that pt is not able to participate in PT/OT at this time due to medical instability. Pt continues on Milrinone drip. Hospice recommended by physicians. SS met with palliative care RN and was asked to wait to discuss fci unit with family until hospice has been discussed.
--- NOTE | 2018-12-09 12:37 | NUR ---
SS following for discharge planning. Palliative Care RN met with SS and reported that she met with pt and family have decided to discharge to home with hospice on 12/10/2018. Pt's family requesting [facility] at discharge. SS contacted Navin at [facility] and notified. SS phoned and faxed referral to [facility]. Physician notified as well. SS will await [facility] to make arrangements with pt's family and will proceed accordingly.
--- NOTE | 2018-12-09 13:03 | PDOC2 ---
PALLIATIVE CARE Palliative Care Note Palliative Care Patient alert. Denies pain. SOB unchanged. Met with patient ([facility])--difficult to know if hearing is issue or unable to follow conversation --cognitive. Patient/DPBERNADETTE Mckeon and his Bettina, brother Gideon and his . Review of medical condition by Dr. Downing prior to meeting. Discussed hospice support. Family would like [facility] information. Understand that comfort care is most appropriate option. Discussed Code Status; Son requests DNR/DNI. Understand without this attempt he likely would . Discussed AICD. Family request deactivation of AICD--- will continue with pacemaker. Outside the Hospital DNR/DNI form signed. Copy of AD placed or record. Spoke with Jordyn BRAGG who will assist with discharge plan. DME; BSC, Bedside table, oxygen. MEL CALABRESE Dec 09, 2018 13:03
--- NOTE | 2018-12-09 13:16 | PDOC ---
CARDIO Progress Notes Date and Time Date of Service 12/09/18 Time of Evaluation 1250 Subjective Subjective: No Chest Pain, Other (mild dyspena, fells worn out.) Vitals Vitals Vital Signs Date Time Temp Pulse Resp B/P (MAP) Pulse Ox O2 Delivery O2 Flow Rate FiO2 12/09/18 11:00 98.0 98 18 110/64 (79) 97 Room Air 98.0 12/09/18 08:30 3.0 Weight Weight [ ] Input and Output Intake and Output Intake and Output 12/09/18 07:00 Intake Total 964.16 ml Output Total 1200 ml Balance -235.84 ml Intake Oral 830 ml IV Total 134.16 ml Output Urine Total 1200 ml Laboratory Labs Laboratory Tests Test 12/09/18 03:58 White Blood Count 8.1 x10^3/uL (4.0-11.0) Red Blood Count 3.33 x10^6/uL (4.30-5.70) Hemoglobin 10.6 g/dL (13.0-17.5) Hematocrit 31.3 % (39.0-53.0) Mean Corpuscular Volume 94 fL (79-100) Mean Corpuscular Hemoglobin 32 pg (25-35) Mean Corpuscular Hemoglobin Concent 34 g/dL (31-37) Red Cell Distribution Width 14.2 % (11.5-14.5) Platelet Count 325 x10^3/uL (140-400) Neutrophils (%) (Auto) 80 % (31-73) Lymphocytes (%) (Auto) 9 % (24-48) Monocytes (%) (Auto) 11 % (0-9) Eosinophils (%) (Auto) 1 % (0-3) Basophils (%) (Auto) 0 % (0-3) Neutrophils # (Auto) 6.5 x10^3uL (1.8-7.7) Lymphocytes # (Auto) 0.7 x10^3/uL (1.0-4.8) Monocytes # (Auto) 0.9 x10^3/uL (0.0-1.1) Eosinophils # (Auto) 0.0 x10^3/uL (0.0-0.7) Basophils # (Auto) 0.0 x10^3/uL (0.0-0.2) Prothrombin Time 25.2 SEC (11.7-14.0) Prothromb Time International Ratio 2.3 (0.8-1.1) Sodium Level 128 mmol/L (136-145) Potassium Level 3.7 mmol/L (3.5-5.1) Chloride Level 88 mmol/L (98-107) Carbon Dioxide Level 36 mmol/L (21-32) Anion Gap 4 (6-14) Blood Urea Nitrogen 26 mg/dL (8-26) Creatinine 1.2 mg/dL (0.7-1.3) Estimated GFR (Cockcroft-Gault) 57.4 BUN/Creatinine Ratio 22 (6-20) Glucose Level 105 mg/dL (70-99) Calcium Level 8.0 mg/dL (8.5-10.1) Phosphorus Level 1.9 mg/dL (2.6-4.7) Total Bilirubin 0.5 mg/dL (0.2-1.0) Aspartate Amino Transf (AST/SGOT) 85 U/L (15-37) Alanine Aminotransferase (ALT/SGPT) 96 U/L (16-63) Alkaline Phosphatase 96 U/L (46-116) Total Protein 5.6 g/dL (6.4-8.2) Albumin 1.9 g/dL (3.4-5.0) Albumin/Globulin Ratio 0.5 (1.0-1.7) Microbiology Micro Microbiology 12/02/18 Blood Culture - Final, Complete NO GROWTH AFTER 5 DAYS 12/02/18 Urine Culture - Final, Complete 12/02/18 Urine Culture Result 1 (JULIETTE) - Final, Complete Review of Systems Constitutional: yes: alert, oriented Ears/Nose/Throat: Yes: no symptom reported Eyes: Yes: no symptom reported Pulmonary: Yes no symptom reported Cardiovascular: Yes no symptom reported Gastrointestional: Yes: constipation Genitourinary: Yes: no symptom reported Musculoskeletal: Yes: muscle stiffness Skin: Yes no symptom reported Psychiatric/Neurological: Yes: confusion Endocrine: Yes: no symptom reported Physical Exam HEENT: Neck Supple W Full Motion Chest: Symmetric LUNGS: Other (diminished bases) Heart: irregularly irregular (AFIB) Abdomen: Soft N/T Extremities: No Calf Tenderness Neurology: alert, follow commands Assessment Assessment 1. 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 prognosis poor. Would like comfort care/Hospice, which is appropriate. 2. 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 Permanent AFIB; rate controlled 4. CAD 6. Hypotension; marginal on midodrine Recommendations Titrate off milrinone Will have Medtronic deactivate defibrillator per patient/family request Supportive care STEPHIE GARZON APRN Dec 09, 2018 13:16
[2018-12-09 15:00] VITALS: BP 94/52
--- NOTE | 2018-12-09 15:56 | NUR ---
SS following up with discharge planning. [facility] met with family and arranged equipment delivery. Pt will discharge to home with [facility], ; fax [phone], tomorrow, 12/10/2018, at 1300, via [facility] ambulance. Packet and ambulance form on chart. Pt's RN and physician notified. SS will fax discharge orders once received.
[2018-12-09 19:00] VITALS: BP 96/62
[2018-12-09] MEDS: SIMVASTATIN 10 MG TABLET PO SCH (21:14)
[2018-12-09 23:00] VITALS: BP 101/76
[2018-12-10 03:30] VITALS: BP 119/69
[2018-12-10 04:20] LABS: BASO % 0 % (0-3); EOS # 0.1 x10^3/uL (0.0-0.7); EOS % 2 % (0-3); HEMOGLOBIN 11.1 g/dL (13.0-17.5); LYMPH # 0.9 x10^3/uL (1.0-4.8); LYMPH % 12 % (24-48); MEAN CORPUSCULAR HEMOGLOBIN 32 pg (25-35); MEAN CORPUSCULAR HGB CONC 34 g/dL (31-37); MEAN CORPUSCULAR VOLUME 94 fL (79-100); MONO # 0.9 x10^3/uL (0.0-1.1); MONO % 12 % (0-9); NEUT # 5.6 x10^3uL (1.8-7.7); NEUT % 74 % (31-73); PLATELET COUNT 327 x10^3/uL (140-400); RED BLOOD COUNT 3.51 x10^6/uL (4.30-5.70); RED CELL DISTRIBUTION WIDTH 14.6 % (11.5-14.5); WHITE BLOOD COUNT 7.6 x10^3/uL (4.0-11.0)
[2018-12-10 04:30] LABS: PROTHROMBIN TIME PATIENT 22.6 SEC (11.7-14.0)
[2018-12-10 04:42] LABS: ALBUMIN 2.1 g/dL (3.4-5.0); ALBUMIN/GLOBULIN RATIO 0.5 (1.0-1.7); CALCIUM 8.3 mg/dL (8.5-10.1); CREATININE 1.1 mg/dL (0.7-1.3); GFR 63.5; MAGNESIUM 1.6 mg/dL (1.8-2.4); PHOSPHORUS 2.4 mg/dL (2.6-4.7); TOTAL BILIRUBIN 0.5 mg/dL (0.2-1.0)
[2018-12-10] MEDS: PIPERACILLIN/TAZOBACTAM 3.375 GM in IV NORMAL SALINE 50ML 50 ML IV SCH ×4 (06:00→12:00)
[2018-12-10 07:00] VITALS: BP 106/68
[2018-12-10] MEDS: ASPIRIN ENTERIC COATED 81 MG TABLET.DR. PO SCH (08:29)
[2018-12-10] MEDS: metOLazone 2.5 MG TABLET PO SCH (08:29)
[2018-12-10] MEDS: MIDODRINE 5 MG TABLET PO SCH ×2 (08:30→12:49)
[2018-12-10] MEDS: LACTOBACILLUS RHAMNOSUS GG 1 CAPSULE. PO SCH (08:30)
[2018-12-10] MEDS: FUROSEMIDE 40 MG/4 ML VIAL. IVP SCH (08:30)
[2018-12-10] MEDS: DOCUSATE SODIUM 100 MG CAPSULE. PO PRN (08:30)
[2018-12-10] MEDS: AMIODARONE HCL 200 MG TABLET. PO SCH (08:30)
[2018-12-10] MEDS: TAMSULOSIN 0.4 MG CAP.ER.24H. PO SCH (08:30)
--- NOTE | 2018-12-10 08:45 | PDOC ---
DAVID MARTINEZ [employer] 12/10/18 0845: SUBJECTIVE Subjective Patient doing OK today. Catheter not bothering him. He is anticipating leaving today and is OK with it. OBJECTIVE Objective Physical Exam: General appearance: Alert and Oriented Head: Normocephalic, without obvious abnormality Eyes: conjunctivae/corneas clear. PERRL, EOM's intact. Fundi benign Lungs: Regular respirations, non labored breathing Abdomen: soft, non-tender. No masses, no organomegaly Pelvic: circ phallus with Maloney catheter draining clear yellow urine. Device in good working order. Vital Signs Vital Signs Date Time Temp Pulse Resp B/P (MAP) Pulse Ox O2 Delivery O2 Flow Rate FiO2 12/10/18 08:30 94 106/68 12/10/18 08:30 94 106/68 12/10/18 07:00 98.2 94 20 106/68 (81) 97 Nasal Cannula 3.0 98.2 12/10/18 03:30 97.7 82 22 119/69 (86) 96 Nasal Cannula 3.0 97.7 12/09/18 23:00 97.5 87 22 101/76 (84) 98 Nasal Cannula 3.0 97.5 12/09/18 20:00 Nasal Cannula 3.0 12/09/18 19:00 97.4 87 22 96/62 (73) 95 Nasal Cannula 3.0 97.4 12/09/18 17:52 89 101/61 12/09/18 15:00 98.2 98 18 94/52 (66) 96 Room Air 98.2 12/09/18 13:19 94 80/59 12/09/18 11:00 98.0 98 18 110/64 (79) 97 Room Air 98.0 12/09/18 09:00 84 97/60 I & O Intake and Output 12/10/18 07:00 Intake Total 550 ml Output Total 450 ml Balance 100 ml Intake Oral 500 ml IV Total 50 ml Output Urine Total 450 ml PHYSICAL EXAM Physical Exam Physical Exam: General appearance: Alert and Oriented Head: Normocephalic, without obvious abnormality Eyes: conjunctivae/corneas clear. PERRL, EOM's intact. Fundi benign Lungs: Regular respirations, non labored breathing Abdomen: soft, non-tender. No masses, no organomegaly Pelvic: circ phallus with Maloney catheter draining clear yellow urine. Device in good working order. ASSESSMENT/PLAN Assessment/Plan An appointment has been secured with Dr. Sandoval of [facility] [place] on 01/09/19 at 1130 am for a catheter change/physician visit. Appointment card taped to front of chart and discussed with nurse Talia stopped, as patient is likely catheter dependent. Ok to discharge home/to facility as long as he discharges with maloney catheter in place. Nursing to provide additional catheter supplies as needed/requested prior to discharge. Will sign off at this time, but please call with questions or changes in patient condition. Problems: (1) Maloney catheter in place COMMENT Lab Laboratory Tests Test 12/10/18 03:35 White Blood Count 7.6 x10^3/uL (4.0-11.0) Red Blood Count 3.51 x10^6/uL (4.30-5.70) Hemoglobin 11.1 g/dL (13.0-17.5) Hematocrit 33.0 % (39.0-53.0) Mean Corpuscular Volume 94 fL (79-100) Mean Corpuscular Hemoglobin 32 pg (25-35) Mean Corpuscular Hemoglobin Concent 34 g/dL (31-37) Red Cell Distribution Width 14.6 % (11.5-14.5) Platelet Count 327 x10^3/uL (140-400) Neutrophils (%) (Auto) 74 % (31-73) Lymphocytes (%) (Auto) 12 % (24-48) Monocytes (%) (Auto) 12 % (0-9) Eosinophils (%) (Auto) 2 % (0-3) Basophils (%) (Auto) 0 % (0-3) Neutrophils # (Auto) 5.6 x10^3uL (1.8-7.7) Lymphocytes # (Auto) 0.9 x10^3/uL (1.0-4.8) Monocytes # (Auto) 0.9 x10^3/uL (0.0-1.1) Eosinophils # (Auto) 0.1 x10^3/uL (0.0-0.7) Basophils # (Auto) 0.0 x10^3/uL (0.0-0.2) Prothrombin Time 22.6 SEC (11.7-14.0) Prothromb Time International Ratio 2.0 (0.8-1.1) Sodium Level 128 mmol/L (136-145) Potassium Level 4.0 mmol/L (3.5-5.1) Chloride Level 88 mmol/L (98-107) Carbon Dioxide Level 37 mmol/L (21-32) Anion Gap 3 (6-14) Blood Urea Nitrogen 22 mg/dL (8-26) Creatinine 1.1 mg/dL (0.7-1.3) Estimated GFR (Cockcroft-Gault) 63.5 BUN/Creatinine Ratio 20 (6-20) Glucose Level 101 mg/dL (70-99) Calcium Level 8.3 mg/dL (8.5-10.1) Phosphorus Level 2.4 mg/dL (2.6-4.7) Magnesium Level 1.6 mg/dL (1.8-2.4) Total Bilirubin 0.5 mg/dL (0.2-1.0) Aspartate Amino Transf (AST/SGOT) 84 U/L (15-37) Alanine Aminotransferase (ALT/SGPT) 107 U/L (16-63) Alkaline Phosphatase 97 U/L (46-116) Total Protein 6.0 g/dL (6.4-8.2) Albumin 2.1 g/dL (3.4-5.0) Albumin/Globulin Ratio 0.5 (1.0-1.7) ZANDER SANDOVAL MD 12/10/18 3656: ASSESSMENT/PLAN Assessment/Plan Agree with assessment and plan. DAVID MARTINEZ APRN Dec 10, 2018 08:45 ZANDER SANDOVAL MD Dec 10, 2018 23:01
[2018-12-10] MEDS: ALBUTEROL SULFATE 2.5 MG/3 ML NEBU. NEB PRN (10:15)
--- NOTE | 2018-12-10 10:22 | PDOC ---
PROGRESS NOTES Chief Complaint Chief Complaint Acute on chronic systolic/diastolic heart failure Meets SIRS criteria, possible sepsis (CXR on 12/05 showed pulmonary infiltrates) Hypotensive Hyponatremia Hypoxemia Anemia UTI - treated, Ucx negative Metabolic encephalopathy Elevated D-dimer POOR PROGNOSIS, DISCUSSED PALLIATIVE CARE/ HOSPICE/ AGREES NICM s/p BiV ICD with acute on chronic systolic HF and decompensation - End stage CHF FOCUS ON PALLIATION OF DISEASE [place]. Gutierrez [place] [facility] [place] at 1130 am for a catheter change History of Present Illness History of Present Illness Mr. Frederick presented with shortness of breath and hyponatremia, was found to be in heart failure, BNP > 9000. Patient RR elevated, HR > 90, SBP 82-108, meets SIRS criteria. Patient is more confused today and mildly short of breath. +Bryant in place Discussed with RN, patient did not receive lasix this am due to low blood pressure Cardiology and Nephrology following. Palliative care INTAKE, D/C TODAY. Vitals Vitals Vital Signs Date Time Temp Pulse Resp B/P (MAP) Pulse Ox O2 Delivery O2 Flow Rate FiO2 12/10/18 10:17 97 Nasal Cannula 2.0 12/10/18 08:30 94 106/68 12/10/18 07:00 98.2 20 98.2 Physical Exam General: Alert, Oriented X3, Cooperative, No acute distress (mild shortness of breath), mild distress Heart: Regular rate, No murmurs, Other (irregular rhythm) Lungs: Wheezing, Other (rhonchi bilateral NO DISTRESS) Abdomen: Normal bowel sounds, Soft, No tenderness Extremities: No clubbing, No cyanosis, No edema Skin: No rashes, No significant lesion Labs LABS Laboratory Tests Test 12/10/18 03:35 White Blood Count 7.6 x10^3/uL (4.0-11.0) Red Blood Count 3.51 x10^6/uL (4.30-5.70) Hemoglobin 11.1 g/dL (13.0-17.5) Hematocrit 33.0 % (39.0-53.0) Mean Corpuscular Volume 94 fL (79-100) Mean Corpuscular Hemoglobin 32 pg (25-35) Mean Corpuscular Hemoglobin Concent 34 g/dL (31-37) Red Cell Distribution Width 14.6 % (11.5-14.5) Platelet Count 327 x10^3/uL (140-400) Neutrophils (%) (Auto) 74 % (31-73) Lymphocytes (%) (Auto) 12 % (24-48) Monocytes (%) (Auto) 12 % (0-9) Eosinophils (%) (Auto) 2 % (0-3) Basophils (%) (Auto) 0 % (0-3) Neutrophils # (Auto) 5.6 x10^3uL (1.8-7.7) Lymphocytes # (Auto) 0.9 x10^3/uL (1.0-4.8) Monocytes # (Auto) 0.9 x10^3/uL (0.0-1.1) Eosinophils # (Auto) 0.1 x10^3/uL (0.0-0.7) Basophils # (Auto) 0.0 x10^3/uL (0.0-0.2) Prothrombin Time 22.6 SEC (11.7-14.0) Prothromb Time International Ratio 2.0 (0.8-1.1) Sodium Level 128 mmol/L (136-145) Potassium Level 4.0 mmol/L (3.5-5.1) Chloride Level 88 mmol/L (98-107) Carbon Dioxide Level 37 mmol/L (21-32) Anion Gap 3 (6-14) Blood Urea Nitrogen 22 mg/dL (8-26) Creatinine 1.1 mg/dL (0.7-1.3) Estimated GFR (Cockcroft-Gault) 63.5 BUN/Creatinine Ratio 20 (6-20) Glucose Level 101 mg/dL (70-99) Calcium Level 8.3 mg/dL (8.5-10.1) Phosphorus Level 2.4 mg/dL (2.6-4.7) Magnesium Level 1.6 mg/dL (1.8-2.4) Total Bilirubin 0.5 mg/dL (0.2-1.0) Aspartate Amino Transf (AST/SGOT) 84 U/L (15-37) Alanine Aminotransferase (ALT/SGPT) 107 U/L (16-63) Alkaline Phosphatase 97 U/L (46-116) Total Protein 6.0 g/dL (6.4-8.2) Albumin 2.1 g/dL (3.4-5.0) Albumin/Globulin Ratio 0.5 (1.0-1.7) Assessment and Plan Assessmemt and Plan Problems Medical Problems: (1) CHF (congestive heart failure) Status: Acute (2) Generalized weakness Status: Acute (3) Sepsis Status: Acute Comment Review of Relevant I have reviewed the following items [email or web address] (where applicable) has been applied. Labs Laboratory Tests Test 12/09/18 03:58 12/10/18 03:35 White Blood Count 8.1 x10^3/uL (4.0-11.0) 7.6 x10^3/uL (4.0-11.0) Red Blood Count 3.33 x10^6/uL (4.30-5.70) 3.51 x10^6/uL (4.30-5.70) Hemoglobin 10.6 g/dL (13.0-17.5) 11.1 g/dL (13.0-17.5) Hematocrit 31.3 % (39.0-53.0) 33.0 % (39.0-53.0) Mean Corpuscular Volume 94 fL (79-100) 94 fL (79-100) Mean Corpuscular Hemoglobin 32 pg (25-35) 32 pg (25-35) Mean Corpuscular Hemoglobin Concent 34 g/dL (31-37) 34 g/dL (31-37) Red Cell Distribution Width 14.2 % (11.5-14.5) 14.6 % (11.5-14.5) Platelet Count 325 x10^3/uL (140-400) 327 x10^3/uL (140-400) Neutrophils (%) (Auto) 80 % (31-73) 74 % (31-73) Lymphocytes (%) (Auto) 9 % (24-48) 12 % (24-48) Monocytes (%) (Auto) 11 % (0-9) 12 % (0-9) Eosinophils (%) (Auto) 1 % (0-3) 2 % (0-3) Basophils (%) (Auto) 0 % (0-3) 0 % (0-3) Neutrophils # (Auto) 6.5 x10^3uL (1.8-7.7) 5.6 x10^3uL (1.8-7.7) Lymphocytes # (Auto) 0.7 x10^3/uL (1.0-4.8) 0.9 x10^3/uL (1.0-4.8) Monocytes # (Auto) 0.9 x10^3/uL (0.0-1.1) 0.9 x10^3/uL (0.0-1.1) Eosinophils # (Auto) 0.0 x10^3/uL (0.0-0.7) 0.1 x10^3/uL (0.0-0.7) Basophils # (Auto) 0.0 x10^3/uL (0.0-0.2) 0.0 x10^3/uL (0.0-0.2) Prothrombin Time 25.2 SEC (11.7-14.0) 22.6 SEC (11.7-14.0) Prothromb Time International Ratio 2.3 (0.8-1.1) 2.0 (0.8-1.1) Sodium Level 128 mmol/L (136-145) 128 mmol/L (136-145) Potassium Level 3.7 mmol/L (3.5-5.1) 4.0 mmol/L (3.5-5.1) Chloride Level 88 mmol/L (98-107) 88 mmol/L (98-107) Carbon Dioxide Level 36 mmol/L (21-32) 37 mmol/L (21-32) Anion Gap 4 (6-14) 3 (6-14) Blood Urea Nitrogen 26 mg/dL (8-26) 22 mg/dL (8-26) Creatinine 1.2 mg/dL (0.7-1.3) 1.1 mg/dL (0.7-1.3) Estimated GFR (Cockcroft-Gault) 57.4 63.5 BUN/Creatinine Ratio 22 (6-20) 20 (6-20) Glucose Level 105 mg/dL (70-99) 101 mg/dL (70-99) Calcium Level 8.0 mg/dL (8.5-10.1) 8.3 mg/dL (8.5-10.1) Phosphorus Level 1.9 mg/dL (2.6-4.7) 2.4 mg/dL (2.6-4.7) Total Bilirubin 0.5 mg/dL (0.2-1.0) 0.5 mg/dL (0.2-1.0) Aspartate Amino Transf (AST/SGOT) 85 U/L (15-37) 84 U/L (15-37) Alanine Aminotransferase (ALT/SGPT) 96 U/L (16-63) 107 U/L (16-63) Alkaline Phosphatase 96 U/L (46-116) 97 U/L (46-116) Total Protein 5.6 g/dL (6.4-8.2) 6.0 g/dL (6.4-8.2) Albumin 1.9 g/dL (3.4-5.0) 2.1 g/dL (3.4-5.0) Albumin/Globulin Ratio 0.5 (1.0-1.7) 0.5 (1.0-1.7) Magnesium Level 1.6 mg/dL (1.8-2.4) Laboratory Tests Test 12/10/18 03:35 White Blood Count 7.6 x10^3/uL (4.0-11.0) Red Blood Count 3.51 x10^6/uL (4.30-5.70) Hemoglobin 11.1 g/dL (13.0-17.5) Hematocrit 33.0 % (39.0-53.0) Mean Corpuscular Volume 94 fL (79-100) Mean Corpuscular Hemoglobin 32 pg (25-35) Mean Corpuscular Hemoglobin Concent 34 g/dL (31-37) Red Cell Distribution Width 14.6 % (11.5-14.5) Platelet Count 327 x10^3/uL (140-400) Neutrophils (%) (Auto) 74 % (31-73) Lymphocytes (%) (Auto) 12 % (24-48) Monocytes (%) (Auto) 12 % (0-9) Eosinophils (%) (Auto) 2 % (0-3) Basophils (%) (Auto) 0 % (0-3) Neutrophils # (Auto) 5.6 x10^3uL (1.8-7.7) Lymphocytes # (Auto) 0.9 x10^3/uL (1.0-4.8) Monocytes # (Auto) 0.9 x10^3/uL (0.0-1.1) Eosinophils # (Auto) 0.1 x10^3/uL (0.0-0.7) Basophils # (Auto) 0.0 x10^3/uL (0.0-0.2) Prothrombin Time 22.6 SEC (11.7-14.0) Prothromb Time International Ratio 2.0 (0.8-1.1) Sodium Level 128 mmol/L (136-145) Potassium Level 4.0 mmol/L (3.5-5.1) Chloride Level 88 mmol/L (98-107) Carbon Dioxide Level 37 mmol/L (21-32) Anion Gap 3 (6-14) Blood Urea Nitrogen 22 mg/dL (8-26) Creatinine 1.1 mg/dL (0.7-1.3) Estimated GFR (Cockcroft-Gault) 63.5 BUN/Creatinine Ratio 20 (6-20) Glucose Level 101 mg/dL (70-99) Calcium Level 8.3 mg/dL (8.5-10.1) Phosphorus Level 2.4 mg/dL (2.6-4.7) Magnesium Level 1.6 mg/dL (1.8-2.4) Total Bilirubin 0.5 mg/dL (0.2-1.0) Aspartate Amino Transf (AST/SGOT) 84 U/L (15-37) Alanine Aminotransferase (ALT/SGPT) 107 U/L (16-63) Alkaline Phosphatase 97 U/L (46-116) Total Protein 6.0 g/dL (6.4-8.2) Albumin 2.1 g/dL (3.4-5.0) Albumin/Globulin Ratio 0.5 (1.0-1.7) Microbiology 12/02/18 Blood Culture - Final, Complete NO GROWTH AFTER 5 DAYS 12/02/18 Urine Culture - Final, Complete 12/02/18 Urine Culture Result 1 (JULIETTE) - Final, Complete Medications Current Medications Albuterol/ Ipratropium (Duoneb) 3 ml STK-MED ONCE .ROUTE ; Start 12/02/18 at 11: 21; Stop 12/02/18 at 11:22; Status DC Albuterol/ Ipratropium (Duoneb) 3 ml 1X ONCE NEB Last administered on at 11:40; Start 12/02/18 at 11:30; Stop 12/02/18 at 11:31; Status DC Methylprednisolone Sodium Succinate (SOLU-Medrol 125MG VIAL) 125 mg 1X ONCE IV Last administered on 12/02/18 12:04; Start 12/02/18 at 11:30; Stop 12/02/18 at 11:31; Status DC Sodium Chloride 500 ml @ 50 mls/hr 1X ONCE IV ; Start 12/02/18 at 13:00; Stop 12/02/18 at 13:00; Status DC Sodium Chloride 100 ml @ 30 mls/hr 1X ONCE IV Last administered on 12/02/18 12:47; Start 12/02/18 at 13:00; Stop 12/02/18 at 16:19; Status DC Furosemide (Lasix) 40 mg 1X ONCE IVP Last administered on 12/02/18 12:48; Start 12/02/18 at 13:15; Stop 12/02/18 at 13:16; Status DC Ceftriaxone Sodium (Rocephin) 1 gm 1X ONCE IVP Last administered on 12/02/18 13:32; Start 12/02/18 at 13:00; Stop 12/02/18 at 13:01; Status DC Ceftriaxone Sodium (Rocephin) 1 gm Q24H IVP Last administered on 12/02/18 16:53 ; Start 12/02/18 at 15:00; Stop 12/03/18 at 13:27; Status DC Aspirin (Ecotrin) 81 mg DAILY PO Last administered on 12/10/18 08:29; Start at 12:00 Docusate Sodium (Colace) 100 mg PRN BID PRN PO STOOL SOFTENER Last administered on 12/10/18 08:30; Start 12/03/18 at 11:00 Simvastatin (Zocor) 10 mg QHS PO Last administered on 12/09/18 21:14; Start at 21:00 Tamsulosin HCl (Flomax) 0.4 mg DAILY PO Last administered on 12/10/18 08:30; Start 12/03/18 at 12:00; Stop 12/10/18 at 08:47; Status DC Non-Formulary Medication (Melatonin ) 5 mg HS PRN PO INSOMNIA; Start 12/03/18 at 11:00; Status UNV Amiodarone HCl (Cordarone) 200 mg DAILY PO Last administered on 12/10/18at 08:30 ; Start 12/03/18 at 12:00 Midodrine (Proamatine) 5 mg [id number] PO Last administered on 12/10/18at 08:30; Start 12/03/18 at 13:00 Non-Formulary Medication (Warfarin Sodium ) 5 mg sunday and sunday PO ; Start at 11:00; Status UNV Warfarin Sodium (Coumadin Per Pharmacy) 1 each PRN DAILY PRN MC SEE COMMENTS Last administered on 12/07/18at 10:36; Start 12/03/18 at 11:00; Stop 12/07/18 at 11: 24; Status DC Trimethoprim/ Sulfamethoxazole (Bactrim Ds) 1 tab BID PO Last administered on at 10:24; Start 12/03/18 at 12:30; Stop 12/07/18 at 11:35; Status DC Warfarin Sodium (Coumadin) 2.5 mg 1X WARF ONCE PO ; Start 12/03/18 at 16:00; Stop 12/03/18 at 16:01; Status DC Iodixanol (Visipaque 320) 100 ml STK-MED ONCE .ROUTE ; Start 12/04/18 at 09:41; Stop 12/04/18 at 09:42; Status DC Lidocaine HCl (Lidocaine 1% 20ml Vial) 20 ml STK-MED ONCE .ROUTE ; Start at 09:41; Stop 12/04/18 at 09:42; Status DC Heparin Sodium/ Sodium Chloride 500 ml @ As Directed STK-MED ONCE .ROUTE ; Start 12/04/18 at 09:41; Stop 12/04/18 at 09:42; Status DC Heparin Sodium/ Sodium Chloride 500 ml @ As Directed STK-MED ONCE .ROUTE ; Start 12/04/18 at 09:42; Stop 12/04/18 at 09:43; Status DC Fentanyl Citrate (Fentanyl 2ml Vial) 100 mcg STK-MED ONCE .ROUTE ; Start at 10:07; Stop 12/04/18 at 10:08; Status DC Midazolam HCl (Versed) 2 mg STK-MED ONCE .ROUTE ; Start 12/04/18 at 10:07; Stop 12/04/18 at 10:08; Status DC Heparin Sodium (Porcine) (Heparin Sodium) 10,000 unit STK-MED ONCE .ROUTE ; Start 12/04/18 at 10:07; Stop 12/04/18 at 10:08; Status DC Verapamil HCl (Verapamil) 5 mg STK-MED ONCE .ROUTE ; Start 12/04/18 at 10:07; Stop 12/04/18 at 10:08; Status DC Nitroglycerin (Nitroglycerin) 200 mcg STK-MED ONCE .ROUTE ; Start 12/04/18 at 10: 07; Stop 12/04/18 at 10:08; Status DC Nitroglycerin (Nitroglycerin) 200 mcg 1X ONCE IART Last administered on at 10:30; Start 12/04/18 at 10:30; Stop 12/04/18 at 10:31; Status DC Verapamil HCl (Verapamil) 2.5 mg 1X ONCE IART Last administered on 12/04/18at 10 :30; Start 12/04/18 at 10:30; Stop 12/04/18 at 10:31; Status DC Heparin Sodium (Porcine) (Heparin Sodium) 2,500 unit 1X ONCE IART Last administered on 12/04/18at 10:30; Start 12/04/18 at 10:30; Stop 12/04/18 at 10:31; Status DC Heparin Sodium/ Sodium Chloride (HEPARIN for ARTERIAL LINE FLUSH) 1,000 unit 1X ONCE IART Last administered on 12/04/18at 10:30; Start 12/04/18 at 10:30; Stop 12/04/18 at 10:31; Status DC Heparin Sodium/ Sodium Chloride (HEPARIN for ARTERIAL LINE FLUSH) 1,000 unit 1X ONCE IART Last administered on 12/04/18at 10:30; Start 12/04/18 at 10:30; Stop 12/04/18 at 10:31; Status DC Midazolam HCl (Versed) 2 mg 1X ONCE IV Last administered on 12/04/18at 10:30; Start 12/04/18 at 10:30; Stop 12/04/18 at 10:31; Status DC Fentanyl Citrate (Fentanyl 2ml Vial) 100 mcg 1X ONCE IV Last administered on at 10:30; Start 12/04/18 at 10:30; Stop 12/04/18 at 10:31; Status DC Iodixanol (Visipaque 320) 100 ml 1X ONCE IART Last administered on 12/04/18at 10 :30; Start 12/04/18 at 10:30; Stop 12/04/18 at 10:31; Status DC Lidocaine HCl (Lidocaine 1% 20ml Vial) 20 ml 1X ONCE INJ Last administered on 12/04/18at 10:30; Start 12/04/18 at 10:30; Stop 12/04/18 at 10:31; Status DC Info (CONTRAST GIVEN -- Rx MONITORING) 1 each PRN DAILY PRN MC SEE COMMENTS; Start 12/04/18 at 10:30; Stop 12/06/18 at 10:29; Status DC Heparin Sodium (Porcine) (Heparin Sodium) 10,000 unit STK-MED ONCE .ROUTE ; Start 12/04/18 at 11:05; Stop 12/04/18 at 11:06; Status DC Heparin Sodium (Porcine) (Heparin Sodium) 500 unit 1X ONCE IV Last administered on 12/04/18at 11:15; Start 12/04/18 at 11:15; Stop 12/04/18 at 11:16; Status DC Iodixanol (Visipaque 320) 100 ml STK-MED ONCE .ROUTE ; Start 12/04/18 at 11:11; Stop 12/04/18 at 11:13; Status DC Sodium Chloride (Normal Saline Flush) 3 ml QSHIFT PRN IV AFTER MEDS AND BLOOD DRAWS; Start 12/04/18 at 11:30 Sodium Chloride 1,000 ml @ 50 mls/hr Q20H IV Last administered on 12/04/18at 16: 32; Start 12/04/18 at 11:30; Stop 12/04/18 at 16:29; Status DC Nitroglycerin (Nitrostat) 0.4 mg PRN Q5MIN PRN SL CHEST PAIN; Start 12/04/18 at 11:30 Lactobacillus Rhamnosus (Culturelle) 1 cap BID PO Last administered on at 08:30; Start 12/04/18 at 13:00 Warfarin Sodium (Coumadin) 2.5 mg 1X WARF ONCE PO Last administered on at 17:30; Start 12/04/18 at 16:00; Stop 12/04/18 at 16:01; Status DC Albuterol Sulfate (Ventolin Neb Soln) 2.5 mg PRN Q6HRS PRN NEB SHORTNESS OF BREATH Last administered on 12/10/18 10:15; Start 12/05/18 at 10:30 Warfarin Sodium (Coumadin) 4 mg 1X WARF ONCE PO Last administered on 12/05/18 18:03; Start 12/05/18 at 16:00; Stop 12/05/18 at 16:01; Status DC Furosemide (Lasix) 40 mg 1X ONCE IVP Last administered on 12/05/18 14:01; Start 12/05/18 at 13:30; Stop 12/05/18 at 13:31; Status DC Warfarin Sodium (Coumadin) 3 mg 1X WARF ONCE PO Last administered on 12/06/18 18:45; Start 12/06/18 at 16:00; Stop 12/06/18 at 16:01; Status DC Furosemide (Lasix) 40 mg DAILY IVP Last administered on 12/07/18 10:52; Start 12/06/18 at 13:30 Metoprolol Tartrate (Lopressor) 12.5 mg BID PO Last administered on 12/07/18 10 :24; Start 12/06/18 at 21:00; Stop 12/07/18 at 11:24; Status DC Vancomycin HCl (Vancomycin Random Level) 1 each 1X ONCE MC ; Start 12/07/18 at 06:00; Stop 12/07/18 at 06:00; Status DC Furosemide (Lasix) 40 mg 1X ONCE IVP Last administered on 12/06/18at 20:32; Start 12/06/18 at 20:15; Stop 12/06/18 at 20:16; Status DC Milrinone Lactate/ Dextrose 100 ml @ 2.9 mls/hr CONT PRN IV SEE I/O RECORD Last administered on 12/09/18at 00:13; Start 12/06/18 at 20:00; Stop 12/09/18 at 13:42; Status DC Warfarin Sodium (Coumadin) 2.5 mg 1X WARF ONCE PO ; Start 12/07/18 at 16:00; Stop 12/07/18 at 16:00; Status DC Metolazone (Zaroxolyn) 5 mg DAILY PO Last administered on 12/10/18at 08:29; Start 12/07/18 at 11:30 Furosemide (Lasix) 40 mg 1X ONCE IVP Last administered on 12/07/18at 11:33; Start 12/07/18 at 11:30; Stop 12/07/18 at 11:31; Status DC Piperacillin Sod/ Tazobactam Sod (Zosyn Per Pharmacy) 1 each PRN DAILY PRN MC SEE COMMENTS; Start 12/08/18 at 09:30 Piperacillin Sod/ Tazobactam Sod 3.375 gm/Sodium Chloride 50 ml @ 100 mls/hr Q6HRS IV Last administered on 12/09/18at 13:19; Start 12/08/18 at 10:00 Active Scripts Active Flomax (Tamsulosin Hcl) 0.4 Mg Cap.er.24h 0.4 Mg PO DAILY 30 Days Reported Amox Tr-K Clv 500-125 Mg Tab (Amoxicillin/Potassium Clav) 1 Each Tablet 1 Tab PO BID 3 Days Warfarin Sodium 2.5 Mg Tablet 2.5 Mg PO SUN,SUN,,SAT,SUN Warfarin Sodium 5 Mg Tablet 5 Mg PO SUNDAY AND SUNDAY Simvastatin 10 Mg Tablet 1 Tab PO QHS Midodrine Hcl 5 Mg Tablet 5 Mg PO TID Melatonin 3 Mg Tablet 5 Mg PO HS PRN Ex-Lax Maximum Relief (Sennosides) 25 Mg Tablet 50 Mg PO DAILY Docusate Sodium 100 Mg Capsule 1 Cap PO BID PRN Aspirin Ec (Aspirin) 81 Mg Tablet. 1 Tab PO DAILY Amiodarone Hcl 200 Mg Tablet 1 Tab PO DAILY Vitals/I & O Vital Sign - Last 24 Hours 12/09/18 12/09/18 12/09/18 12/09/18 11:00 13:19 15:00 17:52 Temp 98.0 98.2 98.0 98.2 Pulse 98 94 98 89 Resp 18 18 B/P (MAP) 110/64 (79) 80/59 94/52 (66) 101/61 Pulse Ox 97 96 O2 Delivery Room Air Room Air 12/09/18 12/09/18 12/09/18 12/10/18 19:00 20:00 23:00 03:30 Temp 97.4 97.5 97.7 97.4 97.5 97.7 Pulse 87 87 82 Resp 22 22 22 B/P (MAP) 96/62 (73) 101/76 (84) 119/69 (86) Pulse Ox 95 98 96 O2 Delivery Nasal Cannula Nasal Cannula Nasal Cannula Nasal Cannula O2 Flow Rate 3.0 3.0 3.0 3.0 12/10/18 12/10/18 12/10/18 12/10/18 07:00 08:30 08:30 08:30 Temp 98.2 98.2 Pulse 94 94 94 Resp 20 B/P (MAP) 106/68 (81) 106/68 106/68 Pulse Ox 97 O2 Delivery Nasal Cannula Nasal Cannula O2 Flow Rate 3.0 3.0 12/10/18 10:17 Pulse Ox 97 O2 Delivery Nasal Cannula O2 Flow Rate 2.0 Intake and Output 12/09/18 12/09/18 12/10/18 14:59 22:59 06:59 Intake Total 330 ml 100 ml 120 ml Output Total 450 ml Balance 330 ml 100 ml -330 ml CLAU BUSCH MD Dec 10, 2018 10:22
--- NOTE | 2018-12-10 10:26 | PDOC3 ---
Discharge Summary Date of Admission: Dec 02, 2018 Date of Discharge: Dec 10, 2018 Follow-Up: 1-2 days Admitting Diagnosis comment: DISCHARGE DX Chief Complaint Acute on chronic systolic/diastolic heart failure Meets SIRS criteria, possible sepsis (CXR on 12/05 showed pulmonary infiltrates) Hypotensive Hyponatremia Hypoxemia Anemia UTI - treated, Ucx negative Metabolic encephalopathy Elevated D-dimer POOR PROGNOSIS, DISCUSSED PALLIATIVE CARE/ HOSPICE/ AGREES NICM s/p BiV ICD with acute on chronic systolic HF and decompensation - End stage CHF FOCUS ON PALLIATION OF DISEASE appointment with Dr. Gutierrez of [facility] [place] on 01/09/19 at 1130 am for a catheter change History of Present Illness History of Present Illness Mr. Frederick presented with shortness of breath and hyponatremia, was found to be in heart failure, BNP > 9000. Patient RR elevated, HR > 90, SBP 82-108, meets SIRS criteria. Patient is more confused today and mildly short of breath. +Bryant in place WILL REMAIN IN PLACE FOR NOW Discussed with RN, Cardiology and Nephrology following. Palliative care INTAKE, D/C TODAY. Vitals Vitals Vital Signs Date Time Temp Pulse Resp B/P (MAP) Pulse Ox O2 Delivery O2 Flow Rate FiO2 12/10/18 10:17 97 Nasal Cannula 2.0 12/10/18 08:30 94 106/68 12/10/18 07:00 98.2 20 98.2 Physical Exam General: Alert, Oriented X3, Cooperative, No acute distress (mild shortness of breath), mild distress Heart: Regular rate, No murmurs, Other (irregular rhythm) Lungs: Wheezing, Other (rhonchi bilateral NO DISTRESS) Abdomen: Normal bowel sounds, Soft, No tenderness Extremities: No clubbing, No cyanosis, No edema Skin: No rashes, No significant lesion FINAL DIAGNOSIS Problems Medical Problems: (1) CHF (congestive heart failure) Status: Acute (2) Generalized weakness Status: Acute (3) Sepsis Status: Acute Brief Hospital Course Mr. Frederick is a 88 old [sex] who presented with [ END STAGE HEART DISEASE] CONDITION AT DISCHARGE: Comment (POOR PROGNOSIS) Discharge Medications Current Medications Albuterol/ Ipratropium (Duoneb) 3 ml STK-MED ONCE .ROUTE ; Start 12/02/18 at 11: 21; Stop 12/02/18 at 11:22; Status DC Albuterol/ Ipratropium (Duoneb) 3 ml 1X ONCE NEB Last administered on 11:40; Start 12/02/18 at 11:30; Stop 12/02/18 at 11:31; Status DC Methylprednisolone Sodium Succinate (SOLU-Medrol 125MG VIAL) 125 mg 1X ONCE IV Last administered on 12/02/18 12:04; Start 12/02/18 at 11:30; Stop 12/02/18 at 11:31; Status DC Sodium Chloride 500 ml @ 50 mls/hr 1X ONCE IV ; Start 12/02/18 at 13:00; Stop 12/02/18 at 13:00; Status DC Sodium Chloride 100 ml @ 30 mls/hr 1X ONCE IV Last administered on 12/02/18 12:47; Start 12/02/18 at 13:00; Stop 12/02/18 at 16:19; Status DC Furosemide (Lasix) 40 mg 1X ONCE IVP Last administered on 12/02/18 12:48; Start 12/02/18 at 13:15; Stop 12/02/18 at 13:16; Status DC Ceftriaxone Sodium (Rocephin) 1 gm 1X ONCE IVP Last administered on 12/02/18 13:32; Start 12/02/18 at 13:00; Stop 12/02/18 at 13:01; Status DC Ceftriaxone Sodium (Rocephin) 1 gm Q24H IVP Last administered on 12/02/18 16:53 ; Start 12/02/18 at 15:00; Stop 12/03/18 at 13:27; Status DC Aspirin (Ecotrin) 81 mg DAILY PO Last administered on 12/10/18 08:29; Start at 12:00 Docusate Sodium (Colace) 100 mg PRN BID PRN PO STOOL SOFTENER Last administered on 12/10/18 08:30; Start 12/03/18 at 11:00 Simvastatin (Zocor) 10 mg QHS PO Last administered on 12/09/18 21:14; Start at 21:00 Tamsulosin HCl (Flomax) 0.4 mg DAILY PO Last administered on 12/10/18 08:30; Start 12/03/18 at 12:00; Stop 12/10/18 at 08:47; Status DC Non-Formulary Medication (Melatonin ) 5 mg HS PRN PO INSOMNIA; Start 12/03/18 at 11:00; Status UNV Amiodarone HCl (Cordarone) 200 mg DAILY PO Last administered on 12/10/18at 08:30 ; Start 12/03/18 at 12:00 Midodrine (Proamatine) 5 mg [id number] PO Last administered on 12/10/18at 08:30; Start 12/03/18 at 13:00 Non-Formulary Medication (Warfarin Sodium ) 5 mg sunday and sunday PO ; Start at 11:00; Status UNV Warfarin Sodium (Coumadin Per Pharmacy) 1 each PRN DAILY PRN MC SEE COMMENTS Last administered on 12/07/18at 10:36; Start 12/03/18 at 11:00; Stop 12/07/18 at 11: 24; Status DC Trimethoprim/ Sulfamethoxazole (Bactrim Ds) 1 tab BID PO Last administered on at 10:24; Start 12/03/18 at 12:30; Stop 12/07/18 at 11:35; Status DC Warfarin Sodium (Coumadin) 2.5 mg 1X WARF ONCE PO ; Start 12/03/18 at 16:00; Stop 12/03/18 at 16:01; Status DC Iodixanol (Visipaque 320) 100 ml STK-MED ONCE .ROUTE ; Start 12/04/18 at 09:41; Stop 12/04/18 at 09:42; Status DC Lidocaine HCl (Lidocaine 1% 20ml Vial) 20 ml STK-MED ONCE .ROUTE ; Start at 09:41; Stop 12/04/18 at 09:42; Status DC Heparin Sodium/ Sodium Chloride 500 ml @ As Directed STK-MED ONCE .ROUTE ; Start 12/04/18 at 09:41; Stop 12/04/18 at 09:42; Status DC Heparin Sodium/ Sodium Chloride 500 ml @ As Directed STK-MED ONCE .ROUTE ; Start 12/04/18 at 09:42; Stop 12/04/18 at 09:43; Status DC Fentanyl Citrate (Fentanyl 2ml Vial) 100 mcg STK-MED ONCE .ROUTE ; Start at 10:07; Stop 12/04/18 at 10:08; Status DC Midazolam HCl (Versed) 2 mg STK-MED ONCE .ROUTE ; Start 12/04/18 at 10:07; Stop 12/04/18 at 10:08; Status DC Heparin Sodium (Porcine) (Heparin Sodium) 10,000 unit STK-MED ONCE .ROUTE ; Start 12/04/18 at 10:07; Stop 12/04/18 at 10:08; Status DC Verapamil HCl (Verapamil) 5 mg STK-MED ONCE .ROUTE ; Start 12/04/18 at 10:07; Stop 12/04/18 at 10:08; Status DC Nitroglycerin (Nitroglycerin) 200 mcg STK-MED ONCE .ROUTE ; Start 12/04/18 at 10: 07; Stop 12/04/18 at 10:08; Status DC Nitroglycerin (Nitroglycerin) 200 mcg 1X ONCE IART Last administered on at 10:30; Start 12/04/18 at 10:30; Stop 12/04/18 at 10:31; Status DC Verapamil HCl (Verapamil) 2.5 mg 1X ONCE IART Last administered on 12/04/18at 10 :30; Start 12/04/18 at 10:30; Stop 12/04/18 at 10:31; Status DC Heparin Sodium (Porcine) (Heparin Sodium) 2,500 unit 1X ONCE IART Last administered on 12/04/18at 10:30; Start 12/04/18 at 10:30; Stop 12/04/18 at 10:31; Status DC Heparin Sodium/ Sodium Chloride (HEPARIN for ARTERIAL LINE FLUSH) 1,000 unit 1X ONCE IART Last administered on 12/04/18at 10:30; Start 12/04/18 at 10:30; Stop 12/04/18 at 10:31; Status DC Heparin Sodium/ Sodium Chloride (HEPARIN for ARTERIAL LINE FLUSH) 1,000 unit 1X ONCE IART Last administered on 12/04/18at 10:30; Start 12/04/18 at 10:30; Stop 12/04/18 at 10:31; Status DC Midazolam HCl (Versed) 2 mg 1X ONCE IV Last administered on 12/04/18at 10:30; Start 12/04/18 at 10:30; Stop 12/04/18 at 10:31; Status DC Fentanyl Citrate (Fentanyl 2ml Vial) 100 mcg 1X ONCE IV Last administered on at 10:30; Start 12/04/18 at 10:30; Stop 12/04/18 at 10:31; Status DC Iodixanol (Visipaque 320) 100 ml 1X ONCE IART Last administered on 12/04/18at 10 :30; Start 12/04/18 at 10:30; Stop 12/04/18 at 10:31; Status DC Lidocaine HCl (Lidocaine 1% 20ml Vial) 20 ml 1X ONCE INJ Last administered on 12/04/18at 10:30; Start 12/04/18 at 10:30; Stop 12/04/18 at 10:31; Status DC Info (CONTRAST GIVEN -- Rx MONITORING) 1 each PRN DAILY PRN MC SEE COMMENTS; Start 12/04/18 at 10:30; Stop 12/06/18 at 10:29; Status DC Heparin Sodium (Porcine) (Heparin Sodium) 10,000 unit STK-MED ONCE .ROUTE ; Start 12/04/18 at 11:05; Stop 12/04/18 at 11:06; Status DC Heparin Sodium (Porcine) (Heparin Sodium) 500 unit 1X ONCE IV Last administered on 12/04/18at 11:15; Start 12/04/18 at 11:15; Stop 12/04/18 at 11:16; Status DC Iodixanol (Visipaque 320) 100 ml STK-MED ONCE .ROUTE ; Start 12/04/18 at 11:11; Stop 12/04/18 at 11:13; Status DC Sodium Chloride (Normal Saline Flush) 3 ml QSHIFT PRN IV AFTER MEDS AND BLOOD DRAWS; Start 12/04/18 at 11:30 Sodium Chloride 1,000 ml @ 50 mls/hr Q20H IV Last administered on 12/04/18at 16: 32; Start 12/04/18 at 11:30; Stop 12/04/18 at 16:29; Status DC Nitroglycerin (Nitrostat) 0.4 mg PRN Q5MIN PRN SL CHEST PAIN; Start 12/04/18 at 11:30 Lactobacillus Rhamnosus (Culturelle) 1 cap BID PO Last administered on at 08:30; Start 12/04/18 at 13:00 Warfarin Sodium (Coumadin) 2.5 mg 1X WARF ONCE PO Last administered on 17:30; Start 12/04/18 at 16:00; Stop 12/04/18 at 16:01; Status DC Albuterol Sulfate (Ventolin Neb Soln) 2.5 mg PRN Q6HRS PRN NEB SHORTNESS OF BREATH Last administered on 12/10/18 10:15; Start 12/05/18 at 10:30 Warfarin Sodium (Coumadin) 4 mg 1X WARF ONCE PO Last administered on 12/05/18 18:03; Start 12/05/18 at 16:00; Stop 12/05/18 at 16:01; Status DC Furosemide (Lasix) 40 mg 1X ONCE IVP Last administered on 12/05/18 14:01; Start 12/05/18 at 13:30; Stop 12/05/18 at 13:31; Status DC Warfarin Sodium (Coumadin) 3 mg 1X WARF ONCE PO Last administered on 12/06/18 18:45; Start 12/06/18 at 16:00; Stop 12/06/18 at 16:01; Status DC Furosemide (Lasix) 40 mg DAILY IVP Last administered on 12/07/18 10:52; Start 12/06/18 at 13:30 Metoprolol Tartrate (Lopressor) 12.5 mg BID PO Last administered on 12/07/18 10 :24; Start 12/06/18 at 21:00; Stop 12/07/18 at 11:24; Status DC Vancomycin HCl (Vancomycin Random Level) 1 each 1X ONCE MC ; Start 12/07/18 at 06:00; Stop 12/07/18 at 06:00; Status DC Furosemide (Lasix) 40 mg 1X ONCE IVP Last administered on 12/06/18at 20:32; Start 12/06/18 at 20:15; Stop 12/06/18 at 20:16; Status DC Milrinone Lactate/ Dextrose 100 ml @ 2.9 mls/hr CONT PRN IV SEE I/O RECORD Last administered on 12/09/18at 00:13; Start 12/06/18 at 20:00; Stop 12/09/18 at 13:42; Status DC Warfarin Sodium (Coumadin) 2.5 mg 1X WARF ONCE PO ; Start 12/07/18 at 16:00; Stop 12/07/18 at 16:00; Status DC Metolazone (Zaroxolyn) 5 mg DAILY PO Last administered on 12/10/18at 08:29; Start 12/07/18 at 11:30 Furosemide (Lasix) 40 mg 1X ONCE IVP Last administered on 12/07/18at 11:33; Start 12/07/18 at 11:30; Stop 12/07/18 at 11:31; Status DC Piperacillin Sod/ Tazobactam Sod (Zosyn Per Pharmacy) 1 each PRN DAILY PRN MC SEE COMMENTS; Start 12/08/18 at 09:30 Piperacillin Sod/ Tazobactam Sod 3.375 gm/Sodium Chloride 50 ml @ 100 mls/hr Q6HRS IV Last administered on 12/09/18at 13:19; Start 12/08/18 at 10:00 Active Scripts Active Flomax (Tamsulosin Hcl) 0.4 Mg Cap.er.24h 0.4 Mg PO DAILY 30 Days Reported Amox Tr-K Clv 500-125 Mg Tab (Amoxicillin/Potassium Clav) 1 Each Tablet 1 Tab PO BID 3 Days Warfarin Sodium 2.5 Mg Tablet 2.5 Mg PO SUN,SUN,,SAT,SUN Warfarin Sodium 5 Mg Tablet 5 Mg PO SUNDAY AND SUNDAY Simvastatin 10 Mg Tablet 1 Tab PO QHS Midodrine Hcl 5 Mg Tablet 5 Mg PO TID Melatonin 3 Mg Tablet 5 Mg PO HS PRN Ex-Lax Maximum Relief (Sennosides) 25 Mg Tablet 50 Mg PO DAILY Docusate Sodium 100 Mg Capsule 1 Cap PO BID PRN Aspirin Ec (Aspirin) 81 Mg Tablet.dr 1 Tab PO DAILY Amiodarone Hcl 200 Mg Tablet 1 Tab PO DAILY Vital Signs Vital Signs Date Time Temp Pulse Resp B/P (MAP) Pulse Ox O2 Delivery O2 Flow Rate FiO2 12/10/18 10:17 97 Nasal Cannula 2.0 12/10/18 08:30 94 106/68 12/10/18 07:00 98.2 20 98.2 Labs Laboratory Tests Test 12/09/18 03:58 12/10/18 03:35 White Blood Count 8.1 x10^3/uL (4.0-11.0) 7.6 x10^3/uL (4.0-11.0) Red Blood Count 3.33 x10^6/uL (4.30-5.70) 3.51 x10^6/uL (4.30-5.70) Hemoglobin 10.6 g/dL (13.0-17.5) 11.1 g/dL (13.0-17.5) Hematocrit 31.3 % (39.0-53.0) 33.0 % (39.0-53.0) Mean Corpuscular Volume 94 fL (79-100) 94 fL (79-100) Mean Corpuscular Hemoglobin 32 pg (25-35) 32 pg (25-35) Mean Corpuscular Hemoglobin Concent 34 g/dL (31-37) 34 g/dL (31-37) Red Cell Distribution Width 14.2 % (11.5-14.5) 14.6 % (11.5-14.5) Platelet Count 325 x10^3/uL (140-400) 327 x10^3/uL (140-400) Neutrophils (%) (Auto) 80 % (31-73) 74 % (31-73) Lymphocytes (%) (Auto) 9 % (24-48) 12 % (24-48) Monocytes (%) (Auto) 11 % (0-9) 12 % (0-9) Eosinophils (%) (Auto) 1 % (0-3) 2 % (0-3) Basophils (%) (Auto) 0 % (0-3) 0 % (0-3) Neutrophils # (Auto) 6.5 x10^3uL (1.8-7.7) 5.6 x10^3uL (1.8-7.7) Lymphocytes # (Auto) 0.7 x10^3/uL (1.0-4.8) 0.9 x10^3/uL (1.0-4.8) Monocytes # (Auto) 0.9 x10^3/uL (0.0-1.1) 0.9 x10^3/uL (0.0-1.1) Eosinophils # (Auto) 0.0 x10^3/uL (0.0-0.7) 0.1 x10^3/uL (0.0-0.7) Basophils # (Auto) 0.0 x10^3/uL (0.0-0.2) 0.0 x10^3/uL (0.0-0.2) Prothrombin Time 25.2 SEC (11.7-14.0) 22.6 SEC (11.7-14.0) Prothromb Time International Ratio 2.3 (0.8-1.1) 2.0 (0.8-1.1) Sodium Level 128 mmol/L (136-145) 128 mmol/L (136-145) Potassium Level 3.7 mmol/L (3.5-5.1) 4.0 mmol/L (3.5-5.1) Chloride Level 88 mmol/L (98-107) 88 mmol/L (98-107) Carbon Dioxide Level 36 mmol/L (21-32) 37 mmol/L (21-32) Anion Gap 4 (6-14) 3 (6-14) Blood Urea Nitrogen 26 mg/dL (8-26) 22 mg/dL (8-26) Creatinine 1.2 mg/dL (0.7-1.3) 1.1 mg/dL (0.7-1.3) Estimated GFR (Cockcroft-Gault) 57.4 63.5 BUN/Creatinine Ratio 22 (6-20) 20 (6-20) Glucose Level 105 mg/dL (70-99) 101 mg/dL (70-99) Calcium Level 8.0 mg/dL (8.5-10.1) 8.3 mg/dL (8.5-10.1) Phosphorus Level 1.9 mg/dL (2.6-4.7) 2.4 mg/dL (2.6-4.7) Total Bilirubin 0.5 mg/dL (0.2-1.0) 0.5 mg/dL (0.2-1.0) Aspartate Amino Transf (AST/SGOT) 85 U/L (15-37) 84 U/L (15-37) Alanine Aminotransferase (ALT/SGPT) 96 U/L (16-63) 107 U/L (16-63) Alkaline Phosphatase 96 U/L (46-116) 97 U/L (46-116) Total Protein 5.6 g/dL (6.4-8.2) 6.0 g/dL (6.4-8.2) Albumin 1.9 g/dL (3.4-5.0) 2.1 g/dL (3.4-5.0) Albumin/Globulin Ratio 0.5 (1.0-1.7) 0.5 (1.0-1.7) Magnesium Level 1.6 mg/dL (1.8-2.4) Laboratory Tests Test 12/10/18 03:35 White Blood Count 7.6 x10^3/uL (4.0-11.0) Red Blood Count 3.51 x10^6/uL (4.30-5.70) Hemoglobin 11.1 g/dL (13.0-17.5) Hematocrit 33.0 % (39.0-53.0) Mean Corpuscular Volume 94 fL (79-100) Mean Corpuscular Hemoglobin 32 pg (25-35) Mean Corpuscular Hemoglobin Concent 34 g/dL (31-37) Red Cell Distribution Width 14.6 % (11.5-14.5) Platelet Count 327 x10^3/uL (140-400) Neutrophils (%) (Auto) 74 % (31-73) Lymphocytes (%) (Auto) 12 % (24-48) Monocytes (%) (Auto) 12 % (0-9) Eosinophils (%) (Auto) 2 % (0-3) Basophils (%) (Auto) 0 % (0-3) Neutrophils # (Auto) 5.6 x10^3uL (1.8-7.7) Lymphocytes # (Auto) 0.9 x10^3/uL (1.0-4.8) Monocytes # (Auto) 0.9 x10^3/uL (0.0-1.1) Eosinophils # (Auto) 0.1 x10^3/uL (0.0-0.7) Basophils # (Auto) 0.0 x10^3/uL (0.0-0.2) Prothrombin Time 22.6 SEC (11.7-14.0) Prothromb Time International Ratio 2.0 (0.8-1.1) Sodium Level 128 mmol/L (136-145) Potassium Level 4.0 mmol/L (3.5-5.1) Chloride Level 88 mmol/L (98-107) Carbon Dioxide Level 37 mmol/L (21-32) Anion Gap 3 (6-14) Blood Urea Nitrogen 22 mg/dL (8-26) Creatinine 1.1 mg/dL (0.7-1.3) Estimated GFR (Cockcroft-Gault) 63.5 BUN/Creatinine Ratio 20 (6-20) Glucose Level 101 mg/dL (70-99) Calcium Level 8.3 mg/dL (8.5-10.1) Phosphorus Level 2.4 mg/dL (2.6-4.7) Magnesium Level 1.6 mg/dL (1.8-2.4) Total Bilirubin 0.5 mg/dL (0.2-1.0) Aspartate Amino Transf (AST/SGOT) 84 U/L (15-37) Alanine Aminotransferase (ALT/SGPT) 107 U/L (16-63) Alkaline Phosphatase 97 U/L (46-116) Total Protein 6.0 g/dL (6.4-8.2) Albumin 2.1 g/dL (3.4-5.0) Albumin/Globulin Ratio 0.5 (1.0-1.7) Allergies Allergies Coded Allergies Type Severity Reaction Last Updated Verified I S O L A T I O N *CONTACT* Allergy Unknown 12/03/18 Yes No Known Medication Allergies Allergy Unknown 12/03/18 Yes Disposition/Orders: D/C to Home w/ HH Patient Instructions D/C PLANNING 34 MIN CLAU BUSCH MD Dec 10, 2018 10:26
[2018-12-10] MEDS ORDERED: MORP15TA PO (10:29)
[2018-12-10] MEDS ORDERED: NITR0.4T SL (10:29)
[2018-12-10] MEDS ORDERED: METO2.5T PO (10:29)
[2018-12-10] MEDS ORDERED: LACT1CAP19 PO (10:29)
--- NOTE | 2018-12-10 10:31 | SNU/HH DC ---
DISCHARGE WITH HOME HEALTH DISCHARGE INFORMATION: Final Diagnosis: Problems Medical Problems: (1) CHF (congestive heart failure) Status: Acute (2) Generalized weakness Status: Acute (3) Sepsis Status: Acute Condition on Discharge: Stable CODE STATUS: Code Status: Other (ON HOSPICE CARE) HOME HEALTH: Face to Face: I certify this patient is under my care and that I, or a nurse practitioner or physician's assistant portfolio manager working with me, had a face to face encounter that meets the physician face to face encounter requirements with this patient on []. Medical Complications: CHF POST DISCHARGE ORDERS: Activity Instructions for Disc: Activity as tolerated Bathing Instructions: Shower-keep dressing dry, No Tub Bath until see DIET AFTER DISCHARGE: Cardiac CHECKS AFTER DISCHARGE: Checks after discharge: Check blood press - daily, Check your Temp as needed, Weigh Yourself Daily CERTIFICATION STATEMENT: Certification Statement: Certification Statement: Based on the above finding, I certify that this patient is confined to the home and needs intermittent shelter care, physical therapy and/or speech therapy, or continues to need occupational therapy.~ This patient is under my care, and I have initiated the establishment of the plan of care.~ This patient will be followed by myself or a community physician who will periodically review the plan of care. Home Meds Active Scripts Morphine Sulfate (MORPHINE SULFATE) 15 Mg Tablet, 1 TAB PO QID for PAIN OR AIR HUNGER for 30 Days, #120 TAB Prov:CLAU BUSCH MD 12/10/18 Lactobacillus Rhamnosus Gg (CULTURELLE) 1 Each Cap.sprink, 1 CAP PO BID for GI SUPPLEMENT for 30 Days, #60 CAP Prov:CLAU BUSCH MD 12/10/18 Metolazone (METOLAZONE) 2.5 Mg Tablet, 5 MG PO DAILY for CHF for 30 Days, #60 TAB Prov:CLAU BUSCH MD 12/10/18 Nitroglycerin (NITROSTAT) 0.4 Mg Tab.subl, 0.4 MG SL PRN Q5MIN PRN for CHEST PAIN for 30 Days, #100 TAB Prov:CLAU BUSCH MD 12/10/18 Tamsulosin Hcl (FLOMAX) 0.4 Mg Cap.er.24h, 0.4 MG PO DAILY for urinary retention for 30 Days, #30 CAP.SR Prov:TAQUERIA SANTIZO MD 11/08/18 Reported Medications Amoxicillin/Potassium Clav (AMOX TR-K CLV 500-125 MG TAB) 1 Each Tablet, 1 TAB PO BID for UTI for 3 Days, #6 TAB /11/19 Warfarin Sodium (WARFARIN SODIUM) 2.5 Mg Tablet, 2.5 MG PO Sun,Sun,,Sat,Sun for blood thinner, TAB 11/05/18 Warfarin Sodium (WARFARIN SODIUM) 5 Mg Tablet, 5 MG PO sunday and sunday for blood thinner, #30 TAB 11/05/18 Simvastatin (SIMVASTATIN) 10 Mg Tablet, 1 TAB PO QHS for cholesterol, #30 TAB 5 Refills 11/05/18 Midodrine Hcl (MIDODRINE HCL) 5 Mg Tablet, 5 MG PO TID for blood pressure, TAB 11/05/18 Melatonin (MELATONIN) 3 Mg Tablet, 5 MG PO HS PRN for INSOMNIA, TAB 11/05/18 Sennosides (EX-LAX MAXIMUM RELIEF) 25 Mg Tablet, 50 MG PO DAILY for constipation , TAB 11/05/18 Docusate Sodium (DOCUSATE SODIUM) 100 Mg Capsule, 1 CAP PO BID PRN for CONSTIPATION, #30 CAP 11/05/18 Aspirin (ASPIRIN EC) 81 Mg Tablet.dr, 1 TAB PO DAILY for H, #30 TAB 3 Refills 11/05/18 Amiodarone Hcl (AMIODARONE HCL) 200 Mg Tablet, 1 TAB PO DAILY for arrhythmia, # 90 TAB 1 Refill 11/05/18 CLAU BUSCH MD Dec 10, 2018 10:31
--- NOTE | 2018-12-10 10:44 | PDOC ---
Renal-Progress Notes Subjective Notes Notes NONE History of Present Illness Hx of present illness NO CHANGE, FAMILY PLANS FOR COMFORT CARE Vitals Vitals Vital Signs Date Time Temp Pulse Resp B/P (MAP) Pulse Ox O2 Delivery O2 Flow Rate FiO2 12/10/18 10:17 97 Nasal Cannula 2.0 12/10/18 08:30 94 106/68 12/10/18 07:00 98.2 20 98.2 Weight Weight [ ] I.O. Intake and Output Intake and Output 12/10/18 07:00 Intake Total 550 ml Output Total 450 ml Balance 100 ml Intake Oral 500 ml IV Total 50 ml Output Urine Total 450 ml Labs Labs Laboratory Tests Test 12/10/18 03:35 White Blood Count 7.6 x10^3/uL (4.0-11.0) Red Blood Count 3.51 x10^6/uL (4.30-5.70) Hemoglobin 11.1 g/dL (13.0-17.5) Hematocrit 33.0 % (39.0-53.0) Mean Corpuscular Volume 94 fL (79-100) Mean Corpuscular Hemoglobin 32 pg (25-35) Mean Corpuscular Hemoglobin Concent 34 g/dL (31-37) Red Cell Distribution Width 14.6 % (11.5-14.5) Platelet Count 327 x10^3/uL (140-400) Neutrophils (%) (Auto) 74 % (31-73) Lymphocytes (%) (Auto) 12 % (24-48) Monocytes (%) (Auto) 12 % (0-9) Eosinophils (%) (Auto) 2 % (0-3) Basophils (%) (Auto) 0 % (0-3) Neutrophils # (Auto) 5.6 x10^3uL (1.8-7.7) Lymphocytes # (Auto) 0.9 x10^3/uL (1.0-4.8) Monocytes # (Auto) 0.9 x10^3/uL (0.0-1.1) Eosinophils # (Auto) 0.1 x10^3/uL (0.0-0.7) Basophils # (Auto) 0.0 x10^3/uL (0.0-0.2) Prothrombin Time 22.6 SEC (11.7-14.0) Prothromb Time International Ratio 2.0 (0.8-1.1) Sodium Level 128 mmol/L (136-145) Potassium Level 4.0 mmol/L (3.5-5.1) Chloride Level 88 mmol/L (98-107) Carbon Dioxide Level 37 mmol/L (21-32) Anion Gap 3 (6-14) Blood Urea Nitrogen 22 mg/dL (8-26) Creatinine 1.1 mg/dL (0.7-1.3) Estimated GFR (Cockcroft-Gault) 63.5 BUN/Creatinine Ratio 20 (6-20) Glucose Level 101 mg/dL (70-99) Calcium Level 8.3 mg/dL (8.5-10.1) Phosphorus Level 2.4 mg/dL (2.6-4.7) Magnesium Level 1.6 mg/dL (1.8-2.4) Total Bilirubin 0.5 mg/dL (0.2-1.0) Aspartate Amino Transf (AST/SGOT) 84 U/L (15-37) Alanine Aminotransferase (ALT/SGPT) 107 U/L (16-63) Alkaline Phosphatase 97 U/L (46-116) Total Protein 6.0 g/dL (6.4-8.2) Albumin 2.1 g/dL (3.4-5.0) Albumin/Globulin Ratio 0.5 (1.0-1.7) Micro Micro Microbiology 12/02/18 Blood Culture - Final, Complete NO GROWTH AFTER 5 DAYS 12/02/18 Urine Culture - Final, Complete 12/02/18 Urine Culture Result 1 (JULIETTE) - Final, Complete Review of Systems Psychiatric/Neurological: Yes: confusion Physical Exam General Appearance: no apparent distress Respiratory: decreased breath sounds Abdomen: soft, bowel sounds present Genitourinary: bladder flat Extremities: pulses present Neurology: alert, follow commands Assessment Assessment IMP ESTEFANI-BETTER WITH CR DOWN TO 1.2 HYPONATREMIA-LOW AT 128 BUT STABLE-MAY ALWAYS BE LOW END STAGE HF ACUTE ON CHRONIC SYSTOLIC CHF URINARY RETENTION PLAN COMFORT PLANS NOTED WILL SIGN OFF IRENE ALONZO MD Dec 10, 2018 10:44
--- NOTE | 2018-12-10 10:45 | SNU/HH DC ---
DISCHARGE ORDERS DISCHARGE INFORMATION: FINAL DIAGNOSIS Problems Medical Problems: (1) CHF (congestive heart failure) Status: Acute (2) Generalized weakness Status: Acute (3) Sepsis Status: Acute CONDITION ON DISCHARGE: Critical CODE STATUS: Code Status: DNR/DNI FPC: SNF STAY <30 DAYS: No HOSPICE: HOSPICE: Yes HOSPICE EVAL & TREAT: Yes LTAC: ADMIT TO LTAC: No POST DISCHARGE ORDERS: ACTIVITY ORDERS: Activity as tolerated BATHING ORDERS: Shower-keep dressing dry, No Tub Bath until see DIET AFTER DISCHARGE: Cardiac CHECKS AFTER DISCHARGE: CHECKS AFTER DISCHARGE: Check blood press - daily, Check your Temp as needed, Weigh Yourself Daily TREATMENT/EQUIPMENT ORDERS: Physical Therapy For: Evalulation/Treatment Occupational Therapy For: Evaluation/Treatment DISCHARGE MEDICATIONS: Home Meds Active Scripts Morphine Sulfate (MORPHINE SULFATE) 15 Mg Tablet, 1 TAB PO QID for PAIN OR AIR HUNGER for 30 Days, #120 TAB Prov:CLAU BUSCH MD 12/10/18 Lactobacillus Rhamnosus Gg (CULTURELLE) 1 Each Cap.sprink, 1 CAP PO BID for GI SUPPLEMENT for 30 Days, #60 CAP Prov:CLAU BUSCH MD 12/10/18 Metolazone (METOLAZONE) 2.5 Mg Tablet, 5 MG PO DAILY for CHF for 30 Days, #60 TAB Prov:CLAU BSUCH MD 12/10/18 Nitroglycerin (NITROSTAT) 0.4 Mg Tab.subl, 0.4 MG SL PRN Q5MIN PRN for CHEST PAIN for 30 Days, #100 TAB Prov:CLAU BUSCH MD 12/10/18 Tamsulosin Hcl (FLOMAX) 0.4 Mg Cap.er.24h, 0.4 MG PO DAILY for urinary retention for 30 Days, #30 CAP.SR Prov:TAQUERIA SANTIZO MD 11/08/18 Reported Medications Amoxicillin/Potassium Clav (AMOX TR-K CLV 500-125 MG TAB) 1 Each Tablet, 1 TAB PO BID for UTI for 3 Days, #6 TAB 11/30/18 Warfarin Sodium (WARFARIN SODIUM) 2.5 Mg Tablet, 2.5 MG PO Sun,Sun,Th,Sat,Sun for blood thinner, TAB 11/05/18 Warfarin Sodium (WARFARIN SODIUM) 5 Mg Tablet, 5 MG PO sunday and mandy for blood thinner, #30 TAB 11/05/18 Simvastatin (SIMVASTATIN) 10 Mg Tablet, 1 TAB PO QHS for cholesterol, #30 TAB 5 Refills 11/05/18 Midodrine Hcl (MIDODRINE HCL) 5 Mg Tablet, 5 MG PO TID for blood pressure, TAB 11/05/18 Melatonin (MELATONIN) 3 Mg Tablet, 5 MG PO HS PRN for INSOMNIA, TAB 11/05/18 Sennosides (EX-LAX MAXIMUM RELIEF) 25 Mg Tablet, 50 MG PO DAILY for constipation , TAB 11/05/18 Docusate Sodium (DOCUSATE SODIUM) 100 Mg Capsule, 1 CAP PO BID PRN for CONSTIPATION, #30 CAP 11/05/18 Aspirin (ASPIRIN EC) 81 Mg Tablet.dr, 1 TAB PO DAILY for H, #30 TAB 3 Refills 11/05/18 Amiodarone Hcl (AMIODARONE HCL) 200 Mg Tablet, 1 TAB PO DAILY for arrhythmia, # 90 TAB 1 Refill 11/05/18 CLAU BUSCH MD Dec 10, 2018 10:45
[2018-12-10 11:00] VITALS: BP 101/65
--- NOTE | 2018-12-10 11:26 | NUR ---
SS following up with discharge planning. SS phoned and faxed discharge orders to [facility], ; [phone]. Pt will discharge at 1300 to home with hospice via [facility]. Pt's RN notified
[2018-12-10 12:49] VITALS: BP 101/65
--- NOTE | 2018-12-10 13:29 | NUR ---
Discharge Note: KRISTIE CAMPUZANO Discharge instructions and discharge home medications reviewed with Family Member and a copy given. All questions have been answered and understanding verbalized. The following instructions and handouts were given: Fall prevention at home, Hospice, Heart failure Discontinued lines and drains: Peripheral IV intact. Patient discharged to Home w/services with Ambulance Personnel via Stretcher Discharge instructions given to Henry over the phone. Patient discharged with maloney catheter and will follow up with urology
== END 2018-12-10 13:29 | disposition hospice, home (50) | DRG 871 ==
LOC: ER 10:59 → 1 WEST ICU 12:46 → 5 NORTH 12-03 18:01 → 2 NORTH 12-04 15:11
PROVIDERS: ADMIT Internal Medicine; ATTEND Internal Medicine
PROC: B2111ZZ Fluoroscopy of Multiple Coronary Arteries using Low Osmolar Contrast (ICD-10-PCS; principal; 2018-12-04)
DX: A41.9 Sepsis, unspecified organism (principal); I50.43 Acute on chronic combined systolic (congestive) and diastolic (congestive) heart failure; G93.41 Metabolic encephalopathy; I13.0 Hypertensive heart and chronic kidney disease with heart failure and stage 1 through stage 4 chronic kidney disease, or unspecified chronic kidney disease; E87.1 Hypo-osmolality and hyponatremia; N13.6 Pyonephrosis; N17.9 Acute kidney failure, unspecified; R64 Cachexia; I42.9 Cardiomyopathy, unspecified; I48.2 Chronic atrial fibrillation; R79.1 Abnormal coagulation profile; I50.84 End stage heart failure; M19.90 Unspecified osteoarthritis, unspecified site; R09.02 Hypoxemia; D64.9 Anemia, unspecified; F41.9 Anxiety disorder, unspecified; I25.10 Atherosclerotic heart disease of native coronary artery without angina pectoris; E78.5 Hyperlipidemia, unspecified; N18.9 Chronic kidney disease, unspecified; Z95.0 Presence of cardiac pacemaker; Z51.5 Encounter for palliative care; Z83.3 Family history of diabetes mellitus; Z80.9 Family history of malignant neoplasm, unspecified; Z82.49 Family history of ischemic heart disease and other diseases of the circulatory system
CPT/HCPCS: 36415; 71045; 80048; 80053; 80069; 81001; 82436; 82553; 83605; 83735; 83880; 83930; 83935; 84100; 84133; 84300; 84443; 84484; 85007; 85025; 85379; 85610; 87040; 87086; 87641; 87804; 93005; 93454; 93571; 94640; 96361; 96374; 96375; 99152; 99153; C1769; C1887; C1892; J0696; J1644; J1940; J2250; J2260; J2543; J2930; J3010; J3490; J7030; J7613; J7620; Q9967; 99285-25